=== PATIENT | male | born 1940 | race Caucasian/White ===

== ENCOUNTER 2016-11-30 02:42 | Inpatient (IN) | payer MEDICARE ==
[~2016-11-30] VITALS: Ht 180.3 cm; Wt 80.0 kg
[2016-11-30] VITALS (21 sets, daily range): BP systolic 122–190; BP diastolic 60–88; PULSE 67–102; RESP 16–20; TEMP 97.3–99.3; O2SAT 94–99
[~2016-11-30 02:42] MED LIST: AMLO5TAB22 PO; ASPI81TA82 PO; CRAN500C2; GLUC10TA3 PO; JANU50TA PO; LEVO137T2 PO; LISI-366 PO; NEUR600T PO; OMEG100010; PRAV40TA2 PO; PROSCAP7; PROT40TA PO
[2016-11-30] MEDS ORDERED: SODIUM CHLORIDE 0.9% FLUSH 10 ML FLUSH IVF PRN (03:00)
[2016-11-30] MEDS ORDERED: SITA50 PO (03:10)
[2016-11-30] MEDS ORDERED: ASPI81TA81 (03:10)
[2016-11-30] MEDS ORDERED: CRAN1TAB3 (03:10)
[2016-11-30] MEDS ORDERED: LEVO137T2 PO (03:10)
[2016-11-30] MEDS ORDERED: AMLO5TAB2 PO (03:10)
[2016-11-30] MEDS ORDERED: LISI40TA PO (03:10)
[2016-11-30] MEDS ORDERED: GLIP10TA6 PO (03:10)
[2016-11-30] MEDS ORDERED: GABA600T PO (03:10)
[2016-11-30] MEDS ORDERED: PRAV40TA2 PO (03:10)
[2016-11-30 03:22] LABS: AUTOMATED NEUTROPHIL # 4.3 TH/MM3 (1.8-7.7); BASOPHIL # 0.1 TH/MM3 (0-0.2); EOSINOPHIL # 0.1 TH/MM3 (0-0.4); EOSINOPHIL % 1.9 % (0.0-4.0); HEMATOCRIT 21.3 % (39.0-51.0); LYMPHOCYTE # 1.2 TH/MM3 (1.0-4.8); MEAN CELL VOLUME 77.8 FL (80.0-100.0); MEAN CORPUSCULAR HEMOGLOBIN 25.3 PG (27.0-34.0); MEAN CORPUSCULAR HGB CONC 32.5 % (32.0-36.0); MONO % 11.6 % (0.0-8.0); NEUT % 66.5 % (16.0-70.0); PLATELET COUNT 226 TH/MM3 (150-450); RED BLOOD COUNT 2.73 MIL/MM3 (4.50-5.90); RED CELL DISTRIBUTION WIDTH 16.9 % (11.6-17.2); WHITE BLOOD COUNT 6.5 TH/MM3 (4.0-11.0)
[2016-11-30 03:23] LABS: HEMO FLAGS DIFF FINAL
[2016-11-30 03:36] LABS: APTT (PATIENT) 25.3 SEC (24.3-30.1); PROTHROMBIN TIME - PATIENT 10.8 SEC (9.8-11.6)
[2016-11-30] MEDS ORDERED: SODIUM CHLOR 0.9% 250 ML INJ 250 ML IV ONE (03:45)
[2016-11-30 03:49] LABS: ALT (GPT) 20 U/L (12-78); ANION GAP 9 MEQ/L (5-15); AST (GOT) 15 U/L (15-37); BICARBONATE 22.4 MEQ/L (21.0-32.0); BLOOD UREA NITROGEN 32 MG/DL (7-18); CHLORIDE 108 MEQ/L (98-107); GLOMERULAR FILTRATION RATE 27 ML/MIN (>89); POTASSIUM 4.7 MEQ/L (3.5-5.1); SODIUM (NA) 139 MEQ/L (136-145)
[2016-11-30 03:51] LABS: ALKALINE PHOSPHATASE 68 U/L (45-117); TOTAL BILIRUBIN ADULT 0.3 MG/DL (0.2-1.0)
--- NOTE | 2016-11-30 04:44 | PD ---
HPI Chief Complaint: GI Complaint Time Seen by Provider: 02:52 Travel History International Travel<30 days: No Contact w/Intl Traveler<30days: No Traveled to known affect area: No History of Present Illness HPI Patient is a 75-year-old male presents emergency department for evaluation of rectal bleeding. Patient states late last night approximately 12 hours ago the patient had a large bowel movement followed nothing but blood. He states that one time in the past he had something similar and was admitted to the hospital for but does not know what his ultimate diagnosis was. Review the records shows that he was admitted in 2016 for GI bleeding did need multiple transfusions and ultimately had an endoscopy yielding advanced gastritis. Patient does state he has a drinking history but no longer drinks heavily. Denies any history of varices. He has not had a colonoscopy in some time. He also endorses some mild shortness of breath particularly on exertion. He had his labs drawn days ago at the [place] and has the labs with him and his hemoglobin was 8.4 at that time. He denies any abdominal pain nausea or vomiting. Denies any blood in the emesis. PFSH Past Medical History Asthma: No Blood Disorders: No Heart Rhythm Problems: No Cancer: No Cardiovascular Problems: Yes High Cholesterol: Yes Chest Pain: No Congestive Heart Failure: No COPD: Yes Diabetes: Yes Patient Takes Glucophage: Yes Diminished Hearing: No Endocrine: Yes Gastrointestinal Disorders: Yes (GI BLEED) Genitourinary: No Hypertension: Yes Immune Disorder: No Implanted Vascular Access Dvce: Yes Musculoskeletal: No Neurologic: Yes (NEUROPATHY) Psychiatric: No Reproductive: No Respiratory: Yes Immunizations Current: Yes Sleep Apnea: No Thyroid Disease: No Tetanus Vaccination: Unknown Influenza Vaccination: Yes Past Surgical History Appendectomy: Yes Body Medical Devices: PINS IN RIGHT ARM Tonsillectomy: Yes Other Surgery: Yes (RT ARM FX REPAIR, SINUS SX) Social History Alcohol Use: No (quit x3 years) Tobacco Use: No Substance Use: No Allergies-Medications (Allergen,Severity, Reaction): Coded Allergies: Sulfa (Verified Allergy, Intermediate, Edema, 11/30/16) Reported Meds & Prescriptions Reported Meds & Active Scripts Active Reported Januvia (Sitagliptin Phosphate) 50 Mg Tab 50 Mg PO DAILY Pravastatin 40 Mg Tab 40 Mg PO DAILY Lisinopril 40 Mg Tab 40 Mg PO DAILY Levothyroxine (Levothyroxine Sodium) 137 Mcg Tab 137 Mcg PO DAILY Glipizide 10 Mg Tab 10 Mg PO BIDAC Take 30 minutes before a meal Gabapentin 600 Mg Tab 600 Mg PO BID Sm Cranberry (Cranberry (Vaccinium Macrocarp) 500 Mg Tab Aspir-81 (Aspirin) 81 Mg Tabdr Amlodipine (Amlodipine Besylate) 5 Mg Tab 5 Mg PO DAILY Review of Systems Except as stated in HPI: all other systems reviewed are Neg Physical Exam Narrative GENERAL: Well-developed well-nourished, quite pleasant in no distress. SKIN: Focused skin assessment warm/dry. HEAD: Atraumatic. Normocephalic. EYES: Pupils equal and round. No scleral icterus. No injection or drainage. ENT: No nasal bleeding or discharge. Mucous membranes pink and moist. NECK: Trachea midline. No JVD. CARDIOVASCULAR: Regular rate and rhythm. No murmur appreciated. RESPIRATORY: No accessory muscle use. Clear to auscultation. Breath sounds equal bilaterally. GASTROINTESTINAL: Abdomen soft, non-tender, nondistended. Hepatic and splenic margins not palpable. rectal: Rectal exam shows gross blood mixed with stool Hemoccult positive. No hemorrhoids no rectal mass and no anal fissure. Prostate smooth.. MUSCULOSKELETAL: No obvious deformities. No clubbing. No cyanosis. No edema. NEUROLOGICAL: Awake and alert. No obvious cranial nerve deficits. Motor grossly within normal limits. Normal speech. PSYCHIATRIC: Appropriate mood and affect; insight and judgment normal. Data Data Last Documented VS Vital Signs Date Time Temp Pulse Resp B/P Pulse Ox O2 Delivery O2 Flow Rate FiO2 11/30/16 03:20 91 18 162/65 98 Nasal Cannula 2 11/30/16 02:46 97.8 Orders Complete Blood Count With Diff (11/30/16 02:52) Comprehensive Metabolic Panel (11/30/16 02:52) Prothrombin Time / Inr (Pt) (11/30/16 02:52) Act Partial Throm Time (Ptt) (11/30/16 02:52) Urinalysis - C+S If Indicated (11/30/16 02:52) Type And Screen (11/30/16 02:52) Ecg Monitoring (11/30/16 02:52) Iv Access Insert/Monitor (11/30/16 02:52) Oximetry (11/30/16 02:52) Sodium Chloride 0.9% Flush (Ns Flush) (11/30/16 03:00) Red Blood Cells (Rbc) (11/30/16 03:42) Blood Product Administration .UPON TRANSFUSION (11/30/16 03:42) Sodium Chlor 0.9% 250 Ml Inj (Ns 250 Ml (11/30/16 03:45) Pantoprazole Inj (Protonix Inj) (11/30/16 04:45) Admit Order (Ed Use Only) (11/30/16 ) Labs Laboratory Tests Test 11/30/16 11/30/16 03:05 03:42 White Blood Count 6.5 TH/MM3 Red Blood Count 2.73 MIL/MM3 Hemoglobin 6.9 GM/DL Hematocrit 21.3 % Mean Corpuscular Volume 77.8 FL Mean Corpuscular Hemoglobin 25.3 PG Mean Corpuscular Hemoglobin 32.5 % Concent Red Cell Distribution Width 16.9 % Platelet Count 226 TH/MM3 Mean Platelet Volume 9.6 FL Neutrophils (%) (Auto) 66.5 % Lymphocytes (%) (Auto) 19.0 % Monocytes (%) (Auto) 11.6 % Eosinophils (%) (Auto) 1.9 % Basophils (%) (Auto) 1.0 % Neutrophils # (Auto) 4.3 TH/MM3 Lymphocytes # (Auto) 1.2 TH/MM3 Monocytes # (Auto) 0.8 TH/MM3 Eosinophils # (Auto) 0.1 TH/MM3 Basophils # (Auto) 0.1 TH/MM3 CBC Comment DIFF FINAL Differential Comment Prothrombin Time 10.8 SEC Prothromb Time International 1.0 RATIO Ratio Activated Partial 25.3 SEC Thromboplast Time Sodium Level 139 MEQ/L Potassium Level 4.7 MEQ/L Chloride Level 108 MEQ/L Carbon Dioxide Level 22.4 MEQ/L Anion Gap 9 MEQ/L Blood Urea Nitrogen 32 MG/DL Creatinine 2.36 MG/DL Estimat Glomerular Filtration 27 ML/MIN Rate Random Glucose 317 MG/DL Calcium Level 8.6 MG/DL Total Bilirubin 0.3 MG/DL Aspartate Amino Transf 15 U/L (AST/SGOT) Alanine Aminotransferase 20 U/L (ALT/SGPT) Alkaline Phosphatase 68 U/L Total Protein 6.8 GM/DL Albumin 3.4 GM/DL Blood Type AB POSITIVE Antibody Screen NEGATIVE Crossmatch Leukocyte-Reduced Red Blood Cells Blood Bank Comment MDM Medical Decision Making Medical Screen Exam Complete: Yes Emergency Medical Condition: Yes Differential Diagnosis GI bleeding, anemia, diverticulosis, there seems less likely, upper GI bleed seems less likely. Narrative Course Patient was roomed in emergency department, hemoglobin on 23 November was 8.4 today 6.9. He also does have an acute kidney injury with a creatinine 2.4. Patient has indications for transfusion. After risks benefits competitions and alternatives of blood transfusion were discussed the patient he verbalized understanding the risks and agreed to proceed. 2 units PRBCs transfused. Patient does have gross blood on rectal exam. He is hemodynamically stable. Quite pleasant. I discussed his previous admission as well as his admission now with him and he is agreeable. Patient was discussed with Jasen Vasquez will be admitted to Dr. Brewster service. Diagnosis Primary Impression: GI bleed Qualified Code: K92.2 - Gastrointestinal hemorrhage, unspecified gastrointestinal hemorrhage type Additional Impression: Blood loss anemia Admitting Information Admitting Physician Requests: Admit Condition: Devon Gallegos MD November 30, 2016 04:44
[2016-11-30] MEDS ORDERED: PANTOPRAZOLE SODIUM 40 MG VIAL IV PUSH ONE (04:45)
[2016-11-30] MEDS: SODIUM CHLOR 0.9% 1000 ML INJ 1,000 ML IV SCH ×2 (05:43→17:39)
[2016-11-30] MEDS ORDERED: ACETAMINOPHEN 325 MG TAB PO PRN (05:45)
[2016-11-30] MEDS ORDERED: SENNOSIDES 8.6 MG TAB PO PRN (05:45)
[2016-11-30] MEDS ORDERED: ONDANSETRON HCL 4 MG/2 ML VIAL IVP PRN (05:45)
[2016-11-30] MEDS ORDERED: SODIUM CHLORIDE 0.9% FLUSH 10 ML FLUSH IV FLUSH PRN (05:45)
[2016-11-30] MEDS ORDERED: NALOXONE HCL 0.4 MG/ML AMP IV PRN (05:45)
--- NOTE | 2016-11-30 08:53 | MH ---
cc: DASHAWN ORTEZ DATE OF ADMISSION 11/30/2016 DATE OF 1940 CHIEF COMPLAINT Rectal bleeding TRAVEL IN THE LAST 30 DAYS None HISTORY OF PRESENT ILLNESS This is a pleasant 75 year-old male who has noted some tired sensation over the past couple of weeks. The patient states that if he tries to do anything as far as ambulation, mobility or exercise, he has to sit down and rest. He does note some shortness of breath and he describes his lungs as burning. The patient yesterday evening was walking around in his home and initially had a cramping sensation and felt like he had to have a bowel movement. When he went to the bathroom, he had what he described as bright red bleeding which squirted out. The patient notes that he did that twice last night in a very short period of time and came to the emergency room for further evaluation. The patient has been on aspirin at home for cardiac reasons and states that he did have some rectal bleeding approximately a year ago. He had a full work up at that time, but states they never found any cause for the bleeding. The patient is currently alert, oriented times three. He is a good historian. He is a diabetic type 2, but takes no insulin at home. The patient [facility] and explained his symptoms of tiredness and shortness of breath to his doctor. A hemoglobin was checked in the office which was 8.6. MEDICAL HISTORY According to patient and the record: 1. Cardiovascular disease 2. Hyperlipidemia 3. COPD 4. Diabetes type 2. He takes Glucophage for that. 5. He has had a history approximately a year ago of a GI bleed. 6. Hypertension 7. Diabetic neuropathy 8. Thyroid disease SURGICAL HISTORY 1. Tonsillectomy 2. Appendectomy 3. Right arm fracture and repair 4. Sinus surgery 5. He also has pins in his right arm. ALLERGIES SULFA MEDICATIONS REPORTED 1. Januvia 2. Pravastatin 3. Lisinopril 4. Levothyroxine 5. Glipizide 6. Gabapentin 7. Cranberry tablets 8. Aspirin 9. Amlodipine SOCIAL HISTORY The patient is not a tobacco user. No illicit drugs. He used to drink alcohol, but quit approximately three years ago. He is and lives alone. REVIEW OF SYSTEMS A 12-point review was obtained with the positives noted in the HPI which include his tired sensation with some shortness of breath and his lungs burning, acute onset of rectal bleeding last night times two, obesity, loose bowel movements times two last night. Other systems negative or unremarkable. PHYSICAL EXAM VITAL SIGNS: Temperature is 97.8, pulse 80, respirations 19, blood pressure now 122/69. Initially on admission, blood pressure was 136/63, temp was 98.8. O2 sat is 98 nasal cannula at two liters. GENERAL: This is an obese white male who looks to be his stated age. He is alert and conversational resting in the bed. SKIN: Pales with pale mucous membranes, but warm and dry. Turgor is adequate for his age. HEAD, EYES, EARS, NOSE, AND THROAT: Atraumatic, normocephalic. PERRLA at 2 mm. Mucous membranes are slightly pale. No scleral icterus. NECK: Thick, supple. HEART: Regular rate and rhythm. S1 and S2, systolic murmur noted grade 4/6 at the left sternal border. The patient has no edema in his lower extremities and his pulses are palpable. PULMONARY: Essentially clear anteriorly and posteriorly with no wheezes, rales or rhonchi. ABDOMEN: Obese, round, soft, nontender with active bowel sounds, nondistended. MUSCULOSKELETAL: He moves all extremities with purpose. He has equal hand disintegrator feeder. He has no obvious deformities. NEUROLOGIC: Alert and oriented times three to four, a fairly good historian. No obvious neurological deficits. Left and right strength check 4/5, overcomes resistance. PSYCHIATRIC: Appropriate mood and affect. Insight and judgment is normal. DIAGNOSTIC DATA WBC count 6.5, RBC 2.73, hemoglobin 6.9, hematocrit 21.3. MCV 77.8, MCH 25.3, platelet count 226, diff elevation is monocyte percentage at 11.6, PT-INR is 1. Chemistry, sodium 139, potassium 4.7, chloride 108, carbon dioxide 22.4, amnion gap 9, BUN 32, creatinine 2.26, GFR 27, random glucose 317, calcium, bilirubin and liver enzymes are normal, albumin is 3.4. ASSESSMENT AND PLAN 1. Acute blood loss with GI bleed. 2. Diabetes mellitus type 2 uncontrolled. 3. History of COPD. 4. Cardiac murmur with history of cardiovascular disease. 5. History of hyperlipidemia. 6. Acute kidney injury. Our plan is to admit initially for observation. The patient receives gentle hydration with IV fluids, IV Protonix was given times one. O2 will be managed at two liters as needed. DVT prophylaxis with SCD's. Activity can be out of bed as tolerated, but only with assistance. Vital signs will be every four hours or less as warranted. The patient has two units of packed RBC's ordered. He is almost completed with his first unit. After the two units are given, we will recheck his hemoglobin and evaluate treatment regimen based on lab results. The patient did receive the influenza vaccine and the pneumococcal vaccine while in the hospital. GI consult has been ordered for their expert opinion. The patient is being maintained NPO for now pending the GI consult for any further testing needed today. The patient is full code, full aggressive care. We will also put him on Accu-Chek's and a moderate level sliding scale to control blood sugars. After hydration and blood products, we will re-evaluate his labs in the morning for any further needs and monitor his kidney function. Dictated by RALPH Sanchez Dashawn Ortez MD JP/KAYLIE /8:13 AM /8:30 AM Patient seen and examined as above Chart reviewed including meds labs and radiological data Previous notes reviewed Discussed with patient On of care discussed with CANCELING MACHINE OPERATOR as above Discussed with RN Condition guarded MTDD
[2016-11-30] MEDS: SODIUM CHLORIDE 0.9% FLUSH 10 ML FLUSH IV FLUSH SCH ×2 (10:15→20:27)
--- NOTE | 2016-11-30 13:18 | PD.CONS ---
HPI History of Present Illness This is a 75 year old [gentleman] [facility] having a BM with alot of blood in it. The blood was bright red, in the toilet bowl. He has never had this before. he admits to dark tarry stools periodically in the last "months", cannot further qualify timing on this. [facility] told him yesterday that his Hgb was 8.6. He has been feeling tired in the last few weeks and had some decreased activity intolerance. He admits acid reflux, he takes omeprazole and it controls his sx. Denies abdominal pain, n/v, weight loss, diarrhea, constipation. His last colonoscopy was with Dr Coyne, he thinks 1-2 y ago, he says he was told to repeat in 5 y. He had EGD last time he was in the hospital but cant remember which hospital, 2y ago, he had gone to ER for "stomach problems." Cannot recall findings. PFSH Past Medical History DM he says he's been told he has heart issues but he doesn't take anything per his medical records: HTN hyperlipidemia hypothyroid Past Surgical History repair right broken arm appendectomy cataracts Coded Allergies: Sulfa (Verified Allergy, Intermediate, Edema, 11/30/16) Medications Current Medications Medications (Trade) Dose Ordered Sig/Roxanne Route PRN Reason Start Time Stop Time Status Last Admin Dose Admin Sodium Chloride 250 ml @ 15 mls/hr ONCE ONCE IV 11/30/16 03:45 11/30/16 20:24 11/30/16 04:49 Sodium Chloride (NS 1000 ml Inj) 1,000 ml @ 100 mls/hr Q10H IV 11/30/16 05:43 Sodium Chloride (NS Flush) 2 ml UNSCH PRN IV FLUSH FLUSH AFTER USING IV ACCESS 11/30/16 05:45 Sodium Chloride (NS Flush) 2 ml BID IV FLUSH 11/30/16 09:00 11/30/16 10:15 Acetaminophen (Tylenol) 650 mg Q4H PRN PO TEMP > 100.4 11/30/16 05:45 Ondansetron HCl (Zofran Inj) 4 mg Q6H PRN IVP NAUSEA OR VOMITING 11/30/16 05:45 Sennosides (Senokot) 17.2 mg Q12H PRN PO CONSTIPATION 5/17/17 05:45 Naloxone HCl (Narcan Inj) 0.4 mg UNSCH PRN IV SEE LABEL COMMENTS 11/30/16 05:45 Influenza Virus Vaccine (Flu (Quadrivalent) Vaccine Inj) 0.5 ml ONCE ONCE IM 12/01/16 09:00 12/01/16 09:01 Pneumococcal Polyvalent Vaccine (Pneumovax-23 Inj) 25 mcg ONCE ONCE IM 12/01/16 09:00 12/01/16 09:01 Pantoprazole Sodium (Protonix Inj) 40 mg Q24H IV PUSH 12/01/16 05:00 Family History father - colon ca mother - emphysema brother - agent orange Social History former drinker - "alot", none in 3y quit smoking 1987 no drugs Review of Systems Constitutional: DENIES: Fever Eyes: DENIES: Blurred vision Ears, nose, mouth, throat: DENIES: Hearing loss Respiratory: COMPLAINS OF: Sputum production, DENIES: Hemoptysis Cardiovascular: DENIES: Chest pain Gastrointestinal: COMPLAINS OF: Black stools, Bloody stools, Heartburn, DENIES : Abdominal pain, Constipation, Diarrhea, Nausea, Vomiting, Anorexia, Hematemesis Genitourinary: COMPLAINS OF: Hematuria Musculoskeletal: DENIES: Muscle aches Integumentary: DENIES: Abnormal pigmentation Hematologic/lymphatic: DENIES: Bruising Neurologic: DENIES: Abnormal gait Psychiatric: DENIES: Confusion GI Exam Vitals I&O Vital Signs Date Time Temp Pulse Resp B/P Pulse Ox O2 Delivery O2 Flow Rate FiO2 11/30/16 12:32 98.4 77 19 144/73 95 11/30/16 11:26 67 133/65 94 11/30/16 11:16 71 137/66 96 11/30/16 10:56 98.4 81 138/66 95 11/30/16 10:54 78 138/66 95 11/30/16 07:52 98 Nasal Cannula 2.00 11/30/16 07:45 97.8 80 19 122/69 95 11/30/16 07:30 97.8 80 19 122/69 95 11/30/16 06:16 75 18 145/63 98 Nasal Cannula 2 11/30/16 05:38 79 18 132/62 98 Nasal Cannula 2 11/30/16 05:23 80 18 129/60 98 Nasal Cannula 2 11/30/16 05:12 98.8 82 18 136/63 98 Nasal Cannula 2 11/30/16 05:07 80 18 136/63 98 Nasal Cannula 2 11/30/16 05:02 99.3 81 18 153/64 98 Nasal Cannula 2 11/30/16 03:20 91 18 162/65 98 Nasal Cannula 2 11/30/16 03:15 16 11/30/16 03:15 16 11/30/16 02:46 97.8 102 18 187/80 98 Laboratory Test 11/30/16 11/30/16 03:05 03:42 White Blood Count 6.5 TH/MM3 Red Blood Count 2.73 MIL/MM3 Hemoglobin 6.9 GM/DL Hematocrit 21.3 % Mean Corpuscular Volume 77.8 FL Mean Corpuscular Hemoglobin 25.3 PG Mean Corpuscular Hemoglobin 32.5 % Concent Red Cell Distribution Width 16.9 % Platelet Count 226 TH/MM3 Mean Platelet Volume 9.6 FL Neutrophils (%) (Auto) 66.5 % Lymphocytes (%) (Auto) 19.0 % Monocytes (%) (Auto) 11.6 % Eosinophils (%) (Auto) 1.9 % Basophils (%) (Auto) 1.0 % Neutrophils # (Auto) 4.3 TH/MM3 Lymphocytes # (Auto) 1.2 TH/MM3 Monocytes # (Auto) 0.8 TH/MM3 Eosinophils # (Auto) 0.1 TH/MM3 Basophils # (Auto) 0.1 TH/MM3 CBC Comment DIFF FINAL Differential Comment Prothrombin Time 10.8 SEC Prothromb Time International 1.0 RATIO Ratio Activated Partial 25.3 SEC Thromboplast Time Sodium Level 139 MEQ/L Potassium Level 4.7 MEQ/L Chloride Level 108 MEQ/L Carbon Dioxide Level 22.4 MEQ/L Anion Gap 9 MEQ/L Blood Urea Nitrogen 32 MG/DL Creatinine 2.36 MG/DL Estimat Glomerular Filtration 27 ML/MIN Rate Random Glucose 317 MG/DL Calcium Level 8.6 MG/DL Total Bilirubin 0.3 MG/DL Aspartate Amino Transf 15 U/L (AST/SGOT) Alanine Aminotransferase 20 U/L (ALT/SGPT) Alkaline Phosphatase 68 U/L Total Protein 6.8 GM/DL Albumin 3.4 GM/DL Blood Type AB POSITIVE Antibody Screen NEGATIVE Crossmatch Leukocyte-Reduced Red Blood Cells Blood Bank Comment Physical Examination HEENT: EOMI; normocephalic; atraumatic; no jaundice. CHEST: wheezes CARDIAC: Regular rate and rhythm with + murmur ABDOMEN: Soft, obese, nontender; no hepatosplenomegaly; bowel sounds are present in all four quadrants. EXTREMITIES: No clubbing, cyanosis, or edema. SKIN: Normal; no rash; no jaundice. DIRECTOR OF MANUFACTURING: No focal deficits; alert and oriented times three. Assessment and Plan Plan ASSESSMENT - Anemia, tarry stool, hematochezia - 6.9, 21.3 on admission. s/p 2 x PRBC. Had 1 x BM with copious bright red bloodin bowl, hx tarry stools in past "months ". Fatigue and activity intolerance for last few weeks. PLAN - colonoscopy and EGD in am - obtain consents - clears now - NPO after midnight - monitor HH - transfuse as needed - Further recommendations to follow after results of above This pt seen by myself and DR Pacheco and this note is written on his behalf Vonnie Salazar November 30, 2016 13:18
[2016-11-30] MEDS ORDERED: PEG (High)/E-LYTE SOLN 4000 ML BTL PO ONE (16:00)
[2016-12-01] MEDS ORDERED: cloNIDine HCL 0.1 MG TAB PO PRN (00:30)
[2016-12-01] MEDS: SODIUM CHLOR 0.9% 1000 ML INJ 1,000 ML IV SCH ×3 (01:37→21:10)
[2016-12-01 01:42] LABS: HEMATOCRIT 23.8 % (39.0-51.0); REVIEW FLAG FINAL
[2016-12-01 05:05] LABS: HEMATOCRIT 24.4 % (39.0-51.0); MEAN CELL VOLUME 80.1 FL (80.0-100.0); MEAN CORPUSCULAR HEMOGLOBIN 25.1 PG (27.0-34.0); MEAN CORPUSCULAR HGB CONC 31.3 % (32.0-36.0); PLATELET COUNT 179 TH/MM3 (150-450); RED BLOOD COUNT 3.04 MIL/MM3 (4.50-5.90); RED CELL DISTRIBUTION WIDTH 17.3 % (11.6-17.2); REVIEW FLAG FINAL; WHITE BLOOD COUNT 6.3 TH/MM3 (4.0-11.0)
[2016-12-01 05:36] LABS: BICARBONATE 25.6 MEQ/L (21.0-32.0); POTASSIUM 4.7 MEQ/L (3.5-5.1)
[2016-12-01] MEDS: PANTOPRAZOLE SODIUM 40 MG VIAL IV PUSH SCH (05:38)
--- NOTE | 2016-12-01 07:59 | HHI.PR ---
Subjective Subjective Remarks bowel prep in progress still with blood in stool HH 7.6/23.8 some abd. discomfort no cp no sob voiding okay going to GI lab at this time Review of Systems Constitutional Constitutional Remarks 12 point ROS completed, negative except as noted above Vitals/Results Vital Signs Vital Signs Date Time Temp Pulse Resp B/P Pulse Ox O2 Delivery O2 Flow Rate FiO2 11/30/16 23:24 97.8 67 18 190/88 97 11/30/16 20:31 99 Nasal Cannula 2.00 11/30/16 17:43 122/66 11/30/16 15:48 97.3 75 20 126/66 97 11/30/16 12:32 98.4 77 19 144/73 95 11/30/16 11:26 67 133/65 94 11/30/16 11:16 71 137/66 96 11/30/16 10:56 98.4 81 138/66 95 11/30/16 10:54 78 138/66 95 CBC/BMP: 12/01/16 0131 12/01/16 0339 Lab Results Laboratory Tests Test 12/01/16 12/01/16 12/01/16 00:39 01:31 03:39 White Blood Count 6.3 TH/MM3 Red Blood Count 3.04 MIL/MM3 Hemoglobin 7.6 GM/DL 7.6 GM/DL Hematocrit 24.4 % 23.8 % Mean Corpuscular Volume 80.1 FL Mean Corpuscular Hemoglobin 25.1 PG Mean Corpuscular Hemoglobin 31.3 % Concent Red Cell Distribution Width 17.3 % Platelet Count 179 TH/MM3 Mean Platelet Volume 9.4 FL Sodium Level 142 MEQ/L Potassium Level 4.7 MEQ/L Chloride Level 111 MEQ/L Carbon Dioxide Level 25.6 MEQ/L Anion Gap 5 MEQ/L Blood Urea Nitrogen 19 MG/DL Creatinine 1.64 MG/DL Estimat Glomerular Filtration 41 ML/MIN Rate Random Glucose 149 MG/DL Calcium Level 8.4 MG/DL Physical Exam General General Appearance: Well Developed, Well Nourished, Comfortable, Pale Eyes Eye Exam: Pupils Equal, Pupils Reactive Ears & Nose Ears & Nose Exam: Nasal Mucosa [place] Throat Throat Exam: Oral Mucosa [place] & Moist Neck Neck Exam: Neck Supple, Trachea Midline Pulmonary Resp Exam: Breath Sounds Equal Cardiology CV Exam: Regular, Murmur Gastrointestinal/Abdomen GI Exam: Soft, Non-Tender, Non-Distended Musculoskeletal MS Exam: Joints Intact Integumentary Skin Exam: Warm, Dry Extremeties Extremities Exam: No Edema Neurologic Neuro Exam: Alert, Awake, Oriented, Speech Clear, Moving All Extremities, No Focal Deficits Psychiatric Psych Exam: Appropriate Responses VTE Prophylaxis VTE Prophylaxis Device: SCDs PUD Prophylasis PUD Prophylaxis: Protonix Assessment/Plan Problem List: (1) GI bleed (2) Blood loss anemia (3) Acute on chronic kidney failure (4) HTN (hypertension) (5) 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 Clayton, stable no cp, no sob monitor closely HTN, elevated resume home meds Continue with Clonidine PRN Add Vasotec PRN, Pt NPO acute on CKD continue IVF creat better hold ADONIS at this time order accuchecks with ISS monitor BGM continue home meds SCDs for DVT prophylaxis PPI for GI prophylaxis f/u GI work up results Labs in am D/W RN D/W Dr. Ortez D/W pt. This pt. was seen by myself and Dr. Ortez, this note is written on his behalf Problem Qualifiers (1) GI bleed: Qualified Code: K92.2 - Gastrointestinal hemorrhage, unspecified gastrointestinal hemorrhage type (2) Acute on chronic kidney failure: (3) HTN (hypertension): Qualified Code: I10 - Essential hypertension (4) Hyperlipidemia: Qualified Code: E78.5 - Hyperlipidemia, unspecified hyperlipidemia type Shilpa Aburto December 01, 2016 07:59
[2016-12-01] MEDS ORDERED: FUROSEMIDE 20 MG/2 ML VIAL IV ONE (08:00)
[2016-12-01] MEDS ORDERED: SODIUM CHLOR 0.9% 250 ML INJ 250 ML IV ONE (08:00)
[2016-12-01] MEDS ORDERED: ENALAPRILAT 1.25 MG/ML VIAL IV PUSH PRN (08:15)
[2016-12-01 08:16] VITALS: BP 173/82; PULSE 82; RESP 23; TEMP 97.5; O2SAT 93
[2016-12-01 08:54] VITALS: BP 173/82; PULSE 82; RESP 23; TEMP 97.5; O2SAT 93
[2016-12-01] MEDS ORDERED: PNEUMOCOCCAL POLYVALENT INJ 25 MCG/0.5 ML SYR IM ONE (09:00)
[2016-12-01] MEDS ORDERED: INFLUENZA VIRUS VACCINE (QUADRIVALENT) 0.5 ML SYR IM ONE (09:00)
[2016-12-01] MEDS ORDERED: DEXTROSE 50% IN WATER 50 ML VIAL(D50) IV PRN (10:15)
[2016-12-01] MEDS ORDERED: GLUCAGON 1 MG/ML VIAL OTHER PRN (10:15)
[2016-12-01] MEDS ORDERED: PROPOFOL 200 MG/20 ML AMP IV ONE (10:20)
--- NOTE | 2016-12-01 11:19 | HHI.GIFU ---
Subjective Remarks Immediate postop note: EGD with biopsy and colonoscopy with ablation of AVM with snare polypectomy Indication: GI bleed, anemia Meds: MAC Findings: Hiatal hernia, barretts esophagus, colon AVM ablated with bipolar, colon polyps removed with snare polypectomy, diverticulosis No fresh blood. Imp: No active bleeding. Colonic AVM and polyps. Diverticulosis. Bleeding may have been due to AVM. Rec: Advance diet to regular. OK for discharge to home if stable tomorrow. Objective Vitals I&O Vital Signs Date Time Temp Pulse Resp B/P Pulse Ox O2 Delivery O2 Flow Rate FiO2 12/01/16 08:54 97.5 82 23 173/82 93 12/01/16 08:16 97.5 82 23 173/82 93 11/30/16 23:24 97.8 67 18 190/88 97 11/30/16 20:31 99 Nasal Cannula 2.00 11/30/16 17:43 122/66 11/30/16 15:48 97.3 75 20 126/66 97 11/30/16 12:32 98.4 77 19 144/73 95 11/30/16 11:26 67 133/65 94 11/30/16 11:16 71 137/66 96 Laboratory Laboratory Tests Test 12/01/16 12/01/16 12/01/16 12/01/16 00:39 01:31 03:39 07:59 White Blood Count 6.3 Red Blood Count 3.04 Hemoglobin 7.6 7.6 Hematocrit 24.4 23.8 Mean Corpuscular Volume 80.1 Mean Corpuscular Hemoglobin 25.1 Mean Corpuscular Hemoglobin 31.3 Concent Red Cell Distribution Width 17.3 Platelet Count 179 Mean Platelet Volume 9.4 Sodium Level 142 Potassium Level 4.7 Chloride Level 111 Carbon Dioxide Level 25.6 Anion Gap 5 Blood Urea Nitrogen 19 Creatinine 1.64 Estimat Glomerular Filtration 41 Rate Random Glucose 149 Calcium Level 8.4 Blood Type AB POSITIVE Crossmatch Leukocyte-Reduced Red Blood Cells Blood Bank Comment Physical Exam HEENT: Pupils round and reactive to light; normocephalic; atraumatic; no jaundice. Throat is clear. NECK: Neck is supple, no JVD, no lymphadenopathy. CHEST: Chest is clear to auscultation and percussion. CARDIAC: Regular rate and rhythm with no murmur gallop or rubs. ABDOMEN: Soft, nondistended, nontender; no hepatosplenomegaly; bowel sounds are present in all four quadrants. EXTREMITIES: No clubbing, cyanosis, or edema. SKIN: Normal; no rash; no jaundice. FNP: No focal deficits; alert and oriented times three. Assessment and Plan Plan ASSESSMENT - Anemia, tarry stool, hematochezia - 6.9, 21.3 on admission. s/p 2 x PRBC. Had 1 x BM with copious bright red bloodin bowl, hx tarry stools in past "months ". Fatigue and activity intolerance for last few weeks. PLAN - colonoscopy and EGD in am - obtain consents - clears now - NPO after midnight - monitor HH - transfuse as needed - Further recommendations to follow after results of above See above recommendations in top section. Gerald Pacheco MD December 01, 2016 11:19
[2016-12-01] MEDS ORDERED: NALOXONE HCL 0.4 MG/ML AMP IV PRN (11:30)
[2016-12-01] MEDS ORDERED: FLUMAZENIL 0.5 MG/5 ML VIAL IV PRN ×2 (11:30)
[2016-12-01] MEDS: SODIUM CHLORIDE 0.9% FLUSH 10 ML FLUSH IV FLUSH SCH ×2 (12:22→21:10)
[2016-12-01 12:48] LABS: HEMATOCRIT 24.5 % (39.0-51.0); REVIEW FLAG FINAL
[2016-12-01] MEDS: INSULIN ASPART SUPPLEMENTAL SCALE SQ SCH ×3 (12:53→21:09)
[2016-12-01 15:31] VITALS: BP 151/70; PULSE 74; RESP 15; TEMP 98.5; O2SAT 93
[2016-12-01 19:45] VITALS: BP 149/81; PULSE 81; RESP 20; TEMP 97.6; O2SAT 97
[2016-12-02] VITALS: BP 170/76; PULSE 83; RESP 20; TEMP 97.8; O2SAT 97
[2016-12-02] MEDS ORDERED: LEVOTHYROXINE SODIUM 25 MCG TAB PO SCH (06:00)
[2016-12-02] MEDS ORDERED: LEVOTHYROXINE SODIUM 112 MCG TAB PO SCH (06:00)
[2016-12-02] MEDS: INSULIN ASPART SUPPLEMENTAL SCALE SQ SCH (06:10)
[2016-12-02] MEDS: PANTOPRAZOLE SODIUM 40 MG VIAL IV PUSH SCH (06:11)
--- NOTE | 2016-12-02 07:16 | MR ---
cc: DARINEL SHAW,DASHAWN DATE 12/01/2016 PROCEDURE Esophagogastroduodenoscopy with biopsy and colonoscopy with ablation of AVM with snare polypectomy. INDICATION GI bleed with anemia. REFERRING PHYSICIAN Dashawn Ortez MD PROCEDURE After informed consent was obtained, the patient was placed in the left side down position. He was sedated by the Anesthesia Service. After adequate sedation was achieved, the Pentax video panendoscope was advanced into the oropharynx and advanced down to the esophagus, stomach and duodenum. It was the slowly withdrawn examining the mucosa surface carefully. Biopsy was taken from the gastric antrum for gastritis. A retroflexed exam was performed in the fundus and cardia. The scope was then straightened and biopsy was obtained at the GE junction for Carmen's esophagus. The scope was then withdrawn out the mouth and the procedure was terminated. A colonoscopy was then performed. The Panendoscope was then advanced into the anal canal and advanced through the colon reaching the base of the cecum. An AVM was present there that was ablated using the bipolar cautery at a setting of 20. There was minimal oozing after the cautery. The scope was then withdrawn into the transverse colon where there were a few polyps removed with cold snare polypectomy. The scope was withdrawn further into the splenic flexure area and a polyp was removed with a hot snare polypectomy. The polyps were recovered and submitted separately. The scope was withdrawn into the rectum. It was retroflexed there, straightened and pulled through the anal canal. The procedure was terminated. He tolerated the procedure well and was returned to the recovery area in good condition. FINDINGS 1. The esophagus appeared normal except for some irregular Z-line extending up a few centimeters. This was biopsied for Carmen's. 2. The stomach antrum showed mild inflammation, a biopsy was obtained there for histology. 3. The duodenum was normal. 4. The cecum contained an AVM that was ablated using bipolar cautery. 5. The transverse colon contained several small polyps removed with cold snare polypectomy and recovered through the scope. 6. The splenic flexure contained a small polyp removed with hot snare polypectomy technique and recovered through the scope. 7. The sigmoid colon contained moderate diverticulosis. 8. The prep was poor and other small polyps cannot be ruled out. IMPRESSION 1. Gastritis and hiatal hernia. 2. Carmen's esophagus 3. Suboptimal prep 4. Cecal AVM ablated 5. Colon polyps, snare polypectomy. 6. Colonic diverticulosis 7. No active bleeding seen during this exam. RECOMMENDATIONS 1. Advance his diet to regular heart healthy. 2. He may be discharged home tomorrow if he remains stable. MD KORI Boswell/KAYLIE /11:25 AM /7:06 AM
[2016-12-02 07:29] LABS: HEMATOCRIT 23.7 % (39.0-51.0); MEAN CELL VOLUME 78.3 FL (80.0-100.0); MEAN CORPUSCULAR HEMOGLOBIN 25.9 PG (27.0-34.0); PLATELET COUNT 190 TH/MM3 (150-450); RED BLOOD COUNT 3.03 MIL/MM3 (4.50-5.90); RED CELL DISTRIBUTION WIDTH 17.2 % (11.6-17.2); REVIEW FLAG FINAL; WHITE BLOOD COUNT 7.3 TH/MM3 (4.0-11.0)
[2016-12-02] MEDS: SODIUM CHLOR 0.9% 1000 ML INJ 1,000 ML IV SCH (07:43)
[2016-12-02 07:52] LABS: POTASSIUM 4.2 MEQ/L (3.5-5.1)
--- NOTE | 2016-12-02 07:55 | HHI.PR ---
Subjective Subjective Remarks S/P EGD/COLONOSCOPY 12/01 tolerated well some lower abd. soreness no n/v no blood in stool no hematemesis tolerated diet well no fever Review of Systems Constitutional Constitutional Remarks 12 point ROS completed, negative except as noted above Vitals/Results Intake & Output 12/01/16 12/01/16 12/02/16 15:00 23:00 07:00 Intake Total 500 ml 220 ml Balance 500 ml 220 ml Intake Oral 220 ml IV Total 500 ml # Voids 3 Vital Signs Vital Signs Date Time Temp Pulse Resp B/P Pulse Ox O2 Delivery O2 Flow Rate FiO2 12/02/16 00:00 97.8 83 20 170/76 97 12/01/16 21:29 21 12/01/16 19:45 97.6 81 20 149/81 97 12/01/16 15:31 98.5 74 15 151/70 93 12/01/16 11:25 67 16 125/69 96 12/01/16 11:20 71 16 133/69 94 12/01/16 11:14 97.7 73 16 95 12/01/16 08:54 97.5 82 23 173/82 93 12/01/16 08:16 97.5 82 23 173/82 93 CBC/BMP: 12/02/16 0612 12/02/16 0612 Lab Results Laboratory Tests Test 12/01/16 12/01/16 12/02/16 07:59 12:18 06:12 Blood Type AB POSITIVE Crossmatch Leukocyte-Reduced Red Blood Cells Blood Bank Comment Hemoglobin 7.9 GM/DL 7.8 GM/DL Hematocrit 24.5 % 23.7 % White Blood Count 7.3 TH/MM3 Red Blood Count 3.03 MIL/MM3 Mean Corpuscular Volume 78.3 FL Mean Corpuscular Hemoglobin 25.9 PG Mean Corpuscular Hemoglobin 33.0 % Concent Red Cell Distribution Width 17.2 % Platelet Count 190 TH/MM3 Mean Platelet Volume 10.0 FL Sodium Level 141 MEQ/L Potassium Level 4.2 MEQ/L Chloride Level 107 MEQ/L Carbon Dioxide Level 24.0 MEQ/L Anion Gap 10 MEQ/L Blood Urea Nitrogen 19 MG/DL Creatinine 1.63 MG/DL Estimat Glomerular Filtration 42 ML/MIN Rate Random Glucose 177 MG/DL Calcium Level 8.6 MG/DL Physical Exam General General Appearance: Well Developed, Well Nourished, Comfortable, Pale Eyes Eye Exam: Pupils Equal, Pupils Reactive Ears & Nose Ears & Nose Exam: Nasal Mucosa [place] Throat Throat Exam: Oral Mucosa [place] & Moist Neck Neck Exam: Neck Supple, Trachea Midline Pulmonary Resp Exam: Breath Sounds Equal Cardiology CV Exam: Regular, Murmur Gastrointestinal/Abdomen GI Exam: Soft, Non-Tender, Non-Distended Musculoskeletal MS Exam: Joints Intact Integumentary Skin Exam: Warm, Dry Extremeties Extremities Exam: No Edema Neurologic Neuro Exam: Alert, Awake, Oriented, Speech Clear, Moving All Extremities, No Focal Deficits Psychiatric Psych Exam: Appropriate Responses VTE Prophylaxis VTE Prophylaxis Device: SCDs PUD Prophylasis PUD Prophylaxis: Protonix Assessment/Plan Problem List: (1) GI bleed (2) Blood loss anemia (3) Acute on chronic kidney failure (4) HTN (hypertension) (5) Valvular disease (6) Diabetes 1.5, managed as type 2 (7) Hyperlipidemia Assessment/Plan GI bleed s/p PRBC x 2, f/u HH 7.6/23.8 may need more PRBC will repeat HH at 12 noon appreciate GI input continue PPI S/P EGD and colonoscopy 12/01: 1. Gastritis and hiatal hernia. 2. Carmen's esophagus 3. Suboptimal prep 4. Cecal AVM ablated 5. Colon polyps, snare polypectomy. 6. Colonic diverticulosis 7. No active bleeding seen during this exam. tolerated proc. well, no bleeding, HH trending up, hgb 7.9 on heart healthy diet ok for dc per GI valvular disease, f/u with Dr. Clayton, stable no cp, no sob monitor closely HTN, elevated-better continuehome meds Continue with Clonidine PRN Vasotec PRN acute on CKD continue IVF creat better hold ADONIS at this time order accuchecks with ISS monitor BGM SCDs for DVT prophylaxis PPI for GI prophylaxis labs improving no active bleeding tolerating diet stable for discharge. Discharge home today F/U GI 2 weeks F/U PCP Repeat cbc in one week Diet-heart healthy Activity-as tolerated D/W RN D/W Dr. Ortez D/W pt. This pt. was seen by myself and Dr. Ortez, this note is written on his behalf Problem Qualifiers (1) GI bleed: Qualified Code: K92.2 - Gastrointestinal hemorrhage, unspecified gastrointestinal hemorrhage type (2) Acute on chronic kidney failure: (3) HTN (hypertension): Qualified Code: I10 - Essential hypertension (4) Hyperlipidemia: Qualified Code: E78.5 - Hyperlipidemia, unspecified hyperlipidemia type Shilpa Aburto December 02, 2016 07:55
[2016-12-02 08:00] VITALS: BP 168/76; PULSE 79; RESP 17; TEMP 98.4; O2SAT 97
--- NOTE | 2016-12-02 08:39 | HHI.DCPOC ---
Discharge Care Plan Diagnosis: (1) Blood loss anemia (2) GI bleed (3) Acute on chronic kidney failure Your Health Problems Are: Bleeding Tendency Goals to Promote Your Health * To prevent worsening of your condition and complications * To maintain your health at the optimal level Directions to Meet Your Goals Take your medications as prescribed Follow your dietary instruction Follow activity as directed Keep your appointments as scheduled Take your immunizations and boosters as scheduled If your symptoms worsen call your PCP, if no PCP go to Urgent Care Center or Emergency Room Smoking is Dangerous to Your Health. Avoid second hand smoke Call the 24-hour hour crisis hotline for domestic abuse at Shilpa Aburto. [facility] December 02, 2016 08:39
[2016-12-02] MEDS: SODIUM CHLORIDE 0.9% FLUSH 10 ML FLUSH IV FLUSH SCH (09:00)
[2016-12-02] MEDS ORDERED: amLODIPine BESYLATE 5 MG TAB PO SCH (09:00)
--- NOTE | 2016-12-02 19:22 | HHI.DS ---
Discharge Summary Admission Date December 01, 2016 at 10:12 Discharge Date: December 02, 2016 Admitting Diagnosis GI bleeding, Symptomatic Anemia (1) GI bleed (2) Acute on chronic kidney failure (3) Hyperlipidemia (4) Valvular disease (5) Diabetes 1.5, managed as type 2 (6) HTN (hypertension) (7) Blood loss anemia CBC/BMP: 12/02/16 0612 12/02/16 0612 Significant Findings Laboratory Tests Test 11/30/16 12/01/16 12/01/16 12/01/16 03:05 00:39 01:31 03:39 Red Blood Count 2.73 MIL/MM3 3.04 MIL/MM3 (4.50-5.90) (4.50-5.90) Hemoglobin 6.9 GM/DL 7.6 GM/DL 7.6 GM/DL (13.0-17.0) (13.0-17.0) (13.0-17.0) Hematocrit 21.3 % 24.4 % 23.8 % (39.0-51.0) (39.0-51.0) (39.0-51.0) Mean Corpuscular Volume 77.8 FL (80.0-100.0) Mean Corpuscular Hemoglobin 25.3 PG 25.1 PG (27.0-34.0) (27.0-34.0) Monocytes (%) (Auto) 11.6 % (0.0-8.0) Chloride Level 108 MEQ/L 111 MEQ/L (98-107) (98-107) Blood Urea Nitrogen 32 MG/DL (7-18) 19 MG/DL (7-18) Creatinine 2.36 MG/DL 1.64 MG/DL (0.60-1.30) (0.60-1.30) Estimat Glomerular Filtration 27 ML/MIN (>89) 41 ML/MIN (>89) Rate Random Glucose 317 MG/DL 149 MG/DL (74-106) (74-106) Mean Corpuscular Hemoglobin 31.3 % Concent (32.0-36.0) Red Cell Distribution Width 17.3 % (11.6-17.2) Calcium Level 8.4 MG/DL (8.5-10.1) Test 12/01/16 12/02/16 12:18 06:12 Hemoglobin 7.9 GM/DL 7.8 GM/DL (13.0-17.0) (13.0-17.0) Hematocrit 24.5 % 23.7 % (39.0-51.0) (39.0-51.0) Red Blood Count 3.03 MIL/MM3 (4.50-5.90) Mean Corpuscular Volume 78.3 FL (80.0-100.0) Mean Corpuscular Hemoglobin 25.9 PG (27.0-34.0) Blood Urea Nitrogen 19 MG/DL (7-18) Creatinine 1.63 MG/DL (0.60-1.30) Estimat Glomerular Filtration 42 ML/MIN (>89) Rate Random Glucose 177 MG/DL (74-106) Hospital Course This is a pleasant 75 year-old male who has noted some tired sensation over the past couple of weeks. The patient stated that if he tries to do anything as far as ambulation, mobility or exercise, he has to sit down and rest. He does note some shortness of breath and he describes his lungs as burning. The patient yesterday evening was walking around in his home and initially had a cramping sensation and felt like he had to have a bowel movement. When he went to the bathroom, he had what he described as bright red bleeding which squirted out. The patient noted that he did that twice last night in a very short period of time and came to the emergency room for further evaluation. The patient has been on aspirin at home for cardiac reasons and states that he did have some rectal bleeding approximately a year ago. He had a full work up at that time, but states they never found any cause for the bleeding. The patient is currently alert, oriented times three. He is a good historian. He is a diabetic type 2, but takes no insulin at home. The patient did see his [place] doctor yesterday and explained his symptoms of tiredness and shortness of breath to his doctor. A hemoglobin was checked in the office which was 8.6. Evaluated in the ED and found with: DIAGNOSTIC DATA WBC count 6.5, RBC 2.73, hemoglobin 6.9, hematocrit 21.3. MCV 77.8, MCH 25.3, platelet count 226, diff elevation is monocyte percentage at 11.6, PT-INR is 1. Chemistry, sodium 139, potassium 4.7, chloride 108, carbon dioxide 22.4, amnion gap 9, BUN 32, creatinine 2.26, GFR 27, random glucose 317, calcium, bilirubin and liver enzymes are normal, albumin is 3.4. Pt. was admitted for: (1) GI bleed (2) Blood loss anemia (3) Acute on chronic kidney failure (4) HTN (hypertension) (5) Valvular disease (6) Diabetes 1.5, managed as type 2 (7) Hyperlipidemia During the course of the hospitalization, the following took place: Patient was admitted, serial H&H was ordered GI was consulted s/p PRBC x 2, f/u HH 7.6/23.8 GI recommended upper and lower endoscopy. He was put on PPI S/P EGD and colonoscopy 12/01: 1. Gastritis and hiatal hernia. 2. Carmen's esophagus 3. Suboptimal prep 4. Cecal AVM ablated 5. Colon polyps, snare polypectomy. 6. Colonic diverticulosis 7. No active bleeding seen during this exam. tolerated proc. well, no bleeding, HH trending up, hgb 7.9. He not require any more blood. Tolerated diet well, no nausea, no vomiting. Clear for discharge by gastroenterology History of valvular disease, f/u with Dr. Clayton, stable no cp, no sob monitored closely HTN, elevated initial continuehome meds Continue with Clonidine PRN Vasotec PRN added acute on CKD noted on admission. Put on IVF Creatinine improved ADONIS inhibitor held ordered accuchecks with ISS monitored BGM Put on SCDs for DVT prophylaxis and PPI for GI prophylaxis Patient's condition improved, no active bleeding tolerating diet stable for discharge. Discharged home Instructed to: F/U GI 2 weeks F/U PCP Repeat cbc in one week Diet-heart healthy Activity-as tolerated Pt Condition on Discharge: Stable Discharge Disposition: Discharge Home Discharge Instructions DIET: Follow Instructions for: Heart Healthy Diet Activities you can perform: Weight Bearing as Nimisha Follow up Referrals: Gastroenterology with Ree Belle MD Continued Medications: Amlodipine (Amlodipine) 5 Mg Tab 5 MG PO DAILY Blood Pressure Management #30 Ref 0 TAB Cranberry (Vaccinium Macrocarp (Sm Cranberry) 500 Mg Tab Gabapentin (Gabapentin) 600 Mg Tab 600 MG PO BID #60 Ref 0 TAB Glipizide (Glipizide) 10 Mg Tab 10 MG PO BIDAC Take 30 minutes before a meal Blood Sugar Management #60 Ref 0 TAB Levothyroxine (Levothyroxine) 137 Mcg Tab 137 MCG PO DAILY Thyroid #30 Ref 0 TAB Lisinopril (Lisinopril) 40 Mg Tab 40 MG PO DAILY Blood Pressure Management #30 Ref 0 TAB Pravastatin (Pravastatin) 40 Mg Tab 40 MG PO DAILY Cholesterol Management #30 Ref 0 TAB Sitagliptin (Januvia) 50 Mg Tab 50 MG PO DAILY Blood Sugar Management #30 Ref 0 TAB Discontinued Medications: Aspirin (Aspir-81) 81 Mg Tabdr Shilpa Aburto [facility] December 02, 2016 19:22
--- NOTE | 2016-12-02 22:01 | EKG ---
Date Performed: 12/01/2016 Time Performed: 10:10:21 PTAGE: 75 years EKG: Sinus rhythm NONSPECIFIC T-WAVE ABNORMALITY ABNORMAL ECG PREVIOUS TRACING : 03/18/2016 14.31 Compared to prior tracing no significant change DOCTOR: Juan A Sanderson Interpretating Date/Time 12/02/2016 22:00:15
== END 2016-12-02 11:48 | disposition home or self-care (01) | DRG 378 ==
LOC: NEPC 02:42 → NEDA 04:45 → INTOOBSV 04:45 → NEPFCDU 06:24 → OBSVTOIN 12-01 10:12
PROVIDERS: ADMIT Specialist; ATTEND Specialist
PROC: 0DBK8ZX Excision of Ascending Colon, Via Natural or Artificial Opening Endoscopic, Diagnostic (ICD-10-PCS; 2016-12-01)
PROC: 0DBL8ZX Excision of Transverse Colon, Via Natural or Artificial Opening Endoscopic, Diagnostic (ICD-10-PCS; 2016-12-01)
PROC: 0D5H8ZZ Destruction of Cecum, Via Natural or Artificial Opening Endoscopic (ICD-10-PCS; 2016-12-01)
PROC: 30253P1 (ICD-10-PCS; 2016-12-01)
PROC: 0DB48ZX Excision of Esophagogastric Junction, Via Natural or Artificial Opening Endoscopic, Diagnostic (ICD-10-PCS; principal; 2016-12-01 08:54)
PROC: 0DB68ZX Excision of Stomach, Via Natural or Artificial Opening Endoscopic, Diagnostic (ICD-10-PCS; 2016-12-01 08:54)
DX: K62.5 Hemorrhage of anus and rectum (principal); N17.9 Acute kidney failure, unspecified; E11.22 Type 2 diabetes mellitus with diabetic chronic kidney disease; E11.40 Type 2 diabetes mellitus with diabetic neuropathy, unspecified; D50.0 Iron deficiency anemia secondary to blood loss (chronic); K22.70 Barrett's esophagus without dysplasia; I12.9 Hypertensive chronic kidney disease with stage 1 through stage 4 chronic kidney disease, or unspecified chronic kidney disease; N18.9 Chronic kidney disease, unspecified; E78.5 Hyperlipidemia, unspecified; K29.70 Gastritis, unspecified, without bleeding; K44.9 Diaphragmatic hernia without obstruction or gangrene; K57.30 Diverticulosis of large intestine without perforation or abscess without bleeding; K63.5 Polyp of colon; E03.9 Hypothyroidism, unspecified; E11.65 Type 2 diabetes mellitus with hyperglycemia; I25.10 Atherosclerotic heart disease of native coronary artery without angina pectoris; J44.9 Chronic obstructive pulmonary disease, unspecified; K21.9 Gastro-esophageal reflux disease without esophagitis; Q27.33 Arteriovenous malformation of digestive system vessel; Z23 Encounter for immunization
CPT/HCPCS: 36430; 80048; 80053; 82948; 85014; 85018; 85025; 85027; 85610; 85730; 86850; 86900; 86901; 86920; 88305; 93005; C9113; G0378; J1815; J7030; J7050; P9016

== ENCOUNTER 2017-09-27 07:58 | Day surgery (SDC) | payer MEDICARE ==
[~2017-09-27] VITALS: Ht 177.8 cm; Wt 127.6 kg
[~2017-09-27 07:58] MED LIST changes: +AMLO5TAB2 PO; -AMLO5TAB22 PO; -ASPI81TA82 PO; +CRAN1TAB3; -CRAN500C2; +GABA600T PO; +GLIP10TA6 PO; -GLUC10TA3 PO; -JANU50TA PO; -LISI-366 PO; +LISI40TA PO; -NEUR600T PO; -OMEG100010; -PROSCAP7; -PROT40TA PO; +SITA50 PO
[2017-09-27] MEDS ORDERED: IOHEXOL 350 MG/ML 100 ML BTL (for Cath Lab) OTHER ONE (07:59)
[2017-09-27] MEDS ORDERED: NS 1000P @30 MLS/HR (KVO) IV SCH (08:00)
[2017-09-27 08:48] VITALS: BP 164/98; PULSE 89; RESP 18; TEMP 97.5; O2SAT 92
[2017-09-27 08:55] LABS: AUTOMATED NEUTROPHIL # 5.6 TH/MM3 (1.8-7.7); BASOPHIL # 0.1 TH/MM3 (0-0.2); BASOPHIL % 0.8 % (0.0-2.0); EOSINOPHIL # 0.2 TH/MM3 (0-0.4); HEMATOCRIT 40.4 % (39.0-51.0); HEMOGLOBIN 13.6 GM/DL (13.0-17.0); LYMPH % 16.7 % (9.0-44.0); LYMPHOCYTE # 1.3 TH/MM3 (1.0-4.8); MEAN CORPUSCULAR HEMOGLOBIN 30.1 PG (27.0-34.0); MEAN CORPUSCULAR HGB CONC 33.8 % (32.0-36.0); MEAN PLATELET VOLUME 9.3 FL (7.0-11.0); MONO % 7.8 % (0.0-8.0); MONOCYTE # 0.6 TH/MM3 (0-0.9); NEUT % 71.7 % (16.0-70.0); PLATELET COUNT 182 TH/MM3 (150-450); RED BLOOD COUNT 4.54 MIL/MM3 (4.50-5.90); RED CELL DISTRIBUTION WIDTH 14.8 % (11.6-17.2); WHITE BLOOD COUNT 7.8 TH/MM3 (4.0-11.0)
[2017-09-27] MEDS ORDERED: FERR325T18 PO (08:59)
[2017-09-27] MEDS ORDERED: ALLO100T PO (08:59)
[2017-09-27] MEDS ORDERED: PIOG30TA4 PO (08:59)
[2017-09-27] MEDS ORDERED: omega q plus PO (08:59)
[2017-09-27 09:07] LABS: INTERNATIONAL NORMALIZED RATIO 1.1 RATIO; PROTHROMBIN TIME - PATIENT 11.4 SEC (9.8-11.6)
[2017-09-27 09:13] LABS: BICARBONATE 23.8 MEQ/L (21.0-32.0); CALCIUM 9.4 MG/DL (8.5-10.1); CREATININE 1.85 MG/DL (0.60-1.30)
[2017-09-27] MEDS ORDERED: HEPARIN-NS/PF FLUSH BAG 2,000 ML IV FLUSH ONE (09:38)
[2017-09-27] MEDS ORDERED: MIDAZOLAM HCL 2 MG/2 ML VIAL ONE (09:40)
[2017-09-27] MEDS ORDERED: VERAPAMIL HCL 5 MG/2 ML VIAL ONE (09:41)
[2017-09-27] MEDS ORDERED: NITROGLYCERIN INJ 5 ML ONE (09:41)
[2017-09-27] MEDS ORDERED: HEPARIN SODIUM - IV 10,000 UNITS/10 ML VIAL ONE (09:41)
--- NOTE | 2017-09-27 10:51 | CATHPROC ---
[facility] HIS Report Study Information Study Number Admission Scheduled Start Study Start [id number] Sep 27 2017 7:58AM 09/27/2017 Sep 27 2017 9:22AM [facility] Service Cardiac Catheterization Admit Source Facility Department Other [facility] - Technical Manager Physician and Clinical Staff Initial Efren Corral Ict Systems Test Engineer Amarjit Ovalle RN Ict Systems Test EngineerErick Nicolas RN Recorder Rhett ELIAS, Dee Dee LevyRT(R) Procedures Performed Procedure Location (Site) Vessel Name Coronary Angiograms LCA Left Coronary Coronary Angiograms RCA Right Coronary Wire insertion Radial (right) Radial Art. Equipment Time Production Tester Description Size Mfg Part Number Used/Scraped CATHETER, FR5 SWAN NIKO 10:08 RICHARDS BENNETT FR 5 [id number] *[id number] Used MONITOR TRANSDUCER, TRUWAVE [id number] 09:58 RICHARDS BENNETT * Used W/STOCKCOCK *[id number] TRANSDUCER, TRUWAVE [id number] 09:58 RICHARDS BENNETT * Used W/STOCKCOCK *[id number] INTRODUCER SET, 09:58 [employer] FR 5 [id number] *[id number] Used MICROPUNCTURE, STIFFENED [id number] *[id number] 09:58 [employer] INDUSTRIES PACK, CCL CUSTOM * Used *[id number] 10:12 MEDTRONIC JR 4.0 DXTERITY CATHETER FR 5 Used *[id number] BAND, RADIAL COMPRESSION TR [id number] 10:34 [employer]ICAL 29CM Used LARGE 29 *[id number] 10:24 [employer] MED[employer] WIRE, EXCHANGE 260CM 3MMJ 260CM Used *[id number] 09:58 NAMIC MANIFOLD, 2 PORT * Used *[id number] 09:58 NAMIC MANIFOLD, 4 PORT * Used *[id number] 09:58 [employer]COMED OMNIPAQUE, 350 MG, 150ML 150ML [id number] Used [id number] 09:58 [employer] BLANKET,WARM AIR CCL * Used *[id number] SHEATH, FR6 TRANSRADIAL [id number] 10:06 [employer] FR 6 Used SLENDER 10CM *[id number] SHEATH, FR6 TRANSRADIAL [id number] 10:06 [employer] FR 6 Used SLENDER 10CM *[id number] Equipment Model, Serial, Lot Number and Expiration Data Description Model Number Serial Number Lot Number Expiration Date JR 4.0 DXTERITY CATHETER [id number] 04-20-2020 History: Allergies Allergy Reaction Sulfa History: Risk Factors Family History of Hypertension Dyslipidemia Previous [place] Previous Heart Failure Premature CAD Yes Yes No No Yes Prior Valve Prior PCI Prior CABG Surgery No No No Cerebrovascular Peripheral Artery Chronic Lung On Dialysis Diabetes Diabetes Therapy Disease Disease Disease No No No No Yes Oral History: Stress Tests Stress or Imaging Studies Performed No Labs Hgb (g/dl) Hct (%) WBC (l/cumm) Platelets (thousands) 11.60-17.00 35.00-51.00 4.00-11.00 150.00-450.00 13.6 40.4 7.8 182 Glucose (mg/dl) BUN (mg/dl) Creatinine (mg/dl) BUN:Creatinine (1:x) 74.00-106.00 7.00-18.00 0.50-1.30 10.00-20.00 157 25 1.9 13.2 Na (meq/l) K (meq/l) 136.00-145.00 3.50-5.10 141 4.7 INR (PTT:PT) 0.90-1.10 1.1 CPK-MB (ng/ML) 0.50-3.60 Not Drawn Medication Medication Total Dose (Bolus/Oral) Medication Total Dosage/Unit 1% XYLOCAINE 3 mL FENTANYL 25 mcg RADIAL COCKTAIL 5 mL (Bolus) Medications (Bolus/Oral) Medication Time Given Dosage/Unit Administered By Reason FENTANYL 09/27/2017 10:00:56 AM 25 mcg Erick Cherry 25 mcg FENTANYL given in lab by Erick Cherry, CURT via Peripheral IV. Ordered by Efren Nogueira 1% XYLOCAINE 09/27/2017 10:01:17 AM 3 mL Efren Nogueira 3 mL 1% XYLOCAINE given in lab by Efren Nogueira in Right Radial via Subcutaneous. Ordered by Efren Euceda Ntg 200mcg Verapamil 2.5mg Heparin RADIAL COCKTAIL 09/27/2017 10:03:30 AM 5 mL (Bolus) Efren Nogueira 3000U 5 mL (Bolus) RADIAL COCKTAIL given in lab by Efren Nogueira via Radial. Using [Solution Name]. O rdered by Efren Nogueira Reason: Ntg 200mcg Verapamil 2.5mg Heparin 5000U. Initial Case Assessment Cardiovascular HR NIBP 77 155/85 Edema Present Skin color Skin None Normal Warm Dry Circulatory - Right Pulses Femoral Brachial Radial 1 1 1 Scale (0,1,2,3,4,d) Circulatory - Left Pulses Femoral Brachial Radial 1 Scale (0,1,2,3,4,d) Neurological State Oriented to time-place- Alert Moves all extremities person Respiration - General Respiration Rate SpO2 (%) O2 (lpm) (B/min) 16 96 0 Chronological Log Time Study Chronological Log 9:30:57 Patient arrived via Bed. 9:30:59 Patient Name, D.O.B, / Armband Verified By R.N. 9:31:00 Consent signed by the physician and the patient and verified by the Technical Manager staff. 9:31:02 Pre-op and post- op instructions given; patient acknowledges understanding of instructions. 9:31:08 Presedation assessment performed by Technical Manager RN. Vitals capture started with the following parameters, Patient=Adult, Interval=5 min, Initial Pr agvyiq=083 mmHg, 9:37:13 Deflation Rate=5 mmHg, Cuff placed on Left Leg 9:38:30 HR=77 bpm, RJFZ=309/85 mmhg, SpO2=94.0 %, Resp=10 B/min, Pain=0, Karolyn=10, Martinez=2 9:41:08 Allens test performed on the right radial and ulnar artery. 9:41:17 Patient has been NPO for More than 6Hrs. 9:43:00 HR=77 bpm, AINH=590/79 mmhg, SpO2=92.0 %, Resp=11 B/min, Pain=0, Martinez=2 9:43:20 Skin Breakdown-none reported by patient 9:45:04 Patient Warmer Placed on the Table. 9:45:08 John Prominences Protected 9:45:17 A # ~SIZE~ IV was noted in the ~SITE~. Grade = ~GRADE~ 9:45:24 History and physical on the chart or being dictated. Assessment: Initial Case, HR=77 BPM, HTRM=145/85 mmhg, Edema=None, Color=Normal, Skin = Warm, D ry Right Pulses: Femoral=1, Brachial=1, Radial=1 9:45:27 Left Pulses: Femoral=1 Neurological: State=Alert, Ox3, BABIN Respiration: Resp=16 B/min, SpO2=96 %, O2=0 lpm 9:47:33 Right radial, right brachial, and groin(s) prepped with 2% chlorhexidine, and draped after a 3 min. waiting time. 9:47:57 HR=75 bpm, KSGS=363/84 mmhg, SpO2=93.0 %, Resp=28 B/min 9:53:01 HR=78 bpm, EWEC=342/83 mmhg, SpO2=93.0 %, Resp=15 B/min, Martinez=2 9:54:39 MD arrived. 9:58:02 HR=76 bpm, RTFH=854/82 mmhg, SpO2=92.0 %, Resp=15 B/min, Mratinez=2 9:59:10 Pressure channel 1 zeroed. Time Out. Correct patient, correct procedure, correct physician, power injector loaded, or not loaded with contrast with 9:59:23 surgical team present. Time Out Concurred by MD and individual staff in procedure. 9:59:43 Presedation re-assessment performed by Technical Manager RN. 10:00:19 Case Start 10:00:56 25 mcg FENTANYL given in lab by Erick Cherry, RN via Peripheral IV. Ordered by Efren Nogueira. 3 mL 1% XYLOCAINE given in lab by Efren Nogueira in Right Radial via Subcutaneous. Ordered by Jero, 10:01:17 Efren Araujo. 10:02:13 Access site was Right Radial Artery. A SHEATH, FR6 TRANSRADIAL SLENDER 10CM FR 6 was advanced into the Radial (right) using the Bonnie fied Seldinger 10:02:48 technique. 10:03:05 HR=76 bpm, WBZL=214/76 mmhg, SpO2=93.0 %, Resp=11 B/min, Martinez=2 5 mL (Bolus) RADIAL COCKTAIL given in lab by Efren Nogueira via Radial. Using [Solution Na me]. Ordered by 10:03:30 Efren Nogueira Reason: Ntg 200mcg Verapamil 2.5mg Heparin 5000U. 10:06:41 Access site was Left Brachial Vein. A SHEATH, FR6 TRANSRADIAL SLENDER 10CM FR 6 was advanced into the Brach. Vein (right) using the Modified 10:07:11 Seldinger technique. 10:07:51 HR=83 bpm, OWZD=371/78 mmhg, SpO2=89.0 %, Resp=14 B/min, Martinez=2 10:08:39 A CATHETER, FR5 SWAN NIKO MONITOR FR 5 was inserted Recorded Pressure: PCW, HR=80, Condition=Condition 1 10:11:02 (Pulmonary Capillary Wedge) PCW 18 10:13:01 Saturation: Site=PA (Pulmonary Artery) , O2=73.2 %, Hgb=13.6 gm/dl, Condition=Condition 1. Used in calculation. 10:13:38 HR=80 bpm, CWSJ=551/72 mmhg, SpO2=90.0 %, Resp=12 B/min, Martinez=2 Recorded Pressure: MPA, HR=74, Condition=Condition 1 10:13:46 (Main Pulmonary Artery) MPA 10:15:52 Saturation: Site=Ao (Aorta) , O2=93.9 %, Hgb=13.6 gm/dl, Condition=Condition 1. Used in dagoberto culation. Recorded Pressure: RV, HR=72, Condition=Condition 1 10:18:16 (Right Ventricle) RV 14 10:18:41 HR=78 bpm, PWMO=510/73 mmhg, SpO2=93.0 %, Resp=14 B/min, Martinez=2 10:19:00 A WIRE, EXCHANGE 260CM 3MMJ 260CM was inserted via Radial (right). Recorded Pressure: RA, HR=76, Condition=Condition 1 10:19:02 (Right Atrium) RA 10:19:30 Catheter was removed 10:19:39 A JR 4.0 DXTERITY CATHETER FR 5 was advanced over a wire. Recorded Pressure: Ao, HR=73, Condition=Condition 1 10:21:01 (Aorta) Ao 152/72/103 Recorded Pressure: LV, HR=80, Condition=Condition 1 10:21:21 (Left Ventricle) LV 192/8/14 Recorded Pressure: LV, Ao, HR=78, Condition=Condition 1 10:21:39 (Left Ventricle) LV 206/14/19, (Aorta) Ao 155/72/106 10:22:38 The RCA was injected and visualized at various angles. OMNIPAQUE, 350 MG, 150ML 150ML use d. 10:23:34 HR=78 bpm, XRMH=904/80 mmhg, SpO2=92.0 %, Resp=13 B/min, Martinez=2 After removing the current catheter a JL 3.5 INFINITI CATHETER FR 5 was advanced over a WIRE, EXCHANGE 260CM 10:24:40 3MMJ 260CM. 10:26:21 The LCA was injected and visualized at various angles. OMNIPAQUE, 350 MG, 150ML 150ML use d. 10:27:58 HR=78 bpm, JYMT=452/75 mmhg, SpO2=92.0 %, Resp=14 B/min, Martinez=2 10:31:10 Catheter was removed 10:31:49 Case End 10:32:39 Activated Clotting Time Drawn 10:33:44 HR=79 bpm, DTOK=068/78 mmhg, SpO2=93.0 %, Resp=11 B/min, Martinez=2 10:34:18 A Left and Right Heart Cath was performed. Radial Compression Device Used. 12 mLs of air placed in BAND, RADIAL COMPRESSION TR LARGE 29 2 9CM. Affected 10:37:36 hand 94 % O2 saturation. 10:38:02 HR=80 bpm, HSZJ=699/75 mmhg, SpO2=92.0 %, Resp=15 B/min, Martinez=2 10:40:13 ACT (Normal Range 90-180) = 228 10:43:01 Vitals capture stopped. 10:48:52 No case complications noted. 10:48:56 Bedside Report will be given. 10:49:03 DOCU called. Spoke to Margarita 10:49:21 Patient moved to [facility] End Study - Contrast Media Used In Study Contrast Total Opened (mL) Total Used (mL) Total Wasted (mL) Omnipaque 60 60 0 End Study - Maximum Contrast Load Max Contrast Load (mL) 335.8 End Study - Radiation Exposure Fluoro Time (minutes) 3.0 End Study - Patient Disposition Complications Transferred To Interventional Outcome No Technical Manager Holding No attempt made
[2017-09-27] MEDS ORDERED: MISC INFORMATION XX ONE (11:00)
[2017-09-27] MEDS ORDERED: hydrALAZINE HCL 20 MG/ML VIAL ONE (11:36)
--- NOTE | 2017-09-27 12:39 | PD.CAR.PN ---
CVT Progress Note Subjective/Hospital Course: pt seen and evaluated / full consult to follow RISK SCORES About the STS Risk Calculator Procedure: AV Replacement Risk of Mortality: 4.407% Morbidity or Mortality: 27.757% Long Length of Stay: 12.708% Short Length of Stay: 23.545% Permanent Stroke: 1.296% Prolonged Ventilation: 19.086% DSW Infection: 0.848% Renal Failure: 12.773% Reoperation: 8.589% Objective: Vital Signs Date Time Temp Pulse Resp B/P (MAP) Pulse Ox O2 Delivery O2 Flow Rate FiO2 09/27/17 10:56 94 Room Air 09/27/17 08:48 97.5 89 18 164/98 (120) 92 Labs: Laboratory Tests Test 09/27/17 08:35 White Blood Count 7.8 TH/MM3 (4.0-11.0) Red Blood Count 4.54 MIL/MM3 (4.50-5.90) Hemoglobin 13.6 GM/DL (13.0-17.0) Hematocrit 40.4 % (39.0-51.0) Mean Corpuscular Volume 89.0 FL (80.0-100.0) Mean Corpuscular Hemoglobin 30.1 PG (27.0-34.0) Mean Corpuscular Hemoglobin Concent 33.8 % (32.0-36.0) Red Cell Distribution Width 14.8 % (11.6-17.2) Platelet Count 182 TH/MM3 (150-450) Mean Platelet Volume 9.3 FL (7.0-11.0) Neutrophils (%) (Auto) 71.7 % (16.0-70.0) Lymphocytes (%) (Auto) 16.7 % (9.0-44.0) Monocytes (%) (Auto) 7.8 % (0.0-8.0) Eosinophils (%) (Auto) 3.0 % (0.0-4.0) Basophils (%) (Auto) 0.8 % (0.0-2.0) Neutrophils # (Auto) 5.6 TH/MM3 (1.8-7.7) Lymphocytes # (Auto) 1.3 TH/MM3 (1.0-4.8) Monocytes # (Auto) 0.6 TH/MM3 (0-0.9) Eosinophils # (Auto) 0.2 TH/MM3 (0-0.4) Basophils # (Auto) 0.1 TH/MM3 (0-0.2) CBC Comment DIFF FINAL Differential Comment Prothrombin Time 11.4 SEC (9.8-11.6) Prothromb Time International Ratio 1.1 RATIO Activated Partial Thromboplast Time 28.1 SEC (24.3-30.1) Blood Urea Nitrogen 25 MG/DL (7-18) Creatinine 1.85 MG/DL (0.60-1.30) Random Glucose 157 MG/DL (74-106) Calcium Level 9.4 MG/DL (8.5-10.1) Sodium Level 141 MEQ/L (136-145) Potassium Level 4.7 MEQ/L (3.5-5.1) Chloride Level 108 MEQ/L (98-107) Carbon Dioxide Level 23.8 MEQ/L (21.0-32.0) Anion Gap 9 MEQ/L (5-15) Estimat Glomerular Filtration Rate 36 ML/MIN (>89) Result Diagram: 09/27/17 0835 09/27/17 0835 Elin Joyce Sep 27, 2017 12:39
[2017-09-27] MEDS ORDERED: PAPAVERINE INJ 60 MG, NITROGLYCERIN INJ 100 MCG, DILTIAZEM INJ 100 MG in SODIUM CHLORID... IRRIGATION SCH (12:45)
--- NOTE | 2017-09-27 13:11 | RADRPT ---
EXAM DATE/TIME: 09/27/2017 12:43 [facility] COMPARISON: No previous studies available for comparison. INDICATIONS : Evaluate for pneumonia, pneumothorax, or communicable disease. Pre op AVR today. MEDICAL HISTORY : Hypertension. Congestive heart failure. Chronic obstructive pulmonary disease. Diabetes. Coronary artery disease. SURGICAL HISTORY : None. ENCOUNTER: Initial ACUITY: 1 day PAIN SCORE: 0/10 LOCATION: Bilateral chest FINDINGS: Mild pleural thickening is noted along the left lateral lung base. The heart and mediastinal structur es are normal. The pulmonary vascular pattern is normal. The lungs are clear. CONCLUSION: Mild pleural thickening along the left lateral lung base. No acute focal infiltrate o r pulmonary vascular congestion. Devon Goode MD on September 27, 2017 at 13:07 Board Certified Radiologist. This report was verified electronically.
--- NOTE | 2017-09-27 13:39 | MB ---
cc: Elin Joyce DATE OF CONSULT: 09/27/2017 HISTORY OF PRESENT ILLNESS: A 76-year-old patient of Dr. Clayton, Dr. Silverio Murrell. History of aortic stenosis. Has been followed by Dr. Clayton for the last couple years. Progressive shortness of breath, worsening with exertion. [place] and has to go up an incline to get his mail. He feels like his breathing has gotten worse. He has had no chest pain, no syncopal episodes. He underwent cardiac catheterization today by Dr. Nogueira, which showed some nonobstructive coronary artery disease with some 20% distal LAD, circumflex was 20%, the RCA 30%, ejection fraction 55%, RA pressures of 12, PA pressure is 31/20, wedge pressure of 18, cardiac output of 7.9, index of 3.3. He had an echocardiogram at [facility], which showed aortic valve area of 0.81, a mean gradient of 52, some trivial mitral regurgitation, some mild aortic insufficiency. No pericardial effusion. He has also romulo worked up in the past by Dr. Miles and had a carotid ultrasound back on 11/18/ , which showed a 50% stenosis of the right internal carotid, 50-79 in the left. Recommendations per Dr. Miles was asymptomatic mild carotid stenosis, Recommendation was for antiplatelet therapy, statin. No recommendation for surgery at this time. We were consulted to evaluate for aortic valve placement versus candidate for transcatheter aortic valve replacement. PAST MEDICAL HISTORY: Aortic stenosis, coronary artery disease, nonobstructive. He has mild carotid disease as above, some CHF, chronic kidney disease, stage III. His creatinine is 1.89. Depression, diabetes mellitus, type 2, history of GI tract hemorrhage. He underwent upper GI in 2014, which revealed gastritis, hiatal hernia. Hypertension, hyperlipidemia, hypothyroidism, obesity, sleep apnea, does not use a CPAP machine. PAST SURGICAL HISTORY: Include appendectomy, right upper arm surgery where he had some pins and rods, bilateral cataract surgeries. He has had some sinus surgery. ALLERGIES: INCLUDE SULFA. HOME MEDICATIONS: Include allopurinol 100 daily, amlodipine 5 p.o. daily, ferrous sulfate 325 daily, gabapentin 800 daily, glipizide 10 p.o. daily, Januvia 15, levothyroxine 137 mcg daily, lisinopril 40 daily, Amlin Plus and 30 mg daily. FAMILY HISTORY: Mother from complications of emphysema. Father from colon cancer. SOCIAL HISTORY: Patient , 3 children, retired with [employer], lives alone. He has a son that lives in [place] and a brother in [facility]. He smoked 3-4 packs of cigarettes for 40 years. He quit in 1987. He quit drinking 3 years ago. Prior to that, he had heavy alcohol use. REVIEW OF SYSTEMS: GENERAL: No night sweats, fever, heat and cold intolerance. SKIN: No psoriasis, itching or hives. HEENT: No blurred vision or hearing loss. RESPIRATORY: Positive for shortness of breath. CARDIOVASCULAR: He does have some mild lower extremity edema. GASTROINTESTINAL: No diarrhea or vomiting. GENITOURINARY: No burning, frequency or urgency. CENTRAL NERVOUS SYSTEM: No history of TIA, CVA, seizure disorder. ENDOCRINOLOGY: Positive for diabetes and hypothyroidism. PHYSICAL EXAMINATION: VITAL SIGNS: Blood pressure 164/98, heart rate of 90, temp max 97.5, O2 sat 94 on room air. GENERAL: Patient is awake, alert in no acute distress. HEENT: Head is normocephalic, atraumatic. Pupils equal and reactive. Oral mucosa pink, moist. NECK: Supple. No JVD. He does have a soft bruit on the right. CARDIOVASCULAR: He also has a grade III/ systolic flow murmur. ABDOMEN: Obese, soft, nontender. No masses or organomegaly. EXTREMITIES: Reveal trace edema with good distal pulses. LABORATORY WORK: Shows hemoglobin of 13, hematocrit of 40, white cell count of 7.8, platelet count of 182. Sodium 141, potassium 4.7, BUN of 25, creatinine 1.85, glucose 157. INR 1.1. Albumin is pending. Chest x-ray is pending. MRSA urinalysis is pending. IMPRESSION: This is a 76-year-old patient being evaluated for possible transcatheter aortic valve replacement versus open replacement. His comorbidities include obesity, age, Society of Thoracic Surgeons score of 4.4, diabetes mellitus, moderate lung disease secondary to long-term history of prior tobacco abuse, somewhat sedentary lifestyle. He is still able to drive, cook and clean; however, he has difficulty with walking secondary to his shortness of breath. RECOMMENDATIONS: Further to follow in regards to CT chest and further evaluation as per Dr. Wero Rios. RALPH Causey MD JRT/JAMES , 12:49 PM , 01:37 PM
--- NOTE | 2017-09-27 15:50 | RADRPT ---
EXAM DATE/TIME: 09/27/2017 15:31 [facility] COMPARISON: No previous studies available for comparison. INDICATIONS : Short of breath, pre operative AVR. RADIATION DOSE: 22.26 CTDIvol (mGy) MEDICAL HISTORY : Cardiovascular disease. Diabetes mellitus type 2. Hypertension. SURGICAL HISTORY : Appendectomy. ENCOUNTER: Initial ACUITY: 1 day PAIN SCALE: 4/10 LOCATION: Bilateral chest TECHNIQUE: Volumetric scanning of the chest was performed. Using automated exposure control and adjustment of t he mA and/or kV according to patient size, radiation dose was kept as low as reasonably achievable to obtain optimal diagnostic quality images. DICOM format image data is available electronically for r eview and comparison. Follow-up recommendations for detected pulmonary nodules are based at a minimum on nodule size and pa tient risk factors according to Fleischner Society Guidelines. FINDINGS: LUNGS: There is no consolidation or pneumothorax. No concerning pulmonary nodule is visualized. PLEURAE: Fat density pleural thickening in the left lateral lung base likely reflecting extrapleural fat or pl eural lipoma. MEDIASTINUM: Moderate coronary calcifications. Dense aortic valve calcifications. Heart is otherwise unremarkable without significant pericardial effusion. 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 Thoracic arch and descending thoracic aorta are normal in caliber. No significant mediastina l adenopathy. AXILLAE: Within normal limits. No lymphadenopathy. Main pulmonary arteries slightly prominent. MUSCULOSKELETAL: Within normal limits for patient age. MISCELLANEOUS: 2.2 cm incompletely imaged indeterminate density cyst in the posterior mid right kidney. Density in t he renal collecting systems bilaterally likely reflects recent IV contrast administration. CONCLUSION: 1. Minimally prominent main pulmonary artery which may reflect some degree of pulmonary hypertension. 2. 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 3. Fat density pleural thickening in the left lateral lung base likely reflecting extrapleural fat or pleural lipoma. 4. Moderate coronary artery calcifications. 5. 2.2 cm incompletely imaged indeterminate density cyst in the posterior mid right kidney. Statistic ally, this reflects a complex hemorrhagic or proteinaceous cyst. Further characterization may be perf ormed on an outpatient basis with MRI exam if clinically warranted. Hugh Schmitz MD on September 27, 2017 at 15:39 Board Certified Radiologist. This report was verified electronically.
[2017-09-27 16:40] LABS: HEMOGLOBIN A1C 8.5 % (4.3-6.0)
[2017-09-27 17:06] LABS: BILIRUBIN, URINE NEG (NEG); BLOOD, URINE NEG (NEG); GLUCOSE,URINE 150 mg/dL (NEG); KETONE, URINE NEG (NEG); NITRITE,URINE NEG (NEG); PH, URINE 6.5 (5.0-8.5); SQUAMOUS EPITHELIAL CELL URINE <1 /hpf (0-5); URINE COLOR YELLOW (YELLW/STRAW); URINE LEUKOCYTE ESTERASE NEG (NEG)
[2017-09-27 18:39] LABS: ALBUMIN 3.6 GM/DL (3.4-5.0)
--- NOTE | 2017-09-27 22:59 | EKG ---
Date Performed: 09/27/2017 Time Performed: 08:48:38 PTAGE: 76 years EKG: Sinus rhythm . Possible inferior infarct - age undetermined Anterolateral ST-T changes may be due to myocardial is chemia Abnormal ECG PREVIOUS TRACING : 12/01/2016 10.10 Since the previous tracing, no significant change noted DOCTOR: Juan A Sanderson Interpretating Date/Time 09/27/2017 22:58:18
--- NOTE | 2017-09-29 09:41 | RSPPFT ---
DATE OF PROCEDURE: 09/27/17 COMMENTS: VOLUMES DYNAMIC: FVC moderately reduced; FEV1 severely reduced. FLOWS: FEV1% and FEF 25-75 severely reduced. IMPRESSION: Severe obstructive ventilatory defect.
--- NOTE | 2017-10-03 08:45 | MA ---
cc: NogueiraEfren nieves Van [place]AD[place]O 09/27/2017 DATE OF PROCEDURE: 09/27/2017. PROCEDURE: Left heart catheterization, right heart catheterization, coronary angiogram, ultrasound-guided access. PREPROCEDURE DIAGNOSIS: Severe aortic stenosis by echo for possible AVR/TAVR. POSTPROCEDURE DIAGNOSIS: Severe aortic stenosis (mean gradient 50, aortic valve area 0.82), mild coronary artery disease. MEDICATIONS: 1. Fentanyl 25 mcg. 2. Heparin 5000 units. 3. Nitro 200 mcg. 4. Verapamil 2.5 mg. CONTRAST USED: 60 mL. FLUOROSCOPY: 3.0 minutes. MODERATE SEDATION: 0 minutes. ESTIMATED BLOOD LOSS: 10 mL. PROCEDURAL SUMMARY: Anuj Ingram is a pleasant 76-year-old male who sees my partner, Dr. Clayton in the office and was found to have significant aortic stenosis by echocardiogram. He was recommended right and left heart catheterization. The risks, benefits and alternatives were explained to him and he consented to such. He was brought to the lab and prepped in the usual sterile fashion. The right radial artery was accessed using a modified Seldinger technique and placement of a 5/6 [place] slender sheath. Right brachial vein was accessed using a modified Seldinger technique and placement of a 5/6 [place] sheath with ultrasound guidance. Both sheaths were easily aspirated and flushed. A [place] catheter was advanced to a wedge position and oxygen saturations as well as pressures were recorded on a standard pullback fashion throughout the heart. [place] catheter was removed. JR4 was advanced over a J-wire to the ascending aorta and across the aortic valve. This was exchanged out for a [place] catheter and across the aortic valve. Measurement of left ventricular pressure was done and then pullback across the aortic valve shows significant aortic stenosis. JR4 was used for selective angiography of the right coronary artery system. This was exchanged out for a JL3.5, which was used for selective angiography of the left coronary artery system. The JL3.5 was removed over a J wire. A radial band was placed over the arteriotomy site for hemostasis. The brachial sheath was removed once ACT values were appropriate. 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 FINDINGS: LEFT MAIN: A large-sized vessel with no significant disease. It bifurcates into an LAD and circumflex. LAD: Normal-sized vessel with 10% disease in the proximal portion. Distally it has diffuse 20% disease. It gives off 2 small diagonals with no significant disease. LEFT CIRCUMFLEX: Normal size vessel with no significant disease. It gives off 2 obtuse marginals with no significant disease. RCA: Moderate size vessel with mild luminal irregularities throughout the proximal portion. Distally it gives off a PDA which has a 20% lesion but no significant disease. HEMODYNAMIC SUMMARY: RA 12. RV 45/12, RVEDP 14. PA 31/21, mean PA 27. Wedge 18. LVEDP 19. Cardiac output 7.9. Cardiac index 30.3. Aortic valve mean gradient 50. Aortic valve area 1.0. IMPRESSIONS: 1. Severe aortic stenosis by both echocardiogram, as well as cardiac catheterization. 2. Mild coronary artery disease. 3. Mild pulmonary hypertension. RECOMMENDATIONS: 1. Mr. Ingram appears to have mild coronary artery disease with no significant lesions that need to be intervened on for possible bypass with no significant disease noted. 2. He does have severe aortic stenosis by both echocardiogram and cardiac catheterization. 3. He will be seen by CT surgery for consideration of mini AVR versus TAVR. Thank you for allowing me to see Anuj Ingram. If there are any questions, please do not hesitate to call. Efren Nogueira DO VGP/JAMES , 12:16 AM , 08:43 AM
== END 2017-09-27 17:08 | disposition home or self-care (01) ==
LOC: HDOC 07:58 → HDIC 07:59 → HDOC 17:08
PROVIDERS: ATTEND Nuclear Medicine Nuclear Cardiology
DX: I35.0 Nonrheumatic aortic (valve) stenosis (principal); I25.10 Atherosclerotic heart disease of native coronary artery without angina pectoris; I27.20 Pulmonary hypertension, unspecified; I10 Essential (primary) hypertension; I50.9 Heart failure, unspecified; J44.9 Chronic obstructive pulmonary disease, unspecified; E11.9 Type 2 diabetes mellitus without complications; J92.9 Pleural plaque without asbestos; R06.02 Shortness of breath; I71.2 Thoracic aortic aneurysm, without rupture; Z79.84 Long term (current) use of oral hypoglycemic drugs
CPT/HCPCS: 71045; 71250; 80048; 81001; 82040; 82810; 83036; 85002; 85025; 85610; 85730; 86850; 86900; 86901; 87641; 93005; 93456; 94010; C1769; C1893; J0360; J1644; J2250; J3010; Q9967

== ENCOUNTER → 2017-10-10 | Outpatient (CLI) | payer MEDICARE ==
[~2017-10-10] MED LIST changes: +ALLO100T PO; +COQ-50CA2 PO; -CRAN1TAB3; +FERR325T18 PO; +OMEG100046 PO; +PIOG30TA4 PO; -PRAV40TA2 PO; +omega q plus PO
[2017-10-10 11:41] LABS: AUTOMATED NEUTROPHIL # 5.9 TH/MM3 (1.8-7.7); BASOPHIL # 0.1 TH/MM3 (0-0.2); BASOPHIL % 0.8 % (0.0-2.0); EOSINOPHIL # 0.1 TH/MM3 (0-0.4); EOSINOPHIL % 1.7 % (0.0-4.0); HEMATOCRIT 27.9 % (39.0-51.0); HEMOGLOBIN 9.3 GM/DL (13.0-17.0); LYMPHOCYTE # 1.1 TH/MM3 (1.0-4.8); MEAN CELL VOLUME 90.8 FL (80.0-100.0); MEAN CORPUSCULAR HEMOGLOBIN 30.4 PG (27.0-34.0); MEAN CORPUSCULAR HGB CONC 33.5 % (32.0-36.0); MEAN PLATELET VOLUME 10.1 FL (7.0-11.0); MONO % 6.1 % (0.0-8.0); MONOCYTE # 0.5 TH/MM3 (0-0.9); NEUT % 77.4 % (16.0-70.0); PLATELET COUNT 165 TH/MM3 (150-450); RED BLOOD COUNT 3.07 MIL/MM3 (4.50-5.90); RED CELL DISTRIBUTION WIDTH 15.9 % (11.6-17.2); WHITE BLOOD COUNT 7.6 TH/MM3 (4.0-11.0)
[2017-10-10 11:47] LABS: BILIRUBIN, URINE NEG (NEG); BLOOD, URINE NEG (NEG); GLUCOSE,URINE TRACE mg/dL (NEG); KETONE, URINE NEG (NEG); NITRITE,URINE NEG (NEG); PH, URINE 5.5 (5.0-8.5); URINE COLOR LIGHT-YELLOW (YELLW/STRAW); URINE LEUKOCYTE ESTERASE NEG (NEG)
[2017-10-10 11:53] LABS: INTERNATIONAL NORMALIZED RATIO 1.1 RATIO; PROTHROMBIN TIME - PATIENT 10.9 SEC (9.8-11.6)
[2017-10-10 12:21] LABS: ALBUMIN 3.2 GM/DL (3.4-5.0); ALT (GPT) 23 U/L (12-78); AST (GOT) 19 U/L (15-37); BICARBONATE 22.9 MEQ/L (21.0-32.0); BLOOD UREA NITROGEN 52 MG/DL (7-18); CALCIUM 8.8 MG/DL (8.5-10.1); CHLORIDE 110 MEQ/L (98-107); CREATININE 2.12 MG/DL (0.60-1.30); GLOMERULAR FILTRATION RATE 31 ML/MIN (>89); GLUCOSE,FASTING 208 MG/DL (74-99); SODIUM (NA) 142 MEQ/L (136-145)
[2017-10-10 12:24] LABS: ALKALINE PHOSPHATASE 51 U/L (45-117); TOTAL BILIRUBIN ADULT 0.3 MG/DL (0.2-1.0); TOTAL PROTEIN 6.8 GM/DL (6.4-8.2)
--- NOTE | 2017-10-11 23:06 | EKG ---
Date Performed: 10/10/2017 Time Performed: 11:18:10 PTAGE: 76 years EKG: Sinus rhythm NONSPECIFIC T-WAVE ABNORMALITY ABNORMAL ECG Since the PREVIOUS TRACING , no significant change noted DOCTOR: Stevan Ta Interpretating Date/Time 10/11/2017 23:05:16
== END ==
LOC: CPRE 10:43
PROVIDERS: ATTEND Thoracic Surgery (Cardiothoracic Vascular Surgery)
DX: Z01.810 Encounter for preprocedural cardiovascular examination (principal); Z01.812 Encounter for preprocedural laboratory examination; R94.31 Abnormal electrocardiogram [ECG] [EKG]; I35.0 Nonrheumatic aortic (valve) stenosis
CPT/HCPCS: 36415; 80053; 81001; 85025; 85610; 86850; 86900; 86901; 87640; 87641; 93005

== ENCOUNTER 2017-10-22 12:40 | Inpatient (IN) | payer MEDICARE ==
[~2017-10-22] VITALS: Ht 175.3 cm; Wt 122.5 kg
[2017-10-22] VITALS (14 sets, daily range): BP systolic 122–166; BP diastolic 56–83; PULSE 86–99; RESP 16–32; TEMP 97.4–98.5; O2SAT 87–96
[~2017-10-22 12:40] MED LIST changes: -omega q plus PO
--- NOTE | 2017-10-22 13:10 | PD ---
HPI Chief Complaint: Respiratory Distress Time Seen by Provider: 13:09 Travel History International Travel<30 days: No Contact w/Intl Traveler<30days: No Traveled to known affect area: No History of Present Illness HPI 76-year-old male came to the emergency room with history of shortness of breath it is progressively worsening over past 2-3 weeks. Currently patient says that he has been extremely short of breath and just going from his bed to the door makes him extremely short of breath when he has to sit down. He also feels chest pain. He describes the chest pain as a burning sensation all over his chest like his chest is on fire. Patient has history of aortic stenosis which is severe and is waiting to get a valve replacement. However he does not know when that can happen. He is primary care from the [place] had started him on Lasix 3 days ago and patient has been taking 40 mg once a day. He says this has not been helping him however. No history of fever or chills. Vital signs showed oxygen saturation of 89% on room air. Patient has also noticed swelling of both of his legs lately. [facility] Past Medical History Narrative Medical List of his past medical, surgical, social and family history is reviewed from the nursing note Asthma: No Blood Disorders: No Anxiety: No Depression: No Heart Rhythm Problems: No Cancer: No Cardiac Catheterization: Yes Cardiovascular Problems: Yes (CAD, CHF) High Cholesterol: No Chemotherapy: No Chest Pain: No Congestive Heart Failure: No COPD: No Diabetes: Yes (TYPE 2) Patient Takes Glucophage: No Diminished Hearing: No Endocrine: Yes Gastrointestinal Disorders: Yes (GI BLEED) Genitourinary: No Hiatal Hernia: Yes Hypertension: Yes Immune Disorder: No Implanted Vascular Access Dvce: Yes Musculoskeletal: No Neurologic: Yes (NEUROPATHY) Psychiatric: No Reproductive: No Respiratory: Yes (COPD,SLEEP APNEA) Immunizations Current: Yes Pneumonia: Yes Radiation Therapy: No Sleep Apnea: No Thyroid Disease: Yes (HYPO) Past Surgical History Appendectomy: Yes Body Medical Devices: PINS IN RIGHT ARM Cardiac Surgery: Yes (HEART CATH 2017) Eye Surgery: Yes (CATARACTS) Tonsillectomy: Yes Other Surgery: Yes (RT ARM FX REPAIR, SINUS SX) Social History Alcohol Use: No Tobacco Use: No (QUIT 1987) Substance Use: No Allergies-Medications (Allergen,Severity, Reaction): Coded Allergies: Sulfa (Sulfonamide Antibiotics) (Unverified Allergy, Intermediate, Edema, 10/22/17) Comments List of his allergies reviewed from the nursing note. Reported Meds & Prescriptions Reported Meds & Active Scripts Active Reported Coq-10 (Coenzyme Q10 (Ubidecarenone)) 50 Mg Cap 100 Mg PO DAILY Fish Oil 1,000 mg Softgel ([place]-3/Dha/Epa/Fish Oil) 1,000 Mg (120 Mg-180 Mg) Capsule 1 Tab PO DAILY Pioglitazone (Pioglitazone HCl) 30 Mg Tab 30 Mg PO DAILY Ferrous Sulfate 325 Mg (65 Mg Iron) Tablet 325 Mg PO DAILY Allopurinol 100 Mg Tab 100 Mg PO DAILY Januvia (Sitagliptin Phosphate) 50 Mg Tab 100 Mg PO DAILY Lisinopril 40 Mg Tab 40 Mg PO DAILY Levothyroxine (Levothyroxine Sodium) 137 Mcg Tab 137 Mcg PO DAILY Glipizide 10 Mg Tab 10 Mg PO BIDAC Take 30 minutes before a meal Gabapentin 600 Mg Tab 800 Mg PO BID Amlodipine (Amlodipine Besylate) 5 Mg Tab 5 Mg PO DAILY Narrative Medication List of his home medications reviewed from the nursing note. Review of Systems Except as stated in HPI: all other systems reviewed are Neg Respiratory: Positive: Shortness of Breath Musculoskeletal: Positive: Edema Physical Exam Narrative GENERAL: Awake, alert, obese, moderate distress SKIN: Focused skin assessment warm/dry. HEAD: Atraumatic. Normocephalic. EYES: Pupils equal and round. No scleral icterus. No injection or drainage. ENT: No nasal bleeding or discharge. Mucous membranes pink and moist. NECK: Trachea midline. No JVD. CARDIOVASCULAR: Regular rate and rhythm. No murmur appreciated. RESPIRATORY: Tachypnea. Diminished air entry bibasilar GASTROINTESTINAL: Abdomen soft, non-tender, nondistended. Hepatic and splenic margins not palpable. MUSCULOSKELETAL: No obvious deformities. No clubbing. No cyanosis. 2+ pedal edema NEUROLOGICAL: Awake and alert. No obvious cranial nerve deficits. Motor grossly within normal limits. Normal speech. PSYCHIATRIC: Appropriate mood and affect; insight and judgment normal. Data Data Last Documented VS Vital Signs Date Time Temp Pulse Resp B/P (MAP) Pulse Ox O2 Delivery O2 Flow Rate FiO2 10/22/17 14:30 92 24 133/62 (85) 93 Nasal Cannula 3.00 10/22/17 12:46 98.5 Orders Orders Complete Blood Count With Diff (10/22/17 12:58) Comprehensive Metabolic Panel (10/22/17 12:58) B-Type Natriuretic Peptide (10/22/17 12:58) Act Partial Throm Time (Ptt) (10/22/17 12:58) Prothrombin Time / Inr (Pt) (10/22/17 12:58) Magnesium (Mg) (10/22/17 12:58) Ckmb (Isoenzyme) Profile (10/22/17 12:58) Troponin I (10/22/17 12:58) Iv Access Insert/Monitor (10/22/17 12:58) Electrocardiogram (10/22/17 12:58) Ecg Monitoring (10/22/17 12:58) Oximetry (10/22/17 12:58) Oxygen Administration (10/22/17 12:58) Chest, Single Ap (10/22/17 12:58) Furosemide Inj (Lasix Inj) (10/22/17 13:30) CKMB (10/22/17 13:00) CKMB% (10/22/17 13:00) Type And Screen (10/22/17 13:58) Red Blood Cells (Rbc) (10/22/17 13:58) Blood Product Administration (10/22/17 13:58) Sodium Chlor 0.9% 250 Ml Inj (Ns 250 Ml (10/22/17 14:00) Ceftriaxone Inj (Rocephin Inj) (10/22/17 14:45) Azithromycin Inj (Zithromax Inj) (10/22/17 14:45) Blood Culture (10/22/17 14:33) Admit Order (Ed Use Only) (10/22/17 14:55) Labs Laboratory Tests Test 10/22/17 13:00 White Blood Count 12.8 TH/MM3 Red Blood Count 2.53 MIL/MM3 Hemoglobin 7.1 GM/DL Hematocrit 21.4 % Mean Corpuscular Volume 84.4 FL Mean Corpuscular Hemoglobin 27.9 PG Mean Corpuscular Hemoglobin Concent 33.0 % Red Cell Distribution Width 18.1 % Platelet Count 357 TH/MM3 Mean Platelet Volume 8.6 FL Neutrophils (%) (Auto) 87.9 % Lymphocytes (%) (Auto) 3.3 % Monocytes (%) (Auto) 7.9 % Eosinophils (%) (Auto) 0.3 % Basophils (%) (Auto) 0.6 % Neutrophils # (Auto) 11.3 TH/MM3 Lymphocytes # (Auto) 0.4 TH/MM3 Monocytes # (Auto) 1.0 TH/MM3 Eosinophils # (Auto) 0.0 TH/MM3 Basophils # (Auto) 0.1 TH/MM3 CBC Comment DIFF FINAL Differential Comment Prothrombin Time 11.3 SEC Prothromb Time International Ratio 1.1 RATIO Activated Partial Thromboplast Time 32.0 SEC Blood Urea Nitrogen 35 MG/DL Creatinine 2.34 MG/DL Random Glucose 203 MG/DL Total Protein 7.3 GM/DL Albumin 2.7 GM/DL Calcium Level 8.3 MG/DL Magnesium Level 2.4 MG/DL Alkaline Phosphatase 72 U/L Aspartate Amino Transf (AST/SGOT) 17 U/L Alanine Aminotransferase (ALT/SGPT) 28 U/L Total Bilirubin 0.7 MG/DL Sodium Level 133 MEQ/L Potassium Level 4.3 MEQ/L Chloride Level 101 MEQ/L Carbon Dioxide Level 20.3 MEQ/L Anion Gap 12 MEQ/L Estimat Glomerular Filtration Rate 27 ML/MIN Total Creatine Kinase 122 U/L Creatine Kinase MB 1.7 NG/ML Troponin I LESS THAN 0.02 NG/ML B-Type Natriuretic Peptide 128 PG/ML MDM Medical Decision Making Medical Screen Exam Complete: Yes Emergency Medical Condition: Yes Medical Record Reviewed: Yes Interpretation(s) Twelve-lead EKG was reviewed by me. Normal sinus rhythm, PACs, normal axis, nonspecific ST-T wave changes. Heart rate of 99 bpm. Differential Diagnosis Congestive heart failure, pleural effusion, pneumonia Narrative Course 2:31 PM blood test results are back. His H&H is low. I have ordered for PRBC transfusion 2 units. Patient also has chronic renal insufficiency. Chest x- ray looks abnormal with basilar densities on both sides but right worse than left. I decided to admit this patient. Awaiting for the hospitalist to call back. Hopefully during this admission patient will also find out the plan with his aortic valve replacement surgery. Procedures EKG Prior to Arrival: No Diagnosis Primary Impression: Shortness of breath Additional Impressions: Congestive heart failure Qualified Codes: I50.9 - Heart failure, unspecified Renal insufficiency Pneumonia Qualified Codes: J18.1 - Lobar pneumonia, unspecified organism Severe aortic stenosis Admitting Information Admitting Physician Requests: Admit Deric Benjamin MD Oct 22, 2017 13:10
[2017-10-22 13:26] LABS: AUTOMATED NEUTROPHIL # 11.3 TH/MM3 (1.8-7.7); BASOPHIL # 0.1 TH/MM3 (0-0.2); BASOPHIL % 0.6 % (0.0-2.0); EOSINOPHIL % 0.3 % (0.0-4.0); HEMATOCRIT 21.4 % (39.0-51.0); HEMOGLOBIN 7.1 GM/DL (13.0-17.0); LYMPH % 3.3 % (9.0-44.0); LYMPHOCYTE # 0.4 TH/MM3 (1.0-4.8); MEAN CELL VOLUME 84.4 FL (80.0-100.0); MEAN CORPUSCULAR HEMOGLOBIN 27.9 PG (27.0-34.0); MEAN PLATELET VOLUME 8.6 FL (7.0-11.0); MONO % 7.9 % (0.0-8.0); NEUT % 87.9 % (16.0-70.0); PLATELET COUNT 357 TH/MM3 (150-450); RED BLOOD COUNT 2.53 MIL/MM3 (4.50-5.90); RED CELL DISTRIBUTION WIDTH 18.1 % (11.6-17.2); WHITE BLOOD COUNT 12.8 TH/MM3 (4.0-11.0)
[2017-10-22] MEDS ORDERED: FUROSEMIDE 40 MG/4 ML VIAL IV PUSH ONE ×2 (13:30→16:00)
[2017-10-22 13:33] LABS: INTERNATIONAL NORMALIZED RATIO 1.1 RATIO; PROTHROMBIN TIME - PATIENT 11.3 SEC (9.8-11.6)
[2017-10-22 13:40] LABS: ALBUMIN 2.7 GM/DL (3.4-5.0); ALT (GPT) 28 U/L (12-78); AST (GOT) 17 U/L (15-37); BICARBONATE 20.3 MEQ/L (21.0-32.0); BLOOD UREA NITROGEN 35 MG/DL (7-18); CALCIUM 8.3 MG/DL (8.5-10.1); CHLORIDE 101 MEQ/L (98-107); CREATININE 2.34 MG/DL (0.60-1.30); GLOMERULAR FILTRATION RATE 27 ML/MIN (>89); GLUCOSE,RANDOM 203 MG/DL (74-106); MAGNESIUM 2.4 MG/DL (1.5-2.5); SODIUM (NA) 133 MEQ/L (136-145)
[2017-10-22 13:44] LABS: ALKALINE PHOSPHATASE 72 U/L (45-117); TOTAL BILIRUBIN ADULT 0.7 MG/DL (0.2-1.0); TOTAL PROTEIN 7.3 GM/DL (6.4-8.2); TROPONIN I LESS THAN 0.02 NG/ML (0.02-0.05)
[2017-10-22] MEDS ORDERED: SODIUM CHLOR 0.9% 250 ML INJ 250 ML IV ONE (14:00)
--- NOTE | 2017-10-22 14:24 | RADRPT ---
EXAM DATE/TIME: 10/22/2017 13:49 [place] COMPARISON: No previous studies available for comparison. INDICATIONS : Shortness of breath. MEDICAL HISTORY : Cardiovascular disease. Diabetes mellitus type II. Hypertension. SURGICAL HISTORY : Appendectomy. ENCOUNTER: Initial ACUITY: 1 day PAIN SCORE: 0/10 LOCATION: Bilateral chest FINDINGS: A single view of the chest demonstrates bilateral mostly basilar airspace disease with more dense con solidation in the right infrahilar region. Small effusions. Heart size mildly enlarged. CONCLUSION: 1. Cardiomegaly with small effusions and mild edema pattern most characteristic of mild congestive he art failure. Dense consolidation at the right base could represent a superimposed pneumonia or aspira tion. Misael Ward MD on October 22, 2017 at 14:21 Board Certified Radiologist. This report was verified electronically.
[2017-10-22] MEDS ORDERED: cefTRIAXone INJ 1,000 MG in SODIUM CHLORIDE 0.9% INJ 100 ML IV ONE (14:45)
[2017-10-22] MEDS ORDERED: AZITHROMYCIN INJ 500 MG in SODIUM CHLOR 0.9% 250 ML INJ 250 ML IV ONE (14:45)
[2017-10-22] MEDS ORDERED: SODIUM CHLORIDE 0.9% FLUSH 10 ML FLUSH IV FLUSH PRN (15:15)
--- NOTE | 2017-10-22 15:20 | HHI.HP ---
[facility] Silverio Murrell DO Admission Diagnosis CHF exacerbation, PNA, severe aortic stenosis Diagnoses: Travel History International Travel<30 Days: No Contact w/Intl Traveler <30 Da: No Traveled to Known Affected Are: No Sepsis Criteria SIRS Criteria (2 or more): Heart rate over 90, RR > 20 or PaCO2 < 32 Sepsis Criteria (SIRS+source): Infect source susp/known History of Present Illness 76 year old male severe aortic stenosis, DM, HTN, HLD, colonic AVM, and CHF presenting with about a week of worsening exertional shortness of breath. 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 He lives alone and is otherwise very independent but has had a difficult time taking care of himself because of how short of breath he's been. He endorses decreased appetite in the last two days and denies excessive salt or intake of fluids. He states he becomes very dyspneic after just ten steps and if he goes anymore his chest starts to burn. Symptoms are relieved with sitting down and resting. He endorses a dry cough and denies hemoptysis, fever, chills, or night sweats. Other associated symptoms include heart racing, mild ankle swelling, and orthopnea and states he has been sleeping in his recliner. He denies paroxysmal nocturnal dyspnea, palpitations, syncope, or dizziness. He saw his PCP a few days ago who started him on Lasix 40 mg daily and KCl; he states he noticed no change in his symptoms. He reports he is in the process of planning intervention for his severe but first he was supposed to have dental work ( root canal, permanent bridge); he is scheduled to see an equipment or machinery cleaner on 10/26. He was being worked up by Dr. Saucedo for valve replacement. Review of Systems Constitutional: COMPLAINS OF: Change in appetite, DENIES: Fever, Weight loss Eyes: DENIES: Blurred vision, Diplopia Ears, nose, mouth, throat: DENIES: Running Nose Respiratory: COMPLAINS OF: Cough, Shortness of breath, DENIES: Wheezing, Hemoptysis, Sputum production Cardiovascular: COMPLAINS OF: Chest pain, Dyspnea on Exertion, Lower Extremity Edema, Orthopnea, DENIES: Palpitations, Syncope, PND Gastrointestinal: DENIES: Abdominal pain, Black stools, Bloody stools, Constipation, Diarrhea, Nausea, Vomiting Genitourinary: DENIES: Hematuria, Dysuria Musculoskeletal: DENIES: Back pain Neurologic: DENIES: Headache Psychiatric: DENIES: Confusion Past Family Social History Past Medical History DM HTN HLD Nonobstructing CAD * Cath 10/03: 20% distal LAD, 20% circumflex, 30% RCA, EF 55% Severe aortic stenosis * Echo at [facility] showing AV area of 0.81 and mean gradient of 52 Asymptomatic mild carotid stenosis Stage III CKD COPD * PFTs 09/27/17 showing severe obstruction, FEV1 severely reduced Hypothyroidism Neuropathy Gout Anemia History of GI bleed * EGD/colonoscopy done November 2016 * AVMs ablated Past Surgical History Tonsillectomy Appendectomy Right arm fracture and repair Sinus surgery Bilateral cataract surgery Reported Medications Coq-10 (Coenzyme Q10 (Ubidecarenone)) 50 Mg Cap 100 Mg PO DAILY Fish Oil 1,000 mg Softgel ([place]-3/Dha/Epa/Fish Oil) 1,000 Mg (120 Mg-180 Mg) Capsule 1 Tab PO DAILY Pioglitazone (Pioglitazone HCl) 30 Mg Tab 30 Mg PO DAILY Ferrous Sulfate 325 Mg (65 Mg Iron) Tablet 325 Mg PO DAILY Allopurinol 100 Mg Tab 100 Mg PO DAILY Januvia (Sitagliptin Phosphate) 50 Mg Tab 100 Mg PO DAILY Lisinopril 40 Mg Tab 40 Mg PO DAILY Levothyroxine (Levothyroxine Sodium) 137 Mcg Tab 137 Mcg PO DAILY Glipizide 10 Mg Tab 10 Mg PO BIDAC Gabapentin 600 Mg Tab 800 Mg PO BID Amlodipine (Amlodipine Besylate) 5 Mg Tab 5 Mg PO DAILY Allergies: Coded Allergies: Sulfa (Sulfonamide Antibiotics) (Unverified Allergy, Intermediate, Edema, 10/22/17) Active Ordered Medications Amlodipine Besylate (Norvasc) 5 mg DAILY PO; Start 10/23/17 at 09:00; Status UNV Azithromycin 500 mg/Sodium Chloride 250 ml @ 250 mls/hr ONCE ONCE IV Last administered on 10/22/17at 14:50; Admin Dose 250 MLS/HR; Start 10/22/17 at 14:45; Stop 10/22/17 at 15:44; Status DC Ceftriaxone Sodium 1000 mg/ Sodium Chloride 100 ml @ 200 mls/hr ONCE ONCE IV Last administered on 10/22/17at 15:58; Admin Dose 200 MLS/HR; Start 10/22/17 at 14: 45; Stop 10/22/17 at 15:14; Status DC Ferrous Sulfate (Ferrous Sulfate) 325 mg DAILY PO; Start 10/23/17 at 09:00 Furosemide (Lasix Inj) 40 mg DAILY IV PUSH; Start 10/23/17 at 09:00 Furosemide (Lasix Inj) 40 mg ONCE ONCE IV PUSH; Start 10/22/17 at 16:00; Stop at 16:22; Status DC Furosemide (Lasix Inj) 60 mg ONCE ONCE IV PUSH; Start 10/22/17 at 13:30; Stop at 14:22; Status DC Gabapentin (Neurontin) 800 mg BID PO; Start 10/22/17 at 21:00; Status UNV Non-Formulary Medication 1 tab DAILY PO; Start 10/23/17 at 09:00; Status UNV Potassium Chloride (KCl) 20 meq DAILY PO; Start 10/23/17 at 09:00 Sitagliptin Phosphate (Januvia) 100 mg DAILY PO; Start 10/23/17 at 09:00; Status UNV Sodium Chloride 250 ml @ 15 mls/hr ONCE ONCE IV; Start 10/22/17 at 14:00; Stop 10/23/17 at 06:39 Sodium Chloride (NS Flush) 2 ml BID IV FLUSH; Start 10/22/17 at 21:00 Sodium Chloride (NS Flush) 2 ml UNSCH PRN IV FLUSH Last administered on at 15:58; Admin Dose 2 ML; Start 10/22/17 at 15:15 Family History Mother had emphysema, father had colon cancer Social History Lives alone EtOH: quit 3-4 years ago, prior had heavy consumption Tobacco: quit in 1987, prior smoked 3-4 PPD x 40 years Illicit drugs: denies Physical Exam Vital Signs Vital Signs Date Time Temp Pulse Resp B/P (MAP) Pulse Ox O2 Delivery O2 Flow Rate FiO2 10/22/17 13:30 94 32 123/56 (78) 93 Nasal Cannula 3.00 10/22/17 13:01 87 Room Air 4/8/18 13:01 Nasal Cannula 2.00 10/22/17 13:00 123/56 (78) 10/22/17 12:46 98.5 99 27 138/64 (88) 89 Physical Exam GENERAL: Well-nourished, well-developed male sitting up comfortably in bed in no apparent distress. SKIN: No rashes, ecchymoses or lesions. Cool and dry. HEENT: Atraumatic. Normocephalic. No temporal or scalp tenderness. Pupils equal round and reactive. Extraocular motions intact. No scleral icterus. No injection or drainage. Nose without bleeding, purulent drainage or septal hematoma. Throat without erythema, tonsillar hypertrophy or exudate. Uvula midline. Airway patent. NECK: Trachea midline. No JVD or lymphadenopathy. Supple, nontender, no meningeal signs. CARDIOVASCULAR: RRR with 3/6 SUSAN w/ radiation to bilateral carotids. RESPIRATORY: Diminished at the bases otherwise clear to auscultation. Breath sounds equal bilaterally. GASTROINTESTINAL: Abdomen soft, nontender, nondistended. No hepatosplenomegaly or palpable masses. No guarding. MUSCULOSKELETAL: 1+ pitting edema up to mid-shins bilaterally. No calf tenderness. Negative Homans sign bilaterally. NEUROLOGICAL: Awake and alert. Cranial nerves II through XII intact. Motor and sensory grossly within normal limits. Five out of 5 muscle strength in all muscle groups. Normal speech. Laboratory Laboratory Tests Test 10/22/17 13:00 White Blood Count 12.8 Red Blood Count 2.53 Hemoglobin 7.1 Hematocrit 21.4 Mean Corpuscular Volume 84.4 Mean Corpuscular Hemoglobin 27.9 Mean Corpuscular Hemoglobin Concent 33.0 Red Cell Distribution Width 18.1 Platelet Count 357 Mean Platelet Volume 8.6 Neutrophils (%) (Auto) 87.9 Lymphocytes (%) (Auto) 3.3 Monocytes (%) (Auto) 7.9 Eosinophils (%) (Auto) 0.3 Basophils (%) (Auto) 0.6 Neutrophils # (Auto) 11.3 Lymphocytes # (Auto) 0.4 Monocytes # (Auto) 1.0 Eosinophils # (Auto) 0.0 Basophils # (Auto) 0.1 CBC Comment DIFF FINAL Differential Comment Prothrombin Time 11.3 Prothromb Time International Ratio 1.1 Activated Partial Thromboplast Time 32.0 Blood Urea Nitrogen 35 Creatinine 2.34 Random Glucose 203 Total Protein 7.3 Albumin 2.7 Calcium Level 8.3 Magnesium Level 2.4 Alkaline Phosphatase 72 Aspartate Amino Transf (AST/SGOT) 17 Alanine Aminotransferase (ALT/SGPT) 28 Total Bilirubin 0.7 Sodium Level 133 Potassium Level 4.3 Chloride Level 101 Carbon Dioxide Level 20.3 Anion Gap 12 Estimat Glomerular Filtration Rate 27 Total Creatine Kinase 122 Creatine Kinase MB 1.7 Troponin I LESS THAN 0.02 B-Type Natriuretic Peptide 128 Date/Time Source Procedure Growth Status 10/22/17 13:05 Blood Peripheral Aerobic Blood Culture Pending Received 10/22/17 13:05 Blood Peripheral Anaerobic Blood Culture Pending Received Result Diagram: 10/22/17 1300 10/22/17 1300 Imaging Chest X-Ray 10/22/17 1258 Signed Impressions: Service Date/Time: Sunday, October 22, 2017 13:49 - CONCLUSION: 1. Cardiomegaly with small effusions and mild edema pattern most characteristic of mild congestive heart failure. Dense consolidation at the right base could represent a superimposed pneumonia or aspiration. Misael Ward MD Caprini VTE Risk Assessment Caprini VTE Risk Assessment: Mod/High Risk (score >= 2) Caprini Risk Assessment Model Point Value = 1 Point Value = 2 Point Value = 3 Point Value = 5 Age 41-60 Minor surgery BMI > 25 kg/m2 Swollen legs Varicose veins or History of unexplained or recurrent spontaneous Oral contraceptives or hormone replacement Sepsis (< 1 month) Serious lung disease, including pneumonia (< 1 month) Abnormal pulmonary function Acute myocardial infarction Congestive heart failure (< 1 month) History of inflammatory bowel disease Medical patient at bed rest Age 61-74 Arthroscopic surgery Major open surgery (> 45 min) Laparoscopic surgery (> 45 min) Malignancy Confined to bed (> 72 hours) Immobilizing plaster cast Central venous access Age >= 75 History of VTE Family history of VTE Factor V Leiden Prothrombin [id number] Lupus anticoagulant Anticardiolipin antibodies Elevated serum homocysteine Heparin-induced thrombocytopenia Other congenital or acquired thrombophilia Stroke (< 1 month) Elective arthroplasty Hip, pelvis, or leg fracture Acute spinal cord injury (< 1 month) Prophylaxis Regimen Total Risk Factor Score Risk Level Prophylaxis Regimen 0-1 Low Early ambulation 2 Moderate Order ONE of the following: *Sequential Compression Device (SCD) *Heparin 5000 units SQ BID 3-4 Higher Order ONE of the following medications: *Heparin 5000 units SQ TID *Enoxaparin/Lovenox 40 mg SQ daily (WT < 150 kg, CrCl > 30 mL/min) *Enoxaparin/Lovenox 30 mg SQ daily (WT < 150 kg, CrCl > 10-29 mL/min) *Enoxaparin/Lovenox 30 mg SQ BID (WT < 150 kg, CrCl > 30 mL/min) AND/OR *Sequential Compression Device (SCD) 5 or more Highest Order ONE of the following medications: *Heparin 5000 units SQ TID (Preferred with Epidurals) *Enoxaparin/Lovenox 40 mg SQ daily (WT < 150 kg, CrCl > 30 mL/min) *Enoxaparin/Lovenox 30 mg SQ daily (WT < 150 kg, CrCl > 10-29 mL/min) *Enoxaparin/Lovenox 30 mg SQ BID (WT < 150 kg, CrCl > 30 mL/min) AND *Sequential Compression Device (SCD) Assessment and Plan Problem List: (1) CHF exacerbation ICD Code: I50.9 - Heart failure, unspecified (2) Severe aortic stenosis ICD Code: I35.0 - Nonrheumatic aortic (valve) stenosis Status: Acute (3) Pneumonia ICD Code: J18.9 - Pneumonia, unspecified organism Status: Acute (4) Acute kidney injury ICD Code: N17.9 - Acute kidney failure, unspecified Status: Acute (5) HTN (hypertension) ICD Code: I10 - Essential (primary) hypertension Status: Chronic Assessment and Plan 76 YOWM with history of severe aortic stenosis, DM, CHF, and HTN presenting with worsening exertional dyspnea. 1. CHF exacerbation - CXR with cardiomegaly and some pulmonary edema - BNP not impressive - Cardiology consulted given exacerbation in setting of severe - Lasix 40 mg IV (will monitor renal function closely) - KCl to supplement for potassium loss - Troponin negative and EKG w/ NSR and occasional PACs - ACS r/o with serial enzymes and EKGs - 2D echo - Supplemental O2 PRN 2. Severe aortic stenosis - Currently in process of valve replacement with CT surgery pending upcoming dental procedure - Spoke with Dr. Nogueira who will contact CT surgery - 2D echo ordered 3. Pneumonia - Leukocytosis, consolidation R base on CXR, and pt with cough and SOB - Treat for CAP with Rocephin and Azithromycin - Supplemental O2 PRN - Consider adding steroids if no improvement - Check urine legionella and pneumococcal antigens 4. TREV - Acute on chronic renal insufficiency likely secondary to cardiorenal - Caution with diuretics - Avoid nephrotoxic agents - Renally dose meds 5. Anemia - H&H 7.1/21.4 (down from hemoglobin of 9.3 about a month ago) - History of G bleed but no active bleeding - Given cardiac illness, he is being transfused 2 units PRBCs to maintain Hb >9 - F/U H&H 6. DM - Hold PO home meds while inpatient and place on medium SSI per protocol - May have to change dosing of Januvia on discharge to accommodate his renal function 7. HTN - Continue home Amlodipine - Hold Lisinopril given TREV - Caution with agents that can reduce preload in the setting of severe 8. Hypothyroidism - Resume home levothyroxine 9. Gout - Resume home allopurinol FEN: - 1500 mL fluid restriction - Diabetic diet DVT prophylaxis: Heparin 5000 Q8H (no active bleeding but history of colonic AVM in 2014 so will monitor closely) Discussed Condition With Dr. Benjamin and patient Physician Certification 2 Midnight Certification Type: Admission for Inpatient Services Order for Inpatient Services The services are ordered in accordance with Medicare regulations or non- Medicare payer requirements, as applicable. In the case of services not specified as inpatient-only, they are appropriately provided as inpatient services in accordance with the 2-midnight benchmark. Estimated LOS (days): 3 3 days is the estimated time the patient will need to remain in the hospital, assuming treatment plan goals are met and no additional complications. Post-Hospital Plan: Not yet determined Problem Qualifiers (1) Pneumonia: Qualified Codes: J18.1 - Lobar pneumonia, unspecified organism Odessa Serrano MD Oct 22, 2017 15:20
[2017-10-22] MEDS ORDERED: GLUCAGON 1 MG/ML VIAL OTHER PRN (16:30)
[2017-10-22] MEDS ORDERED: DEXTROSE 50% IN WATER 50 ML VIAL(D50) IV PUSH PRN (16:30)
[2017-10-22] MEDS: INSULIN ASPART SUPPLEMENTAL SCALE SQ SCH ×2 (17:00→20:48)
[2017-10-22] MEDS: SODIUM CHLORIDE 0.9% FLUSH 10 ML FLUSH IV FLUSH SCH (20:47)
[2017-10-22] MEDS: HEPARIN SODIUM - SQ 10,000 UNITS/ML VIAL SQ SCH (20:49)
[2017-10-22] MEDS ORDERED: GABAPENTIN 300 MG CAP PO SCH (21:00)
[2017-10-22 22:17] LABS: TROPONIN I LESS THAN 0.02 NG/ML (0.02-0.05)
[2017-10-23] VITALS (9 sets, daily range): BP systolic 128–173; BP diastolic 59–92; PULSE 81–98; RESP 18–24; TEMP 97.4–98.5; O2SAT 92–96
[2017-10-23] MEDS: HEPARIN SODIUM - SQ 10,000 UNITS/ML VIAL SQ SCH ×3 (05:47→21:24)
[2017-10-23 05:54] LABS: AUTOMATED NEUTROPHIL # 10.1 TH/MM3 (1.8-7.7); BASOPHIL # 0.1 TH/MM3 (0-0.2); BASOPHIL % 0.8 % (0.0-2.0); EOSINOPHIL # 0.1 TH/MM3 (0-0.4); EOSINOPHIL % 1.1 % (0.0-4.0); HEMATOCRIT 26.6 % (39.0-51.0); HEMOGLOBIN 8.9 GM/DL (13.0-17.0); LYMPH % 7.8 % (9.0-44.0); MEAN CELL VOLUME 83.9 FL (80.0-100.0); MEAN CORPUSCULAR HEMOGLOBIN 28.1 PG (27.0-34.0); MEAN CORPUSCULAR HGB CONC 33.4 % (32.0-36.0); MEAN PLATELET VOLUME 9.3 FL (7.0-11.0); MONO % 9.8 % (0.0-8.0); MONOCYTE # 1.2 TH/MM3 (0-0.9); NEUT % 80.5 % (16.0-70.0); PLATELET COUNT 326 TH/MM3 (150-450); RED BLOOD COUNT 3.17 MIL/MM3 (4.50-5.90); RED CELL DISTRIBUTION WIDTH 17.4 % (11.6-17.2); WHITE BLOOD COUNT 12.6 TH/MM3 (4.0-11.0)
[2017-10-23 06:26] LABS: BICARBONATE 24.2 MEQ/L (21.0-32.0); BLOOD UREA NITROGEN 39 MG/DL (7-18); CALCIUM 8.5 MG/DL (8.5-10.1); CHLORIDE 104 MEQ/L (98-107); CREATININE 2.03 MG/DL (0.60-1.30); GLOMERULAR FILTRATION RATE 32 ML/MIN (>89); GLUCOSE,RANDOM 73 MG/DL (74-106); SODIUM (NA) 139 MEQ/L (136-145); TROPONIN I 0.02 NG/ML (0.02-0.05)
[2017-10-23] MEDS: INSULIN ASPART SUPPLEMENTAL SCALE SQ SCH ×4 (08:00→21:25)
[2017-10-23] MEDS: AZITHROMYCIN 250 MG TAB PO SCH (08:48)
[2017-10-23] MEDS: GABAPENTIN 300 MG CAP PO SCH (08:48)
[2017-10-23] MEDS: amLODIPine BESYLATE 5 MG TAB PO SCH (08:48)
[2017-10-23] MEDS: FUROSEMIDE 40 MG/4 ML VIAL IV PUSH SCH (08:49)
[2017-10-23] MEDS: POTASSIUM CHLORIDE 20 MEQ CONTROLLED RELEASE TAB PO SCH (08:49)
[2017-10-23] MEDS: SODIUM CHLORIDE 0.9% FLUSH 10 ML FLUSH IV FLUSH SCH ×2 (08:50→21:00)
[2017-10-23] MEDS: cefTRIAXone INJ 1,000 MG in SODIUM CHLORIDE 0.9% INJ 100 ML IV SCH (08:50)
[2017-10-23] MEDS: FERROUS SULFATE 325 MG (65 MG ELEMENTAL IRON) TAB PO SCH (09:00)
[2017-10-23] MEDS ORDERED: DHA PO SCH (09:00)
[2017-10-23] MEDS ORDERED: FISH OIL PO SCH (09:00)
[2017-10-23] MEDS ORDERED: OMEGA PO SCH (09:00)
[2017-10-23] MEDS ORDERED: EPA PO SCH (09:00)
--- NOTE | 2017-10-23 11:32 | MB ---
cc: Efren Nogueira DO DATE: 10/22/2017 REASON FOR CONSULTATION: Shortness of breath. HISTORY OF PRESENT ILLNESS: Anuj Ingram is a pleasant 76-year-old male who sees my partner, Dr. Clayton in the office and presented due to exertional shortness of breath. He recently found out that he had severe aortic stenosis and underwent cardiac catheterization. During this, he was found to have mild coronary artery disease. He was set up to see surgery for consideration of a mini AVR, but needed to have worked done on his teeth. He was planning on having work done on his teeth in the next 2 weeks and then being set up for surgery. He has noticed that he has had a difficult time taking care of himself because of how short of breath he has been. He was started on Lasix 2 days ago by his primary care physician. He feels like his ankles have been swelling and he has noticed orthopnea and so he felt like he should come into the emergency room. PAST MEDICAL HISTORY: 1. Severe aortic stenosis (aortic valve area 0.81, mean gradient 52). 2. Mild coronary artery disease by cardiac catheterization (10/03/2017). 3. Diabetes mellitus. 4. Hypertension. 5. Hyperlipidemia. 6. Mild carotid stenosis. 7. Stage III chronic kidney disease. 8. Chronic obstructive pulmonary disease. 9. Hypothyroidism. 10. Neuropathy. 11. Gout. 12. Anemia. 13. History of gastrointestinal bleed. PAST SURGICAL HISTORY: 1. Cardiac catheterization (09/27/2017), mild coronary artery disease, mild pulmonary hypertension (type 2 due to elevated left-sided filling pressures). 3. Tonsillectomy. 4. Appendectomy. 5. Right arm fracture and repair. 6. Sinus surgery. 7. Bilateral cataract surgery. ALLERGIES: SULFA. MEDICATIONS: 1. Iron 325 mg daily. 2. Fish oil 1 tab daily. 3. Norvasc 5 mg daily. 4. Lisinopril 40 mg daily. 5. Gabapentin 800 mg twice a day. 6. Januvia 100 mg daily. 7. Glipizide 10 mg twice a day. 8. Pioglitazone 30 mg daily. 9. Synthroid 137 mcg daily. 10. Allopurinol 100 mg daily. 11. Coenzyme Q 10 is 100 mg daily. 12. Lasix 40 mg daily. FAMILY HISTORY: Denies premature coronary artery disease or sudden cardiac within the family. SOCIAL HISTORY: The patient previously drank, but quit a number of years ago. He also previously smoked, but quit in 1987. Prior to that, he smoked 3-4 packs a day for 40 years. Denies drug abuse. REVIEW OF SYSTEMS: Fourteen systems were reviewed including osteopathic pertinent positives and negatives above, otherwise negative. PHYSICAL EXAMINATION: VITAL SIGNS: Temperature 98.5, heart rate 92, blood pressure 133/62, respirations 22, pulse oximetry 93% on 3 liters. GENERAL: The patient appears well in no acute distress, alert, awake and oriented x 3. HEENT: Extraocular muscles intact. Mucous membranes moist. NECK: Supple. No JVD at 45 degrees. No carotid bruits heard bilaterally. Carotid upstroke is brisk in nature. HEART: Regular rate and rhythm. Positive first and second heart sounds with a 3/6 crescendo decrescendo murmur to the right sternal border. LUNGS: Decreased breath sounds bilaterally, but no overt wheezes, rales or rhonchi. ABDOMEN: Soft, nontender, nondistended, no organomegaly noted. EXTREMITIES: Show trace edema bilaterally. NEUROLOGIC: No focal deficits. SKIN: Warm, dry and intact. OSTEOPATHIC: Mild lordosis, no kyphoscoliosis or paraspinal tender points. LABORATORY DATA: Hemoglobin 7.1, hematocrit 21.4, platelets 357. Potassium 4.3, BUN 35, creatinine 2.34. Troponin less than 0.02. Electrocardiogram (10/22/2017 at 12:58) sinus rhythm, nonspecific ST-T wave changes. IMPRESSIONS: 1. Decompensated heart failure most likely due to his severe aortic stenosis. 2. Severe aortic stenosis with an aortic valve area of 0.81 and a mean gradient of 52. 3. Acute kidney injury on chronic kidney disease. 4. Mild coronary artery disease. 5. Mild pulmonary hypertension by right heart catheterization (10/03/2017). RECOMMENDATIONS: 1. Mr. Ingram presented with heart failure and this is most likely due to his severe aortic stenosis. 2. We will change his Lasix to IV and diurese him if possible. 3. He will be treated for possible pneumonia by the primary team. 4. Upon discharge, he will have dental work done and then be set up for possible mini AVR by Dr. Rios. 5. Further recommendations will be made based on the hospital course. Thank you for allowing me to see Anuj Ingram. If there are any questions, please do not hesitate to call. Efren Nogueira DO VGP/MOHIT , 11:01 AM , 11:31 AM
--- NOTE | 2017-10-23 15:21 | PD.CARD.PN ---
Subjective Subjective Remarks No events overnight Feels like he's breathing better overall Objective Medications Current Medications Medications (Trade) Dose Ordered Sig/Roxanne Route Start Time Stop Time Status Last Admin (NS Flush) 2 ml BID IV FLUSH 10/22/17 21:00 10/23/17 08:50 (NS Flush) 2 ml UNSCH PRN IV FLUSH 10/22/17 15:15 10/22/17 15:58 (Norvasc) 5 mg DAILY PO 10/23/17 09:00 10/23/17 08:48 (Ferrous Sulfate) 325 mg DAILY PO 10/23/17 09:00 (Januvia) 100 mg DAILY PO 10/23/17 09:00 Future Hold (Lasix Inj) 40 mg DAILY IV PUSH 10/23/17 09:00 10/23/17 08:49 (KCl) 20 meq DAILY PO 10/23/17 09:00 10/23/17 08:49 (Neurontin) 600 mg DAILY PO 10/23/17 09:00 10/23/17 08:48 (Heparin Inj) 5,000 units Q8HR SQ 10/22/17 22:00 10/23/17 12:52 Ceftriaxone Sodium 1000 mg/ Sodium Chloride 100 ml @ 200 mls/hr Q24H IV 10/23/17 09:00 10/23/17 08:50 (Zithromax) 500 mg DAILY PO 10/23/17 09:00 10/23/17 08:48 (D50w (Vial) Inj) 50 ml UNSCH PRN IV PUSH 10/22/17 16:30 (Glucagon Inj) 1 mg UNSCH PRN OTHER 10/22/17 16:30 (NovoLOG SUPPLEMENTAL SCALE) 1 ACHS SLIDING SCALE SQ 10/22/17 17:00 10/23/17 12:51 Vital Signs / I&O Vital Signs Date Time Temp Pulse Resp B/P (MAP) Pulse Ox O2 Delivery O2 Flow Rate FiO2 10/23/17 12:00 97.8 88 18 138/74 (95) 92 10/23/17 11:15 21 10/23/17 08:00 97.5 87 18 151/89 (109) 94 10/23/17 04:00 98.4 98 19 128/59 (82) 96 10/23/17 04:00 89 10/23/17 00:07 97.8 85 24 173/92 95 10/23/17 00:00 84 10/22/17 23:51 97.4 88 24 166/83 94 10/22/17 20:00 92 10/22/17 20:00 97.5 90 18 134/65 (88) 96 10/22/17 19:00 Nasal Cannula 3.00 10/22/17 18:48 97.9 86 16 155/73 (100) 94 10/22/17 18:05 10/22/17 17:55 98.1 86 20 133/64 95 10/22/17 17:42 98.3 86 19 122/70 (87) 95 Nasal Cannula 3.00 10/22/17 17:40 98.3 88 19 122/70 95 10/22/17 17:21 97.8 87 24 144/67 93 10/22/17 16:30 86 24 139/65 (89) 93 Nasal Cannula 3.00 10/22/17 15:30 92 26 135/64 (87) 92 Nasal Cannula 3.00 I/O 10/22/17 10/22/17 10/22/17 10/23/17 10/23/17 10/23/17 07:00 15:00 23:00 07:00 15:00 23:00 Intake Total 750 ml 1225 ml Output Total 675 ml Balance 75 ml 1225 ml Intake Oral 300 ml IV Total 350 ml Packed Cells 400 ml 400 ml Blood Product IV Normal Saline Flush 525 ml Output Urine Total 675 ml # Voids 1 2 # Bowel Movements 0 Physical Exam GENERAL: NAD, AAOx3 SKIN: Warm and dry. HEAD: Atraumatic. Normocephalic. EYES: Pupils equal and round. No scleral icterus. No injection or drainage. ENT: No nasal bleeding or discharge. Mucous membranes pink and moist. NECK: Trachea midline. No JVD. CARDIOVASCULAR: Regular rate and rhythm. 3/6 crescendo-decrescendo murmur to the RSB RESPIRATORY: No accessory muscle use. Decreased breath sounds bilaterally GASTROINTESTINAL: Abdomen soft, non-tender, nondistended. Hepatic and splenic margins not palpable. MUSCULOSKELETAL: Extremities without clubbing, cyanosis. Trace edema. No obvious deformities. NEUROLOGICAL: Awake and alert. No obvious cranial nerve deficits. Motor grossly within normal limits. Five out of 5 muscle strength in the arms and legs. Normal speech. PSYCHIATRIC: Appropriate mood and affect; insight and judgment normal. Laboratory Laboratory Tests Test 10/22/17 17:06 10/22/17 20:34 10/23/17 04:00 10/23/17 04:30 Lactic Acid Level 0.6 mmol/L Total Creatine Kinase 109 U/L 118 U/L Creatine Kinase MB 1.9 NG/ML 2.1 NG/ML Troponin I LESS THAN 0.02 NG/ML 0.02 NG/ML White Blood Count 12.6 TH/MM3 Red Blood Count 3.17 MIL/MM3 Hemoglobin 8.9 GM/DL Hematocrit 26.6 % Mean Corpuscular Volume 83.9 FL Mean Corpuscular Hemoglobin 28.1 PG Mean Corpuscular Hemoglobin Concent 33.4 % Red Cell Distribution Width 17.4 % Platelet Count 326 TH/MM3 Mean Platelet Volume 9.3 FL Neutrophils (%) (Auto) 80.5 % Lymphocytes (%) (Auto) 7.8 % Monocytes (%) (Auto) 9.8 % Eosinophils (%) (Auto) 1.1 % Basophils (%) (Auto) 0.8 % Neutrophils # (Auto) 10.1 TH/MM3 Lymphocytes # (Auto) 1.0 TH/MM3 Monocytes # (Auto) 1.2 TH/MM3 Eosinophils # (Auto) 0.1 TH/MM3 Basophils # (Auto) 0.1 TH/MM3 CBC Comment DIFF FINAL Differential Comment Blood Urea Nitrogen 39 MG/DL Creatinine 2.03 MG/DL Random Glucose 73 MG/DL Calcium Level 8.5 MG/DL Sodium Level 139 MEQ/L Potassium Level 4.2 MEQ/L Chloride Level 104 MEQ/L Carbon Dioxide Level 24.2 MEQ/L Anion Gap 11 MEQ/L Estimat Glomerular Filtration Rate 32 ML/MIN Assessment and Plan Problem List: (1) CHF exacerbation ICD Codes: I50.9 - Heart failure, unspecified (2) Severe aortic stenosis ICD Codes: I35.0 - Nonrheumatic aortic (valve) stenosis Status: Acute (3) HTN (hypertension) ICD Codes: I10 - Essential (primary) hypertension Status: Chronic (4) Acute kidney injury ICD Codes: N17.9 - Acute kidney failure, unspecified Status: Acute (5) Shortness of breath ICD Codes: R06.02 - Shortness of breath Status: Acute Assessment and Plan 1) Acute heart failure due to severe Con't with diuresis 2) Eventually change Lasix IV to PO 3) Upon discharge, he will have dental work done and then be set up for possible mini AVR by Dr. Rios. Efren Nogueira DO Oct 23, 2017 15:21
--- NOTE | 2017-10-23 15:23 | EKG ---
Date Performed: 10/22/2017 Time Performed: 21:07:56 PTAGE: 76 years EKG: Sinus rhythm NONSPECIFIC ST & T-WAVE ABNORMALITY Since the previous tracing, no significant change noted ABNORMAL ECG PREVIOUS TRACING : 10/22/2017 12.58 DOCTOR: Juan Humphrey Interpretating Date/Time 10/23/2017 15:15:10
--- NOTE | 2017-10-23 15:23 | EKG ---
Date Performed: 10/23/2017 Time Performed: 01:38:16 PTAGE: 76 years EKG: Sinus rhythm Lateral ST-T changes may be due to myocardial ischemia Since the previous tracing, no significant ch td noted Abnormal ECG PREVIOUS TRACING : 10/22/17 @ 2107 DOCTOR: Juan Humphrey Interpretating Date/Time 10/23/2017 15:15:29
--- NOTE | 2017-10-23 15:23 | EKG ---
Date Performed: 10/22/2017 Time Performed: 12:58:02 PTAGE: 76 years EKG: Sinus rhythm WITH OCCASIONAL SUPRAVENTRICULAR PREMATURE COMPLEXES ST DEVIATION AND MODERATE T-WAVE ABNORMALITY, C ONSIDER LATERAL ISCHEMIA Since the previous tracing, no significant change noted ABNORMAL ECG PREVIOUS TRACING : 10/10/2017 11.18 DOCTOR: Juan Humphrey Interpretating Date/Time 10/23/2017 15:15:02
[2017-10-24] VITALS (11 sets, daily range): BP systolic 131–157; BP diastolic 63–85; PULSE 85–91; RESP 17–20; TEMP 97.2–98.3; O2SAT 92–96
[2017-10-24] MEDS: HEPARIN SODIUM - SQ 10,000 UNITS/ML VIAL SQ SCH ×3 (05:14→21:08)
[2017-10-24 07:13] LABS: AUTOMATED NEUTROPHIL # 7.8 TH/MM3 (1.8-7.7); BASOPHIL # 0.1 TH/MM3 (0-0.2); BASOPHIL % 1.2 % (0.0-2.0); EOSINOPHIL # 0.2 TH/MM3 (0-0.4); HEMATOCRIT 26.8 % (39.0-51.0); HEMOGLOBIN 8.9 GM/DL (13.0-17.0); LYMPH % 9.3 % (9.0-44.0); LYMPHOCYTE # 0.9 TH/MM3 (1.0-4.8); MEAN CELL VOLUME 83.4 FL (80.0-100.0); MEAN CORPUSCULAR HEMOGLOBIN 27.6 PG (27.0-34.0); MEAN CORPUSCULAR HGB CONC 33.1 % (32.0-36.0); MONO % 8.8 % (0.0-8.0); MONOCYTE # 0.9 TH/MM3 (0-0.9); NEUT % 78.7 % (16.0-70.0); PLATELET COUNT 355 TH/MM3 (150-450); RED BLOOD COUNT 3.22 MIL/MM3 (4.50-5.90); RED CELL DISTRIBUTION WIDTH 17.7 % (11.6-17.2); WHITE BLOOD COUNT 9.9 TH/MM3 (4.0-11.0)
[2017-10-24 07:44] LABS: ALBUMIN 2.5 GM/DL (3.4-5.0); ALT (GPT) 24 U/L (12-78); AST (GOT) 15 U/L (15-37); BICARBONATE 23.9 MEQ/L (21.0-32.0); BLOOD UREA NITROGEN 37 MG/DL (7-18); CALCIUM 8.6 MG/DL (8.5-10.1); CHLORIDE 108 MEQ/L (98-107); CREATININE 1.81 MG/DL (0.60-1.30); GLOMERULAR FILTRATION RATE 37 ML/MIN (>89); GLUCOSE,RANDOM 110 MG/DL (74-106); SODIUM (NA) 141 MEQ/L (136-145)
[2017-10-24 07:47] LABS: ALKALINE PHOSPHATASE 66 U/L (45-117); TOTAL BILIRUBIN ADULT 0.5 MG/DL (0.2-1.0)
[2017-10-24] MEDS: INSULIN ASPART SUPPLEMENTAL SCALE SQ SCH ×4 (08:00→21:03)
[2017-10-24] MEDS: FERROUS SULFATE 325 MG (65 MG ELEMENTAL IRON) TAB PO SCH (09:03)
[2017-10-24] MEDS: GABAPENTIN 300 MG CAP PO SCH (09:03)
[2017-10-24] MEDS: AZITHROMYCIN 250 MG TAB PO SCH (09:03)
[2017-10-24] MEDS: amLODIPine BESYLATE 5 MG TAB PO SCH (09:03)
[2017-10-24] MEDS: POTASSIUM CHLORIDE 20 MEQ CONTROLLED RELEASE TAB PO SCH (09:04)
[2017-10-24] MEDS: cefTRIAXone INJ 1,000 MG in SODIUM CHLORIDE 0.9% INJ 100 ML IV SCH (09:04)
[2017-10-24] MEDS: FUROSEMIDE 40 MG/4 ML VIAL IV PUSH SCH (09:04)
--- NOTE | 2017-10-24 10:09 | PD.CARD.PN ---
Subjective Subjective Remarks No events overnight Feels like he's breathing better overall Objective Medications Current Medications Medications (Trade) Dose Ordered Sig/Roxanne Route Start Time Stop Time Status Last Admin (NS Flush) 2 ml BID IV FLUSH 10/22/17 21:00 10/23/17 21:00 (NS Flush) 2 ml UNSCH PRN IV FLUSH 10/22/17 15:15 10/22/17 15:58 (Norvasc) 5 mg DAILY PO 10/23/17 09:00 10/24/17 09:03 (Ferrous Sulfate) 325 mg DAILY PO 10/23/17 09:00 10/24/17 09:03 (Januvia) 100 mg DAILY PO 10/23/17 09:00 Future Hold (Lasix Inj) 40 mg DAILY IV PUSH 10/23/17 09:00 10/24/17 09:04 (KCl) 20 meq DAILY PO 10/23/17 09:00 10/24/17 09:04 (Neurontin) 600 mg DAILY PO 10/23/17 09:00 10/24/17 09:03 (Heparin Inj) 5,000 units Q8HR SQ 10/22/17 22:00 10/24/17 05:14 Ceftriaxone Sodium 1000 mg/ Sodium Chloride 100 ml @ 200 mls/hr Q24H IV 10/23/17 09:00 10/24/17 09:04 (Zithromax) 500 mg DAILY PO 10/23/17 09:00 10/24/17 09:03 (D50w (Vial) Inj) 50 ml UNSCH PRN IV PUSH 10/22/17 16:30 (Glucagon Inj) 1 mg UNSCH PRN OTHER 10/22/17 16:30 (NovoLOG SUPPLEMENTAL SCALE) 1 ACHS SLIDING SCALE SQ 10/22/17 17:00 10/23/17 21:25 Vital Signs / I&O Vital Signs Date Time Temp Pulse Resp B/P (MAP) Pulse Ox O2 Delivery O2 Flow Rate FiO2 10/24/17 04:52 95 Nasal Cannula 3.00 10/24/17 04:49 98.3 85 17 137/68 (91) 95 10/24/17 04:00 Nasal Cannula 3.00 10/24/17 03:48 87 10/24/17 00:46 97.8 85 17 142/63 (89) 95 10/24/17 00:00 Nasal Cannula 3.00 10/23/17 23:49 82 10/23/17 21:42 98.5 81 18 153/73 (99) 95 10/23/17 21:25 Nasal Cannula 3.00 10/23/17 20:03 85 10/23/17 16:00 97.4 91 20 155/84 (107) 92 10/23/17 16:00 88 10/23/17 12:00 87 10/23/17 12:00 97.8 88 18 138/74 (95) 92 10/23/17 11:15 21 I/O 10/23/17 10/23/17 10/23/17 10/24/17 10/24/17 10/24/17 07:00 15:00 23:00 07:00 15:00 23:00 Intake Total 1225 ml Output Total 650 ml 920 ml Balance 1225 ml -650 ml -920 ml Intake Oral 300 ml Packed Cells 400 ml Blood Product IV Normal Saline Flush 525 ml Output Urine Total 650 ml 920 ml # Voids 2 # Bowel Movements 0 0 Physical Exam GENERAL: NAD, AAOx3 SKIN: Warm and dry. HEAD: Atraumatic. Normocephalic. EYES: Pupils equal and round. No scleral icterus. No injection or drainage. ENT: No nasal bleeding or discharge. Mucous membranes pink and moist. NECK: Trachea midline. No JVD. CARDIOVASCULAR: Regular rate and rhythm. 3/6 crescendo-decrescendo murmur to the RSB RESPIRATORY: No accessory muscle use. Decreased breath sounds bilaterally GASTROINTESTINAL: Abdomen soft, non-tender, nondistended. Hepatic and splenic margins not palpable. MUSCULOSKELETAL: Extremities without clubbing, cyanosis. Trace edema. No obvious deformities. NEUROLOGICAL: Awake and alert. No obvious cranial nerve deficits. Motor grossly within normal limits. Five out of 5 muscle strength in the arms and legs. Normal speech. PSYCHIATRIC: Appropriate mood and affect; insight and judgment normal. Laboratory Laboratory Tests Test 10/24/17 05:30 White Blood Count 9.9 TH/MM3 Red Blood Count 3.22 MIL/MM3 Hemoglobin 8.9 GM/DL Hematocrit 26.8 % Mean Corpuscular Volume 83.4 FL Mean Corpuscular Hemoglobin 27.6 PG Mean Corpuscular Hemoglobin Concent 33.1 % Red Cell Distribution Width 17.7 % Platelet Count 355 TH/MM3 Mean Platelet Volume 9.0 FL Neutrophils (%) (Auto) 78.7 % Lymphocytes (%) (Auto) 9.3 % Monocytes (%) (Auto) 8.8 % Eosinophils (%) (Auto) 2.0 % Basophils (%) (Auto) 1.2 % Neutrophils # (Auto) 7.8 TH/MM3 Lymphocytes # (Auto) 0.9 TH/MM3 Monocytes # (Auto) 0.9 TH/MM3 Eosinophils # (Auto) 0.2 TH/MM3 Basophils # (Auto) 0.1 TH/MM3 CBC Comment DIFF FINAL Differential Comment Blood Urea Nitrogen 37 MG/DL Creatinine 1.81 MG/DL Random Glucose 110 MG/DL Total Protein 7.0 GM/DL Albumin 2.5 GM/DL Calcium Level 8.6 MG/DL Alkaline Phosphatase 66 U/L Aspartate Amino Transf (AST/SGOT) 15 U/L Alanine Aminotransferase (ALT/SGPT) 24 U/L Total Bilirubin 0.5 MG/DL Sodium Level 141 MEQ/L Potassium Level 4.2 MEQ/L Chloride Level 108 MEQ/L Carbon Dioxide Level 23.9 MEQ/L Anion Gap 9 MEQ/L Estimat Glomerular Filtration Rate 37 ML/MIN Assessment and Plan Problem List: (1) CHF exacerbation ICD Codes: I50.9 - Heart failure, unspecified (2) Severe aortic stenosis ICD Codes: I35.0 - Nonrheumatic aortic (valve) stenosis Status: Acute (3) HTN (hypertension) ICD Codes: I10 - Essential (primary) hypertension Status: Chronic (4) Acute kidney injury ICD Codes: N17.9 - Acute kidney failure, unspecified Status: Acute (5) Shortness of breath ICD Codes: R06.02 - Shortness of breath Status: Acute Assessment and Plan 1) Acute heart failure due to severe Con't with diuresis Possible discharge tomorrow Wean O2 2) Eventually change Lasix IV to PO 3) Upon discharge, he will have dental work done and then be set up for possible mini AVR by Dr. Rios. Efren Nogueira DO Oct 24, 2017 10:09
--- NOTE | 2017-10-24 12:11 | HHI.PR ---
Subjective Remarks Gradually improving through time, since admit. Exertional tolerance is decreasing. Patient is not yet back to baseline but he is trending towards that direction. Objective Vital Signs Date Time Temp Pulse Resp B/P (MAP) Pulse Ox O2 Delivery O2 Flow Rate FiO2 10/24/17 11:02 95 3.00 10/24/17 10:08 95 Nasal Cannula 3.00 10/24/17 08:00 91 10/24/17 08:00 97.4 87 20 157/72 (100) 95 10/24/17 08:00 96 Nasal Cannula 3.00 21 10/24/17 04:52 95 Nasal Cannula 3.00 10/24/17 04:49 98.3 85 17 137/68 (91) 95 10/24/17 04:00 Nasal Cannula 3.00 10/24/17 03:48 87 10/24/17 00:46 97.8 85 17 142/63 (89) 95 10/24/17 00:00 Nasal Cannula 3.00 10/23/17 23:49 82 10/23/17 21:42 98.5 81 18 153/73 (99) 95 10/23/17 21:25 Nasal Cannula 3.00 10/23/17 20:03 85 10/23/17 16:00 97.4 91 20 155/84 (107) 92 10/23/17 16:00 88 I/O 10/23/17 10/23/17 10/23/17 10/24/17 10/24/17 10/24/17 07:00 15:00 23:00 07:00 15:00 23:00 Intake Total 1225 ml Output Total 650 ml 920 ml Balance 1225 ml -650 ml -920 ml Intake Oral 300 ml Packed Cells 400 ml Blood Product IV Normal Saline Flush 525 ml Output Urine Total 650 ml 920 ml # Voids 2 # Bowel Movements 0 0 Result Diagram: 10/24/1752910/24/17 0530 Objective Remarks GENERAL: NAD, A&Ox3 HEAD: Normocephalic. NECK: Supple, trachea midline. No lymphadenopathy. EYES: No scleral icterus. No injection or drainage. CARDIOVASCULAR: Regular rate and rhythm without murmurs, gallops, or rubs. RESPIRATORY: Breath sounds equal bilaterally. No accessory muscle use. Trace crackles bilaterally at bases. GASTROINTESTINAL: Abdomen soft, non-tender, nondistended. MUSCULOSKELETAL: No cyanosis, or edema. SKIN: Warm and dry. NEURO: No focal neurological deficitis. A/P Problem List: (1) CHF exacerbation ICD Code: I50.9 - Heart failure, unspecified (2) Acute kidney injury ICD Code: N17.9 - Acute kidney failure, unspecified Status: Acute Assessment and Plan 76-year-old male admitted secondary to CHF exacerbation related to pneumonia CHF exacerbation Aortic stenosis Continue Lasix Continue to monitor for fluid balance Patient may be stable by tomorrow for discharge Right base pneumonia Continue Rocephin Continue azithromycin Continue probiotic Acute kidney injury Follow renal function This condition is improving Avoid nephrotoxins Acute on chronic Anemia No evidence of GI bleeding Blood counts have been stable post procedure Hemoglobin stable Follow CBC Diabetes mellitus type 2 Follow blood sugars Insulin sliding scale Diabetic diet Hypertension Continue baseline treatment Follow blood pressures Adjust treatments as needed Hypothyroidism Continue levothyroxine Gout Continue allopurinol DVT prophylaxis Hi Scott MD Oct 24, 2017 12:11
--- NOTE | 2017-10-24 16:20 | ECHRPT ---
Indication: Heart failure, unspecified CONCLUSIONS Technically very difficult study. Grossly left ventricular function does appear to be normal. Nor mal left ventricular size and wall thickness. Regional wall motion abnormalities cannot be excluded. The aortic valve is not well visualized. No definite valvular abnormalities are identified. BP: / HR: Rhythm: Sinus MEASUREMENTS (Male / Female) Normal Values Technical Quality:Poor 2D ECHO LV Diastolic Diameter PLAX 4.7 cm 4.2 - 5.9 / 3.9 - 5.3 cm LV Systolic Diameter PLAX 3.7 cm IVS Diastolic Thickness 1.2 cm 0.6 - 1.0 / 0.6 - 0.9 cm LVPW Diastolic Thickness 1.2 cm 0.6 - 1.0 / 0.6 - 0.9 cm LV Relative Wall Thickness 0.5 LVOT Diameter 2.8 cm M-MODE Aortic Root Diameter MM 3.0 cm LA Systolic Diameter MM 3.0 cm LA Ao Ratio MM 1.0 AV Cusp Separation MM 2.2 cm DOPPLER AV Peak Velocity 355.5 cm/s AV Peak Gradient 50.6 mmHg AV Mean Gradient 29.5 mmHg AV Velocity Time Integral 74.2 cm LVOT Peak Velocity 82.9 cm/s LVOT Peak Gradient 2.7 mmHg AV Area Cont Eq pk 1.4 cm Mitral E Point Velocity 115.0 cm/s Mitral A Point Velocity 123.0 cm/s Mitral E to A Ratio 0.9 LV E' Lateral Velocity 6.2 cm/s Mitral E to LV E' Lateral Ratio 18.4 LV E' Septal Velocity 6.6 cm/s Mitral E to LV E' Septal Ratio 17.3 FINDINGS LEFT VENTRICLE Technically very difficult study. Grossly left ventricular function does appear to be normal. Nor mal left ventricular size and wall thickness. Regional wall motion abnormalities cannot be excluded. RIGHT VENTRICLE Normal right ventricular size and systolic function. LEFT ATRIUM The left atrial size is normal. RIGHT ATRIUM The right atrial size is normal. ATRIAL SEPTUM Normal atrial septal thickness without atrial level shunting by limited color doppler interrogation. AORTA The aortic root and proximal ascending aorta are normal in size on limited imaging. MITRAL VALVE Structurally normal mitral valve. No mitral valve stenosis or regurgitation. AORTIC VALVE The aortic valve is not well visualized. TRICUSPID VALVE Structurally normal tricuspid valve. No tricuspid valve stenosis or regurgitation. PULMONARY VALVE The pulmonary valve is not well visualized. VESSELS The inferior vena cava is normal in size. PERICARDIUM No pericardial effusion. José Miguel Sherman MD (Electronically Signed) Final Date:24 October 2017 16:20
[2017-10-24] MEDS: SODIUM CHLORIDE 0.9% FLUSH 10 ML FLUSH IV FLUSH SCH (21:00)
[2017-10-25] VITALS: BP 141/82; PULSE 85; RESP 19; TEMP 97.9; O2SAT 94
[2017-10-25 00:01] VITALS: PULSE 81
[2017-10-25 04:00] VITALS: BP 122/59; PULSE 91; RESP 18; TEMP 97.9; O2SAT 92
[2017-10-25] MEDS: HEPARIN SODIUM - SQ 10,000 UNITS/ML VIAL SQ SCH (05:00)
[2017-10-25 07:08] LABS: AUTOMATED NEUTROPHIL # 7.2 TH/MM3 (1.8-7.7); BASOPHIL # 0.1 TH/MM3 (0-0.2); BASOPHIL % 1.2 % (0.0-2.0); EOSINOPHIL # 0.2 TH/MM3 (0-0.4); EOSINOPHIL % 2.2 % (0.0-4.0); HEMATOCRIT 27.4 % (39.0-51.0); HEMOGLOBIN 9.1 GM/DL (13.0-17.0); LYMPH % 11.8 % (9.0-44.0); LYMPHOCYTE # 1.1 TH/MM3 (1.0-4.8); MEAN CELL VOLUME 84.3 FL (80.0-100.0); MEAN CORPUSCULAR HEMOGLOBIN 28.1 PG (27.0-34.0); MEAN CORPUSCULAR HGB CONC 33.3 % (32.0-36.0); MEAN PLATELET VOLUME 8.3 FL (7.0-11.0); MONO % 7.8 % (0.0-8.0); MONOCYTE # 0.7 TH/MM3 (0-0.9); PLATELET COUNT 351 TH/MM3 (150-450); RED BLOOD COUNT 3.26 MIL/MM3 (4.50-5.90); RED CELL DISTRIBUTION WIDTH 18.6 % (11.6-17.2); WHITE BLOOD COUNT 9.3 TH/MM3 (4.0-11.0)
[2017-10-25 07:45] LABS: ALBUMIN 2.4 GM/DL (3.4-5.0); AST (GOT) 20 U/L (15-37); BICARBONATE 22.7 MEQ/L (21.0-32.0); BLOOD UREA NITROGEN 33 MG/DL (7-18); CALCIUM 8.8 MG/DL (8.5-10.1); CHLORIDE 109 MEQ/L (98-107); CREATININE 1.71 MG/DL (0.60-1.30); GLOMERULAR FILTRATION RATE 39 ML/MIN (>89); GLUCOSE,RANDOM 126 MG/DL (74-106); SODIUM (NA) 141 MEQ/L (136-145)
[2017-10-25 07:47] LABS: ALT (GPT) 23 U/L (12-78)
[2017-10-25 07:48] LABS: ALKALINE PHOSPHATASE 64 U/L (45-117); TOTAL BILIRUBIN ADULT 0.5 MG/DL (0.2-1.0); TOTAL PROTEIN 6.9 GM/DL (6.4-8.2)
--- NOTE | 2017-10-25 07:51 | MB ---
cc: Wero Rios MD DATE: 10/24/2017 HISTORY OF PRESENT ILLNESS: Patient of Dr. Clayton. Was seen back on 09/27. He is also a patient of Dr. Silverio Murrell, but had history of aortic stenosis with worsening valve area. The valve area last was 0.81 with a mean gradient of 52. He was actually scheduled for aortic valve replacement on 10/17, but apparently has had pain in his upper teeth area and he was scheduled to actually undergo a root canal for possible impacted teeth and possible infection, so the recommendation was to postpone his surgery until after the root canal. He had that scheduled apparently tomorrow, but had to cancel it. He presented with shortness of breath, lower ankle edema, was found to have orthopnea, was in CHF. The echo had normal ventricular function. He had mild coronary disease by cardiac catheterization 10/03/2017. PAST MEDICAL HISTORY: Diabetes mellitus, hypertension, hyperlipidemia, mild carotid stenosis, stage III chronic kidney disease, COPD, hypothyroidism, neuropathy, gout, anemia, history of gastrointestinal bleed. PAST SURGICAL HISTORY: Include the cardiac catheterization, tonsillectomy, appendectomy, right arm fracture and repair, sinus surgery, bilateral cataract surgery. ALLERGIES: INCLUDE SULFA. HOME MEDICATIONS: Include iron fish oil, Norvasc, lisinopril, gabapentin, Januvia, glipizide, pioglitazone, Synthroid, allopurinol, Lasix. FAMILY HISTORY: No history of premature or cardiac . SOCIAL HISTORY: Prior heavy alcohol, but quit a number of years ago. Also smoked in 1987. Prior to that, he smoked 3-4 packs for about 40 years. REVIEW OF SYSTEMS: As above in the HPI, otherwise unremarkable. PHYSICAL EXAMINATION: VITAL SIGNS: Blood pressure 150/70, heart rate of 90, afebrile, O2 saturation 95% on room air. GENERAL: The patient is awake, alert, in no acute distress. HEENT: Head is normocephalic, atraumatic. Pupils equal and reactive. Oral mucosa pink, moist. NECK: Supple. No JVD. CARDIOVASCULAR: Sounds S1, S2. Regular rate and rhythm. Grade 3/6 crescendo, decrescendo murmur to the right sternal border. LUNGS: Diminished in the bases, otherwise clear to auscultation. No wheezes, rales or rhonchi. ABDOMEN: Soft, nontender. No masses or organomegaly. EXTREMITIES: Reveals trace edema. Good distal pulses. LABORATORY DATA: Shows hemoglobin of 8.9, hematocrit of 26, he presented with a hemoglobin of 7.1 and hematocrit of 21. WBC is 9.9, platelet count of 355. Sodium 141, potassium 4.2, BUN of 37, creatinine 1.81. Troponin was negative. BNP was 128. INR 1.1. Blood cultures negative x 24 hours. He has received 2 units of packed RBCs. RADIOLOGICAL EXAMS: Chest x-ray, some cardiomegaly, small effusions, some mild CHF. He has been aggressively treated with IV Lasix, also with broad-spectrum coverage, Rocephin and Zithromax. ASSESSMENT AND PLAN: This is a 76-year-old male known to our service, who has actually been scheduled for outpatient, who was tentatively scheduled for aortic valve replacement, however, wanted to postpone due to dental pain and need for possible root canal. He is to followup with his screw machine tender to have this done sooner than later and that can undergo proper aortic valve replacement as soon as possible once cleared. He was also found to have some possible pneumonia and initially had a white cell count of 12.8. He was treated with IV antibiotics. The patient states to us that he is possibly being discharged tomorrow and can followup with his screw machine tender sooner than later so that we can proceed with his minimally invasive aortic valve replacement, coming in as an outpatient. Dictated by RALPH Orr MD BRAYDEN Menjivar/MASOOD , 05:00 PM , 06:23 PM
[2017-10-25 08:00] VITALS: BP 125/74; PULSE 86; PULSE 92; RESP 20; TEMP 97.5; O2SAT 95
[2017-10-25] MEDS ORDERED: LACTTAB8 PO (09:15)
[2017-10-25] MEDS ORDERED: AUGM875T3 PO (09:15)
[2017-10-25] MEDS ORDERED: FURO1TAB62 PO (09:15)
[2017-10-25] MEDS ORDERED: ASPI-516 CHEW (09:15)
[2017-10-25] MEDS ORDERED: AZIT500T2 PO (09:15)
[2017-10-25] MEDS: AZITHROMYCIN 250 MG TAB PO SCH (10:16)
[2017-10-25] MEDS: GABAPENTIN 300 MG CAP PO SCH (10:16)
[2017-10-25] MEDS: FERROUS SULFATE 325 MG (65 MG ELEMENTAL IRON) TAB PO SCH (10:16)
[2017-10-25] MEDS: FUROSEMIDE 40 MG/4 ML VIAL IV PUSH SCH (10:17)
[2017-10-25] MEDS: POTASSIUM CHLORIDE 20 MEQ CONTROLLED RELEASE TAB PO SCH (10:17)
[2017-10-25] MEDS: amLODIPine BESYLATE 5 MG TAB PO SCH (10:17)
--- NOTE | 2017-10-25 11:26 | HHI.DS ---
Discharge Summary Admission Date Oct 22, 2017 at 14:57 Discharge Date: Oct 25, 2017 Admitting Diagnosis CHF exacerbation, PNA, severe aortic stenosis (1) CHF exacerbation ICD Code: I50.9 - Heart failure, unspecified Diagnosis: Principal (2) Severe aortic stenosis ICD Code: I35.0 - Nonrheumatic aortic (valve) stenosis Diagnosis: Principal Status: Acute (3) Pneumonia ICD Code: J18.9 - Pneumonia, unspecified organism Diagnosis: Principal Status: Acute (4) Acute kidney injury ICD Code: N17.9 - Acute kidney failure, unspecified Diagnosis: Principal Status: Acute (5) HTN (hypertension) ICD Code: I10 - Essential (primary) hypertension Diagnosis: Secondary Status: Chronic Procedures None Brief History - From Admission 76 year old male severe aortic stenosis, DM, HTN, HLD, colonic AVM, and CHF presenting with about a week of worsening exertional shortness of breath. 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 He lives alone and is otherwise very independent but has had a difficult time taking care of himself because of how short of breath he's been. He endorses decreased appetite in the last two days and denies excessive salt or intake of fluids. He states he becomes very dyspneic after just ten steps and if he goes anymore his chest starts to burn. Symptoms are relieved with sitting down and resting. He endorses a dry cough and denies hemoptysis, fever, chills, or night sweats. Other associated symptoms include heart racing, mild ankle swelling, and orthopnea and states he has been sleeping in his recliner. He denies paroxysmal nocturnal dyspnea, palpitations, syncope, or dizziness. He saw his PCP a few days ago who started him on Lasix 40 mg daily and KCl; he states he noticed no change in his symptoms. He reports he is in the process of planning intervention for his severe but first he was supposed to have dental work ( root canal, permanent bridge); he is scheduled to see an position classification specialist on 10/26. He was being worked up by Dr. Saucedo for valve replacement. CBC/BMP: 10/25/17 0600 10/25/17 0600 Significant Findings Laboratory Tests Test 10/22/17 13:00 10/22/17 17:06 10/22/17 20:34 10/23/17 04:00 White Blood Count 12.8 TH/MM3 (4.0-11.0) 12.6 TH/MM3 (4.0-11.0) Red Blood Count 2.53 MIL/MM3 (4.50-5.90) 3.17 MIL/MM3 (4.50-5.90) Hemoglobin 7.1 GM/DL (13.0-17.0) 8.9 GM/DL (13.0-17.0) Hematocrit 21.4 % (39.0-51.0) 26.6 % (39.0-51.0) Red Cell Distribution Width 18.1 % (11.6-17.2) 17.4 % (11.6-17.2) Neutrophils (%) (Auto) 87.9 % (16.0-70.0) 80.5 % (16.0-70.0) Lymphocytes (%) (Auto) 3.3 % (9.0-44.0) 7.8 % (9.0-44.0) Neutrophils # (Auto) 11.3 TH/MM3 (1.8-7.7) 10.1 TH/MM3 (1.8-7.7) Lymphocytes # (Auto) 0.4 TH/MM3 (1.0-4.8) Monocytes # (Auto) 1.0 TH/MM3 (0-0.9) 1.2 TH/MM3 (0-0.9) Activated Partial Thromboplast Time 32.0 SEC (24.3-30.1) Blood Urea Nitrogen 35 MG/DL (7-18) Creatinine 2.34 MG/DL (0.60-1.30) Random Glucose 203 MG/DL (74-106) Albumin 2.7 GM/DL (3.4-5.0) Calcium Level 8.3 MG/DL (8.5-10.1) Sodium Level 133 MEQ/L (136-145) Carbon Dioxide Level 20.3 MEQ/L (21.0-32.0) Estimat Glomerular Filtration Rate 27 ML/MIN (>89) Troponin I LESS THAN 0.02 NG/ML LESS THAN 0.02 NG/ML B-Type Natriuretic Peptide 128 PG/ML (0-100) Monocytes (%) (Auto) 9.8 % (0.0-8.0) Test 10/23/17 04:30 10/24/17 05:30 10/25/17 06:00 Blood Urea Nitrogen 39 MG/DL (7-18) 37 MG/DL (7-18) 33 MG/DL (7-18) Creatinine 2.03 MG/DL (0.60-1.30) 1.81 MG/DL (0.60-1.30) 1.71 MG/DL (0.60-1.30) Random Glucose 73 MG/DL (74-106) 110 MG/DL (74-106) 126 MG/DL (74-106) Estimat Glomerular Filtration Rate 32 ML/MIN (>89) 37 ML/MIN (>89) 39 ML/MIN (>89) Red Blood Count 3.22 MIL/MM3 (4.50-5.90) 3.26 MIL/MM3 (4.50-5.90) Hemoglobin 8.9 GM/DL (13.0-17.0) 9.1 GM/DL (13.0-17.0) Hematocrit 26.8 % (39.0-51.0) 27.4 % (39.0-51.0) Red Cell Distribution Width 17.7 % (11.6-17.2) 18.6 % (11.6-17.2) Neutrophils (%) (Auto) 78.7 % (16.0-70.0) 77.0 % (16.0-70.0) Monocytes (%) (Auto) 8.8 % (0.0-8.0) Neutrophils # (Auto) 7.8 TH/MM3 (1.8-7.7) Lymphocytes # (Auto) 0.9 TH/MM3 (1.0-4.8) Albumin 2.5 GM/DL (3.4-5.0) 2.4 GM/DL (3.4-5.0) Chloride Level 108 MEQ/L (98-107) 109 MEQ/L (98-107) Hospital Course Mr. Ingram is a 76 year old male with Aortic Stenosis and functional CHF related to this. He was admitted for pulmonary edema in the presence of pneumonia. With diuresis he has improved. With antibiotics he has improved. Medically stable at this ont for dischareg to home, now off oxygen. Anemia present at admit, transfused. No evidence for GI Bleed. Destructive vs. Productive deficit suspected. Outpatient follow up with hematology. Pt Condition on Discharge: Stable Discharge Disposition: Discharge Home Discharge Time: <= 30 minutes Discharge Instructions DIET: Follow Instructions for: Heart Healthy Diet Activities you can perform: Regular-No Restrictions Follow up Referrals: Cardiology Cardiology, Interventional Cardiology, Interventional @ [facility] Cardiology @ [facility] Oncology/Hematology - 2 Weeks with Sebas Gee MD PCP Follow-up PCP Follow-up - 1 Week @ [facility],[id number] New Medications: Amoxicillin-Clavulanate (Augmentin) 875-125 Mg Tab 1 TAB PO BID for Infection, #10 TAB 0 Refills Azithromycin (Azithromycin) 500 Mg Tab 500 MG PO DAILY for Infection, #3 TAB 0 Refills Furosemide (Lasix) 20 Mg Tab 20 MG PO DAILY for Fluid Balance, #30 TAB 0 Refills Lactobacillus Acidophilus (Lactobacillus Acidophilus) 1 Billion Cell Tab 1 TAB PO TIDAC for Nutritional Supplement, #30 TAB 0 Refills Continued Medications: Allopurinol (Allopurinol) 100 Mg Tab 100 MG PO DAILY for Gout, #30 TAB 0 Refills Amlodipine (Amlodipine) 5 Mg Tab 5 MG PO DAILY for Blood Pressure Management, #30 TAB 0 Refills Coenzyme Q10 (Ubidecarenone) (Coq-10) 50 Mg Cap 100 MG PO DAILY Ferrous Sulfate (Ferrous Sulfate) 325 Mg (65 Mg Iron) Tablet 325 MG PO DAILY for Nutritional Supplement, #30 TAB 0 Refills Gabapentin (Gabapentin) 600 Mg Tab 800 MG PO BID, #60 TAB 0 Refills Glipizide (Glipizide) 10 Mg Tab 10 MG PO BIDAC for Blood Sugar Management, #60 TAB 0 Refills Take 30 minutes before a meal Levothyroxine (Levothyroxine) 137 Mcg Tab 137 MCG PO DAILY for Thyroid, #30 TAB 0 Refills Lisinopril (Lisinopril) 40 Mg Tab 40 MG PO DAILY for Blood Pressure Management, #30 TAB 0 Refills [place]-3/Dha/Epa/Fish Oil (Fish Oil 1,000 mg Softgel) 1,000 Mg (120 Mg-180 Mg) Capsule 1 TAB PO DAILY Pioglitazone (Pioglitazone) 30 Mg Tab 30 MG PO DAILY for Blood Sugar Management, #30 TAB 0 Refills Sitagliptin (Januvia) 50 Mg Tab 100 MG PO DAILY for Blood Sugar Management, #30 TAB 0 Refills Hi Murrell MD Oct 25, 2017 11:26
[2017-10-25 12:00] VITALS: BP 152/72; PULSE 88; RESP 20; TEMP 97.5; O2SAT 92
--- NOTE | 2017-10-25 23:34 | PD.CARD.PN ---
Subjective Subjective Remarks Patient was seen earlier today, late entry note No events overnight Feels like he's breathing better overall, off oxygen Objective Vital Signs / I&O Vital Signs Date Time Temp Pulse Resp B/P (MAP) Pulse Ox O2 Delivery O2 Flow Rate FiO2 10/25/17 12:00 97.5 88 20 152/72 (98) 92 10/25/17 08:00 96 Room Air 21 10/25/17 08:00 97.5 92 20 125/74 (91) 95 10/25/17 08:00 86 10/25/17 04:00 Room Air 10/25/17 04:00 97.9 91 18 122/59 (80) 92 10/25/17 00:01 81 10/25/17 00:00 Room Air 10/25/17 00:00 97.9 85 19 141/82 (101) 94 I/O 10/25/17 10/25/17 10/25/17 10/26/17 10/26/17 10/26/17 07:00 15:00 23:00 07:00 15:00 23:00 Intake Total 240 ml Output Total 1000 ml Balance -760 ml Intake Oral 240 ml Output Urine Total 1000 ml # Bowel Movements 0 Physical Exam GENERAL: NAD, AAOx3 SKIN: Warm and dry. HEAD: Atraumatic. Normocephalic. EYES: Pupils equal and round. No scleral icterus. No injection or drainage. ENT: No nasal bleeding or discharge. Mucous membranes pink and moist. NECK: Trachea midline. No JVD. CARDIOVASCULAR: Regular rate and rhythm. 3/6 crescendo-decrescendo murmur to the RSB RESPIRATORY: No accessory muscle use. Decreased breath sounds bilaterally GASTROINTESTINAL: Abdomen soft, non-tender, nondistended. Hepatic and splenic margins not palpable. MUSCULOSKELETAL: Extremities without clubbing, cyanosis. Trace edema. No obvious deformities. NEUROLOGICAL: Awake and alert. No obvious cranial nerve deficits. Motor grossly within normal limits. Five out of 5 muscle strength in the arms and legs. Normal speech. PSYCHIATRIC: Appropriate mood and affect; insight and judgment normal. Laboratory Laboratory Tests Test 10/25/17 06:00 White Blood Count 9.3 TH/MM3 Red Blood Count 3.26 MIL/MM3 Hemoglobin 9.1 GM/DL Hematocrit 27.4 % Mean Corpuscular Volume 84.3 FL Mean Corpuscular Hemoglobin 28.1 PG Mean Corpuscular Hemoglobin Concent 33.3 % Red Cell Distribution Width 18.6 % Platelet Count 351 TH/MM3 Mean Platelet Volume 8.3 FL Neutrophils (%) (Auto) 77.0 % Lymphocytes (%) (Auto) 11.8 % Monocytes (%) (Auto) 7.8 % Eosinophils (%) (Auto) 2.2 % Basophils (%) (Auto) 1.2 % Neutrophils # (Auto) 7.2 TH/MM3 Lymphocytes # (Auto) 1.1 TH/MM3 Monocytes # (Auto) 0.7 TH/MM3 Eosinophils # (Auto) 0.2 TH/MM3 Basophils # (Auto) 0.1 TH/MM3 CBC Comment DIFF FINAL Differential Comment Blood Urea Nitrogen 33 MG/DL Creatinine 1.71 MG/DL Random Glucose 126 MG/DL Total Protein 6.9 GM/DL Albumin 2.4 GM/DL Calcium Level 8.8 MG/DL Alkaline Phosphatase 64 U/L Aspartate Amino Transf (AST/SGOT) 20 U/L Alanine Aminotransferase (ALT/SGPT) 23 U/L Total Bilirubin 0.5 MG/DL Sodium Level 141 MEQ/L Potassium Level 4.4 MEQ/L Chloride Level 109 MEQ/L Carbon Dioxide Level 22.7 MEQ/L Anion Gap 9 MEQ/L Estimat Glomerular Filtration Rate 39 ML/MIN Assessment and Plan Problem List: (1) CHF exacerbation ICD Codes: I50.9 - Heart failure, unspecified (2) Severe aortic stenosis ICD Codes: I35.0 - Nonrheumatic aortic (valve) stenosis Status: Acute (3) HTN (hypertension) ICD Codes: I10 - Essential (primary) hypertension Status: Chronic (4) Acute kidney injury ICD Codes: N17.9 - Acute kidney failure, unspecified Status: Acute (5) Shortness of breath ICD Codes: R06.02 - Shortness of breath Status: Acute Assessment and Plan 1) Acute heart failure due to severe Con't with diuresis Cardiovascularly stable for discharge Off O2 2) Lasix PO on discharge 3) Upon discharge, he will have dental work done and then be set up for possible mini AVR by Dr. Rios. Efren Nogueira DO Oct 25, 2017 23:34
== END 2017-10-25 14:40 | disposition home or self-care (01) | DRG 291 ==
LOC: NEPC 12:40 → NEDA 14:57 → N04A 18:15
PROVIDERS: ADMIT Hospitalist; ATTEND Hospitalist
PROC: 30233J1 Transfusion of Nonautologous Serum Albumin into Peripheral Vein, Percutaneous Approach (ICD-10-PCS; principal; 2017-10-22)
DX: I13.0 Hypertensive heart and chronic kidney disease with heart failure and stage 1 through stage 4 chronic kidney disease, or unspecified chronic kidney disease (principal); J18.9 Pneumonia, unspecified organism; N17.9 Acute kidney failure, unspecified; E11.40 Type 2 diabetes mellitus with diabetic neuropathy, unspecified; E11.22 Type 2 diabetes mellitus with diabetic chronic kidney disease; N18.3 Chronic kidney disease, stage 3 (moderate); D63.1 Anemia in chronic kidney disease; J44.0 Chronic obstructive pulmonary disease with (acute) lower respiratory infection; I50.9 Heart failure, unspecified; I35.0 Nonrheumatic aortic (valve) stenosis; I25.10 Atherosclerotic heart disease of native coronary artery without angina pectoris; G47.30 Sleep apnea, unspecified; E03.9 Hypothyroidism, unspecified; E78.5 Hyperlipidemia, unspecified; I65.29 Occlusion and stenosis of unspecified carotid artery; M10.9 Gout, unspecified; Z79.84 Long term (current) use of oral hypoglycemic drugs; Z87.891 Personal history of nicotine dependence; Z88.2 Allergy status to sulfonamides
CPT/HCPCS: 36430; 71045; 80048; 80053; 82550; 82552; 82948; 83605; 83735; 83880; 84484; 85025; 85610; 85730; 86850; 86900; 86901; 86920; 87040; 87449; 93005; 93306; 96374; J0456; J0696; J1644; J1815; J1940; J7050; P9016

== ENCOUNTER 2017-12-18 23:21 | Inpatient (IN) | payer MEDICARE ==
[~2017-12-18] VITALS: Ht 177.8 cm; Wt 123.5 kg
[~2017-12-18 23:21] MED LIST changes: +AUGM875T3 PO; +AZIT500T2 PO; +FURO1TAB62 PO; +LACTTAB8 PO
[2017-12-18 23:28] VITALS: O2SAT 98
--- NOTE | 2017-12-18 23:49 | PD ---
HPI Chief Complaint: Shortness of breath Time Seen by Provider: 23:32 Travel History International Travel<30 days: No Contact w/Intl Traveler<30days: No History of Present Illness HPI The patient is a 77 year old male who presents to the [facility] emergency department with a history of shortness of breath that began suddenly prior to arrival. He denies having any significant cough prior to this. He does report having lower extremity edema. The patient reports that he is on a diuretic. The patient has an aortic valve abnormality that was going to be replaced in October, however it had to be delayed due to dental problems. The patient reports that he has a history of congestive heart failure, COPD. He denies having any prior history of myocardial infarction, stent, or CABG. He denies having any known recent fevers. He reports that he did have a chest pressure at the onset of the symptoms. He denies having any chest pain currently. On review of systems otherwise, he denies having any significant worsening cough or congestion, neck pain, abdominal pain, vomiting, diarrhea, urinary symptoms, or neurologic symptoms. The patient reports that he has problems with constipation. He did last moved his bowels earlier this morning. The patient was brought in by ambulance services. The patient's O2 saturation on room air was reportedly in the 60s. The patient was given 1 DuoNeb. The patient was started on CPAP. The patient was given Lasix 100 mg IV. 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 Asthma: No Blood Disorders: No Anxiety: No Depression: No Heart Rhythm Problems: No Cancer: No Cardiac Catheterization: Yes Cardiovascular Problems: Yes (CAD, CHF) High Cholesterol: No Chemotherapy: No Chest Pain: No Congestive Heart Failure: No COPD: No Diabetes: Yes (TYPE 2) Diminished Hearing: No Endocrine: Yes Gastrointestinal Disorders: Yes (GI BLEED) Genitourinary: No Hiatal Hernia: Yes Hypertension: Yes Immune Disorder: No Implanted Vascular Access Dvce: Yes Musculoskeletal: No Neurologic: Yes (NEUROPATHY) Psychiatric: No Reproductive: No Respiratory: Yes (COPD,SLEEP APNEA) Immunizations Current: Yes Pneumonia: Yes Radiation Therapy: No Sleep Apnea: No Thyroid Disease: Yes (HYPO) Past Surgical History Narrative Surgical The patient's past surgical history is significant for tonsillectomy, appendectomy, right arm ORIF, sinus surgery, bilateral cataract surgery, endoscopy and colonoscopy. Appendectomy: Yes Body Medical Devices: PINS IN RIGHT ARM Cardiac Surgery: Yes (HEART CATH 2017) Eye Surgery: Yes (CATARACTS) Tonsillectomy: Yes Other Surgery: Yes (RT ARM FX REPAIR, SINUS SX) Social History Alcohol Use: No Tobacco Use: No (QUIT 1987) Substance Use: No Allergies-Medications (Allergen,Severity, Reaction): Coded Allergies: Sulfa (Sulfonamide Antibiotics) (Unverified Allergy, Intermediate, Edema, 10/22/17) Reported Meds & Prescriptions Reported Meds & Active Scripts Active Lasix (Furosemide) 20 Mg Tab 20 Mg PO DAILY Lactobacillus Acidophilus 1 Billion Cell Tab 1 Tab PO TIDAC Reported Coq-10 (Coenzyme Q10 (Ubidecarenone)) 50 Mg Cap 100 Mg PO DAILY Fish Oil 1,000 mg Softgel ([place]-3/Dha/Epa/Fish Oil) 1,000 Mg (120 Mg-180 Mg) Capsule 1 Tab PO DAILY Pioglitazone (Pioglitazone HCl) 30 Mg Tab 30 Mg PO DAILY Allopurinol 100 Mg Tab 100 Mg PO DAILY Januvia (Sitagliptin Phosphate) 50 Mg Tab 100 Mg PO DAILY Lisinopril 40 Mg Tab 40 Mg PO DAILY Levothyroxine (Levothyroxine Sodium) 137 Mcg Tab 137 Mcg PO DAILY Glipizide 10 Mg Tab 10 Mg PO BIDAC Take 30 minutes before a meal Gabapentin 600 Mg Tab 800 Mg PO BID Amlodipine (Amlodipine Besylate) 5 Mg Tab 5 Mg PO DAILY Review of Systems Except as stated in HPI: all other systems reviewed are Neg General / Constitutional: No: Fever Eyes: No: Visual changes HENT: No: Headaches, Congestion Cardiovascular: Positive: Chest Pain or Discomfort, Dyspnea on exertion Respiratory: Positive: Cough, Shortness of Breath Gastrointestinal: No: Abdominal Pain Genitourinary: No: Dysuria Musculoskeletal: No: Pain Skin: No Rash Neurologic: Positive: Weakness (Generalized weakness), No: Focal Abnormalities , Change in Mentation, Slurred Speech, Sensory Disturbance Psychiatric: No: Depression Endocrine: No: Polydipsia Hematologic/Lymphatic: No: Easy Bruising Physical Exam Narrative General: The patient is a well-developed well-nourished male, on CPAP on arrival, reporting improvement in his shortness of breath. The patient arrives awake and alert. The patient is pale appearing on exam. Head and Neck exam: Head is normocephalic atraumatic. Eyes: EOMI, pupils are equal round and reactive to light. Nose: Midline septum with pink mucous membranes Mouth: Dentition unremarkable. Moist mucus membranes. Posterior oropharynx is not erythematous. No tonsillar hypertrophy. Uvula midline. Airway patent. Neck: No palpable lymphadenopathy. No nuchal rigidity. No thyromegaly. Cardiovascular: Sinus tachycardia in the low 100 with a 2/6 systolic murmur audible, no gallops or rub. No pulse deficit to the extremities on simultaneous auscultation and palpation of his radial artery. Lungs: Decreased breath sounds in bilateral lung bases, no. No accessory muscle use at this time. No paroxysmal abdominal breathing or tripoding. Abdomen: Soft, without tenderness to palpation in all 4 quadrants of the abdomen. No guarding, rebound, or rigidity. Normal bowel sounds are audible. No tenderness on palpation of McBurney's point Extremities: No clubbing or cyanosis. The patient has 3+ pitting edema bilateral lower extremities. 2+ pulses in all 4 extremities. No calf tenderness on palpation. Back: No costovertebral angle tenderness to palpation. Neurologic Exam: Grossly nonfocal. Skin Exam: No rash noted. Intact skin that is warm and dry. Data Data Last Documented VS Vital Signs Date Time Temp Pulse Resp B/P (MAP) Pulse Ox O2 Delivery O2 Flow Rate FiO2 12/19/17 02:39 98.0 80 20 118/58 95 12/18/17 23:28 40 Orders Orders Electrocardiogram (12/18/17 23:32) Complete Blood Count With Diff (12/18/17 23:32) Comprehensive Metabolic Panel (12/18/17 23:32) Creatine Kinase (Cpk) (12/18/17 23:32) Ckmb (Isoenzyme) Profile (12/18/17 23:32) Troponin I (12/18/17 23:32) B-Type Natriuretic Peptide (12/18/17 23:32) Prothrombin Time / Inr (Pt) (12/18/17 23:32) Act Partial Throm Time (Ptt) (12/18/17 23:32) Arterial Blood Gas (Abg) (12/18/17 23:32) Urinalysis - C+S If Indicated (12/18/17 23:32) Magnesium (Mg) (12/18/17 23:32) Chest, Single Ap (12/18/17 23:32) Iv Access Insert/Monitor (12/18/17 23:32) Ecg Monitoring (12/18/17 23:32) Oximetry (12/18/17 23:32) Urinary Catheter Insert/Apply (12/18/17 23:32) Resp Bipap / Cpap Non Invas Vt (12/18/17 ) Type And Screen (12/19/17 00:30) Red Blood Cells (Rbc) (12/19/17 00:30) Blood Product Administration (12/19/17 00:30) Sodium Chlor 0.9% 250 Ml Inj (Ns 250 Ml (12/19/17 00:30) Nitroglycerin 2% Oint (Nitroglycerin 2% (12/19/17 01:15) Admit Order (Ed Use Only) (12/19/17 02:44) Labs Laboratory Tests Test 12/19/17 00:00 12/19/17 00:12 12/19/17 01:10 White Blood Count 10.0 TH/MM3 Red Blood Count 2.82 MIL/MM3 Hemoglobin 6.3 GM/DL Hematocrit 20.7 % Mean Corpuscular Volume 73.4 FL Mean Corpuscular Hemoglobin 22.3 PG Mean Corpuscular Hemoglobin Concent 30.3 % Red Cell Distribution Width 20.9 % Platelet Count 253 TH/MM3 Mean Platelet Volume 9.4 FL Neutrophils (%) (Auto) 87.2 % Lymphocytes (%) (Auto) 6.2 % Monocytes (%) (Auto) 5.7 % Eosinophils (%) (Auto) 0.5 % Basophils (%) (Auto) 0.4 % Neutrophils # (Auto) 8.7 TH/MM3 Lymphocytes # (Auto) 0.6 TH/MM3 Monocytes # (Auto) 0.6 TH/MM3 Eosinophils # (Auto) 0.1 TH/MM3 Basophils # (Auto) 0.0 TH/MM3 CBC Comment DIFF FINAL Differential Comment Prothrombin Time 11.8 SEC Prothromb Time International Ratio 1.2 RATIO Activated Partial Thromboplast Time 23.8 SEC Blood Urea Nitrogen 37 MG/DL Creatinine 2.77 MG/DL Random Glucose 221 MG/DL Total Protein 6.6 GM/DL Albumin 3.1 GM/DL Calcium Level 8.5 MG/DL Magnesium Level 2.2 MG/DL Alkaline Phosphatase 62 U/L Aspartate Amino Transf (AST/SGOT) 15 U/L Alanine Aminotransferase (ALT/SGPT) 20 U/L Total Bilirubin 0.7 MG/DL Sodium Level 136 MEQ/L Potassium Level 4.7 MEQ/L Chloride Level 104 MEQ/L Carbon Dioxide Level 20.4 MEQ/L Anion Gap 12 MEQ/L Estimat Glomerular Filtration Rate 22 ML/MIN Total Creatine Kinase 78 U/L Troponin I LESS THAN 0.02 NG/ML B-Type Natriuretic Peptide 90 PG/ML Blood Gas Puncture Site RT RADIAL Blood Gas Patient Temperature 98.6 Blood Gas HCO3 23 mmol/L Blood Gas Base Excess -2.0 mmol/L Blood Gas Oxygen Saturation 91 % Arterial Blood pH 7.37 Arterial Blood Partial Pressure CO2 40 mmHg Arterial Blood Partial Pressure O2 72 mmHG Arterial Blood Oxygen Content 8.6 Vol % Arterial Blood Carboxyhemoglobin 2.1 % Arterial Blood Methemoglobin 0.6 % Blood Gas Hemoglobin 6.7 G/DL Oxygen Delivery Device BiPAP Blood Gas Ventilator Setting IPAP12/EPAP5 Blood Gas Inspired Oxygen 40 % Urine Color LIGHT-YELLOW Urine Turbidity CLEAR Urine pH 5.5 Urine Specific [place] 1.009 Urine Protein TRACE mg/dL Urine Glucose (UA) NEG mg/dL Urine Ketones NEG mg/dL Urine Occult Blood NEG Urine Nitrite NEG Urine Bilirubin NEG Urine Urobilinogen LESS THAN 2.0 MG/DL Urine Leukocyte Esterase NEG Urine RBC 1 /hpf Urine WBC 1 /hpf Urine Squamous Epithelial Cells <1 /hpf Urine Hyaline Casts 3 /lpf Urine Mucus FEW /lpf Microscopic Urinalysis Comment CULT NOT INDICATED MDM Medical Decision Making Medical Screen Exam Complete: Yes Emergency Medical Condition: Yes Medical Record Reviewed: Yes Differential Diagnosis Congestive heart failure exacerbation, versus pneumonia, versus symptomatic anemia, versus ARDS, versus acute coronary syndrome Narrative Course During the course of the patient's emergency department visit, the patient's history, examination, and differential diagnosis were reviewed with the patient. The patient was placed on a cardiac catheterization technician with oximetry and frequent blood pressure monitoring. The patient had IV access obtained and blood work sent for analysis. The patient had an EKG done on arrival. The patient's EKG shows a sinus tachycardia rate of 102, QRS duration 85 ms, QTC [address]-T wave abnormalities were noted specifically T waves were inverted in aVL, no acute ST segment elevation. The patient was initially provided Lasix 100 mg IV by ambulance services prior to arrival. The patient was continued on BiPAP. An ABG was ordered. The ABG revealed a pH of 7.36, PCO2 40.1, PO2 72.3, bicarb 22.5, hemoglobin on the ABG was 6.7. The patient was typed and screened, crossmatch for 2 units of packed red blood cells. It was written for the patient to receive a Ng catheter due to his Lasix administration and suspected significant diuresis, however the patient refused. The patient was able to successfully use the urinal and began to diurese. While in the emergency department 800 mL of urine was diuresed. The patient's laboratory studies were reviewed and remarkable for a white count of 10, hemoglobin 6.3 on his CBC, platelets 253 with 87.2 neutrophils. The patient will receive 1 unit of packed red blood cells when this is available, CMP is remarkable for CO2 20.4, BUN 37, creatinine 2.77, glucose 221, cardiac enzymes within normal limits, BNP 90, PT 11.8, PTT 23.8. Urinalysis is unremarkable. Radiology studies were reviewed and remarkable for a chest x-ray that shows infiltrates in both lungs, small pleural effusion and pulmonary venous congestion. The patient's results were discussed with the patient, including the plan of care. I explained that further testing and/ or monitoring is indicated based on the patient's history, examination, and/ or laboratory findings. Therefore, I recommended admission for additional evaluation. The patient expressed understanding and was agreeable with this plan. The patient was admitted to the hospital in guarded condition and sent to a bed under the care of the [facility]. Critical Care Narrative Aggregate critical care time was 35 minutes. Time to perform other separately billable procedures was not included in the critical care time. My time did not include minutes spent treating any other patients simultaneously or on activities that did not directly contribute to the patient's treatment. The services I provided to this patient were to treat and/or prevent clinically significant deterioration that could result in: Hypoxic encephalopathy, versus respiratory failure, versus progression of fluid overload I provided critical care services requiring my management, as noted below: Chart data review, documentation time, medication orders and management, vital sign assessments/reviewing monitor data, ordering and reviewing lab tests, ordering and interpreting/reviewing x-rays and diagnostic studies, care of the patient and discussion of the patient with the admitting physicians. Physician Communication Physician Communication The patient's case including history, pertinent physical examination findings, and laboratory studies were discussed with Dr. Cartagena. It was agreed that the patient would be admitted to the [facility]. Diagnosis Primary Impression: CHF exacerbation Qualified Codes: I50.9 - Heart failure, unspecified Additional Impressions: Hypoxemia Symptomatic anemia Admitting Information Admitting Physician Requests: Admit Odessa Oviedo MD Dec 18, 2017 23:49
[2017-12-19] VITALS (29 sets, daily range): BP systolic 103–135; BP diastolic 51–63; PULSE 67–100; RESP 14–20; TEMP 97.4–98.2; O2SAT 90–100
--- NOTE | 2017-12-19 00:04 | RADRPT ---
EXAM DATE: 12/19/2017 12:00 AM EDT AGE/SEX: 77 years / Male INDICATIONS: Shortness of breath. CLINICAL DATA: This is the patient's initial encounter. Patient reports that signs and symptoms have been present for 1 day and indicates a pain score of 3/10. MEDICAL/SURGICAL HISTORY: None. None. [place] [facility] [place]. . FINDINGS: There continues to be bibasilar infiltrates, right greater than left. The previously noted infiltrate in the right lower lung is mildly improved compared to the prior study. Otherwise, no other new infi ltrates are demonstrated. The heart size is stable. Small bilateral pleural effusions. Pulmonary veno us congestion. The bony structures are stable. CONCLUSION: 1. There continues to be infiltrates in both lower lungs. 2. Small pleural effusions and pulmonary venous congestion. Electronically signed by: Shravan Ireland MD 12/19/2017 12:03 AM EDT
[2017-12-19 00:18] LABS: AUTOMATED NEUTROPHIL # 8.7 TH/MM3 (1.8-7.7); BASOPHIL % 0.4 % (0.0-2.0); EOSINOPHIL # 0.1 TH/MM3 (0-0.4); EOSINOPHIL % 0.5 % (0.0-4.0); LYMPH % 6.2 % (9.0-44.0); LYMPHOCYTE # 0.6 TH/MM3 (1.0-4.8); MEAN CELL VOLUME 73.4 FL (80.0-100.0); MEAN CORPUSCULAR HEMOGLOBIN 22.3 PG (27.0-34.0); MEAN CORPUSCULAR HGB CONC 30.3 % (32.0-36.0); MEAN PLATELET VOLUME 9.4 FL (7.0-11.0); MONO % 5.7 % (0.0-8.0); MONOCYTE # 0.6 TH/MM3 (0-0.9); NEUT % 87.2 % (16.0-70.0); PLATELET COUNT 253 TH/MM3 (150-450); RED BLOOD COUNT 2.82 MIL/MM3 (4.50-5.90); RED CELL DISTRIBUTION WIDTH 20.9 % (11.6-17.2)
[2017-12-19 00:26] LABS: HEMOGLOBIN 6.3 GM/DL (13.0-17.0)
[2017-12-19 00:27] LABS: INTERNATIONAL NORMALIZED RATIO 1.2 RATIO; PROTHROMBIN TIME - PATIENT 11.8 SEC (9.8-11.6)
[2017-12-19 00:28] LABS: HEMATOCRIT 20.7 % (39.0-51.0)
[2017-12-19] MEDS ORDERED: SODIUM CHLOR 0.9% 250 ML INJ 250 ML IV ONE (00:30)
[2017-12-19 00:46] LABS: ALBUMIN 3.1 GM/DL (3.4-5.0); AST (GOT) 15 U/L (15-37); BICARBONATE 20.4 MEQ/L (21.0-32.0); BLOOD UREA NITROGEN 37 MG/DL (7-18); CALCIUM 8.5 MG/DL (8.5-10.1); CHLORIDE 104 MEQ/L (98-107); CREATININE 2.77 MG/DL (0.60-1.30); GLOMERULAR FILTRATION RATE 22 ML/MIN (>89); GLUCOSE,RANDOM 221 MG/DL (74-106); MAGNESIUM 2.2 MG/DL (1.5-2.5); SODIUM (NA) 136 MEQ/L (136-145)
[2017-12-19 00:48] LABS: ALT (GPT) 20 U/L (12-78)
[2017-12-19 00:51] LABS: ALKALINE PHOSPHATASE 62 U/L (45-117); TOTAL BILIRUBIN ADULT 0.7 MG/DL (0.2-1.0); TOTAL PROTEIN 6.6 GM/DL (6.4-8.2); TROPONIN I LESS THAN 0.02 NG/ML (0.02-0.05)
[2017-12-19] MEDS ORDERED: NITROGLYCERIN 2% OINT 1 GM PACKET TOPICAL ONE (01:15)
[2017-12-19 01:39] LABS: BILIRUBIN, URINE NEG (NEG); BLOOD, URINE NEG (NEG); GLUCOSE,URINE NEG (NEG); HYALINE CAST, URINE 3 /lpf (RARE); KETONE, URINE NEG (NEG); MUCUS URINE FEW /lpf (OCC); NITRITE,URINE NEG (NEG); PH, URINE 5.5 (5.0-8.5); SQUAMOUS EPITHELIAL CELL URINE <1 /hpf (0-5); URINE COLOR LIGHT-YELLOW (YELLW/STRAW); URINE LEUKOCYTE ESTERASE NEG (NEG)
[2017-12-19] MEDS ORDERED: SODIUM CHLOR 0.9% 1000 ML INJ 1,000 ML IV SCH (04:33)
[2017-12-19] MEDS ORDERED: BISACODYL 10 MG SUPP RECTAL PRN (04:45)
[2017-12-19] MEDS ORDERED: ACETAMINOPHEN 325 MG TAB PO PRN (04:45)
[2017-12-19] MEDS ORDERED: SENNOSIDES 8.6 MG TAB PO PRN (04:45)
[2017-12-19] MEDS ORDERED: LACTULOSE SYRUP 20 GM/30 ML CUP PO PRN (04:45)
[2017-12-19] MEDS ORDERED: NALOXONE HCL 0.4 MG/ML AMP IV PUSH PRN (04:45)
[2017-12-19] MEDS ORDERED: SODIUM CHLORIDE 0.9% FLUSH 10 ML FLUSH IV FLUSH PRN (04:45)
[2017-12-19] MEDS ORDERED: MAGNESIUM HYDROXIDE SUSP 30 ML CUP PO PRN (04:45)
[2017-12-19] MEDS ORDERED: METOCLOPRAMIDE HCL 10 MG/2 ML VIAL IV PUSH PRN (04:45)
[2017-12-19] MEDS ORDERED: GLUCAGON 1 MG/ML VIAL OTHER PRN (05:30)
[2017-12-19] MEDS ORDERED: DEXTROSE 50% IN WATER 50 ML VIAL(D50) IV PUSH PRN (05:30)
[2017-12-19] MEDS: INSULIN ASPART SUPPLEMENTAL SCALE SQ SCH ×4 (08:00→21:00)
[2017-12-19] MEDS: ALLOPURINOL 100 MG TAB PO SCH (08:20)
[2017-12-19] MEDS: LEVOTHYROXINE SODIUM 112 MCG TAB PO SCH (08:20)
[2017-12-19] MEDS: amLODIPine BESYLATE 5 MG TAB PO SCH (08:20)
[2017-12-19] MEDS: LEVOTHYROXINE SODIUM 25 MCG TAB PO SCH (08:20)
[2017-12-19] MEDS: SODIUM CHLORIDE 0.9% FLUSH 10 ML FLUSH IV FLUSH SCH ×2 (08:21→21:29)
[2017-12-19] MEDS: GABAPENTIN 300 MG CAP PO SCH (08:21)
[2017-12-19] MEDS: LACTOBACILLUS ACIDOPHILUS TAB PO SCH ×3 (08:26→17:20)
[2017-12-19] MEDS ORDERED: PIOGLITAZONE HCL 30 MG TAB PO SCH (09:00)
[2017-12-19] MEDS ORDERED: FUROSEMIDE 20 MG TAB PO SCH (09:00)
[2017-12-19] MEDS ORDERED: LISINOPRIL 20 MG TAB PO SCH (09:00)
[2017-12-19] MEDS ORDERED: RESP: ALBUTEROL 2.5 MG/IPRATROPIUM 0.5 MG NEB (PRN) NEB (09:15)
[2017-12-19] MEDS: FUROSEMIDE 40 MG/4 ML VIAL IV PUSH SCH ×2 (09:15→17:20)
--- NOTE | 2017-12-19 09:17 | HHI.HP ---
[facility] Silverio Murrell DO Admission Diagnosis Shortness of breath, Aortic valve abnormality, symptomatic anemia Diagnoses: Chief Complaint: Shortness of breath Travel History International Travel<30 Days: No Contact w/Intl Traveler <30 Da: No Traveled to Known Affected Are: No History of Present Illness The patient is a 77-year-old male with a past medical history of CHF and aortic valve dysfunction who is presenting to the hospital with shortness of breath. The patient says he was recently in the hospital and has been doing well at home. He said he recently saw his ict support and test engineers and everything was noted to be going well. He says that he was supposed to get an aortic valve replacement but because of a dental situation that had to be put on hold. He said his dental situation seems to be resolved and he has been trying to contact his cardiothoracic surgeon without success. Last night the patient was watching TV and all of a sudden could not breathe. He hopes the sensation would pass but it did not. He eventually called for an ambulance. He says he is not on home oxygen. The patient says that over the past few days he has been noticing swelling in his lower extremities. He believes it is associated with weight gain. He states that he has been taking his diuretics. He says it has been a long time since he has been able to sleep in a bed. He has to sleep in a recliner to avoid becoming short of breath. The patient denies any cough or fevers. He states he is eating well. He has been eating a lot of fish, and wonders if the breaded flounder he had last night contributed to his acute shortness of breath. He says that he really started feeling better this morning at around 5 AM. He says his blood count normally is low when he comes in with shortness of breath. Discussed with nursing at the bedside. Review of Systems Except as stated in HPI: all other systems reviewed are Neg Past Family Social History Past Medical History DM HTN HLD Nonobstructing CAD (Cath 10/03: 20% distal LAD, 20% circumflex, 30% RCA, EF 55%) Severe aortic stenosis (Echo at [facility] showing AV area of 0.81 and mean gradient of 52) Asymptomatic mild carotid stenosis Stage III CKD COPD Hypothyroidism Neuropathy Gout Anemia History of GI bleed (AVMs) Past Surgical History Tonsillectomy Appendectomy Right arm fracture and repair Sinus surgery Bilateral cataract surgery Allergies: Coded Allergies: Sulfa (Sulfonamide Antibiotics) (Unverified Allergy, Intermediate, Edema, 10/22/17) Family History His father from colon cancer His mother from emphysema Social History He quit smoking in 1987 He quit drinking three years ago Physical Exam Vital Signs Vital Signs Date Time Temp Pulse Resp B/P (MAP) Pulse Ox O2 Delivery O2 Flow Rate FiO2 12/19/17 07:23 76 20 118/56 (76) 96 Nasal Cannula 2.00 12/19/17 05:06 97.7 78 16 126/59 98 12/19/17 04:51 97.9 67 14 126/63 100 12/19/17 04:28 97.9 70 20 125/59 100 12/19/17 04:14 98.0 73 14 130/60 100 12/19/17 03:59 98.1 74 16 126/59 98 12/19/17 03:04 98.2 72 16 120/57 100 12/19/17 02:50 98.0 86 18 114/58 99 12/19/17 02:39 98.0 80 20 118/58 95 12/19/17 00:15 89 20 103/51 (68) 100 12/18/17 23:28 98 40 Physical Exam GENERAL: NAD. HEAD: Normocephalic. NECK: Supple, trachea midline. No lymphadenopathy. EYES: No scleral icterus. No injection or drainage. CARDIOVASCULAR: Regular rate and rhythm, harsh systolic murmur appreciated. RESPIRATORY: Trace crackles bilaterally at bases. GASTROINTESTINAL: Abdomen soft, non-tender, nondistended. MUSCULOSKELETAL: 2+ lower extremity edema. SKIN: Warm and dry. NEURO: No focal neurological deficits. PSYCH: Mood and affect appropriate. Laboratory Laboratory Tests Test 12/19/17 00:00 12/19/17 00:12 12/19/17 01:10 White Blood Count 10.0 Red Blood Count 2.82 Hemoglobin 6.3 Hematocrit 20.7 Mean Corpuscular Volume 73.4 Mean Corpuscular Hemoglobin 22.3 Mean Corpuscular Hemoglobin Concent 30.3 Red Cell Distribution Width 20.9 Platelet Count 253 Mean Platelet Volume 9.4 Neutrophils (%) (Auto) 87.2 Lymphocytes (%) (Auto) 6.2 Monocytes (%) (Auto) 5.7 Eosinophils (%) (Auto) 0.5 Basophils (%) (Auto) 0.4 Neutrophils # (Auto) 8.7 Lymphocytes # (Auto) 0.6 Monocytes # (Auto) 0.6 Eosinophils # (Auto) 0.1 Basophils # (Auto) 0.0 CBC Comment DIFF FINAL Differential Comment Prothrombin Time 11.8 Prothromb Time International Ratio 1.2 Activated Partial Thromboplast Time 23.8 Blood Urea Nitrogen 37 Creatinine 2.77 Random Glucose 221 Total Protein 6.6 Albumin 3.1 Calcium Level 8.5 Magnesium Level 2.2 Alkaline Phosphatase 62 Aspartate Amino Transf (AST/SGOT) 15 Alanine Aminotransferase (ALT/SGPT) 20 Total Bilirubin 0.7 Sodium Level 136 Potassium Level 4.7 Chloride Level 104 Carbon Dioxide Level 20.4 Anion Gap 12 Estimat Glomerular Filtration Rate 22 Total Creatine Kinase 78 Troponin I LESS THAN 0.02 B-Type Natriuretic Peptide 90 Blood Gas Puncture Site RT RADIAL Blood Gas Patient Temperature 98.6 Blood Gas HCO3 23 Blood Gas Base Excess -2.0 Blood Gas Oxygen Saturation 91 Arterial Blood pH 7.37 Arterial Blood Partial Pressure CO2 40 Arterial Blood Partial Pressure O2 72 Arterial Blood Oxygen Content 8.6 Arterial Blood Carboxyhemoglobin 2.1 Arterial Blood Methemoglobin 0.6 Blood Gas Hemoglobin 6.7 Oxygen Delivery Device BiPAP Blood Gas Ventilator Setting [id number]/[id number] Blood Gas Inspired Oxygen 40 Urine Color LIGHT-YELLOW Urine Turbidity CLEAR Urine pH 5.5 Urine Specific [place] 1.009 Urine Protein TRACE Urine Glucose (UA) NEG Urine Ketones NEG Urine Occult Blood NEG Urine Nitrite NEG Urine Bilirubin NEG Urine Urobilinogen LESS THAN 2.0 Urine Leukocyte Esterase NEG Urine RBC 1 Urine WBC 1 Urine Squamous Epithelial Cells <1 Urine Hyaline Casts 3 Urine Mucus FEW Microscopic Urinalysis Comment CULT NOT INDICATED Result Diagram: 12/19/17 0000 12/19/17 0000 Imaging Last Impressions Chest X-Ray 12/18/17 9815 Signed Impressions: CONCLUSION: 1. There continues to be infiltrates in both lower lungs. 2. Small pleural effusions and pulmonary venous congestion. Caprini VTE Risk Assessment Caprini VTE Risk Assessment: Mod/High Risk (score >= 2) Caprini Risk Assessment Model Point Value = 1 Point Value = 2 Point Value = 3 Point Value = 5 Age 41-60 Minor surgery BMI > 25 kg/m2 Swollen legs Varicose veins or History of unexplained or recurrent spontaneous Oral contraceptives or hormone replacement Sepsis (< 1 month) Serious lung disease, including pneumonia (< 1 month) Abnormal pulmonary function Acute myocardial infarction Congestive heart failure (< 1 month) History of inflammatory bowel disease Medical patient at bed rest Age 61-74 Arthroscopic surgery Major open surgery (> 45 min) Laparoscopic surgery (> 45 min) Malignancy Confined to bed (> 72 hours) Immobilizing plaster cast Central venous access Age >= 75 History of VTE Family history of VTE Factor V Leiden Prothrombin [id number] Lupus anticoagulant Anticardiolipin antibodies Elevated serum homocysteine Heparin-induced thrombocytopenia Other congenital or acquired thrombophilia Stroke (< 1 month) Elective arthroplasty Hip, pelvis, or leg fracture Acute spinal cord injury (< 1 month) Prophylaxis Regimen Total Risk Factor Score Risk Level Prophylaxis Regimen 0-1 Low Early ambulation 2 Moderate Order ONE of the following: *Sequential Compression Device (SCD) *Heparin 5000 units SQ BID 3-4 Higher Order ONE of the following medications: *Heparin 5000 units SQ TID *Enoxaparin/Lovenox 40 mg SQ daily (WT < 150 kg, CrCl > 30 mL/min) *Enoxaparin/Lovenox 30 mg SQ daily (WT < 150 kg, CrCl > 10-29 mL/min) *Enoxaparin/Lovenox 30 mg SQ BID (WT < 150 kg, CrCl > 30 mL/min) AND/OR *Sequential Compression Device (SCD) 5 or more Highest Order ONE of the following medications: *Heparin 5000 units SQ TID (Preferred with Epidurals) *Enoxaparin/Lovenox 40 mg SQ daily (WT < 150 kg, CrCl > 30 mL/min) *Enoxaparin/Lovenox 30 mg SQ daily (WT < 150 kg, CrCl > 10-29 mL/min) *Enoxaparin/Lovenox 30 mg SQ BID (WT < 150 kg, CrCl > 30 mL/min) AND *Sequential Compression Device (SCD) Assessment and Plan Assessment and Plan Acute on chronic diastolic CHF The pt presented with what sounds like pulmonary edema. He has lower extremity edema, orthopnea and CXR shows pulmonary congestion. He is supposed to get an aortic valve replacement in the near future. - consult cardiology and cardiothoracic surgery as pt planning on aortic valve replacement. - Lasix 40 mg IV BID. - follow Is and Os. - continue cardiac regimen. - telemetry. Acute anemia MCV is low. S/p two units. - anemia work-up including Hemoccult. - follow CBC and transfuse as needed. Acute on chronic renal disease Creatinine is elevated compared to baseline. - monitor while diuresing. - hold lisinopril. - nephrology consult if no improvement. DM Well controlled at this time. - hold home meds. - insulin sliding scale. PPx: SCDs Code Status Full Discussed Condition With Pt, nurse Physician Certification 2 Midnight Certification Type: Admission for Inpatient Services Order for Inpatient Services The services are ordered in accordance with Medicare regulations or non- Medicare payer requirements, as applicable. In the case of services not specified as inpatient-only, they are appropriately provided as inpatient services in accordance with the 2-midnight benchmark. Estimated LOS (days): 3 days is the estimated time the patient will need to remain in the hospital, assuming treatment plan goals are met and no additional complications. Post-Hospital Plan: Not yet determined Javier Hernandez DO Dec 19, 2017 09:17
[2017-12-19] MEDS ORDERED: HEPARIN SODIUM - SQ 10,000 UNITS/ML VIAL SQ SCH (10:00)
[2017-12-19 10:54] LABS: AUTOMATED NEUTROPHIL # 6.9 TH/MM3 (1.8-7.7); BASOPHIL # 0.1 TH/MM3 (0-0.2); EOSINOPHIL % 0.5 % (0.0-4.0); HEMATOCRIT 24.3 % (39.0-51.0); HEMOGLOBIN 7.7 GM/DL (13.0-17.0); LYMPH % 9.7 % (9.0-44.0); LYMPHOCYTE # 0.8 TH/MM3 (1.0-4.8); MEAN CELL VOLUME 75.6 FL (80.0-100.0); MEAN CORPUSCULAR HGB CONC 31.7 % (32.0-36.0); MEAN PLATELET VOLUME 9.1 FL (7.0-11.0); MONO % 7.8 % (0.0-8.0); MONOCYTE # 0.7 TH/MM3 (0-0.9); PLATELET COUNT 225 TH/MM3 (150-450); RED BLOOD COUNT 3.22 MIL/MM3 (4.50-5.90); RED CELL DISTRIBUTION WIDTH 20.3 % (11.6-17.2); WHITE BLOOD COUNT 8.5 TH/MM3 (4.0-11.0)
[2017-12-19 11:08] LABS: TROPONIN I 0.23 NG/ML (0.02-0.05)
--- NOTE | 2017-12-19 11:17 | MB ---
cc: Efren Nogueira DO DATE: 12/19/2017 REASON FOR CONSULTATION: Shortness of breath, severe aortic stenosis. HISTORY OF PRESENT ILLNESS: Anuj Ingram is a pleasant 77-year-old male who sees my partner, Dr. Clayton in the office and has known severe aortic stenosis with a plan for aortic valve replacement in the near future. He states that he has been noticing that he has been more short of breath recently and last night he noticed that it was significantly worse and so he came into the emergency room. He previously was noted to have severe aortic stenosis and has finally gotten his dental workup and has been attempting to get scheduled for his aortic valve replacement. On arrival, he was found to have a hemoglobin of 6.3 and so he was transfused 2 units. At this time, he is doing relatively well with no chest pain or shortness of breath. PAST MEDICAL HISTORY: 1. Severe aortic stenosis (aortic valve area 0.81, mean gradient 52). 2. Diabetes mellitus. 3. Hypertension. 4. Hyperlipidemia. 5. Nonobstructive coronary artery disease (cardiac catheterization 10/03/2017 with 20% distal LAD, 20% circumflex, RCA 30%). 6. Mild carotid artery stenosis. 7. Stage III kidney disease. 8. Chronic obstructive pulmonary disease. 9. Hypothyroidism. 10. Neuropathy. 11. Gout. 12. Anemia. 13. History of gastrointestinal bleeds (AVMs). PAST SURGICAL HISTORY: 1. Cardiac catheterization (09/27/2017), left main, no significant disease, LAD 10% proximal, 20% distal. Left circumflex no significant disease. RCA mild luminal irregularities. PDA has 20% lesion. 2. Tonsillectomy. 3. Appendectomy. 4. Right arm fracture and repair. 5. Sinus surgery. 6. Bilateral cataract surgery. ALLERGIES: SULFA. MEDICATIONS: 1. Norvasc 5 mg daily. 2. Lisinopril 40 mg daily. 3. Gabapentin 800 mg b.i.d. 4. Lasix 20 mg daily. 5. Januvia 100 mg daily. 6. Glipizide 10 mg b.i.d. 7. Pioglitazone 30 mg daily. 8. Synthroid 137 mcg daily. 9. Allopurinol 100 mg daily. 10. Co-Q10 100 mg daily. FAMILY HISTORY: His father from colon cancer. Mother from emphysema. SOCIAL HISTORY: The patient previously smoked but quit in 1987. He stopped drinking around 3 years ago. REVIEW OF SYSTEMS: Fourteen systems were reviewed including osteopathic. Pertinent positives and negatives above, otherwise negative. PHYSICAL EXAMINATION: VITAL SIGNS: Temperature 97.4, heart rate 80, blood pressure 130/60, respirations 20, pulse oximetry 98% on 2 liters. GENERAL: The patient appears well in no acute distress, alert, awake and oriented x 3. HEENT: Extraocular muscles intact. Mucous membranes moist. NECK: Supple. No JVD at 45 degrees. No carotid bruits heard bilaterally. Carotid upstroke is brisk in nature. HEART: Regular rate and rhythm. Positive first and second heart sounds with a 3/6 crescendo decrescendo murmur, which dampens S2. LUNGS: Lungs are relatively clear bilaterally. ABDOMEN: Soft, nontender, nondistended, no organomegaly noted. EXTREMITIES: Show 2+ pitting edema bilaterally. NEUROLOGIC: No focal deficits. SKIN: Warm, dry and intact. OSTEOPATHIC: Mild lordosis, no kyphoscoliosis or paraspinal tender points. LABORATORY DATA: Hemoglobin 6.3, hematocrit 20.7, platelets 253. Potassium 4.7, BUN 37, creatinine 2.77. Troponin 0.02. BNP 90. Electrocardiogram (12/18/2017 at 2327): Sinus tachycardia, nonspecific ST-T wave changes. IMPRESSION: 1. Symptomatic anemia. 2. Severe aortic stenosis by echocardiogram (aortic valve area 0.81, mean gradient 52). 3. Nonobstructive coronary artery disease by cardiac catheterization (09/27/2017). 4. Acute kidney injury. 5. Diabetes mellitus. 6. Hypertension. 7. Hyperlipidemia. 8. History of gastrointestinal bleeds due to AVMs. RECOMMENDATIONS: 1. Mr. Ingram presented with shortness of breath. This is most likely due to symptomatic anemia on top of his severe aortic stenosis. 2. He has received 2 units and his hemoglobin will be rechecked and most likely he will need further packed red blood cells, depending on the results. 3. He will require diuresis with the packed red blood cells to avoid a fluid overload state. 4. He will be evaluated by CT surgery for further recommendations on his AVR. 5. He may need a GI evaluation. First, we will check his stool for blood. If he does have a GI evaluation, unfortunately, he would be a high risk for any type of procedure where sedation is involved, due to his severe aortic stenosis. 6. Further recommendations will be made based on the hospital course. Thank you for allowing me to see Anuj Ingram. If there are any questions, please do not hesitate to call. Efren Nogueira DO VGP/TL , 10:49 AM , 11:17 AM
--- NOTE | 2017-12-19 16:08 | EKG ---
Date Performed: 12/18/2017 Time Performed: 23:27:14 PTAGE: 77 years EKG: SINUS TACHYCARDIA NONSPECIFIC ST & T-WAVE ABNORMALITY ABNORMAL RHYTHM ECG Since the PREVIOUS TRACING , no significant change noted PREVIOUS TRACIN10/23/2017 01.38 DOCTOR: Rebeca Raymond Interpretating Date/Time 12/19/2017 16:07:39
--- NOTE | 2017-12-19 17:01 | MB ---
cc: Elin Joyce Jacqueline R ARNP DATE: 12/19/2017 DATE OF : 1940 HISTORY OF PRESENT ILLNESS: A patient of Dr. Clayton, history of known aortic stenosis, was in the process of undergoing scheduling for his aortic valve replacement, but at the time he was seen he had some very poor loose teeth and required dental workup where he finally got his teeth fixed and had removal of his teeth on the top. He has got an implant. His aortic valve area is 0.81 with a mean gradient of 52. He was attempting to try to get his aortic valve replacement rescheduled and presented to the emergency department with shortness of breath. On arrival, they found that he was severely anemic with a hemoglobin of 6.3 and hematocrit of 20. He has since been given 2 units of packed RBCs. His hemoglobin is 7.7 and 24. He had history in the past of a GI bleed where he had an EGD with biopsy, colonoscopy, ablation of arteriovenous malformation on 12/01/2016. At that time, his hemoglobin was 7.6. He currently is scheduled to receive a third unit of packed RBCs. He denies having any blood in the stool, no black tarry stools. PAST MEDICAL HISTORY: Includes diabetes mellitus, hypertension, hyperlipidemia, nonobstructive coronary artery disease by catheterization 10/03/2017, EF of 55%, severe aortic stenosis as above, stage III chronic kidney disease, COPD, hypothyroidism, neuropathy, gout, anemia, history of GI bleed, AVMs. PAST SURGICAL HISTORY: Include tonsillectomy, appendectomy, right arm fracture and repair, sinus surgery, bilateral cataract surgery. He has had EGD with colonoscopy. ALLERGIES: SULFA. HOME MEDICATIONS: 1. [place] 3. 2. Amlodipine. 3. Lisinopril. 4. Gabapentin. 5. Lasix. 6. Lactobacillus. 7. Januvia. 8. Glipizide. 9. Actos. 10. Levothyroxine. 11. Allopurinol. 12. CoQ10. FAMILY HISTORY: Father from colon cancer. Mother from complications of emphysema. SOCIAL HISTORY: Quit smoking in 1987. Quit drinking alcohol 3 years ago. No illicit drugs. REVIEW OF SYSTEMS: As above in the HPI. Other 12 systems unremarkable. PHYSICAL EXAMINATION: VITAL SIGNS: Blood pressure 130/60, heart rate of 90, temperature max 97.8. GENERAL: The patient is awake, alert, in no acute distress. HEENT: Normocephalic, atraumatic. Oral mucosa pink, moist. NECK: Supple. No JVD. CARDIOVASCULAR: Sounds S1, S2, with a 3/6 crescendo decrescendo murmur. LUNGS: Diminished in the bases, otherwise clear to auscultation. ABDOMEN: Obese, soft, nontender. No masses or organomegaly. EXTREMITIES: Reveal 2+ pitting edema bilaterally. NEUROLOGIC: No focal deficits. LABORATORY DATA: Shows initial hemoglobin of 6.3, hematocrit of 20. After 2 units it came up to 7.7 and 24. White cell count of 10, platelet count of 253. Sodium 136, potassium 4.7, BUN of 37 with a creatinine of 2.77. Troponin 0.02, then the second troponin went up to 0.23. INR 1.2. Urinalysis is unremarkable. RADIOLOGIC EXAMS: Small bilateral effusions, pulmonary vascular congestion. ASSESSMENT AND PLAN: A 77-year-old male who presented with shortness of breath, with significant symptomatic anemia and also his severe aortic stenosis history. He has since received 2 units packed RBCs under and is to undergo a third unit of packed RBCs. Again, agree he needs diuresis with the packed blood cells to avoid fluid overload. I recommend that he gets a repeat GI evaluation, hemoccult stool. Timing for surgery as per Dr. Wero Rios. RALPH Causey MD JRT/JAMES , 03:53 PM , 05:00 PM
[2017-12-20] VITALS (26 sets, daily range): BP systolic 124–146; BP diastolic 57–65; PULSE 69–103; RESP 14–20; TEMP 97.4–98; O2SAT 94–97
[2017-12-20] MEDS: LEVOTHYROXINE SODIUM 112 MCG TAB PO SCH (05:47)
[2017-12-20] MEDS: LEVOTHYROXINE SODIUM 25 MCG TAB PO SCH (05:47)
[2017-12-20 06:11] LABS: AUTOMATED NEUTROPHIL # 7.3 TH/MM3 (1.8-7.7); BASOPHIL # 0.1 TH/MM3 (0-0.2); EOSINOPHIL # 0.1 TH/MM3 (0-0.4); EOSINOPHIL % 1.5 % (0.0-4.0); HEMATOCRIT 28.2 % (39.0-51.0); HEMOGLOBIN 9.1 GM/DL (13.0-17.0); LYMPH % 9.7 % (9.0-44.0); LYMPHOCYTE # 0.9 TH/MM3 (1.0-4.8); MEAN CELL VOLUME 77.5 FL (80.0-100.0); MEAN CORPUSCULAR HEMOGLOBIN 24.9 PG (27.0-34.0); MEAN CORPUSCULAR HGB CONC 32.1 % (32.0-36.0); MEAN PLATELET VOLUME 9.5 FL (7.0-11.0); MONO % 10.2 % (0.0-8.0); NEUT % 77.6 % (16.0-70.0); PLATELET COUNT 244 TH/MM3 (150-450); RED BLOOD COUNT 3.64 MIL/MM3 (4.50-5.90); RED CELL DISTRIBUTION WIDTH 20.9 % (11.6-17.2); WHITE BLOOD COUNT 9.4 TH/MM3 (4.0-11.0)
[2017-12-20 06:43] LABS: BICARBONATE 26.7 MEQ/L (21.0-32.0); BLOOD UREA NITROGEN 37 MG/DL (7-18); CALCIUM 8.6 MG/DL (8.5-10.1); CHLORIDE 107 MEQ/L (98-107); GLOMERULAR FILTRATION RATE 27 ML/MIN (>89); GLUCOSE,RANDOM 102 MG/DL (74-106); SODIUM (NA) 143 MEQ/L (136-145)
[2017-12-20] MEDS: INSULIN ASPART SUPPLEMENTAL SCALE SQ SCH ×4 (07:47→21:00)
[2017-12-20] MEDS: LACTOBACILLUS ACIDOPHILUS TAB PO SCH ×3 (07:56→17:19)
[2017-12-20 08:30] LABS: % SATURATION IRON PROFILE 7.7 % (20-50); ALBUMIN 2.9 GM/DL (3.4-5.0); ALKALINE PHOSPHATASE 63 U/L (45-117); AST (GOT) 12 U/L (15-37); FERRITIN 28 NG/ML (26-388); IRON (FE) 37 MCG/DL (65-175); TOTAL BILIRUBIN ADULT 1.6 MG/DL (0.2-1.0); TOTAL IRON BINDING CAPACITY 480 MCG/DL (250-450); TOTAL PROTEIN 6.4 GM/DL (6.4-8.2); TROPONIN I 0.13 NG/ML (0.02-0.05)
[2017-12-20 08:41] LABS: ALT (GPT) 17 U/L (12-78); FOLATE GREATER THAN 20.0 NG/ML (3.1-17.5)
--- NOTE | 2017-12-20 09:40 | HHI.PR ---
Subjective Remarks The patient was sitting in a chair. He felt like his gout was acting up in his left knee. He said he had some pain with ambulation. He has not noticed any dark stools. He feels like his shortness of breath is a lot better. Discussed with nursing. Objective Vitals Vital Signs Date Time Temp Pulse Resp B/P (MAP) Pulse Ox O2 Delivery O2 Flow Rate FiO2 12/20/17 09:00 92 12/20/17 08:00 88 12/20/17 07:00 94 Room Air 12/20/17 07:00 81 12/20/17 07:00 97.8 86 16 137/62 (87) 94 12/20/17 06:00 84 12/20/17 05:00 90 12/20/17 04:00 92 12/20/17 03:00 98.0 87 18 124/59 (80) 95 12/20/17 03:00 103 12/20/17 03:00 95 Nasal Cannula 2.00 12/20/17 02:00 86 12/20/17 01:00 86 12/20/17 00:00 80 12/19/17 23:35 95 Nasal Cannula 2.00 12/19/17 23:30 90 Room Air 12/19/17 23:30 97.4 77 18 119/56 (77) 90 12/19/17 23:00 87 12/19/17 22:00 80 12/19/17 21:00 82 12/19/17 20:00 98.0 81 18 135/63 (87) 96 12/19/17 20:00 96 Room Air 12/19/17 20:00 84 12/19/17 19:00 86 12/19/17 18:05 84 12/19/17 17:16 96 12/19/17 17:11 99 12/19/17 16:01 71 12/19/17 15:52 97.7 90 18 125/60 93 12/19/17 15:23 97.8 92 18 133/58 (83) 94 12/19/17 15:23 90 12/19/17 15:23 94 Room Air 12/19/17 14:01 100 12/19/17 13:11 80 12/19/17 12:21 97 12/19/17 11:29 97.6 78 20 115/55 (75) 94 12/19/17 11:29 69 12/19/17 11:29 94 Nasal Cannula 1.00 12/19/17 10:03 73 I/O 12/19/17 12/19/17 12/19/17 12/20/17 12/20/17 12/20/17 07:00 15:00 23:00 07:00 15:00 23:00 Intake Total 1170 ml 1010 ml 240 ml Output Total 800 ml 1300 ml 3100 ml Balance 370 ml -290 ml -2860 ml Intake Oral 600 ml 240 ml IV Total 250 ml Packed Cells 800 ml 400 ml Blood Product IV Normal Saline Flush 120 ml 10 ml Output Urine Total 800 ml 1300 ml 3100 ml # Voids 2 # Bowel Movements 0 0 Result Diagram: 12/20/17 0503 12/20/17 0503 Imaging Last Impressions Chest X-Ray 12/18/17 7482 Signed Impressions: CONCLUSION: 1. There continues to be infiltrates in both lower lungs. 2. Small pleural effusions and pulmonary venous congestion. Objective Remarks GENERAL: NAD. HEAD: Normocephalic. NECK: Supple, trachea midline. No lymphadenopathy. EYES: No scleral icterus. No injection or drainage. CARDIOVASCULAR: Regular rate and rhythm, harsh systolic murmur appreciated. RESPIRATORY: Trace crackles bilaterally at bases. GASTROINTESTINAL: Abdomen soft, non-tender, nondistended. MUSCULOSKELETAL: 2+ lower extremity edema. Left knee not warm to the touch, nontender, not swollen. SKIN: Warm and dry. NEURO: No focal neurological deficits. PSYCH: Mood and affect appropriate. A/P Assessment and Plan Acute on chronic diastolic CHF The pt presented with what sounds like pulmonary edema. He has lower extremity edema, orthopnea and CXR shows pulmonary congestion. He is supposed to get an aortic valve replacement in the near future. Cardiology and cardiothoracic surgery consult appreciated. - Lasix 20 mg IV BID. - follow Is and Os. - continue cardiac regimen. - telemetry. - follow up with cardiology and CTS. Acute anemia MCV is low. S/p three units. - anemia work-up including Hemoccult. - follow CBC and transfuse as needed. - GI evaluation pending. Acute on chronic renal disease Creatinine is elevated compared to baseline. Improved. - monitor while diuresing. - hold lisinopril. DM Well controlled at this time. - hold home meds. - insulin sliding scale. PPx: Javier Marc DO Dec 20, 2017 09:40
[2017-12-20] MEDS: SODIUM CHLORIDE 0.9% FLUSH 10 ML FLUSH IV FLUSH SCH ×2 (10:23→21:27)
[2017-12-20] MEDS: GABAPENTIN 300 MG CAP PO SCH (10:24)
[2017-12-20] MEDS: amLODIPine BESYLATE 5 MG TAB PO SCH (10:24)
[2017-12-20] MEDS: ALLOPURINOL 100 MG TAB PO SCH (10:24)
[2017-12-20] MEDS: FUROSEMIDE 40 MG/4 ML VIAL IV PUSH SCH (10:28)
--- NOTE | 2017-12-20 11:43 | PD.CONS ---
HPI History of Present Illness This is a 77 year old M with PMH significant for DM, HTN, HLD, CAD, aortic stenosis, CKD, COPD, hypothyroidism, history of GIB, anemia, and gout who presented to the hospital two days ago with complaints of sudden onset of shortness of breath. Pt has been seen by cardiology and cardiothoracic surgery who is recommending a GI work up for anemia prior to aortic valve replacement. Pts hgb on admission was 6.3. He has previously been worked up by our service in November 2016, EGD and colonoscopy --> Irregular Z line, mild inflammation in the stomach antrum, normal duodenum, cecum AVM that was ablated, several small polyp in the transverse colon S/P polypectomy, small polyp removed from the splenic flexure, moderate diverticulosis in the sigmoid colon, poor prep. Pathology (GE junction) squamocolumnar mucosa with mildly active chronic inflammation (transverse colon polyp) fragments of tubular adenoma (splenic flexure polyp) colonic mucosa without significant histopathologic abnormality. Pt denies any obvious GIB at this time, denies nausea, vomiting, visible blood in his stool. Reports occasional acid reflux, takes Omeprazole as needed. Also has intermittent mid abdominal pain, described as burning sensation that improves after taking an antacid. Bowel movement are intermittent between constipation and diarrhea, takes Dulcolax as needed for constipation, denies any OTC relief for diarrhea. Quit drinking alcohol 3 years ago was previously a heavy drinker. Quit smoking in 1987. Family history significant for colon cancer , father. (Kathleen Zimmerman) PFSH Past Medical History DM HTN HLD Nonobstructing CAD (Cath 10/03: 20% distal LAD, 20% circumflex, 30% RCA, EF 55%) Severe aortic stenosis (Echo at [facility] showing AV area of 0.81 and mean gradient of 52) Asymptomatic mild carotid stenosis Stage III CKD COPD Hypothyroidism Neuropathy Gout Anemia History of GI bleed (AVMs) Past Surgical History Tonsillectomy Appendectomy Right arm fracture and repair Sinus surgery Bilateral cataract surgery Colonoscopy EGD (Kathleen Zimmerman) Coded Allergies: Sulfa (Sulfonamide Antibiotics) (Unverified Allergy, Intermediate, Edema, 10/22/17) Family History His father from colon cancer His mother from emphysema Social History He quit smoking in 1987 He quit drinking three years ago- previously a heavy drinker (Kathleen Zimmerman) Review of Systems Gastrointestinal: COMPLAINS OF: Abdominal pain, Constipation, Diarrhea, Heartburn, DENIES: Black stools, Bloody stools, Nausea, Vomiting, Difficulty Swallowing, Anorexia, Odynophagia, Swelling of Abdomen, Hematemesis (Kathleen Zimmerman) GI Exam Vitals I&O Vital Signs Date Time Temp Pulse Resp B/P (MAP) Pulse Ox O2 Delivery O2 Flow Rate FiO2 12/20/17 11:00 98.0 83 18 128/57 (80) 95 12/20/17 11:00 80 12/20/17 11:00 95 Room Air 12/20/17 10:00 84 12/20/17 09:00 92 12/20/17 08:00 88 12/20/17 07:00 94 Room Air 12/20/17 07:00 81 12/20/17 07:00 97.8 86 16 137/62 (87) 94 12/20/17 06:00 84 12/20/17 05:00 90 12/20/17 04:00 92 12/20/17 03:00 98.0 87 18 124/59 (80) 95 12/20/17 03:00 103 12/20/17 03:00 95 Nasal Cannula 2.00 12/20/17 02:00 86 12/20/17 01:00 86 12/20/17 00:00 80 12/19/17 23:35 95 Nasal Cannula 2.00 12/19/17 23:30 90 Room Air 12/19/17 23:30 97.4 77 18 119/56 (77) 90 12/19/17 23:00 87 12/19/17 22:00 80 12/19/17 21:00 82 12/19/17 20:00 98.0 81 18 135/63 (87) 96 12/19/17 20:00 96 Room Air 12/19/17 20:00 84 12/19/17 19:00 86 12/19/17 18:05 84 12/19/17 17:16 96 12/19/17 17:11 99 12/19/17 16:01 71 12/19/17 15:52 97.7 90 18 125/60 93 12/19/17 15:23 97.8 92 18 133/58 (83) 94 12/19/17 15:23 90 12/19/17 15:23 94 Room Air 12/19/17 14:01 100 12/19/17 13:11 80 12/19/17 12:21 97 12/19/17 11:29 97.6 78 20 115/55 (75) 94 12/19/17 11:29 69 12/19/17 11:29 94 Nasal Cannula 1.00 I/O 12/19/17 12/19/17 12/19/17 12/20/17 12/20/17 12/20/17 07:00 15:00 23:00 07:00 15:00 23:00 Intake Total 1170 ml 1010 ml 240 ml Output Total 800 ml 1300 ml 3100 ml Balance 370 ml -290 ml -2860 ml Intake Oral 600 ml 240 ml IV Total 250 ml Packed Cells 800 ml 400 ml Blood Product IV Normal Saline Flush 120 ml 10 ml Output Urine Total 800 ml 1300 ml 3100 ml # Voids 2 # Bowel Movements 0 0 Imaging Last Impressions Chest X-Ray 12/18/17 3252 Signed Impressions: CONCLUSION: 1. There continues to be infiltrates in both lower lungs. 2. Small pleural effusions and pulmonary venous congestion. Laboratory Test 12/20/17 05:03 White Blood Count 9.4 TH/MM3 Red Blood Count 3.64 MIL/MM3 Hemoglobin 9.1 GM/DL Hematocrit 28.2 % Mean Corpuscular Volume 77.5 FL Mean Corpuscular Hemoglobin 24.9 PG Mean Corpuscular Hemoglobin Concent 32.1 % Red Cell Distribution Width 20.9 % Platelet Count 244 TH/MM3 Mean Platelet Volume 9.5 FL Neutrophils (%) (Auto) 77.6 % Lymphocytes (%) (Auto) 9.7 % Monocytes (%) (Auto) 10.2 % Eosinophils (%) (Auto) 1.5 % Basophils (%) (Auto) 1.0 % Neutrophils # (Auto) 7.3 TH/MM3 Lymphocytes # (Auto) 0.9 TH/MM3 Monocytes # (Auto) 1.0 TH/MM3 Eosinophils # (Auto) 0.1 TH/MM3 Basophils # (Auto) 0.1 TH/MM3 CBC Comment DIFF FINAL Differential Comment Blood Urea Nitrogen 37 MG/DL Creatinine 2.40 MG/DL Random Glucose 102 MG/DL Total Protein 6.4 GM/DL Albumin 2.9 GM/DL Calcium Level 8.6 MG/DL Alkaline Phosphatase 63 U/L Aspartate Amino Transf (AST/SGOT) 12 U/L Alanine Aminotransferase (ALT/SGPT) 17 U/L Total Bilirubin 1.6 MG/DL Sodium Level 143 MEQ/L Potassium Level 4.4 MEQ/L Chloride Level 107 MEQ/L Carbon Dioxide Level 26.7 MEQ/L Anion Gap 9 MEQ/L Estimat Glomerular Filtration Rate 27 ML/MIN Iron Level 37 MCG/DL Total Iron Binding Capacity 480 MCG/DL Percent Iron Saturation 7.7 % Ferritin 28 NG/ML Total Creatine Kinase 94 U/L Troponin I 0.13 NG/ML Vitamin B12 Level 691 PG/ML Folate GREATER THAN 20.0 NG/ML Physical Examination HEENT: Normocephalic; atraumatic CHEST: Expiratory wheezing CARDIAC: RRR (+) murmur ABDOMEN: distended, soft, nontender, bowel sounds active EXTREMITIES: BLE edema SKIN: Normal; no rash; no jaundice. ZINC MINER: Alert and oriented (Kathleen Zimmerman) Assessment and Plan Plan Assessment: - Anemia- microcytic, hypochromic with previous history of GIB Seen by cardiothoracic surgery who is planning on an aortic valve replacements for , has recommended GI work up for anemia prior to operation. November 2016, EGD and colonoscopy --> Irregular Z line, mild inflammation in the stomach antrum, normal duodenum, cecum AVM that was ablated, several small polyp in the transverse colon S/P polypectomy, small polyp removed from the splenic flexure, moderate diverticulosis in the sigmoid colon, poor prep. Pathology (GE junction) squamocolumnar mucosa with mildly active chronic inflammation (transverse colon polyp) fragments of tubular adenoma (splenic flexure polyp) colonic mucosa without significant histopathologic abnormality Denies: nausea, vomiting, visible blood in stool, unintentional weight loss Complaining of: Mid abdominal pain, intermittent, described as burning sensation, relieved with antacids, intermittent constipation and diarrhea, takes Dulcolax as needed for constipation, denies meds for diarrhea - Family history of colon cancer- fath - , CAD- cardiology and cardiothoracic surgery following Plan: EGD/colonoscopy tomorrow Obtain consent Clear liquids today Golytely prep NPO after MN Monitor H/H Further recommendations based on results of above Pt has been seen and examined by myself and Dr. Lucas and this note is written on his behalf (Kathleen Zimmerman) Physician Comments Seen with Kathleen plan as above. Agree with the need for re-evaluation with panendoscopy for anemia. Will proceed in AM after cardiac clearance. Thank you for the consult. (Jennifer Lucas MD) Kathleen Zimmerman Dec 20, 2017 11:43 Jennifer Lucas MD Dec 20, 2017 13:19
--- NOTE | 2017-12-20 11:48 | PD.CAR.PN ---
CVT Progress Note Subjective/Hospital Course: 77 m/ a patient of Dr. Clayton, history of known aortic stenosis, was in the process of undergoing scheduling for his aortic valve replacement, but at the time he was seen he had some very poor loose teeth and required dental workup where he finally got his teeth fixed and had removal of his teeth on the top. He has got an upper dental implant. His aortic valve area is 0.81 with a mean gradient of 52. He was attempting to try to get his aortic valve replacement rescheduled and presented to the emergency department with shortness of breath. On arrival, they found that he was severely anemic with a hemoglobin of 6.3 and hematocrit of 20. He has since been given 2 units of packed RBCs. His hemoglobin is 7.7 and 24. He had history in the past of a GI bleed where he had an EGD with biopsy, colonoscopy, ablation of arteriovenous malformation on 12/01/2016. At that time, his hemoglobin was 7.6. He recieved and additional currently pack of RBC for total of 3, He denies having any blood in the stool, no black tarry stools. PAST MEDICAL HISTORY: Includes diabetes mellitus, hypertension, hyperlipidemia, nonobstructive coronary artery disease by catheterization 10/03/2017, EF of 55% , severe aortic stenosis as above, stage III chronic kidney disease, COPD, hypothyroidism, neuropathy, gout, anemia, history of GI bleed, AVMs. 12/20 no stool yet to check for Hemoccult HGB stable 9.1 GI consult pending await their input regarding timing for surgery pt will need Heparin 2/2 Heart Lung bypass machine for his valve surgery Objective: GENERAL: SKIN: Warm and dry. HEAD: Normocephalic. EYES: No scleral icterus. No injection or drainage. NECK: Supple, trachea midline. No JVD or lymphadenopathy. CARDIOVASCULAR: Regular rate and rhythm without murmurs, gallops, or rubs. RESPIRATORY: Breath sounds equal bilaterally. No accessory muscle use. GASTROINTESTINAL: Abdomen soft, non-tender, nondistended. MUSCULOSKELETAL: No cyanosis, or edema. BACK: Nontender without obvious deformity. No CVA tenderness. Vital Signs Date Time Temp Pulse Resp B/P (MAP) Pulse Ox O2 Delivery O2 Flow Rate FiO2 12/20/17 11:00 98.0 83 18 128/57 (80) 95 12/20/17 11:00 80 12/20/17 11:00 95 Room Air 12/20/17 10:00 84 12/20/17 09:00 92 12/20/17 08:00 88 12/20/17 07:00 94 Room Air 12/20/17 07:00 81 12/20/17 07:00 97.8 86 16 137/62 (87) 94 12/20/17 06:00 84 12/20/17 05:00 90 12/20/17 04:00 92 12/20/17 03:00 98.0 87 18 124/59 (80) 95 12/20/17 03:00 103 12/20/17 03:00 95 Nasal Cannula 2.00 12/20/17 02:00 86 12/20/17 01:00 86 12/20/17 00:00 80 12/19/17 23:35 95 Nasal Cannula 2.00 12/19/17 23:30 90 Room Air 12/19/17 23:30 97.4 77 18 119/56 (77) 90 12/19/17 23:00 87 12/19/17 22:00 80 12/19/17 21:00 82 12/19/17 20:00 98.0 81 18 135/63 (87) 96 12/19/17 20:00 96 Room Air 12/19/17 20:00 84 12/19/17 19:00 86 12/19/17 18:05 84 12/19/17 17:16 96 12/19/17 17:11 99 12/19/17 16:01 71 12/19/17 15:52 97.7 90 18 125/60 93 12/19/17 15:23 97.8 92 18 133/58 (83) 94 12/19/17 15:23 90 12/19/17 15:23 94 Room Air 12/19/17 14:01 100 12/19/17 13:11 80 12/19/17 12:21 97 Labs: Laboratory Tests Test 12/20/17 05:03 White Blood Count 9.4 TH/MM3 (4.0-11.0) Red Blood Count 3.64 MIL/MM3 (4.50-5.90) Hemoglobin 9.1 GM/DL (13.0-17.0) Hematocrit 28.2 % (39.0-51.0) Mean Corpuscular Volume 77.5 FL (80.0-100.0) Mean Corpuscular Hemoglobin 24.9 PG (27.0-34.0) Mean Corpuscular Hemoglobin Concent 32.1 % (32.0-36.0) Red Cell Distribution Width 20.9 % (11.6-17.2) Platelet Count 244 TH/MM3 (150-450) Mean Platelet Volume 9.5 FL (7.0-11.0) Neutrophils (%) (Auto) 77.6 % (16.0-70.0) Lymphocytes (%) (Auto) 9.7 % (9.0-44.0) Monocytes (%) (Auto) 10.2 % (0.0-8.0) Eosinophils (%) (Auto) 1.5 % (0.0-4.0) Basophils (%) (Auto) 1.0 % (0.0-2.0) Neutrophils # (Auto) 7.3 TH/MM3 (1.8-7.7) Lymphocytes # (Auto) 0.9 TH/MM3 (1.0-4.8) Monocytes # (Auto) 1.0 TH/MM3 (0-0.9) Eosinophils # (Auto) 0.1 TH/MM3 (0-0.4) Basophils # (Auto) 0.1 TH/MM3 (0-0.2) CBC Comment DIFF FINAL Differential Comment Blood Urea Nitrogen 37 MG/DL (7-18) Creatinine 2.40 MG/DL (0.60-1.30) Random Glucose 102 MG/DL (74-106) Total Protein 6.4 GM/DL (6.4-8.2) Albumin 2.9 GM/DL (3.4-5.0) Calcium Level 8.6 MG/DL (8.5-10.1) Alkaline Phosphatase 63 U/L (45-117) Aspartate Amino Transf (AST/SGOT) 12 U/L (15-37) Alanine Aminotransferase (ALT/SGPT) 17 U/L (12-78) Total Bilirubin 1.6 MG/DL (0.2-1.0) Sodium Level 143 MEQ/L (136-145) Potassium Level 4.4 MEQ/L (3.5-5.1) Chloride Level 107 MEQ/L (98-107) Carbon Dioxide Level 26.7 MEQ/L (21.0-32.0) Anion Gap 9 MEQ/L (5-15) Estimat Glomerular Filtration Rate 27 ML/MIN (>89) Iron Level 37 MCG/DL (65-175) Total Iron Binding Capacity 480 MCG/DL (250-450) Percent Iron Saturation 7.7 % (20-50) Ferritin 28 NG/ML (26-388) Total Creatine Kinase 94 U/L (39-308) Troponin I 0.13 NG/ML (0.02-0.05) Vitamin B12 Level 691 PG/ML (193-986) Folate GREATER THAN 20.0 NG/ML Result Diagram: 12/20/17 0503 12/20/17 0503 Telemetry: NSR (1) Anemia (2) Aortic stenosis Plan: await eval by GI / timing for aortic surgery pt will need Heparin with heart lung machine (3) CHF exacerbation (4) Acute kidney injury (5) HTN (hypertension) Elin Joyce Dec 20, 2017 11:48
--- NOTE | 2017-12-20 12:45 | PD.CARD.PN ---
Subjective Subjective Remarks Transfused 3 PRBC units Patient feels better, breathing better overall Objective Medications Current Medications Medications (Trade) Dose Ordered Sig/Roxanne Route Start Time Stop Time Status Last Admin (NS Flush) 2 ml UNSCH PRN IV FLUSH 12/19/17 04:45 (NS Flush) 2 ml BID IV FLUSH 12/19/17 09:00 12/20/17 10:23 (Tylenol) 650 mg Q4H PRN PO 12/19/17 04:45 (Reglan Inj) 5 mg Q6H PRN IV PUSH 12/19/17 04:45 (Narcan Inj) 0.4 mg UNSCH PRN IV PUSH 12/19/17 04:45 (Milk Of Magnesia Liq) 30 ml Q12H PRN PO 12/19/17 04:45 (Senokot) 17.2 mg Q12H PRN PO 12/19/17 04:45 (Dulcolax Supp) 10 mg DAILY PRN RECTAL 12/19/17 04:45 (Lactulose Liq) 30 ml DAILY PRN PO 12/19/17 04:45 (D50w (Vial) Inj) 50 ml UNSCH PRN IV PUSH 12/19/17 05:30 (Glucagon Inj) 1 mg UNSCH PRN OTHER 12/19/17 05:30 (NovoLOG SUPPLEMENTAL SCALE) 1 ACHS SLIDING SCALE SQ 12/19/17 08:00 12/20/17 11:41 (Zyloprim) 100 mg DAILY PO 12/19/17 09:00 12/20/17 10:24 (Norvasc) 5 mg DAILY PO 12/19/17 09:00 12/20/17 10:24 (Neurontin) 600 mg DAILY PO 12/19/17 09:00 12/20/17 10:24 (Lactinex) 1 tab TIDAC PO 12/19/17 08:00 12/20/17 11:41 (Synthroid) 112 mcg DAILY@0600 PO 12/19/17 06:30 12/20/17 05:47 (Synthroid) 25 mcg DAILY@0600 PO 12/19/17 06:30 12/20/17 05:47 (Duoneb Neb) 1 ampule Q2HR NEB PRN NEB 12/19/17 09:15 (Lasix Inj) 20 mg DAILY@0900,1800 IV PUSH 12/20/17 18:00 Vital Signs / I&O Vital Signs Date Time Temp Pulse Resp B/P (MAP) Pulse Ox O2 Delivery O2 Flow Rate FiO2 12/20/17 12:00 89 12/20/17 11:00 98.0 83 18 128/57 (80) 95 12/20/17 11:00 80 12/20/17 11:00 95 Room Air 12/20/17 10:00 84 12/20/17 09:00 92 12/20/17 08:00 88 12/20/17 07:00 94 Room Air 12/20/17 07:00 81 12/20/17 07:00 97.8 86 16 137/62 (87) 94 12/20/17 06:00 84 12/20/17 05:00 90 12/20/17 04:00 92 12/20/17 03:00 98.0 87 18 124/59 (80) 95 12/20/17 03:00 103 12/20/17 03:00 95 Nasal Cannula 2.00 12/20/17 02:00 86 12/20/17 01:00 86 12/20/17 00:00 80 12/19/17 23:35 95 Nasal Cannula 2.00 12/19/17 23:30 90 Room Air 12/19/17 23:30 97.4 77 18 119/56 (77) 90 12/19/17 23:00 87 12/19/17 22:00 80 12/19/17 21:00 82 12/19/17 20:00 98.0 81 18 135/63 (87) 96 12/19/17 20:00 96 Room Air 12/19/17 20:00 84 12/19/17 19:00 86 12/19/17 18:05 84 12/19/17 17:16 96 12/19/17 17:11 99 12/19/17 16:01 71 12/19/17 15:52 97.7 90 18 125/60 93 12/19/17 15:23 97.8 92 18 133/58 (83) 94 12/19/17 15:23 90 12/19/17 15:23 94 Room Air 12/19/17 14:01 100 12/19/17 13:11 80 I/O 12/19/17 12/19/17 12/19/17 12/20/176/18 6/6/18 07:00 15:00 23:00 07:00 15:00 23:00 Intake Total 1170 ml 1010 ml 240 ml Output Total 800 ml 1300 ml 3100 ml Balance 370 ml -290 ml -2860 ml Intake Oral 600 ml 240 ml IV Total 250 ml Packed Cells 800 ml 400 ml Blood Product IV Normal Saline Flush 120 ml 10 ml Output Urine Total 800 ml 1300 ml 3100 ml # Voids 2 # Bowel Movements 0 0 Physical Exam GENERAL: NAD, AAOx3 SKIN: Warm and dry. HEAD: Atraumatic. Normocephalic. EYES: Pupils equal and round. No scleral icterus. No injection or drainage. ENT: No nasal bleeding or discharge. Mucous membranes pink and moist. NECK: Trachea midline. No JVD. CARDIOVASCULAR: Regular rate and rhythm. RESPIRATORY: No accessory muscle use. Clear to auscultation. Breath sounds equal bilaterally. GASTROINTESTINAL: Abdomen soft, non-tender, nondistended. Hepatic and splenic margins not palpable. MUSCULOSKELETAL: 1+ pitting edema NEUROLOGICAL: Awake and alert. No obvious cranial nerve deficits. Motor grossly within normal limits. Five out of 5 muscle strength in the arms and legs. Normal speech. PSYCHIATRIC: Appropriate mood and affect; insight and judgment normal. Laboratory Laboratory Tests Test 12/20/17 05:03 White Blood Count 9.4 TH/MM3 Red Blood Count 3.64 MIL/MM3 Hemoglobin 9.1 GM/DL Hematocrit 28.2 % Mean Corpuscular Volume 77.5 FL Mean Corpuscular Hemoglobin 24.9 PG Mean Corpuscular Hemoglobin Concent 32.1 % Red Cell Distribution Width 20.9 % Platelet Count 244 TH/MM3 Mean Platelet Volume 9.5 FL Neutrophils (%) (Auto) 77.6 % Lymphocytes (%) (Auto) 9.7 % Monocytes (%) (Auto) 10.2 % Eosinophils (%) (Auto) 1.5 % Basophils (%) (Auto) 1.0 % Neutrophils # (Auto) 7.3 TH/MM3 Lymphocytes # (Auto) 0.9 TH/MM3 Monocytes # (Auto) 1.0 TH/MM3 Eosinophils # (Auto) 0.1 TH/MM3 Basophils # (Auto) 0.1 TH/MM3 CBC Comment DIFF FINAL Differential Comment Blood Urea Nitrogen 37 MG/DL Creatinine 2.40 MG/DL Random Glucose 102 MG/DL Total Protein 6.4 GM/DL Albumin 2.9 GM/DL Calcium Level 8.6 MG/DL Alkaline Phosphatase 63 U/L Aspartate Amino Transf (AST/SGOT) 12 U/L Alanine Aminotransferase (ALT/SGPT) 17 U/L Total Bilirubin 1.6 MG/DL Sodium Level 143 MEQ/L Potassium Level 4.4 MEQ/L Chloride Level 107 MEQ/L Carbon Dioxide Level 26.7 MEQ/L Anion Gap 9 MEQ/L Estimat Glomerular Filtration Rate 27 ML/MIN Iron Level 37 MCG/DL Total Iron Binding Capacity 480 MCG/DL Percent Iron Saturation 7.7 % Ferritin 28 NG/ML Total Creatine Kinase 94 U/L Troponin I 0.13 NG/ML Vitamin B12 Level 691 PG/ML Folate GREATER THAN 20.0 NG/ML Assessment and Plan Problem List: (1) Anemia ICD Codes: D64.9 - Anemia, unspecified (2) Aortic stenosis ICD Codes: I35.0 - Nonrheumatic aortic (valve) stenosis (3) Acute kidney injury ICD Codes: N17.9 - Acute kidney failure, unspecified Status: Acute (4) HTN (hypertension) ICD Codes: I10 - Essential (primary) hypertension Status: Chronic Assessment and Plan 1) SOB Due to severe with anemia Not CHF clinically, appears mostly euvolemic and lungs clear 2) Anemia High cardiovascular risk for any procedure due to severe Con't to follow Hgb 3) Eventual AVR Efren Nogueira DO Dec 20, 2017 12:45
[2017-12-20] MEDS: FUROSEMIDE 20 MG/2 ML VIAL IV PUSH SCH (17:20)
[2017-12-20] MEDS: NYSTATIN 100,000 U/GM PWD 15 GM BTL TOPICAL SCH (21:00)
[2017-12-20] MEDS ORDERED: ACETAMINOPHEN/HYDROcodone 325 MG/5 MG TAB PO ONE (21:45)
[2017-12-21] VITALS (25 sets, daily range): BP systolic 120–139; BP diastolic 56–65; PULSE 80–99; RESP 16–20; TEMP 97.4–98; O2SAT 92–97
[2017-12-21] MEDS ORDERED: MORPHINE SULFATE 4 MG/ML INJ IV PUSH ONE (03:15)
[2017-12-21 04:12] LABS: HEMATOCRIT 27.9 % (39.0-51.0); HEMOGLOBIN 8.9 GM/DL (13.0-17.0); MEAN CELL VOLUME 76.4 FL (80.0-100.0); MEAN CORPUSCULAR HEMOGLOBIN 24.3 PG (27.0-34.0); MEAN CORPUSCULAR HGB CONC 31.7 % (32.0-36.0); MEAN PLATELET VOLUME 8.7 FL (7.0-11.0); PLATELET COUNT 247 TH/MM3 (150-450); RED BLOOD COUNT 3.65 MIL/MM3 (4.50-5.90); RED CELL DISTRIBUTION WIDTH 21.5 % (11.6-17.2)
[2017-12-21 05:06] LABS: BICARBONATE 28.1 MEQ/L (21.0-32.0); CALCIUM 8.9 MG/DL (8.5-10.1); CREATININE 2.16 MG/DL (0.60-1.30); MAGNESIUM 2.1 MG/DL (1.5-2.5)
[2017-12-21] MEDS: LEVOTHYROXINE SODIUM 25 MCG TAB PO SCH (05:52)
[2017-12-21] MEDS: LEVOTHYROXINE SODIUM 112 MCG TAB PO SCH (05:52)
[2017-12-21] MEDS ORDERED: COLCHICINE 0.6 MG TAB PO ONE (06:45)
[2017-12-21] MEDS: INSULIN ASPART SUPPLEMENTAL SCALE SQ SCH ×4 (08:00→21:00)
[2017-12-21] MEDS: SODIUM CHLORIDE 0.9% FLUSH 10 ML FLUSH IV FLUSH SCH ×2 (08:10→21:00)
[2017-12-21] MEDS: amLODIPine BESYLATE 5 MG TAB PO SCH (08:10)
[2017-12-21] MEDS: NYSTATIN 100,000 U/GM PWD 15 GM BTL TOPICAL SCH ×2 (08:10→21:00)
[2017-12-21] MEDS: LACTOBACILLUS ACIDOPHILUS TAB PO SCH ×3 (08:10→16:44)
[2017-12-21] MEDS: GABAPENTIN 300 MG CAP PO SCH (08:10)
[2017-12-21] MEDS: ALLOPURINOL 100 MG TAB PO SCH (08:10)
[2017-12-21] MEDS: FUROSEMIDE 20 MG/2 ML VIAL IV PUSH SCH ×2 (08:16→16:45)
--- NOTE | 2017-12-21 09:14 | HHI.PR ---
Subjective Remarks The pt said his left knee is hurting him a lot. He has limited range of motion. He thinks it's gout. He says he hasn't had any colonoscopy prep. He said it's been three days since his last bowel movement. Objective Vitals Vital Signs Date Time Temp Pulse Resp B/P (MAP) Pulse Ox O2 Delivery O2 Flow Rate FiO2 12/21/17 06:00 92 12/21/17 05:00 90 12/21/17 04:00 90 12/21/17 03:55 92 Room Air 12/21/17 03:55 97.7 96 20 133/63 (86) 92 12/21/17 03:00 90 12/21/17 02:00 90 12/21/17 01:00 82 12/21/17 00:00 97.6 81 20 126/56 (79) 95 12/21/17 00:00 80 12/21/17 00:00 95 Room Air 12/20/17 23:30 20 12/20/17 23:00 76 12/20/17 22:00 78 12/20/17 21:00 84 12/20/17 20:00 86 12/20/17 19:35 97.4 83 20 146/65 (92) 97 12/20/17 19:35 97 Room Air 12/20/17 19:27 80 12/20/17 19:00 80 12/20/17 18:00 88 12/20/17 17:00 86 12/20/17 16:00 69 12/20/17 15:00 98.0 75 14 128/58 (81) 96 12/20/17 15:00 78 12/20/17 15:00 96 Room Air 12/20/17 14:00 85 12/20/17 13:00 83 12/20/17 12:00 89 12/20/17 11:00 98.0 83 18 128/57 (80) 95 12/20/17 11:00 80 12/20/17 11:00 95 Room Air 12/20/17 10:00 84 I/O 12/20/17 12/20/17 12/20/17 12/21/17 12/21/17 12/21/17 07:00 15:00 23:00 07:00 15:00 23:00 Intake Total 240 ml 840 ml 720 ml Output Total 3100 ml 2350 ml 1700 ml Balance -2860 ml -1510 ml -980 ml Intake Oral 240 ml 840 ml 720 ml Output Urine Total 3100 ml 2350 ml 1700 ml # Bowel Movements 0 0 Result Diagram: 12/21/17 0351 12/21/17 0351 Imaging Last Impressions Chest X-Ray 12/18/17 2332 Signed Impressions: CONCLUSION: 1. There continues to be infiltrates in both lower lungs. 2. Small pleural effusions and pulmonary venous congestion. Objective Remarks GENERAL: NAD. HEAD: Normocephalic. NECK: Supple, trachea midline. No lymphadenopathy. EYES: No scleral icterus. No injection or drainage. CARDIOVASCULAR: Regular rate and rhythm, harsh systolic murmur appreciated. RESPIRATORY: Trace crackles bilaterally at bases. GASTROINTESTINAL: Abdomen soft, non-tender, nondistended. MUSCULOSKELETAL: 2+ lower extremity edema. Left knee not warm to the touch, not swollen. Tender to palpation on lateral aspect. Limited ROM. SKIN: Warm and dry. NEURO: No focal neurological deficits. PSYCH: Mood and affect appropriate. A/P Assessment and Plan Acute on chronic diastolic CHF The pt presented with what sounds like pulmonary edema. He has lower extremity edema, orthopnea and CXR shows pulmonary congestion. He is supposed to get an aortic valve replacement in the near future. Cardiology and cardiothoracic surgery consult appreciated. Still with lower extremity edema. - Lasix 20 mg IV BID. - follow Is and Os. - continue cardiac regimen. - telemetry. - follow up with cardiology and CTS. Acute anemia MCV is low. S/p three units. GI consult appreciated. - anemia work-up including Hemoccult. - follow CBC and transfuse as needed. - GI evaluation pending. Acute on chronic renal disease Creatinine is elevated compared to baseline. Improving. - monitor while diuresing. - continue to hold lisinopril. DM Well controlled at this time. - hold home meds. - insulin sliding scale. Gout Significant left knee pain, ROM. Uric acid level elevated. - trial of prednisone. - left knee x ray pending. - PT eval. PPx: Javier Marc DO Dec 21, 2017 09:14
[2017-12-21] MEDS: predniSONE 20 MG TAB PO SCH (09:31)
--- NOTE | 2017-12-21 10:25 | HHI.GIFU ---
Subjective Remarks Pt on side of bed Complaining of pain in his left leg Denies any GI symptoms at this time (Kathleen Zimmerman) Objective Vitals I&O Vital Signs Date Time Temp Pulse Resp B/P (MAP) Pulse Ox O2 Delivery O2 Flow Rate FiO2 12/21/17 06:00 92 12/21/17 05:00 90 12/21/17 04:00 90 12/21/17 03:55 92 Room Air 12/21/17 03:55 97.7 96 20 133/63 (86) 92 12/21/17 03:00 90 12/21/17 02:00 90 12/21/17 01:00 82 12/21/17 00:00 97.6 81 20 126/56 (79) 95 12/21/17 00:00 80 12/21/17 00:00 95 Room Air 12/20/17 23:30 20 12/20/17 23:00 76 12/20/17 22:00 78 12/20/17 21:00 84 12/20/17 20:00 86 12/20/17 19:35 97.4 83 20 146/65 (92) 97 12/20/17 19:35 97 Room Air 12/20/17 19:27 80 12/20/17 19:00 80 12/20/17 18:00 88 12/20/17 17:00 86 12/20/17 16:00 69 12/20/17 15:00 98.0 75 14 128/58 (81) 96 12/20/17 15:00 78 12/20/17 15:00 96 Room Air 12/20/17 14:00 85 12/20/17 13:00 83 12/20/17 12:00 89 12/20/17 11:00 98.0 83 18 128/57 (80) 95 12/20/17 11:00 80 12/20/17 11:00 95 Room Air I/O 12/20/17 12/20/17 12/20/17 12/21/17 12/21/17 12/21/17 07:00 15:00 23:00 07:00 15:00 23:00 Intake Total 240 ml 840 ml 720 ml Output Total 3100 ml 2350 ml 1700 ml Balance -2860 ml -1510 ml -980 ml Intake Oral 240 ml 840 ml 720 ml Output Urine Total 3100 ml 2350 ml 1700 ml # Bowel Movements 0 0 Laboratory Laboratory Tests Test 12/21/17 03:51 White Blood Count 11.0 Red Blood Count 3.65 Hemoglobin 8.9 Hematocrit 27.9 Mean Corpuscular Volume 76.4 Mean Corpuscular Hemoglobin 24.3 Mean Corpuscular Hemoglobin Concent 31.7 Red Cell Distribution Width 21.5 Platelet Count 247 Mean Platelet Volume 8.7 Blood Urea Nitrogen 35 Creatinine 2.16 Random Glucose 128 Calcium Level 8.9 Magnesium Level 2.1 Uric Acid 10.2 Sodium Level 141 Potassium Level 4.3 Chloride Level 104 Carbon Dioxide Level 28.1 Anion Gap 9 Estimat Glomerular Filtration Rate 30 Imaging Last Impressions Chest X-Ray 12/18/17 [id number] Signed Impressions: CONCLUSION: 1. There continues to be infiltrates in both lower lungs. 2. Small pleural effusions and pulmonary venous congestion. Physical Exam HEENT: Normocephalic; atraumatic CHEST: Even/unlabored CARDIAC: RRR (+) murmur ABDOMEN: Obese, soft, nontender, bowel sounds active EXTREMITIES: BLE edema. SKIN: Normal; no rash; no jaundice. 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 (Kathleen Zimmerman) Assessment and Plan Plan Assessment: - Anemia- microcytic, hypochromic with previous history of GIB Seen by cardiothoracic surgery who is planning on an aortic valve replacements for , has recommended GI work up for anemia prior to operation. November 2016, EGD and colonoscopy --> Irregular Z line, mild inflammation in the stomach antrum, normal duodenum, cecum AVM that was ablated, several small polyp in the transverse colon S/P polypectomy, small polyp removed from the splenic flexure, moderate diverticulosis in the sigmoid colon, poor prep. Pathology (GE junction) squamocolumnar mucosa with mildly active chronic inflammation (transverse colon polyp) fragments of tubular adenoma (splenic flexure polyp) colonic mucosa without significant histopathologic abnormality Denies: nausea, vomiting, visible blood in stool, unintentional weight loss Complaining of: Mid abdominal pain, intermittent, described as burning sensation, relieved with antacids, intermittent constipation and diarrhea, takes Dulcolax as needed for constipation, denies meds for diarrhea - Family history of colon cancer- fath - , CAD- cardiology and cardiothoracic surgery following (12/21) Pt with no GI complaints at this time. Discussed with Dr. Butler ( cardiothoracic surgery) [employer], who states OK to proceed with EGD and colonoscopy. Plan: EGD/colonoscopy tomorrow Obtain consent Clear liquids today Golytely prep NPO after MN Monitor H/H Further recommendations based on results of above Pt has been seen and examined by myself and Dr. Lucas and this note is written on his behalf (Kathleen Zimmerman) Physician Comments As above, high risk for procedures but absolutely needed prior to surgery and anticoagulation. Will proceed with plan for tomorrow. Further recommendations to follow. (Jennifer Lucas MD) Kathleen Zimmerman Dec 21, 2017 10:25 Jennifer Lucas MD Dec 21, 2017 11:38
--- NOTE | 2017-12-21 11:23 | RADRPT ---
EXAM DATE: 12/21/2017 11:01 AM EDT AGE/SEX: 77 years / Male INDICATIONS: Left knee pain from unknown injury. CLINICAL DATA: This is the patient's initial encounter. Patient reports that signs and symptoms have been present for 1 day and indicates a pain score of 8/10. MEDICAL/SURGICAL HISTORY: Diabetes mellitus type II. None. COMPARISON: No prior exams available for comparison. FINDINGS: No definite fractures, or dislocations are identified. No definite lytic or sclerotic les ion is seen. The joint spaces are well maintained. There is slight osteopenia and chronic vascular c alcifications of the visualized blood vessels. Minimal osteophyte formation is seen. CONCLUSION: Chronic changes and no definite fracture for technique. Electronically signed by: Johnnie Dubon MD 12/21/2017 11:21 AM EDT
--- NOTE | 2017-12-21 12:03 | PD.CARD.PN ---
Subjective Subjective Remarks Transfused 3 PRBC units on admission Patient feels better, breathing better overall Only complaint is knee pain Objective Medications Current Medications Medications (Trade) Dose Ordered Sig/Roxanne Route Start Time Stop Time Status Last Admin (NS Flush) 2 ml UNSCH PRN IV FLUSH 12/19/17 04:45 (NS Flush) 2 ml BID IV FLUSH 12/19/17 09:00 12/21/17 08:10 (Tylenol) 650 mg Q4H PRN PO 12/19/17 04:45 (Reglan Inj) 5 mg Q6H PRN IV PUSH 12/19/17 04:45 (Narcan Inj) 0.4 mg UNSCH PRN IV PUSH 12/19/17 04:45 (Milk Of Magnesia Liq) 30 ml Q12H PRN PO 12/19/17 04:45 (Senokot) 17.2 mg Q12H PRN PO 12/19/17 04:45 (Dulcolax Supp) 10 mg DAILY PRN RECTAL 12/19/17 04:45 (Lactulose Liq) 30 ml DAILY PRN PO 12/19/17 04:45 (D50w (Vial) Inj) 50 ml UNSCH PRN IV PUSH 12/19/17 05:30 (Glucagon Inj) 1 mg UNSCH PRN OTHER 12/19/17 05:30 (NovoLOG SUPPLEMENTAL SCALE) 1 ACHS SLIDING SCALE SQ 12/19/17 08:00 12/20/17 11:41 (Zyloprim) 100 mg DAILY PO 12/19/17 09:00 12/21/17 08:10 (Norvasc) 5 mg DAILY PO 12/19/17 09:00 12/21/17 08:10 (Neurontin) 600 mg DAILY PO 12/19/17 09:00 12/21/17 08:10 (Lactinex) 1 tab TIDAC PO 12/19/17 08:00 12/21/17 08:10 (Synthroid) 112 mcg DAILY@0600 PO 12/19/17 06:30 12/21/17 05:52 (Synthroid) 25 mcg DAILY@0600 PO 12/19/17 06:30 12/21/17 05:52 (Duoneb Neb) 1 ampule Q2HR NEB PRN NEB 12/19/17 09:15 (Lasix Inj) 20 mg DAILY@0900,1800 IV PUSH 12/20/17 18:00 12/21/17 08:16 (Mycostatin Powder) 1 applic Q12HR TOPICAL 12/20/17 21:00 12/21/17 08:10 (Deltasone) 40 mg DAILY PO 12/21/17 09:15 12/21/17 09:31 (Colyte Liq) 4,000 ml ONCE ONCE PO 12/21/17 16:00 12/21/17 16:01 Vital Signs / I&O Vital Signs Date Time Temp Pulse Resp B/P (MAP) Pulse Ox O2 Delivery O2 Flow Rate FiO2 12/21/17 11:00 96 Room Air 12/21/17 11:00 98.0 96 18 139/58 (85) 96 12/21/17 11:00 93 12/21/17 10:00 90 12/21/17 09:00 92 12/21/17 08:00 94 12/21/17 07:00 93 Room Air 12/21/17 07:00 88 12/21/17 07:00 97.5 93 16 129/60 (83) 93 12/21/17 06:00 92 12/21/17 05:00 90 12/21/17 04:00 90 12/21/17 03:55 92 Room Air 12/21/17 03:55 97.7 96 20 133/63 (86) 92 12/21/17 03:00 90 12/21/17 02:00 90 12/21/17 01:00 82 12/21/17 00:00 97.6 81 20 126/56 (79) 95 12/21/17 00:00 80 12/21/17 00:00 95 Room Air 12/20/17 23:30 20 12/20/17 23:00 76 12/20/17 22:00 78 12/20/17 21:00 84 12/20/17 20:00 86 12/20/17 19:35 97.4 83 20 146/65 (92) 97 12/20/17 19:35 97 Room Air 12/20/17 19:27 80 12/20/17 19:00 80 12/20/17 18:00 88 12/20/17 17:00 86 12/20/17 16:00 69 12/20/17 15:00 98.0 75 14 128/58 (81) 96 12/20/17 15:00 78 12/20/17 15:00 96 Room Air 12/20/17 14:00 85 12/20/17 13:00 83 I/O 12/20/17 12/20/17 12/20/17 12/21/17 12/21/17 12/21/17 07:00 15:00 23:00 07:00 15:00 23:00 Intake Total 240 ml 840 ml 720 ml Output Total 3100 ml 2350 ml 1700 ml Balance -2860 ml -1510 ml -980 ml Intake Oral 240 ml 840 ml 720 ml Output Urine Total 3100 ml 2350 ml 1700 ml # Bowel Movements 0 0 Physical Exam GENERAL: NAD, AAOx3 SKIN: Warm and dry. HEAD: Atraumatic. Normocephalic. EYES: Pupils equal and round. No scleral icterus. No injection or drainage. ENT: No nasal bleeding or discharge. Mucous membranes pink and moist. NECK: Trachea midline. No JVD. CARDIOVASCULAR: Regular rate and rhythm. RESPIRATORY: No accessory muscle use. Clear to auscultation. Breath sounds equal bilaterally. GASTROINTESTINAL: Abdomen soft, non-tender, nondistended. Hepatic and splenic margins not palpable. MUSCULOSKELETAL: 1+ pitting edema NEUROLOGICAL: Awake and alert. No obvious cranial nerve deficits. Motor grossly within normal limits. Five out of 5 muscle strength in the arms and legs. Normal speech. PSYCHIATRIC: Appropriate mood and affect; insight and judgment normal. Laboratory Laboratory Tests Test 12/21/17 03:51 White Blood Count 11.0 TH/MM3 Red Blood Count 3.65 MIL/MM3 Hemoglobin 8.9 GM/DL Hematocrit 27.9 % Mean Corpuscular Volume 76.4 FL Mean Corpuscular Hemoglobin 24.3 PG Mean Corpuscular Hemoglobin Concent 31.7 % Red Cell Distribution Width 21.5 % Platelet Count 247 TH/MM3 Mean Platelet Volume 8.7 FL Blood Urea Nitrogen 35 MG/DL Creatinine 2.16 MG/DL Random Glucose 128 MG/DL Calcium Level 8.9 MG/DL Magnesium Level 2.1 MG/DL Uric Acid 10.2 MG/DL Sodium Level 141 MEQ/L Potassium Level 4.3 MEQ/L Chloride Level 104 MEQ/L Carbon Dioxide Level 28.1 MEQ/L Anion Gap 9 MEQ/L Estimat Glomerular Filtration Rate 30 ML/MIN Imaging Last 24 hours Impressions Knee X-Ray 12/21/17 0000 Signed Impressions: CONCLUSION: Chronic changes and no definite fracture for technique. Assessment and Plan Problem List: (1) Anemia ICD Codes: D64.9 - Anemia, unspecified (2) Aortic stenosis ICD Codes: I35.0 - Nonrheumatic aortic (valve) stenosis (3) Acute kidney injury ICD Codes: N17.9 - Acute kidney failure, unspecified Status: Acute (4) HTN (hypertension) ICD Codes: I10 - Essential (primary) hypertension Status: Chronic Assessment and Plan 1) SOB Due to severe with anemia Not CHF clinically, appears mostly euvolemic and lungs clear 2) Anemia High cardiovascular risk for any procedure due to severe Discussed with GI Overall agree that he needs work up, will need to be monitored during the case as a high risk pt Con't to follow Hgb 3) Eventual AVR Efren Nogueira DO Dec 21, 2017 12:03
--- NOTE | 2017-12-21 14:39 | PD.CAR.PN ---
CVT Progress Note Subjective/Hospital Course: 77 m/ a patient of Dr. Clayton, history of known aortic stenosis, was in the process of undergoing scheduling for his aortic valve replacement, but at the time he was seen he had some very poor loose teeth and required dental workup where he finally got his teeth fixed and had removal of his teeth on the top. He has got an upper dental implant. His aortic valve area is 0.81 with a mean gradient of 52. He was attempting to try to get his aortic valve replacement rescheduled and presented to the emergency department with shortness of breath. On arrival, they found that he was severely anemic with a hemoglobin of 6.3 and hematocrit of 20. He has since been given 2 units of packed RBCs. His hemoglobin is 7.7 and 24. He had history in the past of a GI bleed where he had an EGD with biopsy, colonoscopy, ablation of arteriovenous malformation on 12/01/2016. At that time, his hemoglobin was 7.6. He recieved and additional currently pack of RBC for total of 3, He denies having any blood in the stool, no black tarry stools. PAST MEDICAL HISTORY: Includes diabetes mellitus, hypertension, hyperlipidemia, nonobstructive coronary artery disease by catheterization 10/03/2017, EF of 55% , severe aortic stenosis as above, stage III chronic kidney disease, COPD, hypothyroidism, neuropathy, gout, anemia, history of GI bleed, AVMs. 12/20 no stool yet to check for Hemoccult HGB stable 9.1 GI consult pending await their input regarding timing for surgery pt will need Heparin 2/2 Heart Lung bypass machine for his valve surgery 12/21 plan for EGD/ colonoscopy in am monitor closely during procedure will eval for surgery next week Objective: GENERAL: SKIN: Warm and dry. HEAD: Normocephalic. EYES: No scleral icterus. No injection or drainage. NECK: Supple, trachea midline. No JVD or lymphadenopathy. CARDIOVASCULAR: Regular rate and rhythm without 3/6 systolic murmurs, gallops, or rubs. RESPIRATORY: Breath sounds equal bilaterally. No accessory muscle use. GASTROINTESTINAL: Abdomen soft, non-tender, nondistended. MUSCULOSKELETAL: No cyanosis, or edema. BACK: Nontender without obvious deformity. No CVA tenderness. Vital Signs Date Time Temp Pulse Resp B/P (MAP) Pulse Ox O2 Delivery O2 Flow Rate FiO2 6/7/18 13:00 91 12/21/17 12:00 99 12/21/17 11:00 96 Room Air 12/21/17 11:00 98.0 96 18 139/58 (85) 96 12/21/17 11:00 93 12/21/17 10:00 90 12/21/17 09:00 92 12/21/17 08:00 94 12/21/17 07:00 93 Room Air 12/21/17 07:00 88 12/21/17 07:00 97.5 93 16 129/60 (83) 93 12/21/17 06:00 92 12/21/17 05:00 90 12/21/17 04:00 90 12/21/17 03:55 92 Room Air 12/21/17 03:55 97.7 96 20 133/63 (86) 92 12/21/17 03:00 90 12/21/17 02:00 90 12/21/17 01:00 82 12/21/17 00:00 97.6 81 20 126/56 (79) 95 12/21/17 00:00 80 12/21/17 00:00 95 Room Air 12/20/17 23:30 20 12/20/17 23:00 76 12/20/17 22:00 78 12/20/17 21:00 84 12/20/17 20:00 86 12/20/17 19:35 97.4 83 20 146/65 (92) 97 12/20/17 19:35 97 Room Air 12/20/17 19:27 80 12/20/17 19:00 80 12/20/17 18:00 88 12/20/17 17:00 86 12/20/17 16:00 69 12/20/17 15:00 98.0 75 14 128/58 (81) 96 12/20/17 15:00 78 12/20/17 15:00 96 Room Air Labs: Laboratory Tests Test 12/21/17 03:51 White Blood Count 11.0 TH/MM3 (4.0-11.0) Red Blood Count 3.65 MIL/MM3 (4.50-5.90) Hemoglobin 8.9 GM/DL (13.0-17.0) Hematocrit 27.9 % (39.0-51.0) Mean Corpuscular Volume 76.4 FL (80.0-100.0) Mean Corpuscular Hemoglobin 24.3 PG (27.0-34.0) Mean Corpuscular Hemoglobin Concent 31.7 % (32.0-36.0) Red Cell Distribution Width 21.5 % (11.6-17.2) Platelet Count 247 TH/MM3 (150-450) Mean Platelet Volume 8.7 FL (7.0-11.0) Blood Urea Nitrogen 35 MG/DL (7-18) Creatinine 2.16 MG/DL (0.60-1.30) Random Glucose 128 MG/DL (74-106) Calcium Level 8.9 MG/DL (8.5-10.1) Magnesium Level 2.1 MG/DL (1.5-2.5) Uric Acid 10.2 MG/DL (2.6-7.2) Sodium Level 141 MEQ/L (136-145) Potassium Level 4.3 MEQ/L (3.5-5.1) Chloride Level 104 MEQ/L (98-107) Carbon Dioxide Level 28.1 MEQ/L (21.0-32.0) Anion Gap 9 MEQ/L (5-15) Estimat Glomerular Filtration Rate 30 ML/MIN (>89) Result Diagram: 12/21/17 03512/21/17 035 (1) Anemia Plan: or EGD/ colonoscopy in am (2) Aortic stenosis (3) Acute kidney injury (4) HTN (hypertension) Elin Joyce Dec 21, 2017 14:39
[2017-12-21] MEDS ORDERED: PEG (High)/E-LYTE SOLN 4000 ML BTL PO ONE (16:00)
[2017-12-22] VITALS (22 sets, daily range): BP systolic 144–161; BP diastolic 65–68; PULSE 72–102; RESP 12–20; TEMP 97.6–98.3; O2SAT 91–97
[2017-12-22 04:26] LABS: MEAN CELL VOLUME 76.4 FL (80.0-100.0); MEAN CORPUSCULAR HEMOGLOBIN 24.5 PG (27.0-34.0); MEAN CORPUSCULAR HGB CONC 32.1 % (32.0-36.0); MEAN PLATELET VOLUME 8.2 FL (7.0-11.0); PLATELET COUNT 246 TH/MM3 (150-450); RED BLOOD COUNT 3.67 MIL/MM3 (4.50-5.90); RED CELL DISTRIBUTION WIDTH 22.1 % (11.6-17.2); WHITE BLOOD COUNT 10.7 TH/MM3 (4.0-11.0)
[2017-12-22 04:52] LABS: CALCIUM 8.7 MG/DL (8.5-10.1); CREATININE 1.8 MG/DL (0.60-1.30)
[2017-12-22] MEDS: LEVOTHYROXINE SODIUM 25 MCG TAB PO SCH (05:53)
[2017-12-22] MEDS: LEVOTHYROXINE SODIUM 112 MCG TAB PO SCH (05:53)
[2017-12-22] MEDS: INSULIN ASPART SUPPLEMENTAL SCALE SQ SCH ×4 (08:00→21:00)
[2017-12-22] MEDS: LACTOBACILLUS ACIDOPHILUS TAB PO SCH ×3 (08:00→17:15)
[2017-12-22] MEDS: amLODIPine BESYLATE 5 MG TAB PO SCH (08:15)
[2017-12-22] MEDS: ALLOPURINOL 100 MG TAB PO SCH (08:15)
[2017-12-22] MEDS: GABAPENTIN 300 MG CAP PO SCH (08:15)
[2017-12-22] MEDS: NYSTATIN 100,000 U/GM PWD 15 GM BTL TOPICAL SCH ×2 (08:15→22:13)
[2017-12-22] MEDS: predniSONE 20 MG TAB PO SCH (08:15)
[2017-12-22] MEDS: FUROSEMIDE 20 MG/2 ML VIAL IV PUSH SCH ×2 (08:15→17:16)
[2017-12-22] MEDS: SODIUM CHLORIDE 0.9% FLUSH 10 ML FLUSH IV FLUSH SCH ×3 (08:15→21:36)
[2017-12-22] MEDS ORDERED: *RESP: ALBUTEROL 2.5 MG/3 ML NEB (PRN) PERIprocedural Use ONLY NEB ONE (08:38)
--- NOTE | 2017-12-22 10:23 | GIPROC ---
[facility] [address] [facility]. [facility], [address] EGD PROCEDURE REPORT EXAM DATE: 12/22/2017 PATIENT NAME: Anuj Ingram MR #: [id number] BIRTHDATE: 1940 ATTENDING: Jennifer Lucas MD ORDER #: [id number] INSULATION BLOWER: Elissa Hernandez and Yesika London STATUS: inpatient INDICATIONS: The patient is a 77 yr old male here for an EGD due to anemia PROCEDURE PERFORMED: EGD w/ biopsy MEDICATIONS: None and Per Anesthesia. TOPICAL ANESTHETIC: none CONSENT: The patient understands the risks and benefits of the procedure and understands that these risks include, but are not limited to: sedation, allergic reaction, infection, perforation and/or bleeding. Alternative means of evaluation and treatment include, among others: physical exam, x-rays, and/or surgical intervention. The patient elects to proceed with this endoscopic procedure. medical equipment was checked for proper function. Hand hygiene and appropriate measures for infection prevention was taken. After the risks, benefits and alternatives of the procedure were thoroughly explained, Informed consent was verified, confirmed and timeout was successfully executed by the treatment team. The patient was anesthetized with topical anesthesia and the EC-[id number] (Pedi C) endoscope was introduced through the mouth and advanced to the second portion of the duodenum. Retroflexion was performed and was normal The gastroscope was then slowly withdrawn and removed. ESOPHAGUS: There was LA Class C esophagitis noted. Multiple biopsies were performed. A medium sized hiatal hernia was noted. STOMACH: There was acute moderate gastritis in the gastric antrum. Multiple biopsies were performed. DUODENUM: Mild duodenal inflammation was found in the duodenal bulb. ADVERSE EVENTS: There were no complications. IMPRESSIONS: 1. There was LA Class C esophagitis noted; multiple biopsies were performed 2. Medium sized hiatal hernia 3. There was acute gastritis in the gastric antrum; multiple biopsies were performed 4. Duodenal inflammation was found in the duodenal bulb 5. Retroflexion was performed and was normal RECOMMENDATIONS: 1. Await biopsy results. Biopsy results will not be ready for 7-10 days. If you don't hear from us in two weeks, call our office for biopsy results. 2. Continue PPI PATIENT CONDITION: stable DISPOSITION: Observation REPEAT EXAM: NONE Jennifer Lucas MD eSigned: Jennifer Lucas MD 12/22/2017 10:22 AM cc: PATIENT NAME: Anuj Ingram MR#: [id number]
--- NOTE | 2017-12-22 10:28 | GIPROC ---
[facility] [address] [facility]. [facility], [address] COLONOSCOPY PROCEDURE REPORT EXAM DATE: 12/22/2017 PATIENT NAME: Anuj Ingram MR #: [id number] BIRTHDATE: 1940 ENDOSCOPIST: Jennifer Lucas MD ORDER #: [id number] WEIGHT RECORDER: Elissa Hernandez and Yesika London STATUS: inpatient INDICATIONS: The patient is a 77 yr old male here for a colonoscopy due to anemia, non-specific PROCEDURE PERFORMED: Colonoscopy with polypectomy MEDICATIONS: None and Per Anesthesia. PREP QUALITY: fair PREP TYPE:Magnesium Citrate ESTIMATED BLOOD LOSS: None CONSENT: The patient understands the risks and benefits of the procedure and understands that these risks include, but are not limited to: sedation, allergic reaction, infection, perforation and/or bleeding. Alternative means of evaluation and treatment include, among others: physical exam, x-rays, and/or surgical intervention. The patient elects to proceed with this endoscopic procedure. medical equipment was checked for proper function. Hand hygiene and appropriate measures for infection prevention was taken. After the risks, benefits and alternatives of the procedure were thoroughly explained, Informed consent was verified, confirmed and timeout was successfully executed by the treatment team. A digital exam revealed no abnormalities of the rectum The Pentax EC-[id number] endoscope was introduced through the anus and advanced to the cecum, which was identified by both the appendix and ileocecal valve. The instrument was then slowly withdrawn as the colon was fully examined. COLON FINDINGS: Diverticulum was found in the sigmoid colon and descending colon. The opening was large. Two medium sized smooth sessile polyps were found in the ascending colon. A polypectomy was performed with cold forceps. The resection was complete and the polyp tissue was completely retrieved. A small smooth sessile polyp was found in the sigmoid colon. A polypectomy was performed with cold forceps. The resection was complete and the polyp tissue was completely retrieved. Large internal hemorrhoids were found. Retroflexed views revealed no abnormalities The scope was then completely withdrawn from the patient and the procedure terminated. PROCEDURE WITHDRAWAL TIME:10minutes ADVERSE EVENTS: There were no complications. IMPRESSIONS: 1. Diverticulum in the sigmoid colon and descending colon 2. Two medium sized sessile polyps were found in the ascending colon; polypectomy was performed with cold forceps 3. A small sessile polyp was found in the sigmoid colon; polypectomy was performed with cold forceps 4. Large internal hemorrhoids RECOMMENDATIONS: 1. Await biopsy results. Biopsy results will not be ready for 7-10 days. If you don't hear from us in two weeks, call our office for results. 2. Continue surveillance 3. High fiber diet 4. No seeds, nuts and popcorn in diet RECALL: Return 3 years Colonoscopy Jennifer Lucas MD eSigned: Jennifer Lucas MD 12/22/2017 10:27 AM cc: PATIENT NAME: Anuj Ingram MR#: [id number]
[2017-12-22] MEDS ORDERED: LIDOCAINE HCL 1% PF 5 ML SYRINGE OTHER ONE (12:00)
[2017-12-22] MEDS ORDERED: PROPOFOL 200 MG/20 ML AMP IV ONE (12:00)
--- NOTE | 2017-12-22 13:04 | PD.CAR.PN ---
CVT Progress Note Subjective/Hospital Course: 77 m/ a patient of Dr. Clayton, history of known aortic stenosis, was in the process of undergoing scheduling for his aortic valve replacement, but at the time he was seen he had some very poor loose teeth and required dental workup where he finally got his teeth fixed and had removal of his teeth on the top. He has got an upper dental implant. His aortic valve area is 0.81 with a mean gradient of 52. He was attempting to try to get his aortic valve replacement rescheduled and presented to the emergency department with shortness of breath. On arrival, they found that he was severely anemic with a hemoglobin of 6.3 and hematocrit of 20. He has since been given 2 units of packed RBCs. His hemoglobin is 7.7 and 24. He had history in the past of a GI bleed where he had an EGD with biopsy, colonoscopy, ablation of arteriovenous malformation on 12/01/2016. At that time, his hemoglobin was 7.6. He recieved and additional currently pack of RBC for total of 3, He denies having any blood in the stool, no black tarry stools. PAST MEDICAL HISTORY: Includes diabetes mellitus, hypertension, hyperlipidemia, nonobstructive coronary artery disease by catheterization 10/03/2017, EF of 55% , severe aortic stenosis as above, stage III chronic kidney disease, COPD, hypothyroidism, neuropathy, gout, anemia, history of GI bleed, AVMs. 12/20 no stool yet to check for Hemoccult HGB stable 9.1 GI consult pending await their input regarding timing for surgery pt will need Heparin 2/2 Heart Lung bypass machine for his valve surgery 12/21 plan for EGD/ colonoscopy in am monitor closely during procedure will eval for surgery next week 12/22 will discuss timing of surgery with Dr Rios Objective: Vital Signs Date Time Temp Pulse Resp B/P (MAP) Pulse Ox O2 Delivery O2 Flow Rate FiO2 12/22/17 10:22 98.6 95 18 127/59 (81) 93 12/22/17 08:00 97.7 85 18 161/67 (98) 94 12/22/17 08:00 85 12/22/17 07:00 82 12/22/17 06:00 102 12/22/17 05:00 86 12/22/17 04:00 86 12/22/17 03:00 78 12/22/17 03:00 97.8 78 12 148/66 (93) 91 12/22/17 02:00 80 12/22/17 01:00 88 12/22/17 00:00 88 12/21/17 23:00 97.6 89 16 129/63 (85) 96 12/21/17 23:00 82 12/21/17 23:00 96 Room Air 12/21/17 22:00 84 12/21/17 21:00 80 12/21/17 20:00 86 12/21/17 19:00 80 12/21/17 19:00 97 Room Air 12/21/17 19:00 97.4 88 16 123/65 (84) 97 12/21/17 18:00 83 12/21/17 17:00 84 12/21/17 16:00 86 12/21/17 15:00 97.9 85 16 120/59 (79) 93 12/21/17 15:00 85 12/21/17 15:00 93 Room Air 12/21/17 14:00 81 12/21/17 13:00 91 Labs: Laboratory Tests Test 12/22/17 04:00 White Blood Count 10.7 TH/MM3 (4.0-11.0) Red Blood Count 3.67 MIL/MM3 (4.50-5.90) Hemoglobin 9.0 GM/DL (13.0-17.0) Hematocrit 28.0 % (39.0-51.0) Mean Corpuscular Volume 76.4 FL (80.0-100.0) Mean Corpuscular Hemoglobin 24.5 PG (27.0-34.0) Mean Corpuscular Hemoglobin Concent 32.1 % (32.0-36.0) Red Cell Distribution Width 22.1 % (11.6-17.2) Platelet Count 246 TH/MM3 (150-450) Mean Platelet Volume 8.2 FL (7.0-11.0) Blood Urea Nitrogen 30 MG/DL (7-18) Creatinine 1.80 MG/DL (0.60-1.30) Random Glucose 130 MG/DL (74-106) Calcium Level 8.7 MG/DL (8.5-10.1) Magnesium Level 2.0 MG/DL (1.5-2.5) Sodium Level 142 MEQ/L (136-145) Potassium Level 3.8 MEQ/L (3.5-5.1) Chloride Level 105 MEQ/L (98-107) Carbon Dioxide Level 26.0 MEQ/L (21.0-32.0) Anion Gap 11 MEQ/L (5-15) Estimat Glomerular Filtration Rate 37 ML/MIN (>89) Result Diagram: 12/22/1739912/22/17399 (1) Anemia Plan: EGD with biopsy LA Class C esophagitis noted; multiple biopsies were performed 2. Medium sized hiatal hernia 3. There was acute gastritis in the gastric antrum; multiple biopsies were performed 4. Duodenal inflammation was found in the duodenal bulb 5. Retroflexion was performed and was normal/ await BX , Continue PPI colonoscopy : 1. Diverticulum in the sigmoid colon and descending colon 2. Two medium sized sessile polyps were found in the ascending colon; polypectomy was performed with cold forceps 3. A small sessile polyp was found in the sigmoid colon; polypectomy was performed with cold forceps 4. Large internal hemorrhoids (2) Aortic stenosis Plan: eval timing for surgery (3) Acute kidney injury Plan: indices improving (4) HTN (hypertension) Elin Joyce Dec 22, 2017 13:04
--- NOTE | 2017-12-22 13:10 | PD.CARD.PN ---
Subjective Subjective Remarks EDG/Cscope today No complaints Objective Medications Current Medications Medications (Trade) Dose Ordered Sig/Roxanne Route Start Time Stop Time Status Last Admin (NS Flush) 2 ml UNSCH PRN IV FLUSH 12/19/17 04:45 (NS Flush) 2 ml BID IV FLUSH 12/19/17 09:00 12/21/17 21:00 (Tylenol) 650 mg Q4H PRN PO 12/19/17 04:45 12/21/17 12:03 (Reglan Inj) 5 mg Q6H PRN IV PUSH 12/19/17 04:45 (Narcan Inj) 0.4 mg UNSCH PRN IV PUSH 12/19/17 04:45 (Milk Of Magnesia Liq) 30 ml Q12H PRN PO 12/19/17 04:45 (Senokot) 17.2 mg Q12H PRN PO 12/19/17 04:45 (Dulcolax Supp) 10 mg DAILY PRN RECTAL 12/19/17 04:45 (Lactulose Liq) 30 ml DAILY PRN PO 12/19/17 04:45 (D50w (Vial) Inj) 50 ml UNSCH PRN IV PUSH 12/19/17 05:30 (Glucagon Inj) 1 mg UNSCH PRN OTHER 12/19/17 05:30 (NovoLOG SUPPLEMENTAL SCALE) 1 ACHS SLIDING SCALE SQ 12/19/17 08:00 12/21/17 21:00 (Zyloprim) 100 mg DAILY PO 12/19/17 09:00 12/21/17 08:10 (Norvasc) 5 mg DAILY PO 12/19/17 09:00 12/21/17 08:10 (Neurontin) 600 mg DAILY PO 12/19/17 09:00 12/21/17 08:10 (Lactinex) 1 tab TIDAC PO 12/19/17 08:00 12/22/17 11:56 (Synthroid) 112 mcg DAILY@0600 PO 12/19/17 06:30 12/22/17 05:53 (Synthroid) 25 mcg DAILY@0600 PO 12/19/17 06:30 12/22/17 05:53 (Duoneb Neb) 1 ampule Q2HR NEB PRN NEB 12/19/17 09:15 (Lasix Inj) 20 mg DAILY@0900,1800 IV PUSH 12/20/17 18:00 12/21/17 16:45 (Mycostatin Powder) 1 applic Q12HR TOPICAL 12/20/17 21:00 12/21/17 21:00 (Deltasone) 40 mg DAILY PO 12/21/17 09:15 12/21/17 09:31 Vital Signs / I&O Vital Signs Date Time Temp Pulse Resp B/P (MAP) Pulse Ox O2 Delivery O2 Flow Rate FiO2 12/22/17 10:22 98.6 95 18 127/59 (81) 93 12/22/17 08:00 97.7 85 18 161/67 (98) 94 12/22/17 08:00 85 12/22/17 07:00 82 12/22/17 06:00 102 12/22/17 05:00 86 12/22/17 04:00 86 12/22/17 03:00 78 12/22/17 03:00 97.8 78 12 148/66 (93) 91 12/22/17 02:00 80 12/22/17 01:00 88 12/22/17 00:00 88 12/21/17 23:00 97.6 89 16 129/63 (85) 96 12/21/17 23:00 82 12/21/17 23:00 96 Room Air 12/21/17 22:00 84 12/21/17 21:00 80 12/21/17 20:00 86 12/21/17 19:00 80 12/21/17 19:00 97 Room Air 12/21/17 19:00 97.4 88 16 123/65 (84) 97 12/21/17 18:00 83 12/21/17 17:00 84 12/21/17 16:00 86 12/21/17 15:00 97.9 85 16 120/59 (79) 93 12/21/17 15:00 85 12/21/17 15:00 93 Room Air 12/21/17 14:00 81 I/O 12/21/17 12/21/17 12/21/17 12/22/17 12/22/17 12/22/17 07:00 15:00 23:00 07:00 15:00 23:00 Intake Total 720 ml 1650 ml 1920 ml 800 ml Output Total 1700 ml 1250 ml 800 ml Balance -980 ml 400 ml 1120 ml 800 ml Intake Oral 720 ml 1650 ml 1920 ml Other 800 ml Output Urine Total 1700 ml 1250 ml 800 ml # Bowel Movements 0 5 Physical Exam GENERAL: NAD, AAOx3 SKIN: Warm and dry. HEAD: Atraumatic. Normocephalic. EYES: Pupils equal and round. No scleral icterus. No injection or drainage. ENT: No nasal bleeding or discharge. Mucous membranes pink and moist. NECK: Trachea midline. No JVD. CARDIOVASCULAR: Regular rate and rhythm. RESPIRATORY: No accessory muscle use. Clear to auscultation. Breath sounds equal bilaterally. GASTROINTESTINAL: Abdomen soft, non-tender, nondistended. Hepatic and splenic margins not palpable. MUSCULOSKELETAL: 1+ pitting edema NEUROLOGICAL: Awake and alert. No obvious cranial nerve deficits. Motor grossly within normal limits. Five out of 5 muscle strength in the arms and legs. Normal speech. PSYCHIATRIC: Appropriate mood and affect; insight and judgment normal. Laboratory Laboratory Tests Test 12/22/17 04:00 White Blood Count 10.7 TH/MM3 Red Blood Count 3.67 MIL/MM3 Hemoglobin 9.0 GM/DL Hematocrit 28.0 % Mean Corpuscular Volume 76.4 FL Mean Corpuscular Hemoglobin 24.5 PG Mean Corpuscular Hemoglobin Concent 32.1 % Red Cell Distribution Width 22.1 % Platelet Count 246 TH/MM3 Mean Platelet Volume 8.2 FL Blood Urea Nitrogen 30 MG/DL Creatinine 1.80 MG/DL Random Glucose 130 MG/DL Calcium Level 8.7 MG/DL Magnesium Level 2.0 MG/DL Sodium Level 142 MEQ/L Potassium Level 3.8 MEQ/L Chloride Level 105 MEQ/L Carbon Dioxide Level 26.0 MEQ/L Anion Gap 11 MEQ/L Estimat Glomerular Filtration Rate 37 ML/MIN Assessment and Plan Problem List: (1) Anemia ICD Codes: D64.9 - Anemia, unspecified (2) Aortic stenosis ICD Codes: I35.0 - Nonrheumatic aortic (valve) stenosis (3) Acute kidney injury ICD Codes: N17.9 - Acute kidney failure, unspecified Status: Acute (4) HTN (hypertension) ICD Codes: I10 - Essential (primary) hypertension Status: Chronic Assessment and Plan 1) SOB Due to severe with anemia Not CHF clinically, appears mostly euvolemic and lungs clear 2) Anemia No bleeds noted on EDG/Cscope 3) Eventual AVR Discussed with CT surgery, timing of surgery to be determined Efren Nogueira DO Dec 22, 2017 13:10
[2017-12-22] MEDS ORDERED: CEFAZOLIN INJ 500 MG in SODIUM CHLORIDE 0.9% IRR BTL 500 ML IRRIGATION SCH (15:30)
[2017-12-22] MEDS ORDERED: DEXTROSE 50% IN WATER 50 ML VIAL(D50) IV PUSH PRN (15:30)
[2017-12-22] MEDS ORDERED: ceFAZolin 2 GM PREMIX 50 ML IV SCH (15:30)
[2017-12-22] MEDS ORDERED: INSULIN REGULAR (IV INFUSION) 100 UNITS in SODIUM CHLORIDE 0.9% INJ 99 ML IV PRN (15:30)
[2017-12-22] MEDS ORDERED: SODIUM CHLORIDE 0.9% FLUSH 10 ML FLUSH IV FLUSH PRN (15:30)
[2017-12-22] MEDS ORDERED: CHLORHEXIDINE GLUCONATE 4% SOLN 120 ML BTL TOPICAL SCH (15:30)
[2017-12-22] MEDS ORDERED: METOPROLOL TARTRATE 25 MG TAB PO SCH (15:30)
--- NOTE | 2017-12-22 15:31 | PD.CAR.PN ---
CVT Progress Note Subjective/Hospital Course: 77 m/ a patient of Dr. Clayton, history of known aortic stenosis, was in the process of undergoing scheduling for his aortic valve replacement, but at the time he was seen he had some very poor loose teeth and required dental workup where he finally got his teeth fixed and had removal of his teeth on the top. He has got an upper dental implant. His aortic valve area is 0.81 with a mean gradient of 52. He was attempting to try to get his aortic valve replacement rescheduled and presented to the emergency department with shortness of breath. On arrival, they found that he was severely anemic with a hemoglobin of 6.3 and hematocrit of 20. He has since been given 2 units of packed RBCs. His hemoglobin is 7.7 and 24. He had history in the past of a GI bleed where he had an EGD with biopsy, colonoscopy, ablation of arteriovenous malformation on 12/01/2016. At that time, his hemoglobin was 7.6. He recieved and additional currently pack of RBC for total of 3, He denies having any blood in the stool, no black tarry stools. PAST MEDICAL HISTORY: Includes diabetes mellitus, hypertension, hyperlipidemia, nonobstructive coronary artery disease by catheterization 10/03/2017, EF of 55% , severe aortic stenosis as above, stage III chronic kidney disease, COPD, hypothyroidism, neuropathy, gout, anemia, history of GI bleed, AVMs. 12/20 no stool yet to check for Hemoccult HGB stable 9.1 GI consult pending await their input regarding timing for surgery pt will need Heparin 2/2 Heart Lung bypass machine for his valve surgery 12/21 plan for EGD/ colonoscopy in am monitor closely during procedure will eval for surgery next week 12/22 will discuss timing of surgery with Dr Rios tentatively scheduled for surgery on Monday recheck uric acid level monday Objective: Vital Signs Date Time Temp Pulse Resp B/P (MAP) Pulse Ox O2 Delivery O2 Flow Rate FiO2 12/22/17 14:00 82 12/22/17 13:00 86 12/22/17 12:00 84 12/22/17 11:00 97.6 86 16 144/68 (93) 92 12/22/17 11:00 72 12/22/17 10:22 98.6 95 18 127/59 (81) 93 12/22/17 08:00 97.7 85 18 161/67 (98) 94 12/22/17 08:00 85 12/22/17 07:00 82 12/22/17 06:00 102 12/22/17 05:00 86 12/22/17 04:00 86 12/22/17 03:00 78 12/22/17 03:00 97.8 78 12 148/66 (93) 91 12/22/17 02:00 80 12/22/17 01:00 88 12/22/17 00:00 88 12/21/17 23:00 97.6 89 16 129/63 (85) 96 12/21/17 23:00 82 12/21/17 23:00 96 Room Air 12/21/17 22:00 84 12/21/17 21:00 80 12/21/17 20:00 86 12/21/17 19:00 80 12/21/17 19:00 97 Room Air 12/21/17 19:00 97.4 88 16 123/65 (84) 97 12/21/17 18:00 83 12/21/17 17:00 84 12/21/17 16:00 86 Labs: Laboratory Tests Test 12/22/17 04:00 White Blood Count 10.7 TH/MM3 (4.0-11.0) Red Blood Count 3.67 MIL/MM3 (4.50-5.90) Hemoglobin 9.0 GM/DL (13.0-17.0) Hematocrit 28.0 % (39.0-51.0) Mean Corpuscular Volume 76.4 FL (80.0-100.0) Mean Corpuscular Hemoglobin 24.5 PG (27.0-34.0) Mean Corpuscular Hemoglobin Concent 32.1 % (32.0-36.0) Red Cell Distribution Width 22.1 % (11.6-17.2) Platelet Count 246 TH/MM3 (150-450) Mean Platelet Volume 8.2 FL (7.0-11.0) Blood Urea Nitrogen 30 MG/DL (7-18) Creatinine 1.80 MG/DL (0.60-1.30) Random Glucose 130 MG/DL (74-106) Calcium Level 8.7 MG/DL (8.5-10.1) Magnesium Level 2.0 MG/DL (1.5-2.5) Sodium Level 142 MEQ/L (136-145) Potassium Level 3.8 MEQ/L (3.5-5.1) Chloride Level 105 MEQ/L (98-107) Carbon Dioxide Level 26.0 MEQ/L (21.0-32.0) Anion Gap 11 MEQ/L (5-15) Estimat Glomerular Filtration Rate 37 ML/MIN (>89) Result Diagram: 12/22/1739912/22/17399 (1) Anemia Plan: EGD with biopsy LA Class C esophagitis noted; multiple biopsies were performed 2. Medium sized hiatal hernia 3. There was acute gastritis in the gastric antrum; multiple biopsies were performed 4. Duodenal inflammation was found in the duodenal bulb 5. Retroflexion was performed and was normal/ await BX , Continue PPI colonoscopy : 1. Diverticulum in the sigmoid colon and descending colon 2. Two medium sized sessile polyps were found in the ascending colon; polypectomy was performed with cold forceps 3. A small sessile polyp was found in the sigmoid colon; polypectomy was performed with cold forceps 4. Large internal hemorrhoids (2) Aortic stenosis Plan: eval timing for surgery (3) Acute kidney injury Plan: indices improving (4) HTN (hypertension) Elin Joyce Dec 22, 2017 15:31
--- NOTE | 2017-12-22 17:01 | HHI.PR ---
Subjective Remarks The pt says he still has left knee pain but it is better. He had his colonoscopy / EGD today. He said he has surgery planned on Monday. Discussed with nursing. Objective Vitals Vital Signs Date Time Temp Pulse Resp B/P (MAP) Pulse Ox O2 Delivery O2 Flow Rate FiO2 12/22/17 16:00 83 12/22/17 15:00 98.0 88 16 149/67 (94) 96 12/22/17 15:00 89 12/22/17 14:00 82 12/22/17 13:00 86 12/22/17 12:00 84 12/22/17 11:00 97.6 86 16 144/68 (93) 92 12/22/17 11:00 72 12/22/17 10:22 98.6 95 18 127/59 (81) 93 12/22/17 08:00 97.7 85 18 161/67 (98) 94 12/22/17 08:00 85 12/22/17 07:00 82 12/22/17 06:00 102 12/22/17 05:00 86 12/22/17 04:00 86 12/22/17 03:00 78 12/22/17 03:00 97.8 78 12 148/66 (93) 91 12/22/17 02:00 80 12/22/17 01:00 88 12/22/17 00:00 88 12/21/17 23:00 97.6 89 16 129/63 (85) 96 12/21/17 23:00 82 12/21/17 23:00 96 Room Air 12/21/17 22:00 84 12/21/17 21:00 80 12/21/17 20:00 86 12/21/17 19:00 80 12/21/17 19:00 97 Room Air 12/21/17 19:00 97.4 88 16 123/65 (84) 97 12/21/17 18:00 83 12/21/17 17:00 84 I/O 12/21/17 12/21/17 12/21/17 12/22/17 12/22/17 12/22/17 07:00 15:00 23:00 07:00 15:00 23:00 Intake Total 720 ml 1650 ml 1920 ml 800 ml Output Total 1700 ml 1250 ml 800 ml Balance -980 ml 400 ml 1120 ml 800 ml Intake Oral 720 ml 1650 ml 1920 ml Other 800 ml Output Urine Total 1700 ml 1250 ml 800 ml # Bowel Movements 0 5 Result Diagram: 12/22/17 0400 12/22/17 0400 Imaging Last Impressions Knee X-Ray 12/21/17 0000 Signed Impressions: CONCLUSION: Chronic changes and no definite fracture for technique. Chest X-Ray 12/18/17 2332 Signed Impressions: CONCLUSION: 1. There continues to be infiltrates in both lower lungs. 2. Small pleural effusions and pulmonary venous congestion. Objective Remarks GENERAL: NAD. HEAD: Normocephalic. NECK: Supple, trachea midline. No lymphadenopathy. EYES: No scleral icterus. No injection or drainage. CARDIOVASCULAR: Regular rate and rhythm, harsh systolic murmur appreciated. RESPIRATORY: Trace crackles bilaterally at bases. GASTROINTESTINAL: Abdomen soft, non-tender, nondistended. MUSCULOSKELETAL: 1-2+ lower extremity edema. Left knee not warm to the touch, not swollen. Tender to palpation on lateral aspect. Limited ROM. SKIN: Warm and dry. NEURO: No focal neurological deficits. PSYCH: Mood and affect appropriate. Procedures EGD/ colonoscopy A/P Assessment and Plan Acute on chronic diastolic CHF The pt presented with what sounds like pulmonary edema. He has lower extremity edema, orthopnea and CXR shows pulmonary congestion. He is supposed to get an aortic valve replacement in the near future. Cardiology and cardiothoracic surgery consult appreciated. Still with lower extremity edema. - continue Lasix 20 mg IV BID. - follow Is and Os. - continue cardiac regimen. - telemetry. - follow up with cardiology and CTS. Anticipate surgery on Monday. Acute anemia Secondary to acute GI bleeding. MCV was low. S/p three units. GI consult appreciated. EGD with: esophagitis; Medium sized hiatal hernia; There was acute gastritis in the gastric antrum; Duodenal inflammation was found in the duodenal bulb. Colonoscopy: Diverticulum in the sigmoid colon and descending colon; Two medium sized sessile polyps were found in the ascending colon; A small sessile polyp was found in the sigmoid colon; Large internal hemorrhoids. - follow CBC and transfuse as needed. - GI following. - continue PPI. Acute on chronic renal disease Creatinine is elevated compared to baseline. Improving. - monitor while diuresing. - continue to hold lisinopril. DM Well controlled at this time. - hold home meds. - insulin sliding scale. Gout Significant left knee pain, ROM. Uric acid level elevated. Improved on steroids but still bothersome. - continue prednisone. - left knee CT pending. - PT evans. PPx: Javier Marc DO Dec 22, 2017 17:01
[2017-12-22] MEDS: oxyCODONE/ACETAMINOPHEN 5 MG/325 MG TAB PO PRN (17:19)
--- NOTE | 2017-12-22 21:23 | RADRPT ---
EXAM DATE: 12/22/2017 9:02 PM EDT AGE/SEX: 77 years / Male INDICATIONS: Left knee pain. CLINICAL DATA: This is the patient's initial encounter. Patient reports that signs and symptoms have been present for 1 day and indicates a pain score of 5/10. MEDICAL/SURGICAL HISTORY: Cardiovascular disease. Diabetes mellitus type II. Appendectomy. RADIATION DOSE: 7.29 CTDI (mGy) COMPARISON: No prior exams available for comparison. TECHNIQUE: Multiple contiguous axial images were acquired using a multirow detector CT scanner witho ut contrast. Multiplanar reconstruction was performed in the sagittal and coronal planes. Using aut omated exposure control and adjustment of the mA and/or kV according to patient size, radiation dose was kept as low as reasonably achievable to obtain optimal diagnostic quality images. FINDINGS: Bones: No fracture is seen. There is some mild spurring at the anterior superior aspect of the [place]. Joints: There is a mild joint effusion. The disc. Some narrowing of the medial joint space compared to the lateral joint space. Soft Tissues: No soft tissue mass is seen. Other: No foreign bodies seen. CONCLUSION: 1. No acute bony injury is seen. 2. Mild joint effusion. 3. Narrowing of the medial joint space. Electronically signed by: Jasen Cochran MD 12/22/2017 9:21 PM EDT
[2017-12-23] VITALS (23 sets, daily range): BP systolic 140–159; BP diastolic 65–72; PULSE 68–94; RESP 18; TEMP 97.4–97.8; O2SAT 94–97
[2017-12-23 06:05] LABS: HEMATOCRIT 27.3 % (39.0-51.0); HEMOGLOBIN 8.8 GM/DL (13.0-17.0); MEAN CELL VOLUME 77.2 FL (80.0-100.0); MEAN CORPUSCULAR HGB CONC 32.4 % (32.0-36.0); MEAN PLATELET VOLUME 8.6 FL (7.0-11.0); PLATELET COUNT 229 TH/MM3 (150-450); RED BLOOD COUNT 3.53 MIL/MM3 (4.50-5.90); WHITE BLOOD COUNT 6.5 TH/MM3 (4.0-11.0)
[2017-12-23] MEDS: LEVOTHYROXINE SODIUM 112 MCG TAB PO SCH (06:11)
[2017-12-23] MEDS: LEVOTHYROXINE SODIUM 25 MCG TAB PO SCH (06:11)
[2017-12-23 06:33] LABS: BICARBONATE 24.9 MEQ/L (21.0-32.0); CALCIUM 8.6 MG/DL (8.5-10.1); CREATININE 1.82 MG/DL (0.60-1.30); MAGNESIUM 1.9 MG/DL (1.5-2.5)
[2017-12-23] MEDS: INSULIN ASPART SUPPLEMENTAL SCALE SQ SCH ×4 (08:00→21:58)
[2017-12-23] MEDS ORDERED: POTASSIUM CHLORIDE 20 MEQ CONTROLLED RELEASE TAB PO ONE (08:45)
[2017-12-23] MEDS: ALLOPURINOL 100 MG TAB PO SCH (10:29)
[2017-12-23] MEDS: predniSONE 20 MG TAB PO SCH (10:29)
[2017-12-23] MEDS: GABAPENTIN 300 MG CAP PO SCH (10:30)
[2017-12-23] MEDS: amLODIPine BESYLATE 5 MG TAB PO SCH (10:30)
[2017-12-23] MEDS: LACTOBACILLUS ACIDOPHILUS TAB PO SCH ×3 (10:30→17:11)
[2017-12-23] MEDS: SODIUM CHLORIDE 0.9% FLUSH 10 ML FLUSH IV FLUSH SCH ×4 (10:31→22:01)
[2017-12-23] MEDS: FUROSEMIDE 20 MG/2 ML VIAL IV PUSH SCH ×2 (10:37→17:11)
[2017-12-23] MEDS: oxyCODONE/ACETAMINOPHEN 5 MG/325 MG TAB PO PRN (10:38)
[2017-12-23] MEDS: NYSTATIN 100,000 U/GM PWD 15 GM BTL TOPICAL SCH (10:39)
--- NOTE | 2017-12-23 13:02 | HHI.PR ---
Subjective Remarks The patient said that he feels a lot better in regards to his left knee since he got the prednisone. He was able to ambulate to the chair from the bed. He said he was urinating a lot. He said he still has swelling in his lower extremities. Discussed with nursing at the bedside. Objective Vitals Vital Signs Date Time Temp Pulse Resp B/P (MAP) Pulse Ox O2 Delivery O2 Flow Rate FiO2 12/23/17 08:00 79 12/23/17 08:00 97.7 88 18 151/67 (95) 96 12/23/17 06:00 80 12/23/17 05:00 76 12/23/17 04:00 83 12/23/17 04:00 97.7 73 18 150/67 (94) 96 12/23/17 03:00 80 12/23/17 02:00 84 12/23/17 01:00 76 12/23/17 00:00 75 12/23/17 00:00 97.7 81 18 145/67 (93) 94 12/22/17 23:00 76 12/22/17 22:00 76 12/22/17 21:00 96 12/22/17 20:00 98.3 81 20 144/65 (91) 97 12/22/17 20:00 86 12/22/17 19:00 84 12/22/17 18:00 94 12/22/17 17:00 96 12/22/17 16:00 83 12/22/17 15:00 98.0 88 16 149/67 (94) 96 12/22/17 15:00 89 12/22/17 14:00 82 12/22/17 13:00 86 I/O 12/22/17 12/22/17 12/22/17 12/23/17 12/23/17 12/23/17 07:00 15:00 23:00 07:00 15:00 23:00 Intake Total 1920 ml 800 ml 2400 ml 720 ml Output Total 800 ml 800 ml 800 ml Balance 1120 ml 800 ml 1600 ml -80 ml Intake Oral 1920 ml 2400 ml 720 ml Other 800 ml Output Urine Total 800 ml 800 ml 800 ml # Voids 3 # Bowel Movements 5 0 Result Diagram: 12/23/17 0531 12/23/17 0531 Imaging Last Impressions Lower Extremity CT 6/8/18 0000 Signed Impressions: CONCLUSION: 1. No acute bony injury is seen. 2. Mild joint effusion. 3. Narrowing of the medial joint space. Knee X-Ray 12/21/17 Signed Impressions: CONCLUSION: Chronic changes and no definite fracture for technique. Chest X-Ray 12/18/17 2332 Signed Impressions: CONCLUSION: 1. There continues to be infiltrates in both lower lungs. 2. Small pleural effusions and pulmonary venous congestion. Objective Remarks GENERAL: NAD. HEAD: Normocephalic. NECK: Supple, trachea midline. No lymphadenopathy. EYES: No scleral icterus. No injection or drainage. CARDIOVASCULAR: Regular rate and rhythm, harsh systolic murmur appreciated. RESPIRATORY: Trace crackles bilaterally at bases. GASTROINTESTINAL: Abdomen soft, non-tender, nondistended. MUSCULOSKELETAL: 1-2+ lower extremity edema. Left knee not warm to the touch, not swollen. Tender to palpation on lateral aspect. Limited ROM. SKIN: Warm and dry. NEURO: No focal neurological deficits. PSYCH: Mood and affect appropriate. Procedures EGD/ colonoscopy A/P Assessment and Plan Acute on chronic diastolic CHF The pt presented with what sounds like pulmonary edema. He has lower extremity edema, orthopnea and CXR shows pulmonary congestion. He is supposed to get an aortic valve replacement in the near future. Cardiology and cardiothoracic surgery consult appreciated. Still with lower extremity edema. - continue Lasix 20 mg IV BID. - follow Is and Os. - continue cardiac regimen. - telemetry. - follow up with cardiology and CTS. Anticipate surgery on Monday. Gout Significant left knee pain, ROM. Uric acid level elevated. CT of the knee: No acute bony injury is seen; Mild joint effusion; Narrowing of the medial joint space. Improved with prednisone. - continue prednisone. - PT eval. - if does not continue to improve will consult ortho. Acute anemia Secondary to acute GI bleeding. MCV was low. S/p three units. GI consult appreciated. EGD with: esophagitis; Medium sized hiatal hernia; There was acute gastritis in the gastric antrum; Duodenal inflammation was found in the duodenal bulb. Colonoscopy: Diverticulum in the sigmoid colon and descending colon; Two medium sized sessile polyps were found in the ascending colon; A small sessile polyp was found in the sigmoid colon; Large internal hemorrhoids. - follow CBC and transfuse as needed. - GI following. - continue PPI. Acute on chronic renal disease Creatinine was elevated compared to baseline. Improving. - monitor while diuresing. DM Well controlled at this time. - hold home meds. - insulin sliding scale. Hypertension Blood pressure has been elevated. - Resume lisinopril at lower dose of 20 mg daily. PPx: Javier Marc DO Dec 23, 2017 13:02
[2017-12-23] MEDS: LISINOPRIL 20 MG TAB PO SCH (14:16)
--- NOTE | 2017-12-23 16:35 | PD.CARD.PN ---
Subjective Subjective Remarks No complaints Knee feels much better after medications Objective Medications Current Medications Medications (Trade) Dose Ordered Sig/Roxanne Route Start Time Stop Time Status Last Admin (NS Flush) 2 ml UNSCH PRN IV FLUSH 12/19/17 04:45 (NS Flush) 2 ml BID IV FLUSH 12/19/17 09:00 12/23/17 10:31 (Tylenol) 650 mg Q4H PRN PO 12/19/17 04:45 12/21/17 12:03 (Reglan Inj) 5 mg Q6H PRN IV PUSH 12/19/17 04:45 (Narcan Inj) 0.4 mg UNSCH PRN IV PUSH 12/19/17 04:45 (Milk Of Magnesia Liq) 30 ml Q12H PRN PO 12/19/17 04:45 (Senokot) 17.2 mg Q12H PRN PO 12/19/17 04:45 (Dulcolax Supp) 10 mg DAILY PRN RECTAL 12/19/17 04:45 (Lactulose Liq) 30 ml DAILY PRN PO 12/19/17 04:45 (D50w (Vial) Inj) 50 ml UNSCH PRN IV PUSH 12/19/17 05:30 (Glucagon Inj) 1 mg UNSCH PRN OTHER 12/19/17 05:30 (NovoLOG SUPPLEMENTAL SCALE) 1 ACHS SLIDING SCALE SQ 12/19/17 08:00 12/23/17 12:28 (Zyloprim) 100 mg DAILY PO 12/19/17 09:00 12/23/17 10:29 (Norvasc) 5 mg DAILY PO 12/19/17 09:00 12/23/17 10:30 (Neurontin) 600 mg DAILY PO 12/19/17 09:00 12/23/17 10:30 (Lactinex) 1 tab TIDAC PO 12/19/17 08:00 12/23/17 12:18 (Synthroid) 112 mcg DAILY@0600 PO 12/19/17 06:30 12/23/17 06:11 (Synthroid) 25 mcg DAILY@0600 PO 12/19/17 06:30 12/23/17 06:11 (Duoneb Neb) 1 ampule Q2HR NEB PRN NEB 12/19/17 09:15 (Lasix Inj) 20 mg DAILY@0900,1800 IV PUSH 12/20/17 18:00 12/23/17 10:37 (Mycostatin Powder) 1 applic Q12HR TOPICAL 12/20/17 21:00 12/23/17 10:39 (Deltasone) 40 mg DAILY PO 12/21/17 09:15 12/23/17 10:29 (NS Flush) 2 ml BID IV FLUSH 12/22/17 21:00 12/23/17 10:31 (NS Flush) 2 ml UNSCH PRN IV FLUSH 12/22/17 15:30 Cefazolin Sodium 500 mg/Sodium Chloride 505 ml @ 0 mls/hr FISH BAIT PICKER IRRIGATION 12/22/17 15:30 12/29/17 15:29 Cefazolin Sodium/ Dextrose 50 ml @ 150 mls/hr FISH BAIT PICKER IV 12/22/17 15:30 12/29/17 15:29 (Lopressor) 12.5 mg FISH BAIT PICKER PO 12/22/17 15:30 12/29/17 15:29 (Hibiclens 4% Top Soln) 1 applic FISH BAIT PICKER TOPICAL 12/22/17 15:30 12/29/17 15:29 Insulin Human Regular 100 units/ Sodium Chloride 100 ml @ 3 mls/hr TITRATE PRN IV 12/22/17 15:30 12/29/17 15:29 (D50w (Vial) Inj) 50 ml UNSCH PRN IV PUSH 12/22/17 15:30 (Percocet 5-325 Mg) 1 tab Q4H PRN PO 12/22/17 17:00 12/23/17 10:38 (Prinivil) 20 mg DAILY PO 12/23/17 13:00 12/23/17 14:16 Vital Signs / I&O Vital Signs Date Time Temp Pulse Resp B/P (MAP) Pulse Ox O2 Delivery O2 Flow Rate FiO2 12/23/17 12:00 97.8 85 159/72 (101) 96 12/23/17 08:00 79 12/23/17 08:00 97.7 88 18 151/67 (95) 96 12/23/17 06:00 80 12/23/17 05:00 76 12/23/17 04:00 83 12/23/17 04:00 97.7 73 18 150/67 (94) 96 12/23/17 03:00 80 12/23/17 02:00 84 12/23/17 01:00 76 12/23/17 00:00 75 12/23/17 00:00 97.7 81 18 145/67 (93) 94 12/22/17 23:00 76 12/22/17 22:00 76 12/22/17 21:00 96 12/22/17 20:00 98.3 81 20 144/65 (91) 97 12/22/17 20:00 86 12/22/17 19:00 84 12/22/17 18:00 94 12/22/17 17:00 96 I/O 12/22/17 12/22/17 12/22/17 12/23/17 12/23/17 12/23/17 06:59 14:59 22:59 06:59 14:59 22:59 Intake Total 1920 ml 800 ml 2400 ml 720 ml Output Total 800 ml 800 ml 800 ml Balance 1120 ml 800 ml 1600 ml -80 ml Intake Oral 1920 ml 2400 ml 720 ml Other 800 ml Output Urine Total 800 ml 800 ml 800 ml # Voids 3 # Bowel Movements 5 0 Physical Exam GENERAL: NAD, AAOx3 SKIN: Warm and dry. HEAD: Atraumatic. Normocephalic. EYES: Pupils equal and round. No scleral icterus. No injection or drainage. ENT: No nasal bleeding or discharge. Mucous membranes pink and moist. NECK: Trachea midline. No JVD. CARDIOVASCULAR: Regular rate and rhythm. RESPIRATORY: No accessory muscle use. Clear to auscultation. Breath sounds equal bilaterally. GASTROINTESTINAL: Abdomen soft, non-tender, nondistended. Hepatic and splenic margins not palpable. MUSCULOSKELETAL: 1+ pitting edema NEUROLOGICAL: Awake and alert. No obvious cranial nerve deficits. Motor grossly within normal limits. Five out of 5 muscle strength in the arms and legs. Normal speech. PSYCHIATRIC: Appropriate mood and affect; insight and judgment normal. Laboratory Laboratory Tests Test 12/23/17 05:31 White Blood Count 6.5 TH/MM3 Red Blood Count 3.53 MIL/MM3 Hemoglobin 8.8 GM/DL Hematocrit 27.3 % Mean Corpuscular Volume 77.2 FL Mean Corpuscular Hemoglobin 25.0 PG Mean Corpuscular Hemoglobin Concent 32.4 % Red Cell Distribution Width 22.0 % Platelet Count 229 TH/MM3 Mean Platelet Volume 8.6 FL Blood Urea Nitrogen 28 MG/DL Creatinine 1.82 MG/DL Random Glucose 96 MG/DL Calcium Level 8.6 MG/DL Magnesium Level 1.9 MG/DL Sodium Level 143 MEQ/L Potassium Level 3.5 MEQ/L Chloride Level 108 MEQ/L Carbon Dioxide Level 24.9 MEQ/L Anion Gap 10 MEQ/L Estimat Glomerular Filtration Rate 36 ML/MIN Assessment and Plan Problem List: (1) Anemia ICD Codes: D64.9 - Anemia, unspecified (2) Aortic stenosis ICD Codes: I35.0 - Nonrheumatic aortic (valve) stenosis (3) Acute kidney injury ICD Codes: N17.9 - Acute kidney failure, unspecified Status: Acute (4) HTN (hypertension) ICD Codes: I10 - Essential (primary) hypertension Status: Chronic Assessment and Plan 1) SOB Due to severe with anemia Not CHF clinically, appears mostly euvolemic and lungs clear 2) Anemia No bleeds noted on EDG/Cscope 3) AVR planned possibly Ariana Efren Nogueira DO Dec 23, 2017 16:35
--- NOTE | 2017-12-23 17:37 | HHI.GIFU ---
Subjective Remarks Patient is sitting up in chair eating 100% of his diet Denies any current nausea vomiting or dyspepsia Hemoglobin stable at 8.8 INR 1.2, patient is status post EGD colonoscopy on 12/22/2017 without any complications (Valencia Mathur) Objective Vitals I&O Vital Signs Date Time Temp Pulse Resp B/P (MAP) Pulse Ox O2 Delivery O2 Flow Rate FiO2 12/23/17 16:00 97.4 86 148/66 (93) 97 12/23/17 12:00 97.8 85 159/72 (101) 96 12/23/17 08:00 79 12/23/17 08:00 97.7 88 18 151/67 (95) 96 12/23/17 06:00 80 12/23/17 05:00 76 12/23/17 04:00 83 12/23/17 04:00 97.7 73 18 150/67 (94) 96 12/23/17 03:00 80 12/23/17 02:00 84 12/23/17 01:00 76 12/23/17 00:00 75 12/23/17 00:00 97.7 81 18 145/67 (93) 94 12/22/17 23:00 76 12/22/17 22:00 76 12/22/17 21:00 96 12/22/17 20:00 98.3 81 20 144/65 (91) 97 12/22/17 20:00 86 12/22/17 19:00 84 12/22/17 18:00 94 I/O 12/22/17 12/22/17 12/22/17 12/23/17 12/23/17 12/23/17 06:59 14:59 22:59 06:59 14:59 22:59 Intake Total 1920 ml 800 ml 2400 ml 720 ml Output Total 800 ml 800 ml 800 ml Balance 1120 ml 800 ml 1600 ml -80 ml Intake Oral 1920 ml 2400 ml 720 ml Other 800 ml Output Urine Total 800 ml 800 ml 800 ml # Voids 3 # Bowel Movements 5 0 Laboratory Laboratory Tests Test 12/23/17 05:31 White Blood Count 6.5 Red Blood Count 3.53 Hemoglobin 8.8 Hematocrit 27.3 Mean Corpuscular Volume 77.2 Mean Corpuscular Hemoglobin 25.0 Mean Corpuscular Hemoglobin Concent 32.4 Red Cell Distribution Width 22.0 Platelet Count 229 Mean Platelet Volume 8.6 Blood Urea Nitrogen 28 Creatinine 1.82 Random Glucose 96 Calcium Level 8.6 Magnesium Level 1.9 Sodium Level 143 Potassium Level 3.5 Chloride Level 108 Carbon Dioxide Level 24.9 Anion Gap 10 Estimat Glomerular Filtration Rate 36 Imaging Last Impressions Lower Extremity CT 12/22/17 0000 Signed Impressions: CONCLUSION: 1. No acute bony injury is seen. 2. Mild joint effusion. 3. Narrowing of the medial joint space. Knee X-Ray 12/21/17 0000 Signed Impressions: CONCLUSION: Chronic changes and no definite fracture for technique. Chest X-Ray 12/18/17 2332 Signed Impressions: CONCLUSION: 1. There continues to be infiltrates in both lower lungs. 2. Small pleural effusions and pulmonary venous congestion. Physical Exam HEENT: Normocephalic; atraumatic, generalized obesity CHEST: Even/unlabored , no shortness of breath at rest mild diminished breath sounds in his bases CARDIAC: RRR (+) murmur loud cooing murmur 5/6 left sternal border ABDOMEN: Obese, soft, taut,, nontender, bowel sounds active, nondistention EXTREMITIES: BLE edema. 2+/4+ SKIN: Normal; no rash; no jaundice. COTTON PROGRAM TECHNICIAN: Alert and oriented times three. Answers simple questions appropriately (Valencia Mathur) Assessment and Plan Plan Assessment: - Anemia- microcytic, hypochromic with previous history of GIB Seen by cardiothoracic surgery who is planning on an aortic valve replacements for , has recommended GI work up for anemia prior to operation. November 2016, EGD and colonoscopy --> Irregular Z line, mild inflammation in the stomach antrum, normal duodenum, cecum AVM that was ablated, several small polyp in the transverse colon S/P polypectomy, small polyp removed from the splenic flexure, moderate diverticulosis in the sigmoid colon, poor prep. Pathology (GE junction) squamocolumnar mucosa with mildly active chronic inflammation (transverse colon polyp) fragments of tubular adenoma (splenic flexure polyp) colonic mucosa without significant histopathologic abnormality Denies: nausea, vomiting, visible blood in stool, unintentional weight loss Complaining of: Mid abdominal pain, intermittent, described as burning sensation, relieved with antacids, intermittent constipation and diarrhea, takes Dulcolax as needed for constipation, denies meds for diarrhea - Family history of colon cancer- fath - , CAD- cardiology and cardiothoracic surgery following (12/21) Pt with no GI complaints at this time. Discussed with Dr. Butler ( cardiothoracic surgery) PHLEBOTOMY LAB ASSISTANT, who states OK to proceed with EGD and colonoscopy. 12/23/2017 note colonoscopy and endoscopy done on 12/22/2017 findings include class C esophagitis multiple biopsies performed, medium-size hiatal hernia, acute gastritis in the antrum with biopsies, duodenal inflammation found in the duodenal bulb, retroflexion normal. Patient is sitting up in chair asymptomatic of any nausea vomiting or dyspepsia. Discussed bowel regimen and the need for no constipation during this hospital stay pending patient's cardiovascular procedures/surgery. Encouraged sitting up in chair and ambulation in room Plan: Diet per attending PPI Biopsies pending Monitor H/H Anti-medics Bowel regimen Reflux precautions Supportive care Patient will need to follow-up in the GI office after discharge to review biopsy results Pt has been seen and examined by myself and Dr. Lucas and this note is written on his behalf (Valencia Mathur) Physician Comments As above. Will sign off for now. Please notify us if needed again. (Jennifer Lucas MD) Valencia Mathur Dec 23, 2017 17:37 Jennifer Lucas MD Dec 24, 2017 12:52
[2017-12-24] VITALS (27 sets, daily range): BP systolic 133–170; BP diastolic 60–80; PULSE 62–96; RESP 18; TEMP 97.7–98.6; O2SAT 94–97
[2017-12-24 06:04] LABS: HEMATOCRIT 28.1 % (39.0-51.0); MEAN CELL VOLUME 76.5 FL (80.0-100.0); MEAN CORPUSCULAR HEMOGLOBIN 24.5 PG (27.0-34.0); MEAN PLATELET VOLUME 8.6 FL (7.0-11.0); PLATELET COUNT 258 TH/MM3 (150-450); RED BLOOD COUNT 3.68 MIL/MM3 (4.50-5.90); RED CELL DISTRIBUTION WIDTH 22.1 % (11.6-17.2); WHITE BLOOD COUNT 7.8 TH/MM3 (4.0-11.0)
[2017-12-24 06:24] LABS: BICARBONATE 25.2 MEQ/L (21.0-32.0); CALCIUM 9.1 MG/DL (8.5-10.1); CREATININE 1.8 MG/DL (0.60-1.30)
[2017-12-24] MEDS: LEVOTHYROXINE SODIUM 112 MCG TAB PO SCH (07:29)
[2017-12-24] MEDS: LEVOTHYROXINE SODIUM 25 MCG TAB PO SCH (07:30)
[2017-12-24] MEDS: INSULIN ASPART SUPPLEMENTAL SCALE SQ SCH ×4 (08:00→21:58)
[2017-12-24] MEDS: LISINOPRIL 20 MG TAB PO SCH (08:34)
[2017-12-24] MEDS: predniSONE 20 MG TAB PO SCH (08:34)
[2017-12-24] MEDS: GABAPENTIN 300 MG CAP PO SCH (08:34)
[2017-12-24] MEDS: amLODIPine BESYLATE 5 MG TAB PO SCH (08:35)
[2017-12-24] MEDS: LACTOBACILLUS ACIDOPHILUS TAB PO SCH ×3 (08:35→16:56)
[2017-12-24] MEDS: ALLOPURINOL 100 MG TAB PO SCH (08:35)
[2017-12-24] MEDS: SODIUM CHLORIDE 0.9% FLUSH 10 ML FLUSH IV FLUSH SCH ×4 (08:35→21:58)
[2017-12-24] MEDS: FUROSEMIDE 20 MG/2 ML VIAL IV PUSH SCH (08:37)
--- NOTE | 2017-12-24 09:24 | HHI.PR ---
Subjective Remarks The patient says his left knee was hurting him again. He said it started overnight. He has lost range of motion with it. It did improve for a while yesterday. No other acute concerns. Discussed with nursing. Objective Vitals Vital Signs Date Time Temp Pulse Resp B/P (MAP) Pulse Ox O2 Delivery O2 Flow Rate FiO2 12/24/17 07:01 71 12/24/17 06:00 89 12/24/17 05:00 74 12/24/17 04:00 74 12/24/17 04:00 98.3 67 18 170/80 (110) 96 12/24/17 03:00 72 12/24/17 02:00 72 12/24/17 01:00 84 12/24/17 00:00 76 12/24/17 00:00 98.0 72 18 133/72 (92) 96 12/23/17 23:00 72 12/23/17 22:00 70 12/23/17 21:00 80 12/23/17 20:00 97.8 72 18 140/65 (90) 95 12/23/17 20:00 94 12/23/17 19:00 84 12/23/17 18:00 84 12/23/17 17:00 90 12/23/17 16:00 97.4 86 148/66 (93) 97 12/23/17 16:00 68 12/23/17 15:00 84 12/23/17 14:00 76 12/23/17 13:00 82 12/23/17 12:00 97.8 85 159/72 (101) 96 12/23/17 12:00 90 12/23/17 11:00 90 12/23/17 10:00 90 I/O 12/23/17 12/23/17 12/23/17 12/24/17 12/24/17 12/24/17 07:00 15:00 23:00 07:00 15:00 23:00 Intake Total 720 ml 1250 ml 240 ml Output Total 800 ml 1450 ml 1800 ml Balance -80 ml -200 ml -1560 ml Intake Oral 720 ml 1250 ml 240 ml Output Urine Total 800 ml 1450 ml 1800 ml # Bowel Movements 0 0 6 Result Diagram: 12/24/17 0531 12/24/17 0531 Imaging Last Impressions Lower Extremity CT 12/22/17 0000 Signed Impressions: CONCLUSION: 1. No acute bony injury is seen. 2. Mild joint effusion. 3. Narrowing of the medial joint space. Knee X-Ray 12/21/17 0000 Signed Impressions: CONCLUSION: Chronic changes and no definite fracture for technique. Chest X-Ray 12/18/17 2332 Signed Impressions: CONCLUSION: 1. There continues to be infiltrates in both lower lungs. 2. Small pleural effusions and pulmonary venous congestion. Objective Remarks GENERAL: NAD. HEAD: Normocephalic. NECK: Supple, trachea midline. No lymphadenopathy. EYES: No scleral icterus. No injection or drainage. CARDIOVASCULAR: Regular rate and rhythm, harsh systolic murmur appreciated. RESPIRATORY: Trace crackles bilaterally at bases. GASTROINTESTINAL: Abdomen soft, non-tender, nondistended. MUSCULOSKELETAL: 1-2+ lower extremity edema. Left knee not warm to the touch, not swollen. Tender to palpation on lateral aspect. Limited ROM. SKIN: Warm and dry. NEURO: No focal neurological deficits. PSYCH: Mood and affect appropriate. Procedures EGD/ colonoscopy A/P Assessment and Plan Acute on chronic diastolic CHF The pt presented with what sounds like pulmonary edema. He has lower extremity edema, orthopnea and CXR shows pulmonary congestion. He is supposed to get an aortic valve replacement in the near future. Cardiology and cardiothoracic surgery consult appreciated. Still with lower extremity edema. - switch to PO Lasix 40 mg BID. - follow Is and Os. - continue cardiac regimen. - telemetry. - follow up with cardiology and CTS. Anticipate surgery on Monday. Gout/ Knee pain Significant left knee pain, ROM. Uric acid level elevated. CT of the knee: No acute bony injury is seen; Mild joint effusion; Narrowing of the medial joint space. Minimal improvement with prednisone. - continue prednisone. - ortho consult requested. - pain control with a bowel regime. - PT eval. Acute anemia Secondary to acute GI bleeding. MCV was low. S/p three units. GI consult appreciated. EGD with: esophagitis; Medium sized hiatal hernia; There was acute gastritis in the gastric antrum; Duodenal inflammation was found in the duodenal bulb. Colonoscopy: Diverticulum in the sigmoid colon and descending colon; Two medium sized sessile polyps were found in the ascending colon; A small sessile polyp was found in the sigmoid colon; Large internal hemorrhoids. - follow CBC and transfuse as needed. - GI following. - continue PPI. Acute on chronic renal disease Creatinine was elevated compared to baseline. Improving. - monitor while diuresing. DM Glucose fluctuates. - hold home meds. - insulin sliding scale. - add Levemir 10 units daily. Hypertension Blood pressure has been elevated. - Resume lisinopril at lower dose of 20 mg daily. - clonidine as needed. PPx: Javier Marc DO Dec 24, 2017 09:24
[2017-12-24] MEDS ORDERED: cloNIDine HCL 0.1 MG TAB PO PRN (09:30)
[2017-12-24] MEDS: INSULIN DETEMIR 100 UNITS/ML VIAL SQ SCH (09:30)
[2017-12-24] MEDS ORDERED: DOCUSATE SODIUM 50 MG/SENNA 8.6 MG TAB PO SCH (09:30)
[2017-12-24] MEDS: DOCUSATE SODIUM 50 MG/SENNA 8.6 MG TAB PO SCH ×2 (10:37→21:26)
[2017-12-24] MEDS: NYSTATIN 100,000 U/GM PWD 15 GM BTL TOPICAL SCH ×2 (10:38→21:00)
--- NOTE | 2017-12-24 11:49 | PD.CARD.PN ---
Subjective Subjective Remarks No complaints Sleeping in the chair Objective Medications Current Medications Medications (Trade) Dose Ordered Sig/Roxanne Route Start Time Stop Time Status Last Admin (NS Flush) 2 ml UNSCH PRN IV FLUSH 12/19/17 04:45 (NS Flush) 2 ml BID IV FLUSH 12/19/17 09:00 12/24/17 08:35 (Tylenol) 650 mg Q4H PRN PO 12/19/17 04:45 12/21/17 12:03 (Reglan Inj) 5 mg Q6H PRN IV PUSH 12/19/17 04:45 (Narcan Inj) 0.4 mg UNSCH PRN IV PUSH 12/19/17 04:45 (Milk Of Magnesia Liq) 30 ml Q12H PRN PO 12/19/17 04:45 (Senokot) 17.2 mg Q12H PRN PO 12/19/17 04:45 (Dulcolax Supp) 10 mg DAILY PRN RECTAL 12/19/17 04:45 (Lactulose Liq) 30 ml DAILY PRN PO 12/19/17 04:45 (NovoLOG SUPPLEMENTAL SCALE) 1 ACHS SLIDING SCALE SQ 12/19/17 08:00 12/24/17 08:00 (Zyloprim) 100 mg DAILY PO 12/19/17 09:00 12/24/17 08:35 (Norvasc) 5 mg DAILY PO 12/19/17 09:00 12/24/17 08:35 (Neurontin) 600 mg DAILY PO 12/19/17 09:00 12/24/17 08:34 (Lactinex) 1 tab TIDAC PO 12/19/17 08:00 12/24/17 08:35 (Synthroid) 112 mcg DAILY@0600 PO 12/19/17 06:30 12/24/17 07:29 (Synthroid) 25 mcg DAILY@0600 PO 12/19/17 06:30 12/24/17 07:30 (Duoneb Neb) 1 ampule Q2HR NEB PRN NEB 12/19/17 09:15 (Mycostatin Powder) 1 applic Q12HR TOPICAL 12/20/17 21:00 12/24/17 10:38 (Deltasone) 40 mg DAILY PO 12/21/17 09:15 12/24/17 08:34 (NS Flush) 2 ml BID IV FLUSH 12/22/17 21:00 12/24/17 09:00 (NS Flush) 2 ml UNSCH PRN IV FLUSH 12/22/17 15:30 Cefazolin Sodium 500 mg/Sodium Chloride 505 ml @ 0 mls/hr BUSINESS PERFORMANCE ANALYST IRRIGATION 12/22/17 15:30 12/29/17 15:29 Cefazolin Sodium/ Dextrose 50 ml @ 150 mls/hr BUSINESS PERFORMANCE ANALYST IV 12/22/17 15:30 12/29/17 15:29 (Lopressor) 12.5 mg BUSINESS PERFORMANCE ANALYST PO 12/22/17 15:30 12/29/17 15:29 (Hibiclens 4% Top Soln) 1 applic BUSINESS PERFORMANCE ANALYST TOPICAL 12/22/17 15:30 12/29/17 15:29 (D50w (Vial) Inj) 50 ml UNSCH PRN IV PUSH 12/22/17 15:30 (Percocet 5-325 Mg) 1 tab Q4H PRN PO 12/22/17 17:00 12/23/17 10:38 (Prinivil) 20 mg DAILY PO 12/23/17 13:00 12/24/17 08:34 (Levemir Inj) 10 units DAILY SQ 12/24/17 09:30 12/24/17 09:30 (Catapres) 0.1 mg Q6H PRN PO 12/24/17 09:30 ([place]-Colace) 1 tab BID PO 12/24/17 09:30 12/24/17 10:37 Vital Signs / I&O Vital Signs Date Time Temp Pulse Resp B/P (MAP) Pulse Ox O2 Delivery O2 Flow Rate FiO2 12/24/17 08:45 98.6 88 18 160/69 (99) 97 12/24/17 07:01 71 12/24/17 06:00 89 12/24/17 05:00 74 12/24/17 04:00 74 12/24/17 04:00 98.3 67 18 170/80 (110) 96 12/24/17 03:00 72 12/24/17 02:00 72 12/24/17 01:00 84 12/24/17 00:00 76 12/24/17 00:00 98.0 72 18 133/72 (92) 96 12/23/17 23:00 72 12/23/17 22:00 70 12/23/17 21:00 80 12/23/17 20:00 97.8 72 18 140/65 (90) 95 12/23/17 20:00 94 12/23/17 19:00 84 12/23/17 18:00 84 12/23/17 17:00 90 12/23/17 16:00 97.4 86 148/66 (93) 97 12/23/17 16:00 68 12/23/17 15:00 84 12/23/17 14:00 76 12/23/17 13:00 82 12/23/17 12:00 97.8 85 159/72 (101) 96 12/23/17 12:00 90 I/O 12/23/17 12/23/17 12/23/17 12/24/17 12/24/17 12/24/17 07:00 15:00 23:00 07:00 15:00 23:00 Intake Total 720 ml 1250 ml 240 ml Output Total 800 ml 1450 ml 1800 ml Balance -80 ml -200 ml -1560 ml Intake Oral 720 ml 1250 ml 240 ml Output Urine Total 800 ml 1450 ml 1800 ml # Bowel Movements 0 0 6 Physical Exam GENERAL: NAD, AAOx3 SKIN: Warm and dry. HEAD: Atraumatic. Normocephalic. EYES: Pupils equal and round. No scleral icterus. No injection or drainage. ENT: No nasal bleeding or discharge. Mucous membranes pink and moist. NECK: Trachea midline. No JVD. CARDIOVASCULAR: Regular rate and rhythm. RESPIRATORY: No accessory muscle use. Clear to auscultation. Breath sounds equal bilaterally. GASTROINTESTINAL: Abdomen soft, non-tender, nondistended. Hepatic and splenic margins not palpable. MUSCULOSKELETAL: 1+ pitting edema NEUROLOGICAL: Awake and alert. No obvious cranial nerve deficits. Motor grossly within normal limits. Five out of 5 muscle strength in the arms and legs. Normal speech. PSYCHIATRIC: Appropriate mood and affect; insight and judgment normal. Laboratory Laboratory Tests Test 12/24/17 05:31 White Blood Count 7.8 TH/MM3 Red Blood Count 3.68 MIL/MM3 Hemoglobin 9.0 GM/DL Hematocrit 28.1 % Mean Corpuscular Volume 76.5 FL Mean Corpuscular Hemoglobin 24.5 PG Mean Corpuscular Hemoglobin Concent 32.0 % Red Cell Distribution Width 22.1 % Platelet Count 258 TH/MM3 Mean Platelet Volume 8.6 FL Blood Urea Nitrogen 30 MG/DL Creatinine 1.80 MG/DL Random Glucose 137 MG/DL Calcium Level 9.1 MG/DL Magnesium Level 2.0 MG/DL Sodium Level 143 MEQ/L Potassium Level 4.0 MEQ/L Chloride Level 108 MEQ/L Carbon Dioxide Level 25.2 MEQ/L Anion Gap 10 MEQ/L Estimat Glomerular Filtration Rate 37 ML/MIN Assessment and Plan Problem List: (1) Anemia ICD Codes: D64.9 - Anemia, unspecified (2) Aortic stenosis ICD Codes: I35.0 - Nonrheumatic aortic (valve) stenosis (3) Acute kidney injury ICD Codes: N17.9 - Acute kidney failure, unspecified Status: Acute (4) HTN (hypertension) ICD Codes: I10 - Essential (primary) hypertension Status: Chronic Assessment and Plan 1) SOB Due to severe with anemia Not CHF clinically, appears mostly euvolemic and lungs clear 2) Anemia No bleeds noted on EDG/Cscope 3) AVR planned possibly Monday 4) Probably needs JOSE workup after surgery Always daytime somnolence 5) Short run of wide complex tachycardia [place] to be Afib, but possible PAT as he's had short bursts occasionally during hospitalization No further work up at this time Efren Nogueira DO Dec 24, 2017 11:49
--- NOTE | 2017-12-24 14:54 | HHI.GIFU ---
Subjective Remarks Patient is sitting up in the chair alert oriented responsive Has just eaten breakfast and notes some fullness after eating but no pain No BM in 2 days Hemoglobin 9 (Valencia Mathur) Objective Vitals I&O Vital Signs Date Time Temp Pulse Resp B/P (MAP) Pulse Ox O2 Delivery O2 Flow Rate FiO2 12/24/17 14:01 73 12/24/17 13:01 90 12/24/17 12:00 62 12/24/17 11:01 98.5 79 18 135/60 (85) 94 12/24/17 11:00 70 12/24/17 10:00 72 12/24/17 09:00 88 12/24/17 08:45 98.6 88 18 160/69 (99) 97 12/24/17 08:00 90 12/24/17 07:01 71 12/24/17 06:00 89 12/24/17 05:00 74 12/24/17 04:00 74 12/24/17 04:00 98.3 67 18 170/80 (110) 96 12/24/17 03:00 72 12/24/17 02:00 72 12/24/17 01:00 84 12/24/17 00:00 76 12/24/17 00:00 98.0 72 18 133/72 (92) 96 12/23/17 23:00 72 12/23/17 22:00 70 12/23/17 21:00 80 12/23/17 20:00 97.8 72 18 140/65 (90) 95 12/23/17 20:00 94 12/23/17 19:00 84 12/23/17 18:00 84 12/23/17 17:00 90 12/23/17 16:00 97.4 86 148/66 (93) 97 12/23/17 16:00 68 12/23/17 15:00 84 I/O 12/23/17 12/23/17 12/23/17 12/24/17 12/24/17 12/24/17 07:00 15:00 23:00 07:00 15:00 23:00 Intake Total 720 ml 1250 ml 240 ml Output Total 800 ml 1450 ml 1800 ml Balance -80 ml -200 ml -1560 ml Intake Oral 720 ml 1250 ml 240 ml Output Urine Total 800 ml 1450 ml 1800 ml # Bowel Movements 0 0 6 Laboratory Laboratory Tests Test 12/24/17 05:31 White Blood Count 7.8 Red Blood Count 3.68 Hemoglobin 9.0 Hematocrit 28.1 Mean Corpuscular Volume 76.5 Mean Corpuscular Hemoglobin 24.5 Mean Corpuscular Hemoglobin Concent 32.0 Red Cell Distribution Width 22.1 Platelet Count 258 Mean Platelet Volume 8.6 Blood Urea Nitrogen 30 Creatinine 1.80 Random Glucose 137 Calcium Level 9.1 Magnesium Level 2.0 Sodium Level 143 Potassium Level 4.0 Chloride Level 108 Carbon Dioxide Level 25.2 Anion Gap 10 Estimat Glomerular Filtration Rate 37 Imaging Last Impressions Lower Extremity CT 12/22/17 0000 Signed Impressions: CONCLUSION: 1. No acute bony injury is seen. 2. Mild joint effusion. 3. Narrowing of the medial joint space. Knee X-Ray 12/21/17 0000 Signed Impressions: CONCLUSION: Chronic changes and no definite fracture for technique. Chest X-Ray 12/18/17 2332 Signed Impressions: CONCLUSION: 1. There continues to be infiltrates in both lower lungs. 2. Small pleural effusions and pulmonary venous congestion. Physical Exam HEENT: Normocephalic; atraumatic, morbid obesity CHEST: Even/unlabored , no shortness of breath at rest mild diminished breath sounds in his bases CARDIAC: RRR (+) murmur loud cooing murmur 5/6 left sternal border ABDOMEN: Obese, soft, taut,, nontender, bowel sounds active, EXTREMITIES: BLE edema. 2+/4+ SKIN: Normal; no rash; no jaundice. SALES OPERATIONS CONSULTANT: Alert and oriented times three. Answers simple questions appropriately (Valencia Mathur) Assessment and Plan Plan Assessment: - Anemia- microcytic, hypochromic with previous history of GIB Seen by cardiothoracic surgery who is planning on an aortic valve replacements for , has recommended GI work up for anemia prior to operation. November 2016, EGD and colonoscopy --> Irregular Z line, mild inflammation in the stomach antrum, normal duodenum, cecum AVM that was ablated, several small polyp in the transverse colon S/P polypectomy, small polyp removed from the splenic flexure, moderate diverticulosis in the sigmoid colon, poor prep. Pathology (GE junction) squamocolumnar mucosa with mildly active chronic inflammation (transverse colon polyp) fragments of tubular adenoma (splenic flexure polyp) colonic mucosa without significant histopathologic abnormality Denies: nausea, vomiting, visible blood in stool, unintentional weight loss Complaining of: Mid abdominal pain, intermittent, described as burning sensation, relieved with antacids, intermittent constipation and diarrhea, takes Dulcolax as needed for constipation, denies meds for diarrhea - Family history of colon cancer- fath - , CAD- cardiology and cardiothoracic surgery following (12/21) Pt with no GI complaints at this time. Discussed with Dr. Butler ( cardiothoracic surgery) [employer], who states OK to proceed with EGD and colonoscopy. 12/23/2017 note colonoscopy and endoscopy done on 12/22/2017 findings include class C esophagitis multiple biopsies performed, medium-size hiatal hernia, acute gastritis in the antrum with biopsies, duodenal inflammation found in the duodenal bulb, retroflexion normal. Patient is sitting up in chair asymptomatic of any nausea vomiting or dyspepsia. Discussed bowel regimen and the need for no constipation during this hospital stay pending patient's cardiovascular procedures/surgery. Encouraged sitting up in chair and ambulation in room 12/24/2017 patient sitting up in the chair has eaten for breakfast and notes some increased pressure in his abdomen but no pain. Patient states no bowel movement in 2 days, encouragement and discussion on making sure he has good bowel movements before Monday surgery. Hemoglobin 9 Anemia without any obvious bleeding Plan: Diet per attending Mag citrate 1 today, bowel regimen PPI Biopsies pending Monitor H/H Anti-medics Reflux precautions, encouraged to set up after eating and move around in room Supportive care Patient will need to follow-up in the GI office after discharge to review biopsy results Pt has been seen and examined by myself and Dr. Lucas and this note is written on his behalf (Valencia Mathur) Physician Comments As above, please notify us if needed again. (Jennifer Lucas MD) Valencia Mathur Dec 24, 2017 14:54 Jennifer Lucas MD Dec 24, 2017 15:09
[2017-12-24] MEDS ORDERED: MAGNESIUM CITRATE SOLN 300 ML BTL PO ONE (15:00)
[2017-12-24] MEDS ORDERED: FUROSEMIDE 40 MG TAB PO SCH (18:00)
[2017-12-25] VITALS (25 sets, daily range): BP systolic 131–167; BP diastolic 60–74; PULSE 59–102; RESP 18–20; TEMP 97.5–98.2; O2SAT 96–98
[2017-12-25] MEDS: LEVOTHYROXINE SODIUM 25 MCG TAB PO SCH (06:22)
[2017-12-25] MEDS: LEVOTHYROXINE SODIUM 112 MCG TAB PO SCH (06:22)
[2017-12-25 06:54] LABS: BASOPHIL # 0.1 TH/MM3 (0-0.2); BASOPHIL % 1.2 % (0.0-2.0); EOSINOPHIL % 0.2 % (0.0-4.0); HEMATOCRIT 30.5 % (39.0-51.0); HEMOGLOBIN 9.7 GM/DL (13.0-17.0); LYMPH % 16.4 % (9.0-44.0); LYMPHOCYTE # 1.3 TH/MM3 (1.0-4.8); MEAN CELL VOLUME 75.3 FL (80.0-100.0); MEAN CORPUSCULAR HEMOGLOBIN 23.9 PG (27.0-34.0); MEAN CORPUSCULAR HGB CONC 31.8 % (32.0-36.0); MEAN PLATELET VOLUME 8.7 FL (7.0-11.0); MONO % 6.8 % (0.0-8.0); MONOCYTE # 0.5 TH/MM3 (0-0.9); NEUT % 75.4 % (16.0-70.0); PLATELET COUNT 294 TH/MM3 (150-450); RED BLOOD COUNT 4.05 MIL/MM3 (4.50-5.90); RED CELL DISTRIBUTION WIDTH 21.9 % (11.6-17.2)
[2017-12-25 07:03] LABS: INTERNATIONAL NORMALIZED RATIO 1.1 RATIO; PROTHROMBIN TIME - PATIENT 11.4 SEC (9.8-11.6)
[2017-12-25 07:24] LABS: ALBUMIN 3.1 GM/DL (3.4-5.0); ALT (GPT) 20 U/L (12-78); AST (GOT) 11 U/L (15-37); BICARBONATE 26.6 MEQ/L (21.0-32.0); BLOOD UREA NITROGEN 29 MG/DL (7-18); CALCIUM 8.9 MG/DL (8.5-10.1); CHLORIDE 107 MEQ/L (98-107); GLOMERULAR FILTRATION RATE 37 ML/MIN (>89); GLUCOSE,RANDOM 125 MG/DL (74-106); SODIUM (NA) 144 MEQ/L (136-145)
[2017-12-25 07:26] LABS: ALKALINE PHOSPHATASE 59 U/L (45-117); TOTAL BILIRUBIN ADULT 0.6 MG/DL (0.2-1.0); TOTAL PROTEIN 6.9 GM/DL (6.4-8.2)
[2017-12-25] MEDS: INSULIN ASPART SUPPLEMENTAL SCALE SQ SCH ×4 (07:53→22:21)
[2017-12-25] MEDS: INSULIN DETEMIR 100 UNITS/ML VIAL SQ SCH (09:00)
[2017-12-25] MEDS: NYSTATIN 100,000 U/GM PWD 15 GM BTL TOPICAL SCH ×2 (09:00→21:00)
[2017-12-25] MEDS: SODIUM CHLORIDE 0.9% FLUSH 10 ML FLUSH IV FLUSH SCH ×4 (09:00→22:19)
[2017-12-25] MEDS: predniSONE 20 MG TAB PO SCH (09:17)
[2017-12-25] MEDS: LISINOPRIL 20 MG TAB PO SCH (09:17)
[2017-12-25] MEDS: amLODIPine BESYLATE 5 MG TAB PO SCH (09:17)
[2017-12-25] MEDS: ALLOPURINOL 100 MG TAB PO SCH (09:17)
[2017-12-25] MEDS: GABAPENTIN 300 MG CAP PO SCH (09:17)
[2017-12-25] MEDS: LACTOBACILLUS ACIDOPHILUS TAB PO SCH ×3 (09:17→16:25)
[2017-12-25] MEDS: DOCUSATE SODIUM 50 MG/SENNA 8.6 MG TAB PO SCH ×2 (09:18→22:18)
--- NOTE | 2017-12-25 09:50 | HHI.PR ---
Subjective Remarks The patient says that his knee is feeling better. He says he is able to bear more weight on it. He was anticipating surgery tomorrow. Discussed with nursing. Objective Vitals Vital Signs Date Time Temp Pulse Resp B/P (MAP) Pulse Ox O2 Delivery O2 Flow Rate FiO2 12/25/17 09:00 80 12/25/17 08:00 79 12/25/17 07:45 77 12/25/17 07:45 98.2 70 20 131/60 (83) 98 12/25/17 06:00 98.2 79 18 134/61 (85) 96 12/25/17 06:00 71 12/25/17 05:00 64 12/25/17 04:00 71 12/25/17 03:00 65 12/25/17 02:00 71 12/25/17 01:00 65 12/25/17 00:50 98.1 62 18 157/74 (101) 96 12/25/17 00:00 64 12/24/17 23:00 64 12/24/17 22:00 63 12/24/17 21:00 70 12/24/17 20:00 97.7 71 18 155/69 (97) 97 12/24/17 20:00 64 12/24/17 19:00 71 12/24/17 18:01 96 12/24/17 17:00 82 12/24/17 16:00 74 12/24/17 15:30 98.4 85 18 163/71 (101) 96 12/24/17 15:00 73 12/24/17 14:01 73 12/24/17 13:01 90 12/24/17 12:00 62 12/24/17 11:01 98.5 79 18 135/60 (85) 94 12/24/17 11:00 70 12/24/17 10:00 72 I/O 12/24/17 12/24/17 12/24/17 12/25/17 12/25/17 12/25/17 07:00 15:00 23:00 07:00 15:00 23:00 Intake Total 240 ml 1080 ml 240 ml Output Total 1800 ml 1325 ml 825 ml Balance -1560 ml -245 ml -585 ml Intake Oral 240 ml 1080 ml 240 ml Output Urine Total 1800 ml 1325 ml 825 ml # Voids 6 5 2 # Bowel Movements 0 Result Diagram: 12/25/17 0616 12/25/17 0616 Imaging Last Impressions Lower Extremity CT 12/22/17 0000 Signed Impressions: CONCLUSION: 1. No acute bony injury is seen. 2. Mild joint effusion. 3. Narrowing of the medial joint space. Knee X-Ray 12/21/17 0000 Signed Impressions: CONCLUSION: Chronic changes and no definite fracture for technique. Chest X-Ray 12/18/17 2332 Signed Impressions: CONCLUSION: 1. There continues to be infiltrates in both lower lungs. 2. Small pleural effusions and pulmonary venous congestion. Objective Remarks GENERAL: NAD. HEAD: Normocephalic. NECK: Supple, trachea midline. No lymphadenopathy. EYES: No scleral icterus. No injection or drainage. CARDIOVASCULAR: Regular rate and rhythm, harsh systolic murmur appreciated. RESPIRATORY: CTAB. GASTROINTESTINAL: Abdomen soft, non-tender, nondistended. MUSCULOSKELETAL: 1-2+ lower extremity edema. Left knee not warm to the touch, not swollen. Tender to palpation on lateral aspect. Limited ROM. SKIN: Warm and dry. NEURO: No focal neurological deficits. PSYCH: Mood and affect appropriate. Procedures EGD/ colonoscopy A/P Assessment and Plan Acute on chronic diastolic CHF The pt presented with what sounds like pulmonary edema. He has lower extremity edema, orthopnea and CXR shows pulmonary congestion. He is supposed to get an aortic valve replacement in the near future. Cardiology and cardiothoracic surgery consult appreciated. Still with lower extremity edema. - switched to PO Lasix 40 mg BID. - follow Is and Os. - continue cardiac regimen. - telemetry. - follow up with cardiology and CTS. Anticipate surgery tomorrow. Gout/ Knee pain Significant left knee pain, ROM. Uric acid level elevated. CT of the knee: No acute bony injury is seen; Mild joint effusion; Narrowing of the medial joint space. Currently improved with prednisone. - continue prednisone. - ortho consult pending. - pain control with a bowel regime. - PT eval. Acute anemia Secondary to acute GI bleeding. MCV was low. S/p three units. GI consult appreciated. EGD with: esophagitis; Medium sized hiatal hernia; There was acute gastritis in the gastric antrum; Duodenal inflammation was found in the duodenal bulb. Colonoscopy: Diverticulum in the sigmoid colon and descending colon; Two medium sized sessile polyps were found in the ascending colon; A small sessile polyp was found in the sigmoid colon; Large internal hemorrhoids. - follow CBC and transfuse as needed. - GI following. - continue PPI. Acute on chronic renal disease Creatinine was elevated compared to baseline. Improving. - monitor while diuresing. DM Glucose fluctuates. - hold home meds. - insulin sliding scale. - added Levemir 10 units daily. Hypertension Blood pressure well controlled. - Resume lisinopril at lower dose of 20 mg daily. - clonidine as needed. PPx: Javier Marc DO Dec 25, 2017 09:50
--- NOTE | 2017-12-25 10:15 | MB ---
cc: Jim Zee PA/Physical Anthropologist Kapil Benjamin MD DATE: 12/25/2017 CHIEF COMPLAINT: Left knee pain. HISTORY OF PRESENT ILLNESS: The patient is a 77-year-old white male who was admitted to the cardiac ICU awaiting an aortic valve replacement surgery. He is scheduled to undergo this tomorrow on 12/26/2017. He states that his knee started giving him pain approximately 2 days ago. He states that it got progressively worse. He is being managed by the medical team who started him on prednisone. He states that since the implication of the prednisone, his pain has improved. He states his pain is localized to the lateral knee. He states he was unable to bear weight prior to the prednisone treatment. However, it has improved and he is able to bear weight now. He states he has pain with flexion and extension of the knee. He states he is able to move it freely. Denies any swelling or redness. Denies any fevers. Denies any laxity or injury. Denies any recent cuts. Denies any nausea or vomiting. REVIEW OF SYSTEMS: The remaining review of systems are negative except for what is mentioned in the HPI. PAST MEDICAL HISTORY: Positive for diabetes, hypertension, hyperlipidemia, nonobstructing CAD, severe aortic stenosis, asymptomatic, mild carotid stenosis, stage III kidney disease, COPD, hypothyroidism, neuropathy, gout, anemia, history of gastrointestinal bleeds. PAST SURGICAL HISTORY: Positive for tonsillectomy, appendectomy, right arm fracture and repair, sinus surgery, bilateral cataract surgeries. ALLERGIES. A KNOWN ALLERGY TO SULFA. FAMILY HISTORY: Father from colon cancer. His mother from emphysema. SOCIAL HISTORY: He quit smoking in 1987. He quit drinking 3 years ago. PHYSICAL EXAMINATION: VITAL SIGNS: Temperature 98.2, pulse 77, respiratory rate 20, blood pressure 131/60, O2 saturation 98 on room air. GENERAL: A well-developed, well-nourished 77-year-old white male resting comfortably in a chair in no acute distress. HEAD: Normocephalic, atraumatic. EARS: Hearing intact bilaterally. EYES: Extraocular motions intact. Pupils are equal, round and reactive to light. NEUROLOGIC: Cranial nerves 2-12 are grossly intact. NECK: Supple. No evidence of lymphadenopathy. CHEST: No use of accessory muscles while breathing. No audible wheezes at bedside. HEART: No grade 4 murmur present at bedside. ABDOMEN: Soft and nontender. MUSCULOSKELETAL: Left leg full motion of the hip, ankle, and toes with no pain. He has range of motion of the left knee from 10 degrees to 120 degrees. No pain with motion. He does have pain with forced extension of the left knee. His pain is localized to the lateral knee. He has point tenderness over the insertion of the iliotibial band and slightly along the lateral joint line. He has a negative Cortney's test and his knee is stable to ligamentous stress test. He has 5/5 strength in knee extension and knee flexion with no pain. He is nontender to palpation of the patella. Right leg. Full motion of the hip, knee, ankle and toes. No pain with full sensation distally. IMAGING: CT scan and x-rays were reviewed from [facility] of the left knee which shows no acute bony abnormality. Shows mild evidence of osteoarthritis of the left knee. ASSESSMENT: 1. Osteoarthritis, left knee. 2. Iliotibial band insertional tendonitis. PLAN: I had a discussion with the patient regarding his treatment options. He is currently on a dose of prednisone. This is sufficient for his treatment. I informed him that anti-inflammatories, as well as stretching and rest is the treatment regimen for this. This should resolve with time. He can continue to fully weight bear and progress his activities. Orthopedics will be signing off at this time and no further treatment will be needed. He can followup on an outpatient basis with orthopedics on a p.r.n. basis. Thank you for this consultation. We will be signing off at this point. If any further problems arise, please reconsult orthopedics. The above patient was reviewed and discussed with Dr. Benjamin and he agrees with the above dictation. GERHARD Sanford, GERHARD/First Kapil Benjamin MD Assist TYB/MOHIT , 09:55 AM , 10:14 AM
--- NOTE | 2017-12-25 11:01 | PD.CARD.PN ---
Subjective Subjective Remarks No complaints Relaxing in the chair Objective Medications Current Medications Medications (Trade) Dose Ordered Sig/Roxanne Route Start Time Stop Time Status Last Admin (NS Flush) 2 ml UNSCH PRN IV FLUSH 12/19/17 04:45 (NS Flush) 2 ml BID IV FLUSH 12/19/17 09:00 12/25/17 09:18 (Tylenol) 650 mg Q4H PRN PO 12/19/17 04:45 12/21/17 12:03 (Reglan Inj) 5 mg Q6H PRN IV PUSH 12/19/17 04:45 (Narcan Inj) 0.4 mg UNSCH PRN IV PUSH 12/19/17 04:45 (Milk Of Magnesia Liq) 30 ml Q12H PRN PO 12/19/17 04:45 (Senokot) 17.2 mg Q12H PRN PO 12/19/17 04:45 (Dulcolax Supp) 10 mg DAILY PRN RECTAL 12/19/17 04:45 (Lactulose Liq) 30 ml DAILY PRN PO 12/19/17 04:45 (NovoLOG SUPPLEMENTAL SCALE) 1 ACHS SLIDING SCALE SQ 12/19/17 08:00 12/24/17 21:58 (Zyloprim) 100 mg DAILY PO 12/19/17 09:00 12/25/17 09:17 (Norvasc) 5 mg DAILY PO 12/19/17 09:00 12/25/17 09:17 (Neurontin) 600 mg DAILY PO 12/19/17 09:00 12/25/17 09:17 (Lactinex) 1 tab TIDAC PO 12/19/17 08:00 12/25/17 09:17 (Synthroid) 112 mcg DAILY@0600 PO 12/19/17 06:30 12/25/17 06:22 (Synthroid) 25 mcg DAILY@0600 PO 12/19/17 06:30 12/25/17 06:22 (Duoneb Neb) 1 ampule Q2HR NEB PRN NEB 12/19/17 09:15 (Mycostatin Powder) 1 applic Q12HR TOPICAL 12/20/17 21:00 12/24/17 21:00 (Deltasone) 40 mg DAILY PO 12/21/17 09:15 12/25/17 09:17 (NS Flush) 2 ml BID IV FLUSH 12/22/17 21:00 12/24/17 09:00 (NS Flush) 2 ml UNSCH PRN IV FLUSH 12/22/17 15:30 Cefazolin Sodium 500 mg/Sodium Chloride 505 ml @ 0 mls/hr MEDICAL BILLING ASSOCIATE IRRIGATION 12/22/17 15:30 12/29/17 15:29 Cefazolin Sodium/ Dextrose 50 ml @ 150 mls/hr MEDICAL BILLING ASSOCIATE IV 12/22/17 15:30 12/29/17 15:29 (Lopressor) 12.5 mg MEDICAL BILLING ASSOCIATE PO 12/22/17 15:30 12/29/17 15:29 (Hibiclens 4% Top Soln) 1 applic MEDICAL BILLING ASSOCIATE TOPICAL 12/22/17 15:30 12/29/17 15:29 (D50w (Vial) Inj) 50 ml UNSCH PRN IV PUSH 12/22/17 15:30 (Percocet 5-325 Mg) 1 tab Q4H PRN PO 12/22/17 17:00 12/23/17 10:38 (Prinivil) 20 mg DAILY PO 12/23/17 13:00 12/25/17 09:17 (Levemir Inj) 10 units DAILY SQ 12/24/17 09:30 12/25/17 09:00 (Catapres) 0.1 mg Q6H PRN PO 12/24/17 09:30 ([place]-Colace) 1 tab BID PO 12/24/17 09:30 12/25/17 09:18 Vital Signs / I&O Vital Signs Date Time Temp Pulse Resp B/P (MAP) Pulse Ox O2 Delivery O2 Flow Rate FiO2 12/25/17 09:00 80 12/25/17 08:00 79 12/25/17 07:45 77 12/25/17 07:45 98.2 70 20 131/60 (83) 98 12/25/17 06:00 98.2 79 18 134/61 (85) 96 12/25/17 06:00 71 12/25/17 05:00 64 12/25/17 04:00 71 12/25/17 03:00 65 12/25/17 02:00 71 12/25/17 01:00 65 12/25/17 00:50 98.1 62 18 157/74 (101) 96 12/25/17 00:00 64 12/24/17 23:00 64 12/24/17 22:00 63 12/24/17 21:00 70 12/24/17 20:00 97.7 71 18 155/69 (97) 97 12/24/17 20:00 64 12/24/17 19:00 71 12/24/17 18:01 96 12/24/17 17:00 82 12/24/17 16:00 74 12/24/17 15:30 98.4 85 18 163/71 (101) 96 12/24/17 15:00 73 12/24/17 14:01 73 12/24/17 13:01 90 12/24/17 12:00 62 I/O 12/24/17 12/24/17 12/24/17 12/25/17 12/25/17 12/25/17 07:00 15:00 23:00 07:00 15:00 23:00 Intake Total 240 ml 1080 ml 240 ml Output Total 1800 ml 1325 ml 825 ml Balance -1560 ml -245 ml -585 ml Intake Oral 240 ml 1080 ml 240 ml Output Urine Total 1800 ml 1325 ml 825 ml # Voids 6 5 2 # Bowel Movements 0 Physical Exam GENERAL: NAD, AAOx3 SKIN: Warm and dry. HEAD: Atraumatic. Normocephalic. EYES: Pupils equal and round. No scleral icterus. No injection or drainage. ENT: No nasal bleeding or discharge. Mucous membranes pink and moist. NECK: Trachea midline. No JVD. CARDIOVASCULAR: Regular rate and rhythm. RESPIRATORY: No accessory muscle use. Clear to auscultation. Breath sounds equal bilaterally. GASTROINTESTINAL: Abdomen soft, non-tender, nondistended. Hepatic and splenic margins not palpable. MUSCULOSKELETAL: 1+ pitting edema NEUROLOGICAL: Awake and alert. No obvious cranial nerve deficits. Motor grossly within normal limits. Five out of 5 muscle strength in the arms and legs. Normal speech. PSYCHIATRIC: Appropriate mood and affect; insight and judgment normal. Laboratory Laboratory Tests Test 12/25/17 06:16 White Blood Count 8.0 TH/MM3 Red Blood Count 4.05 MIL/MM3 Hemoglobin 9.7 GM/DL Hematocrit 30.5 % Mean Corpuscular Volume 75.3 FL Mean Corpuscular Hemoglobin 23.9 PG Mean Corpuscular Hemoglobin Concent 31.8 % Red Cell Distribution Width 21.9 % Platelet Count 294 TH/MM3 Mean Platelet Volume 8.7 FL Neutrophils (%) (Auto) 75.4 % Lymphocytes (%) (Auto) 16.4 % Monocytes (%) (Auto) 6.8 % Eosinophils (%) (Auto) 0.2 % Basophils (%) (Auto) 1.2 % Neutrophils # (Auto) 6.0 TH/MM3 Lymphocytes # (Auto) 1.3 TH/MM3 Monocytes # (Auto) 0.5 TH/MM3 Eosinophils # (Auto) 0.0 TH/MM3 Basophils # (Auto) 0.1 TH/MM3 CBC Comment DIFF FINAL Differential Comment Prothrombin Time 11.4 SEC Prothromb Time International Ratio 1.1 RATIO Blood Urea Nitrogen 29 MG/DL Creatinine 1.80 MG/DL Random Glucose 125 MG/DL Total Protein 6.9 GM/DL Albumin 3.1 GM/DL Calcium Level 8.9 MG/DL Alkaline Phosphatase 59 U/L Aspartate Amino Transf (AST/SGOT) 11 U/L Alanine Aminotransferase (ALT/SGPT) 20 U/L Total Bilirubin 0.6 MG/DL Sodium Level 144 MEQ/L Potassium Level 4.1 MEQ/L Chloride Level 107 MEQ/L Carbon Dioxide Level 26.6 MEQ/L Anion Gap 10 MEQ/L Estimat Glomerular Filtration Rate 37 ML/MIN Assessment and Plan Problem List: (1) Anemia ICD Codes: D64.9 - Anemia, unspecified (2) Aortic stenosis ICD Codes: I35.0 - Nonrheumatic aortic (valve) stenosis (3) Acute kidney injury ICD Codes: N17.9 - Acute kidney failure, unspecified Status: Acute (4) HTN (hypertension) ICD Codes: I10 - Essential (primary) hypertension Status: Chronic Assessment and Plan 1) SOB Due to severe with anemia Not CHF clinically, appears mostly euvolemic and lungs clear 2) Anemia No bleeds noted on EDG/Cscope 3) AVR planned possibly tomorrow 4) Probably needs JOSE workup after surgery Always daytime somnolence 5) Short run of wide complex tachycardia [place] to be Afib, but possible PAT as he's had short bursts occasionally during hospitalization No further work up at this time Efren Nogueira DO Dec 25, 2017 11:01
--- NOTE | 2017-12-25 16:32 | PD.CAR.PN ---
CVT Progress Note Subjective/Hospital Course: 77 m/ a patient of Dr. Clayton, history of known aortic stenosis, was in the process of undergoing scheduling for his aortic valve replacement, but at the time he was seen he had some very poor loose teeth and required dental workup where he finally got his teeth fixed and had removal of his teeth on the top. He has got an upper dental implant. His aortic valve area is 0.81 with a mean gradient of 52. He was attempting to try to get his aortic valve replacement rescheduled and presented to the emergency department with shortness of breath. On arrival, they found that he was severely anemic with a hemoglobin of 6.3 and hematocrit of 20. He has since been given 2 units of packed RBCs. His hemoglobin is 7.7 and 24. He had history in the past of a GI bleed where he had an EGD with biopsy, colonoscopy, ablation of arteriovenous malformation on 12/01/2016. At that time, his hemoglobin was 7.6. He recieved and additional currently pack of RBC for total of 3, He denies having any blood in the stool, no black tarry stools. PAST MEDICAL HISTORY: Includes diabetes mellitus, hypertension, hyperlipidemia, nonobstructive coronary artery disease by catheterization 10/03/2017, EF of 55% , severe aortic stenosis as above, stage III chronic kidney disease, COPD, hypothyroidism, neuropathy, gout, anemia, history of GI bleed, AVMs. 12/20 no stool yet to check for Hemoccult HGB stable 9.1 GI consult pending await their input regarding timing for surgery pt will need Heparin 2/2 Heart Lung bypass machine for his valve surgery 12/21 plan for EGD/ colonoscopy in am monitor closely during procedure will eval for surgery next week 12/22 will discuss timing of surgery with Dr Rios tentatively scheduled for surgery on Monday recheck uric acid level monday 12/25 stable for surgery in am / wean po steroids uric acid 8.2 for sternotomy approach and tissue valve Objective: GENERAL: A&O x 3 SKIN: Warm and dry. HEAD: Normocephalic. EYES: No scleral icterus. No injection or drainage. NECK: Supple, trachea midline. No JVD or lymphadenopathy. CARDIOVASCULAR: Regular rate and rhythm without murmurs, gallops, or rubs.+3/6 sm RESPIRATORY: Breath sounds equal bilaterally. No accessory muscle use. GASTROINTESTINAL: Abdomen soft, non-tender, nondistended. MUSCULOSKELETAL: No cyanosis, or edema. BACK: Nontender without obvious deformity. No CVA tenderness. Vital Signs Date Time Temp Pulse Resp B/P (MAP) Pulse Ox O2 Delivery O2 Flow Rate FiO2 12/25/17 16:00 69 12/25/17 15:00 71 12/25/17 15:00 98.0 70 20 153/68 (96) 97 12/25/17 14:00 75 12/25/17 13:00 78 12/25/17 12:00 88 12/25/17 11:00 64 12/25/17 11:00 97.9 73 20 145/65 (91) 96 12/25/17 10:00 102 12/25/17 09:00 80 12/25/17 08:00 79 12/25/17 07:45 77 12/25/17 07:45 98.2 70 20 131/60 (83) 98 12/25/17 06:00 98.2 79 18 134/61 (85) 96 12/25/17 06:00 71 12/25/17 05:00 64 12/25/17 04:00 71 12/25/17 03:00 65 12/25/17 02:00 71 12/25/17 01:00 65 12/25/17 00:50 98.1 62 18 157/74 (101) 96 12/25/17 00:00 64 12/24/17 23:00 64 12/24/17 22:00 63 12/24/17 21:00 70 12/24/17 20:00 97.7 71 18 155/69 (97) 97 12/24/17 20:00 64 12/24/17 19:00 71 12/24/17 18:01 96 12/24/17 17:00 82 Labs: Laboratory Tests Test 12/25/17 06:16 12/25/17 11:45 12/25/17 14:42 White Blood Count 8.0 TH/MM3 (4.0-11.0) Red Blood Count 4.05 MIL/MM3 (4.50-5.90) Hemoglobin 9.7 GM/DL (13.0-17.0) Hematocrit 30.5 % (39.0-51.0) Mean Corpuscular Volume 75.3 FL (80.0-100.0) Mean Corpuscular Hemoglobin 23.9 PG (27.0-34.0) Mean Corpuscular Hemoglobin Concent 31.8 % (32.0-36.0) Red Cell Distribution Width 21.9 % (11.6-17.2) Platelet Count 294 TH/MM3 (150-450) Mean Platelet Volume 8.7 FL (7.0-11.0) Neutrophils (%) (Auto) 75.4 % (16.0-70.0) Lymphocytes (%) (Auto) 16.4 % (9.0-44.0) Monocytes (%) (Auto) 6.8 % (0.0-8.0) Eosinophils (%) (Auto) 0.2 % (0.0-4.0) Basophils (%) (Auto) 1.2 % (0.0-2.0) Neutrophils # (Auto) 6.0 TH/MM3 (1.8-7.7) Lymphocytes # (Auto) 1.3 TH/MM3 (1.0-4.8) Monocytes # (Auto) 0.5 TH/MM3 (0-0.9) Eosinophils # (Auto) 0.0 TH/MM3 (0-0.4) Basophils # (Auto) 0.1 TH/MM3 (0-0.2) CBC Comment DIFF FINAL Differential Comment Prothrombin Time 11.4 SEC (9.8-11.6) Prothromb Time International Ratio 1.1 RATIO Blood Urea Nitrogen 29 MG/DL (7-18) Creatinine 1.80 MG/DL (0.60-1.30) Random Glucose 125 MG/DL (74-106) Total Protein 6.9 GM/DL (6.4-8.2) Albumin 3.1 GM/DL (3.4-5.0) Calcium Level 8.9 MG/DL (8.5-10.1) Alkaline Phosphatase 59 U/L (45-117) Aspartate Amino Transf (AST/SGOT) 11 U/L (15-37) Alanine Aminotransferase (ALT/SGPT) 20 U/L (12-78) Total Bilirubin 0.6 MG/DL (0.2-1.0) Sodium Level 144 MEQ/L (136-145) Potassium Level 4.1 MEQ/L (3.5-5.1) Chloride Level 107 MEQ/L (98-107) Carbon Dioxide Level 26.6 MEQ/L (21.0-32.0) Anion Gap 10 MEQ/L (5-15) Estimat Glomerular Filtration Rate 37 ML/MIN (>89) Uric Acid 8.8 MG/DL (2.6-7.2) Result Diagram: 12/25/1716 12/25/17 0616 (1) Anemia Plan: EGD with biopsy LA Class C esophagitis noted; multiple biopsies were performed 2. Medium sized hiatal hernia 3. There was acute gastritis in the gastric antrum; multiple biopsies were performed 4. Duodenal inflammation was found in the duodenal bulb 5. Retroflexion was performed and was normal/ await BX , Continue PPI colonoscopy : 1. Diverticulum in the sigmoid colon and descending colon 2. Two medium sized sessile polyps were found in the ascending colon; polypectomy was performed with cold forceps 3. A small sessile polyp was found in the sigmoid colon; polypectomy was performed with cold forceps 4. Large internal hemorrhoids (2) Aortic stenosis Plan: for surgery in am (3) Acute kidney injury Plan: indices improving (4) HTN (hypertension) Elin Joyce Dec 25, 2017 16:32
[2017-12-25 16:45] LABS: HEMOGLOBIN A1C 6.5 % (4.3-6.0)
[2017-12-26] VITALS (19 sets, daily range): BP systolic 98–137; BP diastolic 48–68; PULSE 59–94; RESP 10–18; TEMP 96.3–97.9; O2SAT 94–99
[2017-12-26] MEDS ORDERED: POVIDONE IODINE 5% (ANTISEPSIS KIT) 4 APPLICATIONS EACH NARE PRN (01:45)
[2017-12-26] MEDS ORDERED: LACTATED RINGER'S 1000 ML IV PRN (01:45)
[2017-12-26] MEDS ORDERED: SODIUM CHLORID 0.9% 500 ML IV PRN (01:45)
[2017-12-26] MEDS ORDERED: CHLORHEXIDINE GLUCONATE 2 % 1 PACK (2 CLOTHS) TOPICAL PRN (01:45)
[2017-12-26] MEDS: LEVOTHYROXINE SODIUM 25 MCG TAB PO SCH (05:54)
[2017-12-26] MEDS: LEVOTHYROXINE SODIUM 112 MCG TAB PO SCH (05:54)
[2017-12-26] MEDS ORDERED: HEPARIN SODIUM - SQ 10,000 UNITS/ML VIAL ONE (06:13)
[2017-12-26] MEDS ORDERED: VANCOMYCIN HCL 1000 MG VIAL ONE (06:13)
[2017-12-26] MEDS ORDERED: ceFAZolin 2 GM PREMIX 50 ML ONE (06:13)
[2017-12-26] MEDS ORDERED: ceFAZolin INJ 1,000 MG VIAL ONE (06:14)
[2017-12-26] MEDS ORDERED: DEXMEDETOMIDINE HCL 200 MCG/2 ML VIAL ONE (07:00)
[2017-12-26] MEDS ORDERED: ACETAMINOPHEN 1000 MG/100 ML 0 ML IV ONE (07:00)
[2017-12-26] MEDS ORDERED: DEXTROSE 50% IN WATER 50 ML VIAL(D50) IV PUSH PRN ×2 (07:00→11:30)
[2017-12-26] MEDS ORDERED: INSULIN REGULAR 100 UNITS in NS 100 ML IV PRN (07:00)
[2017-12-26] MEDS ORDERED: KETAMINE HCL 50 MG/5 ML SYRINGE ONE (07:01)
[2017-12-26] MEDS ORDERED: PROPOFOL 500 MG/50 ML INJ 0 ML ONE (07:02)
[2017-12-26] MEDS ORDERED: CUSTODIOL HTK IRR SOLN 3,000 ML ONE (07:25)
[2017-12-26] MEDS ORDERED: POTASSIUM CHLOR 40 MEQ PREMIX 200 ML ONE (07:26)
[2017-12-26] MEDS ORDERED: HEPARIN SODIUM - IV 10,000 UNITS/10 ML VIAL ONE (07:26)
[2017-12-26] MEDS ORDERED: CALCIUM CHLORIDE 10% SOLN 1 GRAM/10 ML SYR ONE (07:27)
[2017-12-26] MEDS ORDERED: ALBUMIN 25% INJ 50 ML IV ONE (07:27)
[2017-12-26] MEDS ORDERED: SODIUM BICARBONATE 8.4% INJ 100 ML ONE (07:28)
[2017-12-26] MEDS ORDERED: MANNITOL INJ 100 ML ONE (07:28)
[2017-12-26] MEDS: INSULIN ASPART SUPPLEMENTAL SCALE SQ SCH ×4 (08:00→21:00)
[2017-12-26] MEDS: LACTOBACILLUS ACIDOPHILUS TAB PO SCH ×3 (08:00→17:00)
[2017-12-26] MEDS: amLODIPine BESYLATE 5 MG TAB PO SCH (09:00)
[2017-12-26] MEDS: GABAPENTIN 300 MG CAP PO SCH (09:00)
[2017-12-26] MEDS: ALLOPURINOL 100 MG TAB PO SCH (09:00)
[2017-12-26] MEDS: INSULIN DETEMIR 100 UNITS/ML VIAL SQ SCH (09:00)
[2017-12-26] MEDS ORDERED: predniSONE 20 MG TAB PO SCH (09:00)
[2017-12-26] MEDS: NYSTATIN 100,000 U/GM PWD 15 GM BTL TOPICAL SCH ×2 (09:00→21:00)
[2017-12-26] MEDS: DOCUSATE SODIUM 50 MG/SENNA 8.6 MG TAB PO SCH ×2 (09:00→21:00)
[2017-12-26] MEDS ORDERED: LACTATED RINGER'S 1000 ML INJ 500 ML IV PRN (11:29)
[2017-12-26] MEDS ORDERED: POTASSIUM CHLORIDE 20 MEQ CONTROLLED RELEASE TAB PO PRN ×2 (11:30)
[2017-12-26] MEDS ORDERED: ONDANSETRON ODT 4 MG TAB PO PRN (11:30)
[2017-12-26] MEDS ORDERED: RESP: ALBUTEROL 2.5 MG/IPRATROPIUM 0.5 MG NEB (PRN) NEB (11:30)
[2017-12-26] MEDS ORDERED: ACETAMINOPHEN 650 MG SUPP RECTAL PRN (11:30)
[2017-12-26] MEDS ORDERED: Post-op Orders (for Pharmacy) OTHER ONE (11:30)
[2017-12-26] MEDS ORDERED: CALCIUM CHLORIDE 10% 1 GRAM/10 ML VIAL IV PUSH PRN (11:30)
[2017-12-26] MEDS ORDERED: SODIUM CHLORIDE 0.9% FLUSH 10 ML FLUSH IV FLUSH PRN (11:30)
[2017-12-26] MEDS ORDERED: SODIUM BICARBONATE 8.4% SOLN 50 MEQ/50 ML VIAL IV PUSH PRN ×2 (11:30)
[2017-12-26] MEDS ORDERED: CALCIUM CHLORIDE INJ 1 GM in SODIUM CHLORIDE 0.9% INJ 100 ML IV PRN (11:30)
[2017-12-26] MEDS ORDERED: hydrALAZINE HCL 20 MG/ML VIAL IV PUSH PRN (11:30)
[2017-12-26] MEDS ORDERED: POTASSIUM CHLOR 20 MEQ PREMIX 100 ML IV PRN ×3 (11:30)
[2017-12-26] MEDS ORDERED: MEPERIDINE HCL 25 MG/ML VIAL IV PUSH PRN (11:30)
[2017-12-26] MEDS ORDERED: RESP: RACEPINEPHRINE 2.25% 0.5 ML NEB NEB PRN (11:30)
[2017-12-26] MEDS ORDERED: METOPROLOL TARTRATE 5 MG/5 ML VIAL IV PUSH PRN (11:30)
[2017-12-26] MEDS ORDERED: ACETAMINOPHEN 325 MG TAB PO PRN (11:30)
[2017-12-26] MEDS ORDERED: MAGNESIUM SULFATE INJ 2 GM in SODIUM CHLORIDE 0.9% INJ 100 ML IV PRN ×4 (11:30)
--- NOTE | 2017-12-26 11:38 | PD.OP ---
cc: Wero Rios MD; Vasu Nogueiraremigio Van DO Operative Report Date of Surgery: Dec 26, 2017 Preoperative Diagnosis: Postoperative Diagnosis: Procedure: Aortic Valve Replacement with a 23 mm Medtronic Mosaic Cinch Tissue Valve. Surgeon: Wero Rios Foot Press Operator(s): Armando Miller Operation and Findings: PREOPERATIVE DIAGNOSES 1. Severe Aortic Stenosis. 2. Moderate Aortic Insufficiency 3. Renal Insufficiency 4. CHF 5. GI Bleed POSTOPERATIVE DIAGNOSES Same SURGICAL PROCEDURE Aortic Valve Replacement with a 23 mm Medtronic Mosaic Cinch Tissue Valve. CINDER DUMP CRANE OPERATOR CARY Iverson ANESTHESIA General endotracheal. LINING STRAP CLOSER Kitty Navarro CRNA, Eva Youssef MD PREPARATION ChloraPrep. NEEDLE, SPONGE AND INSTRUMENT COUNT Correct. DRAINS One 32-[place] mediastinal tube. COMPLICATIONS None. INDICATIONS The patient is an 77-year-old gentleman with severe aortic stenosis and CHF, presenting for surgical correction of the above pathology. DESCRIPTION OF PROCEDURE The patient was brought to the operating room and placed supine on the OR table. Following the induction of adequate general endotracheal anesthesia and placement of appropriate monitoring devices, the patient was then prepped and draped in the standard sterile fashion. Median sternotomy was performed, the pericardium was divided in the midline and the cradle created. The patient was systemically heparinized and anticoagulation monitored by serial ACT measurements. Then 2 pursestring sutures of 2-0 Ethibond were placed on the aorta proximal to the takeoff of the innominate artery, another was placed in the right atrial appendage. At this point, aortic and 2-stage venous cannulae were introduced and attached to the arterial and venous components of the bypass circuit respectively. Antegrade cardioplegia cannula and a left ventricular vent, through the right superior pulmonary vein, were also placed. The patient was placed on cardiopulmonary bypass and core cooling initiated to a temperature of 32 degrees centigrade. The crossclamp was applied and 2.5 L of cardioplegia solution (Shelter HTK) given in an antegrade fashion in addition to topical cooling with slushed saline. Upon achieving adequate diastolic arrest of the heart a transverse aortotomy was performed. The aortic valve was then excised. The valve was very heavily calcified with the calcific process extending onto the anterior leaflet of the Mitral valve. Complete circumferential decalcification was performed and care was taken to aspirate and remove all particulate matter. Horizontal mattress sutures of interrupted 2- 0 Ethibond were placed on the aortic annulus with pledgets on the ventricular side. After adequate sizing, a 23 mm Mosaic Tissue valve was brought in the surgical field and the sutures passed through the skirt and the valve was situated using Cor-knots. This appeared to be a good fit. Gradual rewarming was initiated and the aortotomy closed in 2 layers. This was with 4-0 Prolene; the 1st layer being horizontal mattress, the 2nd layer being running baseball stitch. The cross clamp was removed and upon achieving normothermic cardiac activity, transesophageal echocardiography revealed a well-situated aortic prosthesis with no evidence of perivalvular leak and no aortic stenosis or aortic regurgitation. Protamine was administered. Decannulation was performed and all sites were inspected for hemostasis. At this point the closure was undertaken. The pericardium was reapproximated in the midline. A 32 Fr chest tube was placed, and the sternum was reapproximated using stainless steel sternal wires. The musculo-fascial layer was then closed in 3 layers. The patient tolerated the procedure well and was transferred to open heart recovery in stable condition. Wero Rios MD Dec 26, 2017 11:38
[2017-12-26] MEDS ORDERED: ePHEDrine/NS 25 MG/5 ML SYRINGE IV ONE (12:00)
[2017-12-26] MEDS ORDERED: PHENYLEPHRINE HCL 10 MG/ML VIAL IV ONE (12:00)
[2017-12-26] MEDS ORDERED: ARTIFICIAL TEARS OPTH OINT 3.5 APPLIC/3.5 GM TUBO EACH EYE ONE (12:00)
[2017-12-26] MEDS ORDERED: SODIUM CHLORID 0.9% 500 ML INJ 500 ML IV ONE (12:00)
[2017-12-26] MEDS ORDERED: TRANEXAMIC ACID INJ 1,000 MG/10 ML AMP IV ONE (12:00)
[2017-12-26] MEDS ORDERED: PHENYLEPH/NS 1000 MCG/10 ML SYR IV ONE (12:00)
[2017-12-26] MEDS ORDERED: HEPARIN SODIUM - SQ 10,000 UNITS/ML VIAL SQ ONE (12:00)
[2017-12-26] MEDS ORDERED: VECURONIUM BROMIDE 10 MG VIAL IV ONE (12:00)
[2017-12-26] MEDS ORDERED: NORMOSOL R INJ 2,000 ML IV ONE (12:00)
[2017-12-26] MEDS ORDERED: SODIUM CHLORIDE 0.9% INJ 200 ML IV ONE (12:00)
[2017-12-26] MEDS ORDERED: PROTAMINE SULFATE 50 MG/5 ML VIAL IV ONE (12:00)
[2017-12-26] MEDS ORDERED: ATROPINE SULFATE 0.4 MG/ML VIAL IV PUSH ONE (12:00)
[2017-12-26] MEDS ORDERED: LACTATED RINGER'S 1000 ML INJ 2,000 ML IV ONE (12:00)
[2017-12-26] MEDS ORDERED: SODIUM CHLOR 0.9% 250 ML INJ 500 ML IV ONE (12:00)
[2017-12-26] MEDS ORDERED: CALCIUM CHLORIDE 10% SOLN 1 GRAM/10 ML SYR IV ONE (12:00)
[2017-12-26] MEDS ORDERED: NITROGLYCERIN 50 MG/DEXTROSE 5% SOLN 250 ML BTL IV ONE (12:00)
[2017-12-26] MEDS ORDERED: MAGNESIUM SULFATE 1 GM/2 ML VIAL IV ONE (12:00)
[2017-12-26] MEDS ORDERED: DEXMEDETOMIDINE HCL 200 MCG/2 ML VIAL IV ONE (12:00)
[2017-12-26] MEDS ORDERED: DEXMEDETOMIDINE INJ 200 MCG in SODIUM CHLORIDE 0.9% INJ 50 ML IV PRN (12:30)
[2017-12-26] MEDS ORDERED: DOBUTamine PREMIX DRIP 250 ML IV PRN (12:30)
[2017-12-26] MEDS ORDERED: INSULIN REGULAR (IV INFUSION) 100 UNITS in SODIUM CHLORIDE 0.9% INJ 99 ML IV PRN (12:30)
[2017-12-26] MEDS ORDERED: PHENYLEPHRINE INJ 40 MG in DEXTROSE 5% IN WATE 500 ML INJ 496 ML IV PRN ×2 (12:30)
[2017-12-26] MEDS ORDERED: NITROGLYCERIN-D5W 50 MG/250 ML 250 ML IV PRN (12:30)
[2017-12-26] MEDS ORDERED: DOPamine 800 MG/500 ML INJ 500 ML IV PRN (12:30)
[2017-12-26] MEDS ORDERED: MIDAZOLAM HCL 2 MG/2 ML VIAL ONE (12:38)
[2017-12-26] MEDS ORDERED: fentaNYL CITRATE 250 MCG/5 ML AMP ONE ×2 (12:39→13:34)
[2017-12-26] MEDS ORDERED: RASS Change Order XX ONE (12:45)
[2017-12-26] MEDS ORDERED: ALBUMIN 5% INJ 250 ML IV ONE (12:47)
[2017-12-26] MEDS: ALBUMIN 5% INJ 250 ML IV PRN ×2 (13:13→13:31)
[2017-12-26] MEDS: ACETAMINOPHEN 1000 MG/100 ML 100 ML IV SCH ×3 (13:14→23:18)
--- NOTE | 2017-12-26 13:23 | RADRPT ---
EXAM DATE: 12/26/2017 1:10 PM EDT AGE/SEX: 77 years / Male INDICATIONS: S/P CABG. CLINICAL DATA: This is the patient's initial encounter. Patient reports that signs and symptoms have been present for 1 day and indicates a pain score of Nonresponsive. MEDICAL/SURGICAL HISTORY: Cardiovascular disease. Diabetes mellitus type II. Hypertension. Ap pendectomy. COMPARISON: [facility] – [place] CHEST SINGLE AP, 12/18/2017. . FINDINGS: Postsurgical changes are identified following CABG. There is superior mediastinal widening, left lowe r lobe airspace disease and small left pleural effusion. Support devices including endotracheal tube, nasogastric tube, mediastinal drain and a right jugular central venous catheter. Supportive devices appear to be in satisfactory position. There is no evidence of pneumothorax. CONCLUSION: Status post CABG with findings described above. Electronically signed by: Efrem Salazar MD 12/26/2017 1:22 PM EDT
[2017-12-26] MEDS: CLEVIDIPINE INJ 50 ML IV PRN ×2 (16:23→21:41)
[2017-12-26] MEDS: ceFAZolin 2 GM PREMIX 50 ML IV SCH (16:23)
[2017-12-26] MEDS: RESP: ALBUTEROL 2.5 MG/IPRATROPIUM 0.5 MG NEB (SCH) NEB ×2 (17:05→21:56)
--- NOTE | 2017-12-26 17:21 | HHI.PR ---
Subjective Remarks The pt was seen following surgery. He was tolerating nasal cannula well. He endorsed some nausea. He hoped his left knee wouldn't get in the way of rehab efforts. Family and nursing at the bedside. Objective Vitals Vital Signs Date Time Temp Pulse Resp B/P (MAP) Pulse Ox O2 Delivery O2 Flow Rate FiO2 12/26/17 17:09 77 149/54 12/26/17 17:06 97 Nasal Cannula 3.00 12/26/17 16:40 97 Nasal Cannula 6.00 12/26/17 16:40 97 Nasal Cannula 3 12/26/17 16:23 72 165/70 12/26/17 16:00 40 12/26/17 15:00 96.3 62 10 98/55 (69) 99 110/48 (68) 12/26/17 15:00 62 12/26/17 15:00 99 Mechanical Ventilator 40 12/26/17 13:00 67 12/26/17 12:26 98 50 12/26/17 12:26 96 Mechanical Ventilator 100 12/26/17 12:26 76 12/26/17 12:26 96.6 76 11 99/55 (70) 96 115/51 (72) 12/26/17 12:26 100 12/26/17 12:22 96.5 12/26/17 07:00 59 12/26/17 06:00 97.9 65 18 135/60 (85) 96 12/26/17 06:00 80 12/26/17 05:00 77 12/26/17 04:00 67 12/26/17 03:03 71 12/26/17 02:07 63 12/26/17 01:00 81 12/26/17 00:00 71 12/25/17 23:00 98.0 69 18 167/74 (105) 97 12/25/17 23:00 69 12/25/17 22:00 71 12/25/17 21:00 71 12/25/17 20:54 97.5 59 18 154/71 (98) 97 12/25/17 20:15 59 12/25/17 18:00 68 I/O 12/25/17 12/25/17 12/25/17 12/26/17 12/26/17 12/26/17 07:00 15:00 23:00 07:00 15:00 23:00 Intake Total 240 ml 1200 ml 420 ml 5400 ml Output Total 825 ml 900 ml 1350 ml 2000 ml Balance -585 ml 300 ml -930 ml 3400 ml Intake Oral 240 ml 1200 ml 420 ml IV Total 600 ml Autotransfusion 1000 ml Other 3800 ml Output Urine Total 825 ml 900 ml 1350 ml 500 ml Estimated Blood Loss 1500 ml # Voids 2 2 # Bowel Movements 1 Result Diagram: 12/25/1761512/25/17615 Objective Remarks GENERAL: NAD. SKIN: Sternal wound dressed. HEAD: Normocephalic. NECK: Supple, trachea midline. No lymphadenopathy. EYES: No scleral icterus. No injection or drainage. CARDIOVASCULAR: Regular rate and rhythm, harsh systolic murmur appreciated. RESPIRATORY: CTAB. GASTROINTESTINAL: Abdomen soft, non-tender, nondistended. MUSCULOSKELETAL: 1-2+ lower extremity edema. Left knee not warm to the touch, not swollen. Tender to palpation on lateral aspect. Limited ROM. SKIN: Warm and dry. NEURO: No focal neurological deficits. PSYCH: Mood and affect appropriate. Procedures EGD/ colonoscopy Aortic valve replacement 12/26 A/P Assessment and Plan Acute on chronic diastolic CHF The pt presented with what sounds like pulmonary edema. He has lower extremity edema, orthopnea and CXR shows pulmonary congestion. He is supposed to get an aortic valve replacement in the near future. Cardiology and cardiothoracic surgery consult appreciated. Still with lower extremity edema. S/p aortic valve replacement 12/26. - switched to PO Lasix 40 mg BID. - follow Is and Os. - continue cardiac regimen. - telemetry. - wound care, weightbearing and anticoagulation per surgery. Left knee pain Significant left knee pain, ROM. Uric acid level elevated. CT of the knee: No acute bony injury is seen; Mild joint effusion; Narrowing of the medial joint space. Currently improved with prednisone. Ortho consult appreciated. ? gout vs. OA. - continue prednisone. - rehab efforts. - pain control with a bowel regime. Acute anemia Secondary to acute GI bleeding. MCV was low. S/p three units. GI consult appreciated. EGD with: esophagitis; Medium sized hiatal hernia; There was acute gastritis in the gastric antrum; Duodenal inflammation was found in the duodenal bulb. Colonoscopy: Diverticulum in the sigmoid colon and descending colon; Two medium sized sessile polyps were found in the ascending colon; A small sessile polyp was found in the sigmoid colon; Large internal hemorrhoids. - follow CBC and transfuse as needed. - GI following. - continue PPI. Acute on chronic renal disease Creatinine was elevated compared to baseline. Improving. - monitor while diuresing. DM Glucose fluctuates. - hold home meds. - insulin gtt per surgery. Hypertension Blood pressure well controlled. - Resumed lisinopril at lower dose of 20 mg daily. - clonidine as needed. PPx: Per surgery Discharge Planning Await CT surgery clearance Javier Hernandez DO Dec 26, 2017 17:21
[2017-12-26] MEDS: SODIUM CHLORIDE 0.9% FLUSH 10 ML FLUSH IV FLUSH SCH (21:00)
[2017-12-26] MEDS: AMIODARONE 200 MG TAB PO SCH (21:56)
[2017-12-27] VITALS (14 sets, daily range): BP systolic 115–154; BP diastolic 57–74; PULSE 68–99; RESP 16–20; TEMP 97.2–98.6; O2SAT 92–99
[2017-12-27] MEDS: CLEVIDIPINE INJ 50 ML IV PRN ×2 (00:31→04:50)
[2017-12-27] MEDS: MORPHINE SULFATE 4 MG/ML INJ IV PUSH PRN ×2 (03:25→05:52)
[2017-12-27] MEDS: RESP: ALBUTEROL 2.5 MG/IPRATROPIUM 0.5 MG NEB (SCH) NEB ×4 (03:34→20:35)
[2017-12-27] MEDS: ACETAMINOPHEN 1000 MG/100 ML 100 ML IV SCH (04:05)
--- NOTE | 2017-12-27 04:22 | RADRPT ---
EXAM DATE: 12/27/2017 4:18 AM EDT AGE/SEX: 77 years / Male INDICATIONS: Short of breath. CLINICAL DATA: This is the patient's subsequent encounter. Patient reports that signs and symptoms h ave been present for 2 days and indicates a pain score of 0/10. MEDICAL/SURGICAL HISTORY: Cardiovascular disease. Diabetes mellitus type II. Hypertension. Ap pendectomy. COMPARISON: [facility] – [place], CHEST SINGLE AP, 12/26/2017. . FINDINGS: 2 AP views of the chest. Median sternotomy wires. Endotracheal tube and nasogastric tube no longer se en. Right IJ central venous catheter remains in place. Increased opacity at the left lung base. No ev idence of pneumothorax. Small left pleural effusion unchanged. CONCLUSION: Interval removal of endotracheal tube and nasogastric tube. Increased patchy atelectasis versus conso lidation in the left lower lung. Electronically signed by: Erwin Castañeda MD 12/27/2017 4:20 AM EDT
[2017-12-27] MEDS: PANTOPRAZOLE SOD 40 MG DELAYED RELEASE TAB PO SCH (04:50)
[2017-12-27] MEDS: LEVOTHYROXINE SODIUM 25 MCG TAB PO SCH (04:50)
[2017-12-27] MEDS: LEVOTHYROXINE SODIUM 112 MCG TAB PO SCH (04:50)
[2017-12-27 05:03] LABS: BICARBONATE 22.8 MEQ/L (21.0-32.0); CALCIUM 8.4 MG/DL (8.5-10.1); CREATININE 1.78 MG/DL (0.60-1.30); MAGNESIUM 2.8 MG/DL (1.5-2.5)
[2017-12-27 05:04] LABS: HEMATOCRIT 29.1 % (39.0-51.0); HEMOGLOBIN 9.4 GM/DL (13.0-17.0); MEAN CELL VOLUME 76.7 FL (80.0-100.0); MEAN CORPUSCULAR HEMOGLOBIN 24.6 PG (27.0-34.0); MEAN CORPUSCULAR HGB CONC 32.1 % (32.0-36.0); MEAN PLATELET VOLUME 9.1 FL (7.0-11.0); PLATELET COUNT 193 TH/MM3 (150-450); RED CELL DISTRIBUTION WIDTH 21.6 % (11.6-17.2); WHITE BLOOD COUNT 15.8 TH/MM3 (4.0-11.0)
--- NOTE | 2017-12-27 08:24 | EKG ---
Date Performed: 12/27/2017 Time Performed: 06:08:36 PTAGE: 77 years EKG: Sinus rhythm PACs Extensive ST-T changes may be due to myocardial ischemia Abnormal ECG PREVIOUS TRACING : 12/18/2017 23.27 DOCTOR: Yakov Messina Interpretating Date/Time 12/27/2017 08:23:41
--- NOTE | 2017-12-27 08:39 | HHI.PR ---
Subjective Remarks F/U AVR. Complaining of surgical pain out of bed to chair currently on 2 L. Ng catheter has been discontinued. Objective Vitals Vital Signs Date Time Temp Pulse Resp B/P (MAP) Pulse Ox O2 Delivery O2 Flow Rate FiO2 12/27/17 05:40 96 Nasal Cannula 6.00 12/27/17 04:50 90 150/58 12/27/17 04:00 98.6 99 16 127/59 (81) 96 154/63 (93) 12/27/17 03:00 86 12/27/17 00:31 87 118/64 12/27/17 00:02 93 Simple Mask 10.00 12/27/17 00:00 98.5 87 16 118/64 (82) 99 138/58 (84) 12/26/17 23:00 94 12/26/17 22:20 97 Nasal Cannula 6.00 12/26/17 21:41 88 167/67 12/26/17 20:51 97.9 12/26/17 20:00 94 Nasal Cannula 6.00 12/26/17 20:00 97.4 86 16 132/68 (89) 94 137/50 (79) 12/26/17 19:00 86 12/26/17 18:21 82 146/48 12/26/17 17:09 77 149/54 12/26/17 17:06 97 Nasal Cannula 3.00 12/26/17 16:40 97 Nasal Cannula 6.00 12/26/17 16:40 97 Nasal Cannula 3 12/26/17 16:23 72 165/70 12/26/17 16:00 40 12/26/17 15:00 96.3 62 10 98/55 (69) 99 110/48 (68) 12/26/17 15:00 62 12/26/17 15:00 99 Mechanical Ventilator 40 12/26/17 13:00 67 12/26/17 12:26 98 50 12/26/17 12:26 96 Mechanical Ventilator 100 12/26/17 12:26 76 12/26/17 12:26 96.6 76 11 99/55 (70) 96 115/51 (72) 12/26/17 12:26 100 12/26/17 12:22 96.5 I/O 12/26/17 12/26/17 12/26/17 12/27/17 12/27/17 6/13/18 07:00 15:00 23:00 07:00 15:00 23:00 Intake Total 420 ml 5448 ml 745 ml 660 ml Output Total 1350 ml 2000 ml 620 ml 1405 ml Balance -930 ml 3448 ml 125 ml -745 ml Intake Oral 420 ml 360 ml IV Total 648 ml 745 ml 300 ml Autotransfusion 1000 ml Other 3800 ml Output Urine Total 1350 ml 500 ml 530 ml 1250 ml Gastric Drainage Total 0 ml Chest Tube Drainage Total 90 ml 155 ml Estimated Blood Loss 1500 ml # Voids 2 # Bowel Movements 0 0 Result Diagram: 12/27/17 0430 12/27/17 0430 Imaging Last Impressions Chest X-Ray 12/27/17 0500 Signed Impressions: CONCLUSION: Interval removal of endotracheal tube and nasogastric tube. Increased patchy at electasis versus consolidation in the left lower lung. Lower Extremity CT 12/22/17 0000 Signed Impressions: CONCLUSION: 1. No acute bony injury is seen. 2. Mild joint effusion. 3. Narrowing of the medial joint space. Knee X-Ray 12/21/17 0000 Signed Impressions: CONCLUSION: Chronic changes and no definite fracture for technique. Objective Remarks GENERAL: NAD. SKIN: Sternal wound dressed. CARDIOVASCULAR: Regular rate and rhythm RESPIRATORY: CTAB. CT in place GASTROINTESTINAL: Abdomen soft, non-tender, nondistended. MUSCULOSKELETAL: 1-2+ lower extremity edema. Left knee not warm to the touch, not swollen. Tender to palpation on lateral aspect. Limited ROM. Procedures EGD/ colonoscopy Aortic valve replacement 12/26 A/P Problem List: (1) Aortic stenosis ICD Code: I35.0 - Nonrheumatic aortic (valve) stenosis Assessment and Plan Acute on chronic diastolic CHF. Improved status post diuresis. AVR. Stable Continue postoperative care per CVT. Pain management counseled regarding narcotics Left knee pain Significant left knee pain, ROM. Uric acid level elevated. CT of the knee: No acute bony injury is seen; Mild joint effusion; Narrowing of the medial joint space. Currently improved with prednisone. Ortho consult appreciated. Dx: Osteoarthritis, left knee and Iliotibial band insertional tendonitis. Also gout uric acid 8 - continue prednisone. - rehab efforts. - pain control with a bowel regimen. Acute anemia Secondary to acute GI bleeding. MCV was low. S/p three units. GI consult appreciated. EGD with: esophagitis; Medium sized hiatal hernia; There was acute gastritis in the gastric antrum; Duodenal inflammation was found in the duodenal bulb. Colonoscopy: Diverticulum in the sigmoid colon and descending colon; Two medium sized sessile polyps were found in the ascending colon; A small sessile polyp was found in the sigmoid colon; Large internal hemorrhoids. - follow CBC and transfuse as needed. - GI following. - continue PPI. Acute on chronic renal disease stage 3 Creatinine was elevated compared to baseline. Improving. - monitor while diuresing. DM. Aic 6.5 Glucose fluctuates. -Monitor fingersticks and sliding scale coverage. Restart Levemir Hypertension Blood pressure well controlled. - ct lopressor and prn Laisx - clonidine as needed. PPx: Per surgery PT Jim Jacobson MD Dec 27, 2017 08:39
[2017-12-27] MEDS ORDERED: BISACODYL 10 MG SUPP RECTAL PRN (08:45)
[2017-12-27] MEDS ORDERED: DEXTROSE 50% IN WATER 50 ML VIAL(D50) IV PUSH PRN (08:45)
[2017-12-27] MEDS ORDERED: INSULIN DETEMIR 100 UNITS/ML VIAL SQ ONE (08:45)
[2017-12-27] MEDS ORDERED: SOD PHOSPHATE/SOD BIPHOSPHATE (ADULT) ENEMA 133ML RECTAL PRN (08:45)
[2017-12-27] MEDS ORDERED: GLUCAGON 1 MG/ML VIAL OTHER PRN (08:45)
--- NOTE | 2017-12-27 08:58 | PD.CAR.PN ---
CVT Progress Note Subjective/Hospital Course: 77 m/ a patient of Dr. Clayton, history of known aortic stenosis, was in the process of undergoing scheduling for his aortic valve replacement, but at the time he was seen he had some very poor loose teeth and required dental workup where he finally got his teeth fixed and had removal of his teeth on the top. He has got an upper dental implant. His aortic valve area is 0.81 with a mean gradient of 52. He was attempting to try to get his aortic valve replacement rescheduled and presented to the emergency department with shortness of breath. On arrival, they found that he was severely anemic with a hemoglobin of 6.3 and hematocrit of 20. He has since been given 2 units of packed RBCs. His hemoglobin is 7.7 and 24. He had history in the past of a GI bleed where he had an EGD with biopsy, colonoscopy, ablation of arteriovenous malformation on 12/01/2016. At that time, his hemoglobin was 7.6. He recieved and additional currently pack of RBC for total of 3, He denies having any blood in the stool, no black tarry stools. PAST MEDICAL HISTORY: Includes diabetes mellitus, hypertension, hyperlipidemia, nonobstructive coronary artery disease by catheterization 10/03/2017, EF of 55% , severe aortic stenosis as above, stage III chronic kidney disease, COPD, hypothyroidism, neuropathy, gout, anemia, history of GI bleed, AVMs. 12/20 no stool yet to check for Hemoccult HGB stable 9.1 GI consult pending await their input regarding timing for surgery pt will need Heparin 2/2 Heart Lung bypass machine for his valve surgery 12/21 plan for EGD/ colonoscopy in am monitor closely during procedure will eval for surgery next week 12/22 will discuss timing of surgery with Dr Rios tentatively scheduled for surgery on Monday recheck uric acid level monday 12/25 stable for surgery in am / wean po steroids uric acid 8.2 for sternotomy approach and tissue valve 12/26 surgery Aortic Valve Replacement with a 23 mm Medtronic Mosaic Cinch Tissue Valve. crystalloid 3800cc, 1000cc cell saver, 1500cc EBL extubated after surgery 12/27 on 6 liter nasal cannula CXR noted, will diuresis start po meds / help wean off cleviprex transfer to stepdown Objective: GENERAL: A& O x 3 SKIN: Warm and dry. prevena dressing to chest HEAD: Normocephalic. EYES: No scleral icterus. No injection or drainage. NECK: Supple, trachea midline. No JVD or lymphadenopathy. CARDIOVASCULAR: Regular rate and rhythm without murmurs, gallops, or rubs. RESPIRATORY: Breath sounds equal bilaterally. No accessory muscle use. few coarse breath sounds , chest tube to wall suction/ no air leak / drained 155cc/ 12 hrs GASTROINTESTINAL: Abdomen soft, non-tender, nondistended. MUSCULOSKELETAL: No cyanosis, or edema. BACK: Nontender without obvious deformity. No CVA tenderness. Vital Signs Date Time Temp Pulse Resp B/P (MAP) Pulse Ox O2 Delivery O2 Flow Rate FiO2 12/27/17 08:46 94 Nasal Cannula 4.00 12/27/17 07:30 92 12/27/17 07:30 98.3 92 18 151/71 (97) 95 136/73 (94) 12/27/17 07:30 96 Nasal Cannula 5.00 12/27/17 05:40 96 Nasal Cannula 6.00 12/27/17 04:50 90 150/58 12/27/17 04:00 98.6 99 16 127/59 (81) 96 154/63 (93) 12/27/17 03:00 86 12/27/17 00:31 87 118/64 12/27/17 00:02 93 Simple Mask 10.00 12/27/17 00:00 98.5 87 16 118/64 (82) 99 138/58 (84) 12/26/17 23:00 94 12/26/17 22:20 97 Nasal Cannula 6.00 12/26/17 21:41 88 167/67 12/26/17 20:51 97.9 12/26/17 20:00 94 Nasal Cannula 6.00 12/26/17 20:00 97.4 86 16 132/68 (89) 94 137/50 (79) 12/26/17 19:00 86 12/26/17 18:21 82 146/48 12/26/17 17:09 77 149/54 12/26/17 17:06 97 Nasal Cannula 3.00 12/26/17 16:40 97 Nasal Cannula 6.00 12/26/17 16:40 97 Nasal Cannula 3 12/26/17 16:23 72 165/70 12/26/17 16:00 40 12/26/17 15:00 96.3 62 10 98/55 (69) 99 110/48 (68) 12/26/17 15:00 62 12/26/17 15:00 99 Mechanical Ventilator 40 12/26/17 13:00 67 12/26/17 12:26 98 50 12/26/17 12:26 96 Mechanical Ventilator 100 12/26/17 12:26 76 12/26/17 12:26 96.6 76 11 99/55 (70) 96 115/51 (72) 12/26/17 12:26 100 12/26/17 12:22 96.5 Labs: Laboratory Tests Test 12/27/17 04:30 White Blood Count 15.8 TH/MM3 (4.0-11.0) Red Blood Count 3.80 MIL/MM3 (4.50-5.90) Hemoglobin 9.4 GM/DL (13.0-17.0) Hematocrit 29.1 % (39.0-51.0) Mean Corpuscular Volume 76.7 FL (80.0-100.0) Mean Corpuscular Hemoglobin 24.6 PG (27.0-34.0) Mean Corpuscular Hemoglobin Concent 32.1 % (32.0-36.0) Red Cell Distribution Width 21.6 % (11.6-17.2) Platelet Count 193 TH/MM3 (150-450) Mean Platelet Volume 9.1 FL (7.0-11.0) Blood Urea Nitrogen 35 MG/DL (7-18) Creatinine 1.78 MG/DL (0.60-1.30) Random Glucose 152 MG/DL (74-106) Calcium Level 8.4 MG/DL (8.5-10.1) Magnesium Level 2.8 MG/DL (1.5-2.5) Sodium Level 143 MEQ/L (136-145) Potassium Level 4.3 MEQ/L (3.5-5.1) Chloride Level 109 MEQ/L (98-107) Carbon Dioxide Level 22.8 MEQ/L (21.0-32.0) Anion Gap 11 MEQ/L (5-15) Estimat Glomerular Filtration Rate 37 ML/MIN (>89) Result Diagram: 12/27/1742912/27/17429 (1) Anemia Plan: EGD with biopsy LA Class C esophagitis noted; multiple biopsies were performed 2. Medium sized hiatal hernia 3. There was acute gastritis in the gastric antrum; multiple biopsies were performed 4. Duodenal inflammation was found in the duodenal bulb 5. Retroflexion was performed and was normal/ await BX , Continue PPI colonoscopy : 1. Diverticulum in the sigmoid colon and descending colon 2. Two medium sized sessile polyps were found in the ascending colon; polypectomy was performed with cold forceps 3. A small sessile polyp was found in the sigmoid colon; polypectomy was performed with cold forceps 4. Large internal hemorrhoids continue PPI (2) Aortic stenosis (3) Acute kidney injury Plan: indices improving / stable (4) HTN (hypertension) Plan: resume BB . mychal (5) S/P AVR (aortic valve replacement) Plan: OOB, ambulate leave chest tube in ASA, BB pulm toileting CM to eval [facility] transfer to stepdown Elin Joyce Dec 27, 2017 08:58
[2017-12-27] MEDS: NYSTATIN 100,000 U/GM PWD 15 GM BTL TOPICAL SCH ×2 (09:00→21:00)
[2017-12-27] MEDS ORDERED: FUROSEMIDE 40 MG/4 ML VIAL IV PUSH ONE (10:00)
[2017-12-27] MEDS: ceFAZolin 2 GM PREMIX 50 ML IV SCH ×4 (10:01→23:39)
[2017-12-27] MEDS: ASPIRIN 81 MG CHEW TAB PO SCH (10:01)
[2017-12-27] MEDS: DOCUSATE SODIUM 50 MG/SENNA 8.6 MG TAB PO SCH ×2 (10:01→21:25)
[2017-12-27] MEDS: GABAPENTIN 300 MG CAP PO SCH (10:02)
[2017-12-27] MEDS: MULTIVITAMINS/MINERALS THERAPEUTIC TAB PO SCH (10:02)
[2017-12-27] MEDS: oxyCODONE/ACETAMINOPHEN 5 MG/325 MG TAB PO PRN ×2 (10:02→16:56)
[2017-12-27] MEDS: AMIODARONE 200 MG TAB PO SCH ×2 (10:02→21:24)
[2017-12-27] MEDS: LACTOBACILLUS ACIDOPHILUS TAB PO SCH ×3 (10:02→17:49)
[2017-12-27] MEDS: METOPROLOL TARTRATE 25 MG TAB PO SCH ×2 (10:02→21:25)
[2017-12-27] MEDS: ALLOPURINOL 100 MG TAB PO SCH (10:02)
[2017-12-27] MEDS: amLODIPine BESYLATE 5 MG TAB PO SCH (10:02)
[2017-12-27] MEDS: INSULIN DETEMIR 100 UNITS/ML VIAL SQ SCH (10:03)
[2017-12-27] MEDS: INSULIN ASPART SUPPLEMENTAL SCALE SQ SCH ×4 (10:05→21:37)
[2017-12-27] MEDS: SODIUM CHLORIDE 0.9% FLUSH 10 ML FLUSH IV FLUSH SCH ×2 (11:37→21:25)
[2017-12-27] MEDS: predniSONE 10 MG TAB PO SCH (11:42)
--- NOTE | 2017-12-27 13:41 | HHI.FF ---
Face to Face Verification Diagnosis: (1) HTN (hypertension) (2) CHF exacerbation (3) Acute kidney injury (4) Aortic stenosis (5) Anemia (6) Diabetes 1.5, managed as type 2 Home Health Nursing Order: Signs/symptoms of disease process Diabetic education Medication education-adverse effect Wound care and dressing changes Nursing assessment with vital signs Instructions: Heart and Vascular Surgery patients *Special attention to sternal dressing Mandatory frequency Assess and evaluation, 4 days in a row The next week 3X week 2 times a week for 4 weeks 1 time a week for 5 weeks Schedule Heart and Vascular patients for full 60 day certification period Initial visit Review Open Heart Surgery Discharge Instructions (Sternal precautions, Activity, Elastic hose, Incision care, Driving, Incentive spirometry, Smoking, [place], Work and other) Need Betadine to paint incision Medication reconciliation Importance of follow up care/ check on appointments Make calendar record temperature daily When to call [facility] nurse, review instructions, phone list Incentive Spirometry, demonstration Visit 1- Begin discharge instruction for patient family and/ or caregiver using teach back method- Signs and symptoms of infection Disease characteristics Medicines and side effects Foods and nutrition/ appetite Infection control/ hand washing/ hygiene Visit 2- Continue teaching Discharge instructions- include additional information on smoking cessation , sternal dressing (sternal vac) Visit 3- Continue teaching- Cough and deep breathing, incision monitoring. Choose my plate Visit 4- Continue teaching- Discuss limitations Discuss how they are feeling Discuss progress toward goals Remaining visits- continue teaching and monitoring For any questions please call : Monday 8am-5pm Heart & Vascular Surgery Office ( Dr. Rios & Dr. Vigil), After Hours / Nights (5pm -8am) Weekends and Holidays Please call [facility] ([facility]) Charge Nurse PREVENA Single Use Negative Wound Therapy System Caregiver Instruction Sheet 1. A Prevena dressing system was applied to the chest incision during surgery , to promote wound healing. It works via a suction device (negative pressure wound therapy) to remove low to moderate levels of exudate (drainage) and infectious materials. We recommend that the device stay in place for up to seven days, from day of surgery. 2. Day of Surgery____/07/03 Day of Removal ____/ 3. The dressing should only be removed by a health primary care nurse. Please arrange removal of device to coincide with Home Health visit and or with Nursing staff at Rehab 4. If skin reddening or irritation of skin occurs, or excessive drainage, please notify the Cardiovascular Surgeons office at [phone]. 5. Light showering is permissible; however the pump should be disconnected and placed in safe location, where it will not get wet. The dressing should not be exposed to direct spray or submerged in water. No bath tub / shower only. Ensure the end of the tubing attached to the dressing is facing down so that water does not enter the top of the tube. 6. To remove Prevena dressing: press purple button to turn off device / remove the suction. Then disconnect the tubing from the pump. The fixation strips should be stretched away from the skin and the dressing lifted at one corner and peeled back until it has been fully removed. 7. After removal, it is ok to shower daily using liquid dial soap and clean wash cloth, rinse and pat dry, and leave incision open to air dry. For any concerns regarding Prevena dressing, and or wounds, please contact Karlene Kan, patient navigator at [phone] or notify the Cardiovascular Surgeons office at [phone]. Incentive spirometry Q1 hr x 10, while awake, also use acapella device hourly whole awake Sternal Breast Bone Precautions: NO pushing or pulling, ( pt must use sternal pillow to support chest with all activities and with coughing ( takes up to 3 months breast bone to heal ) Daily incision care: ok to shower daily, no tub bath. Wash all incisions with liquid dial soap, clean wash cloth to each site, rinse and pat dry. Observe for any signs of infection, such as drainage which is dark yellow, oliva, green or foul smelling. Immediately report to the surgeon any drainage from the chest incision, or legs, and for any abnormal drainage from the chest tube sites. Notify surgeon if any temp >101.5 degrees F. When specialty dressing removed/ or if you do not have one, continue to shower daily as above, then rinse and pat incision dry and paint with betadine daily x 5 days. Allow steri strips to fall off if you have any. Avoid lotions, creams, salves, oils, etc. for the first month Please see attached forms for additional instructions regarding post Open Heart specialty wound vacuum dressings. FRANCK or Prevena , Dressing to be removed by Nursing staff on __01/02/[address] Vigil patients , please obtain CBC, BMP, PA & Lat CXR in 2 weeks, results to Dr. Vigil ( prescription will be given) ( ) (Tele: [phone]) , Valve replacement pts will need 2decho in 2 weeks with results to Dr. Vigil . Please obtain 2 d echo at your linseed oil press tender office if possible F/U appointment: as per DC instructions: PCP in 2 weeks, CV surgeon 2 weeks, Record Filing Clerk 3-4 weeks For any questions regarding incisions/ dressing / meds / post op care or above Symptoms, Monday 8am-5pm Heart & Vascular Surgery Office ( Dr. Rios & Dr. Vigil), After Hours / Nights (5pm -8am) Weekends and Holidays Please call [facility] ([facility]) Charge Nurse I have seen patient Anuj Ingram on 12/27/17. My clinical findings support the need for the requested home health care services because: Deconditioned w/ increased weakness I certify that my clinical findings support that this patient is homebound because: Post-op weakness Elin Joyce Dec 27, 2017 13:41
--- NOTE | 2017-12-27 16:31 | PD.CARD.PN ---
Subjective Subjective Remarks Post-AVR yesterday Doing well Appropriate chest pain along sternotomy Objective Medications Current Medications Medications (Trade) Dose Ordered Sig/Roxanne Route Start Time Stop Time Status Last Admin (Reglan Inj) 5 mg Q6H PRN IV PUSH 12/19/17 04:45 (Milk Of Magnesia Liq) 30 ml Q12H PRN PO 12/19/17 04:45 (Dulcolax Supp) 10 mg DAILY PRN RECTAL 12/19/17 04:45 (Lactulose Liq) 30 ml DAILY PRN PO 12/19/17 04:45 (Zyloprim) 100 mg DAILY PO 12/19/17 09:00 12/27/17 10:02 (Norvasc) 5 mg DAILY PO 12/19/17 09:00 12/27/17 10:02 (Neurontin) 600 mg DAILY PO 12/19/17 09:00 12/27/17 10:02 (Lactinex) 1 tab TIDAC PO 12/19/17 08:00 12/27/17 11:42 (Synthroid) 112 mcg DAILY@0600 PO 12/19/17 06:30 12/27/17 04:50 (Synthroid) 25 mcg DAILY@0600 PO 12/19/17 06:30 12/27/17 04:50 (Mycostatin Powder) 1 applic Q12HR TOPICAL 12/20/17 21:00 12/25/17 21:00 (Percocet 5-325 Mg) 1 tab Q4H PRN PO 12/22/17 17:00 12/27/17 10:02 (Catapres) 0.1 mg Q6H PRN PO 12/24/17 09:30 ([place]-Colace) 1 tab BID PO 12/24/17 09:30 12/27/17 10:01 (NS Flush) 2 ml BID IV FLUSH 12/26/17 21:00 12/27/17 11:37 (NS Flush) 2 ml UNSCH PRN IV FLUSH 12/26/17 11:30 Clevidipine 50 ml @ 2 mls/hr TITRATE PRN IV 12/26/17 12:30 12/27/17 04:50 (Aspirin Chew) 81 mg DAILY PO 12/27/17 09:00 12/27/17 10:01 (Protonix) 40 mg DAILY@06 PO 12/27/17 06:00 12/27/17 04:50 (Cordarone) 200 mg Q12HR PO 12/26/17 21:00 12/27/17 10:02 (Tylenol) 650 mg Q4H PRN PO 12/26/17 11:30 (Zofran Odt) 4 mg Q6H PRN PO 12/26/17 11:30 12/26/17 17:03 (Apresoline Inj) 10 mg Q4H PRN IV PUSH 12/26/17 11:30 12/26/17 22:22 Cefazolin Sodium/ Dextrose 50 ml @ 100 mls/hr Q8H IV 12/26/17 16:00 12/28/17 00:29 12/27/17 16:06 (Duoneb Neb) 1 ampule Q2HR NEB PRN NEB 12/26/17 11:30 (Deltasone) 10 mg DAILY PO 12/27/17 10:00 12/27/17 11:42 (Duoneb Neb) 1 ampule Q6HR WHILE AWAKE NEB NEB 12/27/17 14:00 12/29/17 13:59 12/27/17 12:44 (Theragran M Tab) 1 tab DAILY PO 12/27/17 09:00 12/27/17 10:02 (Dulcolax Supp) 10 mg UNSCH PRN RECTAL 12/27/17 08:45 (Miralax) 17 gm DAILY PO 12/28/17 09:00 (Senokot) 8.6 mg HS PO 12/27/17 21:00 (Fleets Enema (Adult)) 118 ml UNSCH PRN RECTAL 12/27/17 08:45 (Lopressor) 25 mg BID PO 12/27/17 09:00 12/27/17 10:02 (NovoLOG SUPPLEMENTAL SCALE) 1 02,06,10,14,18,22 SQ 12/27/17 10:00 12/28/17 09:59 12/27/17 11:46 (D50w (Vial) Inj) 50 ml UNSCH PRN IV PUSH 12/27/17 08:45 (Glucagon Inj) 1 mg UNSCH PRN OTHER 12/27/17 08:45 (Levemir Inj) 10 units DAILY SQ 12/28/17 09:00 12/27/17 10:03 (NovoLOG SUPPLEMENTAL SCALE) 1 ACHS SQ 12/28/17 12:00 Vital Signs / I&O Vital Signs Date Time Temp Pulse Resp B/P (MAP) Pulse Ox O2 Delivery O2 Flow Rate FiO2 12/27/17 15:00 80 12/27/17 15:00 97.2 81 18 140/70 (93) 92 12/27/17 15:00 92 Nasal Cannula 2.00 12/27/17 11:00 85 12/27/17 11:00 98.6 85 18 130/74 (92) 95 Arterial Line 12/27/17 11:00 94 Nasal Cannula 2.00 12/27/17 08:46 94 Nasal Cannula 4.00 12/27/17 07:30 92 12/27/17 07:30 98.3 92 18 151/71 (97) 95 136/73 (94) 12/27/17 07:30 96 Nasal Cannula 5.00 12/27/17 05:40 96 Nasal Cannula 6.00 12/27/17 04:50 90 150/58 12/27/17 04:00 98.6 99 16 127/59 (81) 96 154/63 (93) 12/27/17 03:00 86 12/27/17 00:31 87 118/64 12/27/17 00:02 93 Simple Mask 10.00 12/27/17 00:00 98.5 87 16 118/64 (82) 99 138/58 (84) 12/26/17 23:00 94 12/26/17 22:20 97 Nasal Cannula 6.00 12/26/17 21:41 88 167/67 12/26/17 20:51 97.9 12/26/17 20:00 94 Nasal Cannula 6.00 12/26/17 20:00 97.4 86 16 132/68 (89) 94 137/50 (79) 12/26/17 19:00 86 12/26/17 18:21 82 146/48 12/26/17 17:09 77 149/54 12/26/17 17:06 97 Nasal Cannula 3.00 12/26/17 16:40 97 Nasal Cannula 6.00 12/26/17 16:40 97 Nasal Cannula 3 I/O 12/26/17 12/26/17 12/26/17 12/27/17 12/27/17 12/27/17 07:00 15:00 23:00 07:00 15:00 23:00 Intake Total 420 ml 5448 ml 745 ml 660 ml 480 ml Output Total 1350 ml 2000 ml 620 ml 1405 ml 430 ml Balance -930 ml 3448 ml 125 ml -745 ml 50 ml Intake Oral 420 ml 360 ml 480 ml IV Total 648 ml 745 ml 300 ml Autotransfusion 1000 ml Other 3800 ml Output Urine Total 1350 ml 500 ml 530 ml 1250 ml 350 ml Gastric Drainage Total 0 ml Chest Tube Drainage Total 90 ml 155 ml 80 ml Estimated Blood Loss 1500 ml # Voids 2 # Bowel Movements 0 0 0 Physical Exam GENERAL: NAD, AAOx3 SKIN: Warm and dry. HEAD: Atraumatic. Normocephalic. EYES: Pupils equal and round. No scleral icterus. No injection or drainage. ENT: No nasal bleeding or discharge. Mucous membranes pink and moist. NECK: Trachea midline. No JVD. CARDIOVASCULAR: Regular rate and rhythm. Sternotomy RESPIRATORY: No accessory muscle use. Clear to auscultation. Breath sounds equal bilaterally. GASTROINTESTINAL: Abdomen soft, non-tender, nondistended. Hepatic and splenic margins not palpable. MUSCULOSKELETAL: 1+ pitting edema NEUROLOGICAL: Awake and alert. No obvious cranial nerve deficits. Motor grossly within normal limits. Five out of 5 muscle strength in the arms and legs. Normal speech. PSYCHIATRIC: Appropriate mood and affect; insight and judgment normal. Laboratory Laboratory Tests Test 12/27/17 04:30 White Blood Count 15.8 TH/MM3 Red Blood Count 3.80 MIL/MM3 Hemoglobin 9.4 GM/DL Hematocrit 29.1 % Mean Corpuscular Volume 76.7 FL Mean Corpuscular Hemoglobin 24.6 PG Mean Corpuscular Hemoglobin Concent 32.1 % Red Cell Distribution Width 21.6 % Platelet Count 193 TH/MM3 Mean Platelet Volume 9.1 FL Blood Urea Nitrogen 35 MG/DL Creatinine 1.78 MG/DL Random Glucose 152 MG/DL Calcium Level 8.4 MG/DL Magnesium Level 2.8 MG/DL Sodium Level 143 MEQ/L Potassium Level 4.3 MEQ/L Chloride Level 109 MEQ/L Carbon Dioxide Level 22.8 MEQ/L Anion Gap 11 MEQ/L Estimat Glomerular Filtration Rate 37 ML/MIN Imaging Last 24 hours Impressions Chest X-Ray 12/27/17 0500 Signed Impressions: CONCLUSION: Interval removal of endotracheal tube and nasogastric tube. Increased patchy at electasis versus consolidation in the left lower lung. Assessment and Plan Problem List: (1) Anemia ICD Codes: D64.9 - Anemia, unspecified (2) Aortic stenosis ICD Codes: I35.0 - Nonrheumatic aortic (valve) stenosis (3) Acute kidney injury ICD Codes: N17.9 - Acute kidney failure, unspecified Status: Acute (4) HTN (hypertension) ICD Codes: I10 - Essential (primary) hypertension Status: Chronic (5) S/P AVR (aortic valve replacement) ICD Codes: Z95.2 - Presence of prosthetic heart valve Assessment and Plan 1) SOB Due to severe with anemia Not CHF clinically, appears mostly euvolemic and lungs clear 2) Anemia No bleeds noted on EDG/Cscope 3) Severe s/p AVR POD #1 23mm Medtronic Mosaic Cinch Valve 4) Probably needs JOSE workup after surgery Always daytime somnolence 5) Short run of wide complex tachycardia pre-op [place] to be Afib, but possible PAT as he's had short bursts occasionally during hospitalization No further work up at this time Efren Nogueira DO Dec 27, 2017 16:31
[2017-12-27] MEDS: SENNOSIDES 8.6 MG TAB PO SCH (21:25)
[2017-12-28] VITALS (25 sets, daily range): BP systolic 117–143; BP diastolic 59–68; PULSE 78–94; RESP 18–20; TEMP 97.6–98.9; O2SAT 92–96
[2017-12-28] MEDS: INSULIN ASPART SUPPLEMENTAL SCALE SQ SCH ×5 (03:13→20:44)
[2017-12-28] MEDS: oxyCODONE/ACETAMINOPHEN 5 MG/325 MG TAB PO PRN ×2 (03:13→09:28)
[2017-12-28 05:00] LABS: AUTOMATED NEUTROPHIL # 12.8 TH/MM3 (1.8-7.7); BASOPHIL # 0.1 TH/MM3 (0-0.2); BASOPHIL % 0.5 % (0.0-2.0); EOSINOPHIL % 0.2 % (0.0-4.0); HEMATOCRIT 27.4 % (39.0-51.0); HEMOGLOBIN 8.6 GM/DL (13.0-17.0); LYMPH % 5.4 % (9.0-44.0); LYMPHOCYTE # 0.8 TH/MM3 (1.0-4.8); MEAN CELL VOLUME 76.2 FL (80.0-100.0); MEAN CORPUSCULAR HGB CONC 31.4 % (32.0-36.0); MEAN PLATELET VOLUME 9.8 FL (7.0-11.0); MONO % 8.7 % (0.0-8.0); MONOCYTE # 1.3 TH/MM3 (0-0.9); NEUT % 85.2 % (16.0-70.0); PLATELET COUNT 187 TH/MM3 (150-450); RED CELL DISTRIBUTION WIDTH 21.7 % (11.6-17.2)
[2017-12-28 05:26] LABS: BICARBONATE 25.3 MEQ/L (21.0-32.0); CALCIUM 8.6 MG/DL (8.5-10.1); CREATININE 2.1 MG/DL (0.60-1.30); MAGNESIUM 2.8 MG/DL (1.5-2.5)
[2017-12-28] MEDS: LEVOTHYROXINE SODIUM 25 MCG TAB PO SCH (06:09)
[2017-12-28] MEDS: PANTOPRAZOLE SOD 40 MG DELAYED RELEASE TAB PO SCH (06:10)
[2017-12-28] MEDS: LEVOTHYROXINE SODIUM 112 MCG TAB PO SCH (06:10)
[2017-12-28] MEDS: RESP: ALBUTEROL 2.5 MG/IPRATROPIUM 0.5 MG NEB (SCH) NEB ×3 (07:11→19:51)
--- NOTE | 2017-12-28 07:24 | HHI.PR ---
Subjective Remarks F/u AVR. Doing ok CT to be dc Objective Vitals Vital Signs Date Time Temp Pulse Resp B/P (MAP) Pulse Ox O2 Delivery O2 Flow Rate FiO2 12/28/17 06:03 83 12/28/17 05:19 83 12/28/17 04:45 83 12/28/17 03:48 93 Nasal Cannula 2.00 12/28/17 03:46 97.6 91 128/64 (85) 93 12/28/17 03:40 91 12/28/17 02:23 91 12/28/17 01:16 84 12/28/17 00:08 82 12/28/17 00:01 94 Nasal Cannula 2.00 12/28/17 00:00 98.2 86 128/68 (88) 94 12/27/17 23:51 81 12/27/17 22:36 81 12/27/17 21:05 99 12/27/17 20:08 97 12/27/17 19:00 97.9 87 115/57 (76) 94 12/27/17 19:00 87 12/27/17 19:00 94 Nasal Cannula 2.00 12/27/17 18:00 82 12/27/17 17:05 98.1 86 20 141/67 (91) 97 12/27/17 17:05 68 12/27/17 17:05 97 Nasal Cannula 2.00 12/27/17 15:00 80 12/27/17 15:00 97.2 81 18 140/70 (93) 92 12/27/17 15:00 92 Nasal Cannula 2.00 12/27/17 11:00 85 12/27/17 11:00 98.6 85 18 130/74 (92) 95 Arterial Line 12/27/17 11:00 94 Nasal Cannula 2.00 12/27/17 08:46 94 Nasal Cannula 4.00 12/27/17 07:30 92 12/27/17 07:30 98.3 92 18 151/71 (97) 95 136/73 (94) 12/27/17 07:30 96 Nasal Cannula 5.00 I/O 12/27/17 12/27/17 12/27/17 12/28/17 12/28/17 12/28/17 07:00 15:00 23:00 07:00 15:00 23:00 Intake Total 660 ml 480 ml 770 ml Output Total 1405 ml 430 ml 1010 ml Balance -745 ml 50 ml -240 ml Intake Oral 360 ml 480 ml 720 ml IV Total 300 ml 50 ml Output Urine Total 1250 ml 350 ml 950 ml Chest Tube Drainage Total 155 ml 80 ml 60 ml # Voids 0 # Bowel Movements 0 0 Result Diagram: 12/28/17 0358 12/28/17 0358 Imaging Last Impressions Chest X-Ray 12/27/17 0500 Signed Impressions: CONCLUSION: Interval removal of endotracheal tube and nasogastric tube. Increased patchy at electasis versus consolidation in the left lower lung. Lower Extremity CT 12/22/17 0000 Signed Impressions: CONCLUSION: 1. No acute bony injury is seen. 2. Mild joint effusion. 3. Narrowing of the medial joint space. Knee X-Ray 12/21/17 0000 Signed Impressions: CONCLUSION: Chronic changes and no definite fracture for technique. Objective Remarks GENERAL: NAD. SKIN: Sternal wound dressed. CARDIOVASCULAR: Regular rate and rhythm RESPIRATORY: CTAB. CT in place GASTROINTESTINAL: Abdomen soft, non-tender, nondistended. MUSCULOSKELETAL: 1-2+ lower extremity edema. Left knee not warm to the touch, not swollen. Tender to palpation on lateral aspect. Limited ROM. Procedures EGD/ colonoscopy Aortic valve replacement 12/26 A/P Problem List: (1) Aortic stenosis ICD Code: I35.0 - Nonrheumatic aortic (valve) stenosis Assessment and Plan Acute on chronic diastolic CHF. Improved status post diuresis. AVR. Stable Continue postoperative care per CVT. Pain management counseled regarding narcotics. Coumadin recommned by cards if ok with CVT Left knee pain Significant left knee pain, ROM. Uric acid level elevated. CT of the knee: No acute bony injury is seen; Mild joint effusion; Narrowing of the medial joint space. Currently improved with prednisone. Ortho consult appreciated. Dx: Osteoarthritis, left knee and Iliotibial band insertional tendonitis. Also gout uric acid 8 - wean prednisone. - rehab efforts. - pain control with bowel regimen. Acute anemia, stable Secondary to acute GI bleeding. MCV was low. S/p three units. GI consult appreciated. EGD with: esophagitis; Medium sized hiatal hernia; There was acute gastritis in the gastric antrum; Duodenal inflammation was found in the duodenal bulb. Colonoscopy: Diverticulum in the sigmoid colon and descending colon; Two medium sized sessile polyps were found in the ascending colon; A small sessile polyp was found in the sigmoid colon; Large internal hemorrhoids. - follow CBC and transfuse as needed. - GI following. - continue PPI. Acute on chronic renal disease stage 3 Creatinine was elevated compared to baseline. Worse s/p lasix - monitor avoid nephrotoxins ADONIS on hold DM. Aic 6.5 Glucose fluctuates. -Monitor fingersticks and sliding scale coverage. Adjust Levemir prn Hypertension Blood pressure well controlled. - ct lopressor - clonidine as needed. Fib vs PAT. Per Cards Possible JOSE. Sleep study. No driving PPx: Per surgery PT Jim Jacobson MD Dec 28, 2017 07:24
[2017-12-28] MEDS: POLYETHYLENE GLYCOL 17 GM PKG PO SCH (08:16)
[2017-12-28] MEDS: predniSONE 10 MG TAB PO SCH (08:17)
[2017-12-28] MEDS: amLODIPine BESYLATE 5 MG TAB PO SCH (08:17)
[2017-12-28] MEDS: METOPROLOL TARTRATE 25 MG TAB PO SCH ×2 (08:17→20:43)
[2017-12-28] MEDS: AMIODARONE 200 MG TAB PO SCH ×2 (08:17→20:43)
[2017-12-28] MEDS: ALLOPURINOL 100 MG TAB PO SCH (08:17)
[2017-12-28] MEDS: INSULIN DETEMIR 100 UNITS/ML VIAL SQ SCH (08:17)
[2017-12-28] MEDS: LACTOBACILLUS ACIDOPHILUS TAB PO SCH ×3 (08:18→16:55)
[2017-12-28] MEDS: GABAPENTIN 300 MG CAP PO SCH (08:18)
[2017-12-28] MEDS: DOCUSATE SODIUM 50 MG/SENNA 8.6 MG TAB PO SCH ×2 (08:18→20:43)
[2017-12-28] MEDS: MULTIVITAMINS/MINERALS THERAPEUTIC TAB PO SCH (08:18)
[2017-12-28] MEDS: SODIUM CHLORIDE 0.9% FLUSH 10 ML FLUSH IV FLUSH SCH ×2 (08:18→20:44)
[2017-12-28] MEDS: ASPIRIN 81 MG CHEW TAB PO SCH (08:18)
--- NOTE | 2017-12-28 11:51 | PD.CARD.PN ---
Subjective Subjective Remarks Post-AVR Doing well Appropriate chest pain along sternotomy, decreasing Up and ambulating Telemetry with short run of PAT Objective Medications Current Medications Medications (Trade) Dose Ordered Sig/Roxanne Route Start Time Stop Time Status Last Admin (Reglan Inj) 5 mg Q6H PRN IV PUSH 12/19/17 04:45 (Milk Of Magnesia Liq) 30 ml Q12H PRN PO 12/19/17 04:45 (Dulcolax Supp) 10 mg DAILY PRN RECTAL 12/19/17 04:45 (Lactulose Liq) 30 ml DAILY PRN PO 12/19/17 04:45 (Zyloprim) 100 mg DAILY PO 12/19/17 09:00 12/28/17 08:17 (Norvasc) 5 mg DAILY PO 12/19/17 09:00 12/28/17 08:17 (Neurontin) 600 mg DAILY PO 12/19/17 09:00 12/28/17 08:18 (Lactinex) 1 tab TIDAC PO 12/19/17 08:00 12/28/17 08:18 (Synthroid) 112 mcg DAILY@0600 PO 12/19/17 06:30 12/28/17 06:10 (Synthroid) 25 mcg DAILY@0600 PO 12/19/17 06:30 12/28/17 06:09 (Mycostatin Powder) 1 applic Q12HR TOPICAL 12/20/17 21:00 12/25/17 21:00 (Percocet 5-325 Mg) 1 tab Q4H PRN PO 12/22/17 17:00 12/28/17 09:28 (Catapres) 0.1 mg Q6H PRN PO 12/24/17 09:30 (Esperanza-Colace) 1 tab BID PO 12/24/17 09:30 12/28/17 08:18 (NS Flush) 2 ml BID IV FLUSH 12/26/17 21:00 12/28/17 08:18 (NS Flush) 2 ml UNSCH PRN IV FLUSH 12/26/17 11:30 Clevidipine 50 ml @ 2 mls/hr TITRATE PRN IV 12/26/17 12:30 12/27/17 04:50 (Aspirin Chew) 81 mg DAILY PO 12/27/17 09:00 12/28/17 08:18 (Protonix) 40 mg DAILY@06 PO 12/27/17 06:00 12/28/17 06:10 (Cordarone) 200 mg Q12HR PO 12/26/17 21:00 12/28/17 08:17 (Tylenol) 650 mg Q4H PRN PO 12/26/17 11:30 (Zofran Odt) 4 mg Q6H PRN PO 12/26/17 11:30 12/26/17 17:03 (Apresoline Inj) 10 mg Q4H PRN IV PUSH 12/26/17 11:30 12/26/17 22:22 (Duoneb Neb) 1 ampule Q2HR NEB PRN NEB 12/26/17 11:30 (Deltasone) 10 mg DAILY PO 12/27/17 10:00 12/28/17 08:17 (Duoneb Neb) 1 ampule Q6HR WHILE AWAKE NEB NEB 12/27/17 14:00 12/29/17 13:59 12/28/17 07:11 (Theragran M Tab) 1 tab DAILY PO 12/27/17 09:00 12/28/17 08:18 (Dulcolax Supp) 10 mg UNSCH PRN RECTAL 12/27/17 08:45 (Miralax) 17 gm DAILY PO 12/28/17 09:00 12/28/17 08:16 (Senokot) 8.6 mg HS PO 12/27/17 21:00 12/27/17 21:25 (Fleets Enema (Adult)) 118 ml UNSCH PRN RECTAL 12/27/17 08:45 (Lopressor) 25 mg BID PO 12/27/17 09:00 12/28/17 08:17 (D50w (Vial) Inj) 50 ml UNSCH PRN IV PUSH 12/27/17 08:45 (Glucagon Inj) 1 mg UNSCH PRN OTHER 12/27/17 08:45 (Levemir Inj) 10 units DAILY SQ 12/28/17 09:00 12/28/17 08:17 (NovoLOG SUPPLEMENTAL SCALE) 1 ACHS SQ 12/28/17 12:00 Vital Signs / I&O Vital Signs Date Time Temp Pulse Resp B/P (MAP) Pulse Ox O2 Delivery O2 Flow Rate FiO2 12/28/17 07:12 96 Nasal Cannula 2.00 12/28/17 06:03 83 12/28/17 05:19 83 12/28/17 04:45 83 12/28/17 03:48 93 Nasal Cannula 2.00 12/28/17 03:46 97.6 91 128/64 (85) 93 12/28/17 03:40 91 12/28/17 02:23 91 12/28/17 01:16 84 12/28/17 00:08 82 12/28/17 00:01 94 Nasal Cannula 2.00 12/28/17 00:00 98.2 86 128/68 (88) 94 12/27/17 23:51 81 12/27/17 22:36 81 12/27/17 21:05 99 12/27/17 20:08 97 12/27/17 19:00 97.9 87 115/57 (76) 94 12/27/17 19:00 87 12/27/17 19:00 94 Nasal Cannula 2.00 12/27/17 18:00 82 12/27/17 17:05 98.1 86 20 141/67 (91) 97 12/27/17 17:05 68 12/27/17 17:05 97 Nasal Cannula 2.00 12/27/17 15:00 80 12/27/17 15:00 97.2 81 18 140/70 (93) 92 12/27/17 15:00 92 Nasal Cannula 2.00 I/O 12/27/17 12/27/17 12/27/17 12/28/17 12/28/17 12/28/17 07:00 15:00 23:00 07:00 15:00 23:00 Intake Total 660 ml 480 ml 770 ml Output Total 1405 ml 430 ml 1010 ml Balance -745 ml 50 ml -240 ml Intake Oral 360 ml 480 ml 720 ml IV Total 300 ml 50 ml Output Urine Total 1250 ml 350 ml 950 ml Chest Tube Drainage Total 155 ml 80 ml 60 ml # Voids 0 # Bowel Movements 0 0 Physical Exam GENERAL: NAD, AAOx3 SKIN: Warm and dry. HEAD: Atraumatic. Normocephalic. EYES: Pupils equal and round. No scleral icterus. No injection or drainage. ENT: No nasal bleeding or discharge. Mucous membranes pink and moist. NECK: Trachea midline. No JVD. CARDIOVASCULAR: Regular rate and rhythm. Sternotomy RESPIRATORY: No accessory muscle use. Clear to auscultation. Breath sounds equal bilaterally. GASTROINTESTINAL: Abdomen soft, non-tender, nondistended. Hepatic and splenic margins not palpable. MUSCULOSKELETAL: 1+ pitting edema NEUROLOGICAL: Awake and alert. No obvious cranial nerve deficits. Motor grossly within normal limits. Five out of 5 muscle strength in the arms and legs. Normal speech. PSYCHIATRIC: Appropriate mood and affect; insight and judgment normal. Laboratory Laboratory Tests Test 12/28/17 03:58 White Blood Count 15.0 TH/MM3 Red Blood Count 3.60 MIL/MM3 Hemoglobin 8.6 GM/DL Hematocrit 27.4 % Mean Corpuscular Volume 76.2 FL Mean Corpuscular Hemoglobin 24.0 PG Mean Corpuscular Hemoglobin Concent 31.4 % Red Cell Distribution Width 21.7 % Platelet Count 187 TH/MM3 Mean Platelet Volume 9.8 FL Neutrophils (%) (Auto) 85.2 % Lymphocytes (%) (Auto) 5.4 % Monocytes (%) (Auto) 8.7 % Eosinophils (%) (Auto) 0.2 % Basophils (%) (Auto) 0.5 % Neutrophils # (Auto) 12.8 TH/MM3 Lymphocytes # (Auto) 0.8 TH/MM3 Monocytes # (Auto) 1.3 TH/MM3 Eosinophils # (Auto) 0.0 TH/MM3 Basophils # (Auto) 0.1 TH/MM3 CBC Comment DIFF FINAL Differential Comment Blood Urea Nitrogen 39 MG/DL Creatinine 2.10 MG/DL Random Glucose 120 MG/DL Calcium Level 8.6 MG/DL Magnesium Level 2.8 MG/DL Sodium Level 139 MEQ/L Potassium Level 4.4 MEQ/L Chloride Level 104 MEQ/L Carbon Dioxide Level 25.3 MEQ/L Anion Gap 10 MEQ/L Estimat Glomerular Filtration Rate 31 ML/MIN Assessment and Plan Problem List: (1) Anemia ICD Codes: D64.9 - Anemia, unspecified (2) Aortic stenosis ICD Codes: I35.0 - Nonrheumatic aortic (valve) stenosis (3) Acute kidney injury ICD Codes: N17.9 - Acute kidney failure, unspecified Status: Acute (4) HTN (hypertension) ICD Codes: I10 - Essential (primary) hypertension Status: Chronic (5) S/P AVR (aortic valve replacement) ICD Codes: Z95.2 - Presence of prosthetic heart valve Assessment and Plan 1) SOB Due to severe with anemia Not CHF clinically, appears mostly euvolemic and lungs clear 2) Anemia No bleeds noted on EDG/Cscope 3) Severe s/p AVR POD #2 23mm Medtronic Mosaic Cinch Valve 4) Probably needs JOSE workup after surgery Always daytime somnolence 5) Short runs of PAT rarely 6) Probably low dose Coumadin for AVR (INR 2-2.5), if symptoms like previous will need labs or ER to check his Hgb Discussed with CT surgery Efren Nogueira DO Dec 28, 2017 11:51
--- NOTE | 2017-12-28 14:55 | PD.CAR.PN ---
CVT Progress Note Subjective/Hospital Course: 77 m/ a patient of Dr. Clayton, history of known aortic stenosis, was in the process of undergoing scheduling for his aortic valve replacement, but at the time he was seen he had some very poor loose teeth and required dental workup where he finally got his teeth fixed and had removal of his teeth on the top. He has got an upper dental implant. His aortic valve area is 0.81 with a mean gradient of 52. He was attempting to try to get his aortic valve replacement rescheduled and presented to the emergency department with shortness of breath. On arrival, they found that he was severely anemic with a hemoglobin of 6.3 and hematocrit of 20. He has since been given 2 units of packed RBCs. His hemoglobin is 7.7 and 24. He had history in the past of a GI bleed where he had an EGD with biopsy, colonoscopy, ablation of arteriovenous malformation on 12/01/2016. At that time, his hemoglobin was 7.6. He recieved and additional currently pack of RBC for total of 3, He denies having any blood in the stool, no black tarry stools. PAST MEDICAL HISTORY: Includes diabetes mellitus, hypertension, hyperlipidemia, nonobstructive coronary artery disease by catheterization 10/03/2017, EF of 55% , severe aortic stenosis as above, stage III chronic kidney disease, COPD, hypothyroidism, neuropathy, gout, anemia, history of GI bleed, AVMs. 12/20 no stool yet to check for Hemoccult HGB stable 9.1 GI consult pending await their input regarding timing for surgery pt will need Heparin 2/2 Heart Lung bypass machine for his valve surgery 12/21 plan for EGD/ colonoscopy in am monitor closely during procedure will eval for surgery next week 12/22 will discuss timing of surgery with Dr Rios tentatively scheduled for surgery on Monday recheck uric acid level monday 12/25 stable for surgery in am / wean po steroids uric acid 8.2 for sternotomy approach and tissue valve 12/26 surgery Aortic Valve Replacement with a 23 mm Medtronic Mosaic Cinch Tissue Valve. crystalloid 3800cc, 1000cc cell saver, 1500cc EBL extubated after surgery 12/27 on 6 liter nasal cannula CXR noted, will diuresis start po meds / help wean off cleviprex transfer to stepdown 12/28 on 2 liter nasal cannula chest tube dc without difficulty discussed with Dr Nogueira / will start coumadin goal 2-2.5x 6 weeks will need to monitor HGB/ quiac stool Objective: GENERAL: A&O x 3 SKIN: Warm and dry. prevena dressing to chest HEAD: Normocephalic. EYES: No scleral icterus. No injection or drainage. NECK: Supple, trachea midline. No JVD or lymphadenopathy. CARDIOVASCULAR: Regular rate and rhythm without murmurs, gallops, or rubs. RESPIRATORY: Breath sounds equal bilaterally. No accessory muscle use. GASTROINTESTINAL: Abdomen soft, non-tender, nondistended. MUSCULOSKELETAL: No cyanosis, or edema. BACK: Nontender without obvious deformity. No CVA tenderness. Vital Signs Date Time Temp Pulse Resp B/P (MAP) Pulse Ox O2 Delivery O2 Flow Rate FiO2 12/28/17 11:30 98.5 94 20 129/61 (83) 95 12/28/17 11:30 94 12/28/17 11:30 95 Nasal Cannula 2.00 12/28/17 07:30 90 12/28/17 07:30 98.8 90 20 117/59 (78) 95 12/28/17 07:30 95 Nasal Cannula 2.00 12/28/17 07:12 96 Nasal Cannula 2.00 12/28/17 06:03 83 12/28/17 05:19 83 12/28/17 04:45 83 12/28/17 03:48 93 Nasal Cannula 2.00 12/28/17 03:46 97.6 91 128/64 (85) 93 12/28/17 03:40 91 12/28/17 02:23 91 12/28/17 01:16 84 12/28/17 00:08 82 12/28/17 00:01 94 Nasal Cannula 2.00 12/28/17 00:00 98.2 86 128/68 (88) 94 12/27/17 23:51 81 12/27/17 22:36 81 12/27/17 21:05 99 12/27/17 20:08 97 12/27/17 19:00 97.9 87 115/57 (76) 94 12/27/17 19:00 87 12/27/17 19:00 94 Nasal Cannula 2.00 12/27/17 18:00 82 12/27/17 17:05 98.1 86 20 141/67 (91) 97 12/27/17 17:05 68 12/27/17 17:05 97 Nasal Cannula 2.00 12/27/17 15:00 80 12/27/17 15:00 97.2 81 18 140/70 (93) 92 12/27/17 15:00 92 Nasal Cannula 2.00 Labs: Laboratory Tests Test 12/28/17 03:58 White Blood Count 15.0 TH/MM3 (4.0-11.0) Red Blood Count 3.60 MIL/MM3 (4.50-5.90) Hemoglobin 8.6 GM/DL (13.0-17.0) Hematocrit 27.4 % (39.0-51.0) Mean Corpuscular Volume 76.2 FL (80.0-100.0) Mean Corpuscular Hemoglobin 24.0 PG (27.0-34.0) Mean Corpuscular Hemoglobin Concent 31.4 % (32.0-36.0) Red Cell Distribution Width 21.7 % (11.6-17.2) Platelet Count 187 TH/MM3 (150-450) Mean Platelet Volume 9.8 FL (7.0-11.0) Neutrophils (%) (Auto) 85.2 % (16.0-70.0) Lymphocytes (%) (Auto) 5.4 % (9.0-44.0) Monocytes (%) (Auto) 8.7 % (0.0-8.0) Eosinophils (%) (Auto) 0.2 % (0.0-4.0) Basophils (%) (Auto) 0.5 % (0.0-2.0) Neutrophils # (Auto) 12.8 TH/MM3 (1.8-7.7) Lymphocytes # (Auto) 0.8 TH/MM3 (1.0-4.8) Monocytes # (Auto) 1.3 TH/MM3 (0-0.9) Eosinophils # (Auto) 0.0 TH/MM3 (0-0.4) Basophils # (Auto) 0.1 TH/MM3 (0-0.2) CBC Comment DIFF FINAL Differential Comment Blood Urea Nitrogen 39 MG/DL (7-18) Creatinine 2.10 MG/DL (0.60-1.30) Random Glucose 120 MG/DL (74-106) Calcium Level 8.6 MG/DL (8.5-10.1) Magnesium Level 2.8 MG/DL (1.5-2.5) Sodium Level 139 MEQ/L (136-145) Potassium Level 4.4 MEQ/L (3.5-5.1) Chloride Level 104 MEQ/L (98-107) Carbon Dioxide Level 25.3 MEQ/L (21.0-32.0) Anion Gap 10 MEQ/L (5-15) Estimat Glomerular Filtration Rate 31 ML/MIN (>89) Result Diagram: 12/28/1735712/28/17357 Telemetry: NSR (1) Anemia Plan: EGD with biopsy LA Class C esophagitis noted; multiple biopsies were performed 2. Medium sized hiatal hernia 3. There was acute gastritis in the gastric antrum; multiple biopsies were performed 4. Duodenal inflammation was found in the duodenal bulb 5. Retroflexion was performed and was normal/ await BX , Continue PPI colonoscopy : 1. Diverticulum in the sigmoid colon and descending colon 2. Two medium sized sessile polyps were found in the ascending colon; polypectomy was performed with cold forceps 3. A small sessile polyp was found in the sigmoid colon; polypectomy was performed with cold forceps 4. Large internal hemorrhoids continue PPI (2) Aortic stenosis (3) Acute kidney injury Plan: indices improving / stable (4) HTN (hypertension) Plan: resume BB . mychal (5) S/P AVR (aortic valve replacement) Plan: OOB, ambulate chest tube removed start coumadin, goal 2-2.5 x 6 weeks monitor H&H quiac stool if H&H drops ASA, BB pulm toileting CM to eval [facility] transfer to [facility] Elin Joyce Dec 28, 2017 14:55
[2017-12-28] MEDS ORDERED: DO NOT ADM ANY ANTICOAGULANT DRUGS OTHER PRN (16:15)
[2017-12-28] MEDS: WARFARIN SOD 5 MG TAB PO SCH (16:55)
[2017-12-28] MEDS: SENNOSIDES 8.6 MG TAB PO SCH (20:43)
[2017-12-28] MEDS: NYSTATIN 100,000 U/GM PWD 15 GM BTL TOPICAL SCH (20:44)
[2017-12-29] VITALS (16 sets, daily range): BP systolic 128–138; BP diastolic 60–65; PULSE 70–107; RESP 18–20; TEMP 97.5–98.6; O2SAT 93–96
[2017-12-29] MEDS: oxyCODONE/ACETAMINOPHEN 5 MG/325 MG TAB PO PRN (04:14)
[2017-12-29] MEDS: LEVOTHYROXINE SODIUM 25 MCG TAB PO SCH (04:14)
[2017-12-29] MEDS: PANTOPRAZOLE SOD 40 MG DELAYED RELEASE TAB PO SCH (04:14)
[2017-12-29] MEDS: LEVOTHYROXINE SODIUM 112 MCG TAB PO SCH (04:14)
--- NOTE | 2017-12-29 05:12 | RADRPT ---
EXAM DATE: 12/29/2017 5:04 AM EDT AGE/SEX: 77 years / Male INDICATIONS: Chest tube removal. CLINICAL DATA: This is the patient's subsequent encounter. Patient reports that signs and symptoms h ave been present for 4 - 6 days and indicates a pain score of 3/10. MEDICAL/SURGICAL HISTORY: Cardiovascular disease. CABG. COMPARISON: [facility] [place], CHEST SINGLE AP, 12/27/2017. . FINDINGS: The patient is status post sternotomy. The heart size is normal. There is mild increased density at t he bases. There is a mild left pleural effusion. The aeration of lungs appears improved from the prio r exam. CONCLUSION: Mild bibasilar areas of consolidation or atelectasis. Mild left pleural effusion. Electronically signed by: Jasen Cochran MD 12/29/2017 5:11 AM EDT
[2017-12-29 06:58] LABS: AUTOMATED NEUTROPHIL # 9.5 TH/MM3 (1.8-7.7); BASOPHIL % 0.3 % (0.0-2.0); EOSINOPHIL % 0.3 % (0.0-4.0); HEMOGLOBIN 8.2 GM/DL (13.0-17.0); LYMPH % 8.8 % (9.0-44.0); MEAN CELL VOLUME 75.6 FL (80.0-100.0); MEAN CORPUSCULAR HEMOGLOBIN 23.8 PG (27.0-34.0); MEAN CORPUSCULAR HGB CONC 31.5 % (32.0-36.0); MEAN PLATELET VOLUME 9.6 FL (7.0-11.0); MONO % 10.8 % (0.0-8.0); MONOCYTE # 1.3 TH/MM3 (0-0.9); NEUT % 79.8 % (16.0-70.0); PLATELET COUNT 175 TH/MM3 (150-450); RED BLOOD COUNT 3.44 MIL/MM3 (4.50-5.90); RED CELL DISTRIBUTION WIDTH 22.1 % (11.6-17.2); WHITE BLOOD COUNT 11.9 TH/MM3 (4.0-11.0)
[2017-12-29 07:00] LABS: INTERNATIONAL NORMALIZED RATIO 1.1 RATIO; PROTHROMBIN TIME - PATIENT 11.6 SEC (9.8-11.6)
[2017-12-29 07:15] LABS: BICARBONATE 25.3 MEQ/L (21.0-32.0); CALCIUM 8.5 MG/DL (8.5-10.1); CREATININE 2.04 MG/DL (0.60-1.30); MAGNESIUM 2.6 MG/DL (1.5-2.5)
[2017-12-29] MEDS: RESP: ALBUTEROL 2.5 MG/IPRATROPIUM 0.5 MG NEB (SCH) NEB (07:42)
[2017-12-29] MEDS ORDERED: COUM5TAB PO (08:33)
[2017-12-29] MEDS ORDERED: METO25TA3 PO (08:33)
[2017-12-29] MEDS ORDERED: ASPI81 PO (08:33)
[2017-12-29] MEDS ORDERED: OXYC1TAB63 PO (08:33)
--- NOTE | 2017-12-29 08:35 | PD.CAR.PN ---
CVT Progress Note Subjective/Hospital Course: 77 m/ a patient of Dr. Clayton, history of known aortic stenosis, was in the process of undergoing scheduling for his aortic valve replacement, but at the time he was seen he had some very poor loose teeth and required dental workup where he finally got his teeth fixed and had removal of his teeth on the top. He has got an upper dental implant. His aortic valve area is 0.81 with a mean gradient of 52. He was attempting to try to get his aortic valve replacement rescheduled and presented to the emergency department with shortness of breath. On arrival, they found that he was severely anemic with a hemoglobin of 6.3 and hematocrit of 20. He has since been given 2 units of packed RBCs. His hemoglobin is 7.7 and 24. He had history in the past of a GI bleed where he had an EGD with biopsy, colonoscopy, ablation of arteriovenous malformation on 12/01/2016. At that time, his hemoglobin was 7.6. He recieved and additional currently pack of RBC for total of 3, He denies having any blood in the stool, no black tarry stools. PAST MEDICAL HISTORY: Includes diabetes mellitus, hypertension, hyperlipidemia, nonobstructive coronary artery disease by catheterization 10/03/2017, EF of 55% , severe aortic stenosis as above, stage III chronic kidney disease, COPD, hypothyroidism, neuropathy, gout, anemia, history of GI bleed, AVMs. 12/20 no stool yet to check for Hemoccult HGB stable 9.1 GI consult pending await their input regarding timing for surgery pt will need Heparin 2/2 Heart Lung bypass machine for his valve surgery 12/21 plan for EGD/ colonoscopy in am monitor closely during procedure will eval for surgery next week 12/22 will discuss timing of surgery with Dr Rios tentatively scheduled for surgery on Monday recheck uric acid level monday 12/25 stable for surgery in am / wean po steroids uric acid 8.2 for sternotomy approach and tissue valve 12/26 surgery Aortic Valve Replacement with a 23 mm Medtronic Mosaic Cinch Tissue Valve. crystalloid 3800cc, 1000cc cell saver, 1500cc EBL extubated after surgery 12/27 on 6 liter nasal cannula CXR noted, will diuresis start po meds / help wean off cleviprex transfer to stepdown 12/28 on 2 liter nasal cannula chest tube dc without difficulty discussed with Dr Nogueira / will start coumadin goal 2-2.5x 6 weeks will need to monitor HGB/ quiac stool 12/29 D/C Home with [facility] Coumadin with INR follow-up Objective: Vital Signs Date Time Temp Pulse Resp B/P (MAP) Pulse Ox O2 Delivery O2 Flow Rate FiO2 12/29/17 07:02 97.5 85 18 138/65 (89) 96 12/29/17 07:02 96 Nasal Cannula 2.00 12/29/17 07:02 85 12/29/17 06:16 86 12/29/17 04:00 98.6 100 20 128/60 (82) 93 12/29/17 04:00 Nasal Cannula 2.00 12/29/17 04:00 107 12/29/17 00:00 98.0 83 18 138/61 (86) 93 12/29/17 00:00 Nasal Cannula 2.00 12/29/17 00:00 84 12/28/17 20:00 85 12/28/17 20:00 98.1 85 18 143/62 (89) 92 12/28/17 20:00 92 Room Air 12/28/17 19:51 93 21 12/28/17 18:00 82 12/28/17 17:00 88 12/28/17 16:00 78 12/28/17 15:30 93 Room Air 12/28/17 15:30 83 12/28/17 15:30 98.9 83 18 121/60 (80) 93 12/28/17 15:00 82 12/28/17 14:00 82 12/28/17 13:00 88 12/28/17 12:00 82 12/28/17 11:30 98.5 94 20 129/61 (83) 95 12/28/17 11:30 94 12/28/17 11:30 95 Nasal Cannula 2.00 12/28/17 11:00 80 12/28/17 10:00 84 12/28/17 09:00 84 Labs: Laboratory Tests Test 12/29/17 06:02 White Blood Count 11.9 TH/MM3 (4.0-11.0) Red Blood Count 3.44 MIL/MM3 (4.50-5.90) Hemoglobin 8.2 GM/DL (13.0-17.0) Hematocrit 26.0 % (39.0-51.0) Mean Corpuscular Volume 75.6 FL (80.0-100.0) Mean Corpuscular Hemoglobin 23.8 PG (27.0-34.0) Mean Corpuscular Hemoglobin Concent 31.5 % (32.0-36.0) Red Cell Distribution Width 22.1 % (11.6-17.2) Platelet Count 175 TH/MM3 (150-450) Mean Platelet Volume 9.6 FL (7.0-11.0) Neutrophils (%) (Auto) 79.8 % (16.0-70.0) Lymphocytes (%) (Auto) 8.8 % (9.0-44.0) Monocytes (%) (Auto) 10.8 % (0.0-8.0) Eosinophils (%) (Auto) 0.3 % (0.0-4.0) Basophils (%) (Auto) 0.3 % (0.0-2.0) Neutrophils # (Auto) 9.5 TH/MM3 (1.8-7.7) Lymphocytes # (Auto) 1.0 TH/MM3 (1.0-4.8) Monocytes # (Auto) 1.3 TH/MM3 (0-0.9) Eosinophils # (Auto) 0.0 TH/MM3 (0-0.4) Basophils # (Auto) 0.0 TH/MM3 (0-0.2) CBC Comment DIFF FINAL Differential Comment Prothrombin Time 11.6 SEC (9.8-11.6) Prothromb Time International Ratio 1.1 RATIO Blood Urea Nitrogen 42 MG/DL (7-18) Creatinine 2.04 MG/DL (0.60-1.30) Random Glucose 120 MG/DL (74-106) Calcium Level 8.5 MG/DL (8.5-10.1) Magnesium Level 2.6 MG/DL (1.5-2.5) Sodium Level 138 MEQ/L (136-145) Potassium Level 4.5 MEQ/L (3.5-5.1) Chloride Level 102 MEQ/L (98-107) Carbon Dioxide Level 25.3 MEQ/L (21.0-32.0) Anion Gap 11 MEQ/L (5-15) Estimat Glomerular Filtration Rate 32 ML/MIN (>89) Result Diagram: 12/29/17 0602 12/29/17 0602 (1) Anemia Plan: EGD with biopsy LA Class C esophagitis noted; multiple biopsies were performed 2. Medium sized hiatal hernia 3. There was acute gastritis in the gastric antrum; multiple biopsies were performed 4. Duodenal inflammation was found in the duodenal bulb 5. Retroflexion was performed and was normal/ await BX , Continue PPI colonoscopy : 1. Diverticulum in the sigmoid colon and descending colon 2. Two medium sized sessile polyps were found in the ascending colon; polypectomy was performed with cold forceps 3. A small sessile polyp was found in the sigmoid colon; polypectomy was performed with cold forceps 4. Large internal hemorrhoids continue PPI (2) Aortic stenosis (3) Acute kidney injury Plan: indices improving / stable (4) HTN (hypertension) Plan: resume BB . mychal (5) S/P AVR (aortic valve replacement) Plan: OOB, ambulate chest tube removed start coumadin, goal 2-2.5 x 6 weeks monitor H&H quiac stool if H&H drops ASA, BB pulm toileting CM to eval [facility] transfer to stepdown Wero Rios MD Dec 29, 2017 08:35
--- NOTE | 2017-12-29 08:40 | HHI.PR ---
Subjective Remarks Follow-up aVR. Patient started on Coumadin. Creatinine slightly better today patient lost 3 kg from yesterday. Patient hyperglycemic on prednisone currently on Levemir and sliding-scale A1c of 6.5 Objective Vitals Vital Signs Date Time Temp Pulse Resp B/P (MAP) Pulse Ox O2 Delivery O2 Flow Rate FiO2 12/29/17 07:02 97.5 85 18 138/65 (89) 96 12/29/17 07:02 96 Nasal Cannula 2.00 12/29/17 07:02 85 12/29/17 06:16 86 12/29/17 04:00 98.6 100 20 128/60 (82) 93 12/29/17 04:00 Nasal Cannula 2.00 12/29/17 04:00 107 12/29/17 00:00 98.0 83 18 138/61 (86) 93 12/29/17 00:00 Nasal Cannula 2.00 12/29/17 00:00 84 12/28/17 20:00 85 12/28/17 20:00 98.1 85 18 143/62 (89) 92 12/28/17 20:00 92 Room Air 12/28/17 19:51 93 21 12/28/17 18:00 82 12/28/17 17:00 88 12/28/17 16:00 78 12/28/17 15:30 93 Room Air 12/28/17 15:30 83 12/28/17 15:30 98.9 83 18 121/60 (80) 93 12/28/17 15:00 82 12/28/17 14:00 82 12/28/17 13:00 88 12/28/17 12:00 82 12/28/17 11:30 98.5 94 20 129/61 (83) 95 12/28/17 11:30 94 12/28/17 11:30 95 Nasal Cannula 2.00 12/28/17 11:00 80 12/28/17 10:00 84 12/28/17 09:00 84 I/O 12/28/17 12/28/17 12/28/17 12/29/17 12/29/17 12/29/17 07:00 15:00 23:00 07:00 15:00 23:00 Intake Total 770 ml 960 ml 480 ml Output Total 1010 ml 1400 ml 1150 ml Balance -240 ml -440 ml -670 ml Intake Oral 720 ml 960 ml 480 ml IV Total 50 ml Output Urine Total 950 ml 1400 ml 1150 ml Chest Tube Drainage Total 60 ml # Bowel Movements 0 0 Result Diagram: 12/29/17 0612/29/17 06 Imaging Last Impressions Chest X-Ray 12/29/17 0600 Signed Impressions: CONCLUSION: Mild bibasilar areas of consolidation or atelectasis. Mild left pleural effusion. Lower Extremity CT 12/22/17 0000 Signed Impressions: CONCLUSION: 1. No acute bony injury is seen. 2. Mild joint effusion. 3. Narrowing of the medial joint space. Knee X-Ray 12/21/17 0000 Signed Impressions: CONCLUSION: Chronic changes and no definite fracture for technique. Objective Remarks GENERAL: NAD. SKIN: Sternal wound dressed. CARDIOVASCULAR: Regular rate and rhythm RESPIRATORY: CTAB. GASTROINTESTINAL: Abdomen soft, non-tender, nondistended. MUSCULOSKELETAL: 1-2+ lower extremity edema. Left knee not warm to the touch, not swollen. Procedures EGD/ colonoscopy Aortic valve replacement 12/26 A/P Problem List: (1) Aortic stenosis ICD Code: I35.0 - Nonrheumatic aortic (valve) stenosis Assessment and Plan Acute on chronic diastolic CHF. Improved status post diuresis. He is losing weight AVR. Stable Continue postoperative care per CVT. Pain management counseled regarding narcotics. Coumadin per CBD Left knee pain Significant left knee pain, ROM. Uric acid level elevated. CT of the knee: No acute bony injury is seen; Mild joint effusion; Narrowing of the medial joint space. Currently improved with prednisone. Ortho consult appreciated. Dx: Osteoarthritis, left knee and Iliotibial band insertional tendonitis. Also gout uric acid 8 - wean prednisone. - rehab efforts. - pain control with bowel regimen. Acute anemia, stable Secondary to acute GI bleeding. MCV was low. S/p three units. GI consult appreciated. EGD with: esophagitis; Medium sized hiatal hernia; There was acute gastritis in the gastric antrum; Duodenal inflammation was found in the duodenal bulb. Colonoscopy: Diverticulum in the sigmoid colon and descending colon; Two medium sized sessile polyps were found in the ascending colon; A small sessile polyp was found in the sigmoid colon; Large internal hemorrhoids. - follow CBC and transfuse as needed. - GI following. - continue PPI. Acute on chronic renal disease stage 3 Creatinine was elevated compared to baseline. Worse s/p lasix. Today creatinine slightly better - monitor avoid nephrotoxins ADONIS on hold DM. Aic 6.5 Glucose fluctuates. Hyperglycemia secondary to steroids we will continue current Levemir dose. May resume home meds upon discharge -Monitor fingersticks and sliding scale coverage. Adjust Levemir prn Hypertension Blood pressure well controlled. - ct lopressor - clonidine as needed. Fib vs PAT. Per Cards Possible JOSE. Sleep study. No driving Constipation. Patient on bowel regimen. RN to give as needed meds PPx: Per surgery PT eval Discharge Planning Stable for discharge with home care Jim Nguyen MD Dec 29, 2017 08:40
[2017-12-29] MEDS: INSULIN DETEMIR 100 UNITS/ML VIAL SQ SCH (09:43)
[2017-12-29] MEDS: predniSONE 10 MG TAB PO SCH (09:44)
[2017-12-29] MEDS: GABAPENTIN 300 MG CAP PO SCH (09:44)
[2017-12-29] MEDS: DOCUSATE SODIUM 50 MG/SENNA 8.6 MG TAB PO SCH (09:44)
[2017-12-29] MEDS: amLODIPine BESYLATE 5 MG TAB PO SCH (09:44)
[2017-12-29] MEDS: LACTOBACILLUS ACIDOPHILUS TAB PO SCH ×3 (09:44→16:04)
[2017-12-29] MEDS: ALLOPURINOL 100 MG TAB PO SCH (09:44)
[2017-12-29] MEDS: AMIODARONE 200 MG TAB PO SCH (09:44)
[2017-12-29] MEDS: ASPIRIN 81 MG CHEW TAB PO SCH (09:44)
[2017-12-29] MEDS: MULTIVITAMINS/MINERALS THERAPEUTIC TAB PO SCH (09:44)
[2017-12-29] MEDS: METOPROLOL TARTRATE 25 MG TAB PO SCH ×2 (09:45→18:38)
[2017-12-29] MEDS: POLYETHYLENE GLYCOL 17 GM PKG PO SCH (09:45)
[2017-12-29] MEDS: SODIUM CHLORIDE 0.9% FLUSH 10 ML FLUSH IV FLUSH SCH (09:46)
[2017-12-29] MEDS ORDERED: PANT40TA3 PO (10:43)
[2017-12-29] MEDS ORDERED: NEUR300C PO (10:43)
--- NOTE | 2017-12-29 10:45 | HHI.FF ---
Face to Face Verification Diagnosis: (1) Valvular disease Physical Therapy Order: Evaluate and Treat, Improve ambulation, Strength and gait training Home Health Nursing Order: Medical education Diabetic education Medication education-adverse effect (coumadin with PT/INR monitoring) Wound care and dressing changes Nursing assessment with vital signs I have seen patient Anuj Ingram on 12/29/17. My clinical findings support the need for the requested home health care services because: Deconditioned w/ increased weakness I certify that my clinical findings support that this patient is homebound because: Unsafe to leave home unassisted Jim Nguyen MD Dec 29, 2017 10:45
--- NOTE | 2017-12-29 10:47 | HHI.DS ---
Discharge Summary Admission Date Dec 19, 2017 at 02:45 Discharge Date: Dec 29, 2017 Admitting Diagnosis Shortness of breath, Aortic valve abnormality, symptomatic anemia (1) Aortic stenosis ICD Code: I35.0 - Nonrheumatic aortic (valve) stenosis Diagnosis: Principal Procedures EGD/ colonoscopy Aortic valve replacement 12/26 Brief History - From Admission The patient is a 77-year-old male with a past medical history of CHF and aortic valve dysfunction who is presenting to the hospital with shortness of breath. The patient says he was recently in the hospital and has been doing well at home. 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 He says that he was supposed to get an aortic valve replacement but because of a dental situation that had to be put on hold. He said his dental situation seems to be resolved and he has been trying to contact his cardiothoracic surgeon without success. Last night the patient was watching TV and all of a sudden could not breathe. He hopes the sensation would pass but it did not. He eventually called for an ambulance. He says he is not on home oxygen. The patient says that over the past few days he has been noticing swelling in his lower extremities. He believes it is associated with weight gain. He states that he has been taking his diuretics. He says it has been a long time since he has been able to sleep in a bed. He has to sleep in a recliner to avoid becoming short of breath. The patient denies any cough or fevers. He states he is eating well. He has been eating a lot of fish, and wonders if the breaded flounder he had last night contributed to his acute shortness of breath. He says that he really started feeling better this morning at around 5 AM. He says his blood count normally is low when he comes in with shortness of breath. Discussed with nursing at the bedside. CBC/BMP: 12/29/17 0602 12/29/17 0602 Significant Findings Laboratory Tests Test 12/27/17 04:30 12/28/17 03:58 12/29/17 06:02 White Blood Count 15.8 TH/MM3 (4.0-11.0) 15.0 TH/MM3 (4.0-11.0) 11.9 TH/MM3 (4.0-11.0) Red Blood Count 3.80 MIL/MM3 (4.50-5.90) 3.60 MIL/MM3 (4.50-5.90) 3.44 MIL/MM3 (4.50-5.90) Hemoglobin 9.4 GM/DL (13.0-17.0) 8.6 GM/DL (13.0-17.0) 8.2 GM/DL (13.0-17.0) Hematocrit 29.1 % (39.0-51.0) 27.4 % (39.0-51.0) 26.0 % (39.0-51.0) Mean Corpuscular Volume 76.7 FL (80.0-100.0) 76.2 FL (80.0-100.0) 75.6 FL (80.0-100.0) Mean Corpuscular Hemoglobin 24.6 PG (27.0-34.0) 24.0 PG (27.0-34.0) 23.8 PG (27.0-34.0) Red Cell Distribution Width 21.6 % (11.6-17.2) 21.7 % (11.6-17.2) 22.1 % (11.6-17.2) Blood Urea Nitrogen 35 MG/DL (7-18) 39 MG/DL (7-18) 42 MG/DL (7-18) Creatinine 1.78 MG/DL (0.60-1.30) 2.10 MG/DL (0.60-1.30) 2.04 MG/DL (0.60-1.30) Random Glucose 152 MG/DL (74-106) 120 MG/DL (74-106) 120 MG/DL (74-106) Calcium Level 8.4 MG/DL (8.5-10.1) Magnesium Level 2.8 MG/DL (1.5-2.5) 2.8 MG/DL (1.5-2.5) 2.6 MG/DL (1.5-2.5) Chloride Level 109 MEQ/L (98-107) Estimat Glomerular Filtration Rate 37 ML/MIN (>89) 31 ML/MIN (>89) 32 ML/MIN (>89) Mean Corpuscular Hemoglobin Concent 31.4 % (32.0-36.0) 31.5 % (32.0-36.0) Neutrophils (%) (Auto) 85.2 % (16.0-70.0) 79.8 % (16.0-70.0) Lymphocytes (%) (Auto) 5.4 % (9.0-44.0) 8.8 % (9.0-44.0) Monocytes (%) (Auto) 8.7 % (0.0-8.0) 10.8 % (0.0-8.0) Neutrophils # (Auto) 12.8 TH/MM3 (1.8-7.7) 9.5 TH/MM3 (1.8-7.7) Lymphocytes # (Auto) 0.8 TH/MM3 (1.0-4.8) Monocytes # (Auto) 1.3 TH/MM3 (0-0.9) 1.3 TH/MM3 (0-0.9) Imaging Last Impressions Chest X-Ray 12/29/17 0600 Signed Impressions: CONCLUSION: Mild bibasilar areas of consolidation or atelectasis. Mild left pleural effusion. Lower Extremity CT 12/22/17 0000 Signed Impressions: CONCLUSION: 1. No acute bony injury is seen. 2. Mild joint effusion. 3. Narrowing of the medial joint space. Knee X-Ray 12/21/17 0000 Signed Impressions: CONCLUSION: Chronic changes and no definite fracture for technique. PE at Discharge GENERAL: NAD. SKIN: Sternal wound dressed. CARDIOVASCULAR: Regular rate and rhythm RESPIRATORY: CTAB. GASTROINTESTINAL: Abdomen soft, non-tender, nondistended. MUSCULOSKELETAL: 1-2+ lower extremity edema. Left knee not warm to the touch, not swollen. Hospital Course Acute on chronic diastolic CHF. Improved status post diuresis. He is losing weight AVR. Stable Continue postoperative care per CVT. Pain management counseled regarding narcotics. Coumadin per CVT. Coumadin teaching provided Left knee pain Significant left knee pain, ROM. Uric acid level elevated. CT of the knee: No acute bony injury is seen; Mild joint effusion; Narrowing of the medial joint space. Currently improved with prednisone. Ortho consult appreciated. Dx: Osteoarthritis, left knee and Iliotibial band insertional tendonitis. Also gout uric acid 8 - wean prednisone. - rehab efforts. - pain control with bowel regimen. Acute anemia, stable Secondary to acute GI bleeding. MCV was low. S/p three units. GI consult appreciated. EGD with: esophagitis; Medium sized hiatal hernia; There was acute gastritis in the gastric antrum; Duodenal inflammation was found in the duodenal bulb. Colonoscopy: Diverticulum in the sigmoid colon and descending colon; Two medium sized sessile polyps were found in the ascending colon; A small sessile polyp was found in the sigmoid colon; Large internal hemorrhoids. - follow CBC and transfuse as needed. - GI following. - continue PPI. Acute on chronic renal disease stage 3 Creatinine was elevated compared to baseline. Worse s/p lasix. Today creatinine slightly better - monitor avoid nephrotoxins ADONIS on hold DM. Aic 6.5 Glucose fluctuates. Hyperglycemia secondary to steroids we will continue current Levemir dose. May resume home meds upon discharge -Monitor fingersticks and sliding scale coverage. Adjust Levemir prn Hypertension Blood pressure well controlled. - ct lopressor - clonidine as needed. Fib vs PAT. Per Cards Possible JOSE. Sleep study. No driving Constipation. Patient on bowel regimen. RN to give as needed meds PPx: Per surgery PT eval Pt Condition on Discharge: Stable Discharge Disposition: Disch w/ Home Health Serv Discharge Time: > 30 minutes Discharge Instructions DIET: Follow Instructions for: Heart Healthy Diet, Diabetic Diet, Coumadin ( Warfarin) Diet Activities you can perform: Regular-No Restrictions Activities to Avoid: Driving Follow up Referrals: Appointment for Follow Up - 4 Weeks with Jennifer Lucas MD Cardiology - 4 Weeks with Efren Nogueira DO PCP Follow-up - 2 Weeks with Silverio Murrell DO Surgical - 2 Weeks with Wero Rios MD New Orders: BASIC METABOLIC PROF - 2 Weeks CBC NO DIFF - 2 Weeks PT/INR - 2-3 Days New Medications: Aspirin (Tgt Aspirin) 81 Mg Chw 81 MG PO DAILY for z, #90 EA Gabapentin (Neurontin) 300 Mg Cap 600 MG PO DAILY for Pain Management, #30 CAP Metoprolol Tartrate (Metoprolol Tartrate) 25 Mg Tab 25 MG PO BID for z for 90 Days, #180 TAB Oxycodone HCl/Acetaminophen (Oxycodone-Acetaminophen 5-325) 5 Mg-325 Mg Tablet 1 TAB PO Q4H PRN for pain 3-10 for 7 Days, #42 TAB Pantoprazole (Pantoprazole) 40 Mg Tab 40 MG PO DAILY@06 for Manage Heartburn, #30 TAB Warfarin (Coumadin) 5 Mg Tab 5 MG PO DAILY@1600 for z for 90 Days, TAB Continued Medications: Allopurinol (Allopurinol) 100 Mg Tab 100 MG PO DAILY for Gout, #30 TAB 0 Refills Amlodipine (Amlodipine) 5 Mg Tab 5 MG PO DAILY for Blood Pressure Management, #30 TAB 0 Refills Coenzyme Q10 (Ubidecarenone) (Coq-10) 50 Mg Cap 100 MG PO DAILY Furosemide (Lasix) 20 Mg Tab 20 MG PO DAILY for Fluid Balance, #30 TAB 0 Refills Glipizide (Glipizide) 10 Mg Tab 10 MG PO BIDAC for Blood Sugar Management, #60 TAB 0 Refills Take 30 minutes before a meal Lactobacillus Acidophilus (Lactobacillus Acidophilus) 1 Billion Cell Tab 1 TAB PO TIDAC for Nutritional Supplement, #30 TAB 0 Refills Levothyroxine (Levothyroxine) 137 Mcg Tab 137 MCG PO DAILY for Thyroid, #30 TAB 0 Refills [place]-3/Dha/Epa/Fish Oil (Fish Oil 1,000 mg Softgel) 1,000 Mg (120 Mg-180 Mg) Capsule 1 TAB PO DAILY Pioglitazone (Pioglitazone) 30 Mg Tab 30 MG PO DAILY for Blood Sugar Management, #30 TAB 0 Refills Sitagliptin (Januvia) 50 Mg Tab 100 MG PO DAILY for Blood Sugar Management, #30 TAB 0 Refills Discontinued Medications: Gabapentin (Gabapentin) 600 Mg Tab 800 MG PO BID, #60 TAB 0 Refills Lisinopril (Lisinopril) 40 Mg Tab 40 MG PO DAILY for Blood Pressure Management, #30 TAB 0 Refills Jim Nguyen MD Dec 29, 2017 10:47
[2017-12-29] MEDS: INSULIN ASPART SUPPLEMENTAL SCALE SQ SCH ×2 (12:30→17:31)
[2017-12-29] MEDS: WARFARIN SOD 5 MG TAB PO SCH (16:04)
--- NOTE | 2017-12-29 17:13 | PD.CARD.PN ---
Subjective Subjective Remarks Post-AVR Doing well Appropriate chest pain along sternotomy, decreasing Up and ambulating Objective Medications Current Medications Medications (Trade) Dose Ordered Sig/Roxanne Route Start Time Stop Time Status Last Admin (Reglan Inj) 5 mg Q6H PRN IV PUSH 12/19/17 04:45 (Milk Of Magnesia Liq) 30 ml Q12H PRN PO 12/19/17 04:45 (Lactulose Liq) 30 ml DAILY PRN PO 12/19/17 04:45 12/29/17 14:40 (Zyloprim) 100 mg DAILY PO 12/19/17 09:00 12/29/17 09:44 (Norvasc) 5 mg DAILY PO 12/19/17 09:00 12/29/17 09:44 (Neurontin) 600 mg DAILY PO 12/19/17 09:00 12/29/17 09:44 (Lactinex) 1 tab TIDAC PO 12/19/17 08:00 12/29/17 16:04 (Synthroid) 112 mcg DAILY@0600 PO 12/19/17 06:30 12/29/17 04:14 (Synthroid) 25 mcg DAILY@0600 PO 12/19/17 06:30 12/29/17 04:14 (Mycostatin Powder) 1 applic Q12HR TOPICAL 12/20/17 21:00 12/25/17 21:00 (Percocet 5-325 Mg) 1 tab Q4H PRN PO 12/22/17 17:00 12/29/17 04:14 (Catapres) 0.1 mg Q6H PRN PO 12/24/17 09:30 ([place]-Colace) 1 tab BID PO 12/24/17 09:30 12/29/17 09:44 (NS Flush) 2 ml BID IV FLUSH 12/26/17 21:00 12/29/17 09:46 (NS Flush) 2 ml UNSCH PRN IV FLUSH 12/26/17 11:30 Clevidipine 50 ml @ 2 mls/hr TITRATE PRN IV 12/26/17 12:30 12/27/17 04:50 (Aspirin Chew) 81 mg DAILY PO 12/27/17 09:00 12/29/17 09:44 (Protonix) 40 mg DAILY@06 PO 12/27/17 06:00 12/29/17 04:14 (Cordarone) 200 mg Q12HR PO 12/26/17 21:00 12/29/17 09:44 (Tylenol) 650 mg Q4H PRN PO 12/26/17 11:30 (Zofran Odt) 4 mg Q6H PRN PO 12/26/17 11:30 12/26/17 17:03 (Apresoline Inj) 10 mg Q4H PRN IV PUSH 12/26/17 11:30 12/26/17 22:22 (Duoneb Neb) 1 ampule Q2HR NEB PRN NEB 12/26/17 11:30 (Deltasone) 10 mg DAILY PO 12/27/17 10:00 12/29/17 09:44 (Theragran M Tab) 1 tab DAILY PO 12/27/17 09:00 12/29/17 09:44 (Miralax) 17 gm DAILY PO 12/28/17 09:00 12/29/17 09:45 (Lopressor) 25 mg BID PO 12/27/17 09:00 12/29/17 09:45 (D50w (Vial) Inj) 50 ml UNSCH PRN IV PUSH 12/27/17 08:45 (Glucagon Inj) 1 mg UNSCH PRN OTHER 12/27/17 08:45 (Levemir Inj) 10 units DAILY SQ 12/28/17 09:00 12/29/17 09:43 (NovoLOG SUPPLEMENTAL SCALE) 1 ACHS SQ 12/28/17 12:00 12/29/17 12:30 (Coumadin) 5 mg DAILY@1600 PO 12/28/17 16:00 12/29/17 16:04 Pharmacy Profile Note 0 ml @ 0 mls/hr UNSCH OTHER 12/29/17 08:45 (Lactulose Liq) 30 ml TID PO 12/29/17 18:00 (Fleet Mineral Oil Enema) 118 ml ONCE ONCE RECTAL 12/29/17 17:45 12/29/17 17:46 Vital Signs / I&O Vital Signs Date Time Temp Pulse Resp B/P (MAP) Pulse Ox O2 Delivery O2 Flow Rate FiO2 12/29/17 15:04 72 12/29/17 14:00 70 12/29/17 13:00 88 12/29/17 12:00 74 12/29/17 11:30 95 Room Air 12/29/17 11:30 78 12/29/17 11:30 98.0 79 18 129/61 (83) 95 12/29/17 11:00 84 12/29/17 10:00 84 12/29/17 09:00 74 12/29/17 08:00 86 12/29/17 07:02 97.5 85 18 138/65 (89) 96 12/29/17 07:02 96 Nasal Cannula 2.00 12/29/17 07:02 85 12/29/17 06:16 86 12/29/17 04:00 98.6 100 20 128/60 (82) 93 12/29/17 04:00 Nasal Cannula 2.00 12/29/17 04:00 107 12/29/17 00:00 98.0 83 18 138/61 (86) 93 12/29/17 00:00 Nasal Cannula 2.00 12/29/17 00:00 84 12/28/17 20:00 85 12/28/17 20:00 98.1 85 18 143/62 (89) 92 12/28/17 20:00 92 Room Air 12/28/17 19:51 93 21 12/28/17 18:00 82 I/O 12/28/17 12/28/17 12/28/17 12/29/17 12/29/17 12/29/17 07:00 15:00 23:00 07:00 15:00 23:00 Intake Total 770 ml 960 ml 480 ml Output Total 1010 ml 1400 ml 1150 ml Balance -240 ml -440 ml -670 ml Intake Oral 720 ml 960 ml 480 ml IV Total 50 ml Output Urine Total 950 ml 1400 ml 1150 ml Chest Tube Drainage Total 60 ml # Bowel Movements 0 0 Physical Exam GENERAL: NAD, AAOx3 SKIN: Warm and dry. HEAD: Atraumatic. Normocephalic. EYES: Pupils equal and round. No scleral icterus. No injection or drainage. ENT: No nasal bleeding or discharge. Mucous membranes pink and moist. NECK: Trachea midline. No JVD. CARDIOVASCULAR: Regular rate and rhythm. Sternotomy RESPIRATORY: No accessory muscle use. Clear to auscultation. Breath sounds equal bilaterally. GASTROINTESTINAL: Abdomen soft, non-tender, nondistended. Hepatic and splenic margins not palpable. MUSCULOSKELETAL: 1+ pitting edema NEUROLOGICAL: Awake and alert. No obvious cranial nerve deficits. Motor grossly within normal limits. Five out of 5 muscle strength in the arms and legs. Normal speech. PSYCHIATRIC: Appropriate mood and affect; insight and judgment normal. Laboratory Laboratory Tests Test 12/29/17 06:02 White Blood Count 11.9 TH/MM3 Red Blood Count 3.44 MIL/MM3 Hemoglobin 8.2 GM/DL Hematocrit 26.0 % Mean Corpuscular Volume 75.6 FL Mean Corpuscular Hemoglobin 23.8 PG Mean Corpuscular Hemoglobin Concent 31.5 % Red Cell Distribution Width 22.1 % Platelet Count 175 TH/MM3 Mean Platelet Volume 9.6 FL Neutrophils (%) (Auto) 79.8 % Lymphocytes (%) (Auto) 8.8 % Monocytes (%) (Auto) 10.8 % Eosinophils (%) (Auto) 0.3 % Basophils (%) (Auto) 0.3 % Neutrophils # (Auto) 9.5 TH/MM3 Lymphocytes # (Auto) 1.0 TH/MM3 Monocytes # (Auto) 1.3 TH/MM3 Eosinophils # (Auto) 0.0 TH/MM3 Basophils # (Auto) 0.0 TH/MM3 CBC Comment DIFF FINAL Differential Comment Prothrombin Time 11.6 SEC Prothromb Time International Ratio 1.1 RATIO Blood Urea Nitrogen 42 MG/DL Creatinine 2.04 MG/DL Random Glucose 120 MG/DL Calcium Level 8.5 MG/DL Magnesium Level 2.6 MG/DL Sodium Level 138 MEQ/L Potassium Level 4.5 MEQ/L Chloride Level 102 MEQ/L Carbon Dioxide Level 25.3 MEQ/L Anion Gap 11 MEQ/L Estimat Glomerular Filtration Rate 32 ML/MIN Imaging Last 24 hours Impressions Chest X-Ray 12/29/17 0600 Signed Impressions: CONCLUSION: Mild bibasilar areas of consolidation or atelectasis. Mild left pleural effusion. Assessment and Plan Problem List: (1) Anemia ICD Codes: D64.9 - Anemia, unspecified (2) Aortic stenosis ICD Codes: I35.0 - Nonrheumatic aortic (valve) stenosis (3) Acute kidney injury ICD Codes: N17.9 - Acute kidney failure, unspecified Status: Acute (4) HTN (hypertension) ICD Codes: I10 - Essential (primary) hypertension Status: Chronic (5) S/P AVR (aortic valve replacement) ICD Codes: Z95.2 - Presence of prosthetic heart valve Assessment and Plan 1) SOB Due to severe with anemia Not CHF clinically, appears mostly euvolemic and lungs clear 2) Anemia No bleeds noted on EDG/Cscope 3) Severe s/p AVR POD #3 23mm Medtronic Mosaic Cinch Valve 4) Probably needs JOSE workup after surgery Always daytime somnolence 5) Short runs of PAT rarely 6) Probably low dose Coumadin for AVR (INR 2-2.5), if symptoms like previous will need labs or ER to check his Hgb Discussed with CT surgery 7) Cardiovascularly stable for discharge, will follow up with Efren Harvey DO Dec 29, 2017 17:13
[2017-12-29] MEDS ORDERED: MINERAL OIL ENEMA 118 ML BTL RECTAL ONE (17:45)
[2017-12-29] MEDS ORDERED: LACTULOSE SYRUP 20 GM/30 ML CUP PO SCH (18:00)
== END 2017-12-29 18:45 | disposition home health service (06) | DRG 219 ==
LOC: NEPC 23:21 → NEDA 12-19 02:45 → HCPC 12-19 08:05 → HCIS 12-26 07:00 → HCVI 12-26 12:48 → HCPC 12-27 16:33
PROVIDERS: ADMIT Internal Medicine; ATTEND Internal Medicine
PROC: 30233N1 Transfusion of Nonautologous Red Blood Cells into Peripheral Vein, Percutaneous Approach (ICD-10-PCS; 2017-12-19)
PROC: 0DBN8ZX Excision of Sigmoid Colon, Via Natural or Artificial Opening Endoscopic, Diagnostic (ICD-10-PCS; 2017-12-22)
PROC: 0DB58ZX Excision of Esophagus, Via Natural or Artificial Opening Endoscopic, Diagnostic (ICD-10-PCS; 2017-12-22)
PROC: 0DB78ZX Excision of Stomach, Pylorus, Via Natural or Artificial Opening Endoscopic, Diagnostic (ICD-10-PCS; 2017-12-22)
PROC: 0DBK8ZX Excision of Ascending Colon, Via Natural or Artificial Opening Endoscopic, Diagnostic (ICD-10-PCS; 2017-12-22 09:39)
PROC: 5A1221Z Performance of Cardiac Output, Continuous (ICD-10-PCS; 2017-12-26)
PROC: B24BZZ4 Ultrasonography of Heart with Aorta, Transesophageal (ICD-10-PCS; 2017-12-26)
PROC: 02RF08Z Replacement of Aortic Valve with Zooplastic Tissue, Open Approach (ICD-10-PCS; principal; 2017-12-26 07:19)
DX: I13.0 Hypertensive heart and chronic kidney disease with heart failure and stage 1 through stage 4 chronic kidney disease, or unspecified chronic kidney disease (principal); I50.33 Acute on chronic diastolic (congestive) heart failure; N17.9 Acute kidney failure, unspecified; E11.22 Type 2 diabetes mellitus with diabetic chronic kidney disease; E11.40 Type 2 diabetes mellitus with diabetic neuropathy, unspecified; D62 Acute posthemorrhagic anemia; K92.2 Gastrointestinal hemorrhage, unspecified; I35.2 Nonrheumatic aortic (valve) stenosis with insufficiency; N18.3 Chronic kidney disease, stage 3 (moderate); R09.02 Hypoxemia; E78.5 Hyperlipidemia, unspecified; K57.30 Diverticulosis of large intestine without perforation or abscess without bleeding; K64.8 Other hemorrhoids; D12.2 Benign neoplasm of ascending colon; K63.5 Polyp of colon; K21.0 Gastro-esophageal reflux disease with esophagitis; K44.9 Diaphragmatic hernia without obstruction or gangrene; K29.00 Acute gastritis without bleeding; K29.80 Duodenitis without bleeding; E03.9 Hypothyroidism, unspecified; E11.65 Type 2 diabetes mellitus with hyperglycemia; G47.30 Sleep apnea, unspecified; I25.10 Atherosclerotic heart disease of native coronary artery without angina pectoris; J44.9 Chronic obstructive pulmonary disease, unspecified; K59.00 Constipation, unspecified; M10.9 Gout, unspecified; M17.12 Unilateral primary osteoarthritis, left knee; M77.9 Enthesopathy, unspecified; I65.29 Occlusion and stenosis of unspecified carotid artery; R00.0 Tachycardia, unspecified; T38.0X5A Adverse effect of glucocorticoids and synthetic analogues, initial encounter; Z79.84 Long term (current) use of oral hypoglycemic drugs; Z87.891 Personal history of nicotine dependence
CPT/HCPCS: 36430; 36600; 71045; 73564; 73700; 76937; 80048; 80053; 81001; 82550; 82607; 82728; 82746; 82805; 82948; 83036; 83540; 83550; 83735; 83880; 84484; 84550; 85025; 85027; 85610; 85730; 86850; 86900; 86901; 86920; 87641; 88305; 88311; 88312; 93005; 93318; 94002; 94010; 94150; 94640; 94664; 94667; 94668; C9248; J0131; J0360; J0461; J0690; J1644; J1815; J1817; J1940; J2150; J2250; J2270; J2370; J2720; J3010; J3370; J3475; J3480; J7040; J7050; J7120; J7512; J7613; P9016; P9045; P9047

== ENCOUNTER 2018-01-01 15:45 | Emergency (ER) | payer MEDICARE ==
[~2018-01-01] VITALS: Ht 177.8 cm; Wt 130.0 kg
[~2018-01-01 15:45] MED LIST changes: +ASPI81 PO; -AUGM875T3 PO; -AZIT500T2 PO; +COUM5TAB PO; -FERR325T18 PO; -GABA600T PO; -LISI40TA PO; +METO25TA3 PO; +NEUR300C PO; +OXYC1TAB63 PO; +PANT40TA3 PO
[2018-01-01 16:15] VITALS: BP 135/58; PULSE 83; RESP 20; TEMP 98.3; O2SAT 96
[2018-01-01 16:41] VITALS: BP 138/76; PULSE 88; RESP 18; O2SAT 96
[2018-01-01] MEDS ORDERED: SODIUM CHLORIDE 0.9% FLUSH 10 ML FLUSH IVF PRN (16:45)
[2018-01-01 16:49] VITALS: BP 138/76; PULSE 91; RESP 20; O2SAT 96
--- NOTE | 2018-01-01 16:58 | PD ---
HPI . Swelling Chief Complaint: Cardiac Complaint Time Seen by Provider: 16:35 Travel History International Travel<30 days: No Contact w/Intl Traveler<30days: No Traveled to known affect area: No History of Present Illness HPI This patient presents stating that he was sent to us by Dr. Clayton. He had aortic valve replacement about a week ago. He has home health coming to his house. He states that he was seen by [facility] this morning and that Dr. Clayton's office called him this evening instructing him to come to the emergency department for a "thorough evaluation." Patient states that he has had swelling since before the surgery. The swelling has persisted. He states that he does take a diuretic and has been compliant with a diuretic. He also admits to dyspnea on exertion and clear to white sputum production. He denies any known fevers. He denies any unusual chest pain. He did just have surgery on his heart about a week ago so it is anticipated that he should have some pain. However, he reports minimal if any pain. PFSH Past Medical History Hx Anticoagulant Therapy: Yes Asthma: No Blood Disorders: No Anxiety: No Depression: No Heart Rhythm Problems: No Cancer: No Cardiac Catheterization: Yes Cardiovascular Problems: Yes High Cholesterol: No Chemotherapy: No Chest Pain: No Congestive Heart Failure: Yes COPD: Yes Diabetes: Yes Patient Takes Glucophage: No Diminished Hearing: Yes ([place]) Endocrine: Yes Gastrointestinal Disorders: Yes (GI BLEED) GERD: Yes Genitourinary: No Hiatal Hernia: Yes Hypertension: Yes Immune Disorder: No Implanted Vascular Access Dvce: Yes Musculoskeletal: No Neurologic: Yes (NEUROPATHY) Psychiatric: No Reproductive: No Respiratory: Yes Immunizations Current: Yes Pneumonia: Yes Radiation Therapy: No Sleep Apnea: No Thyroid Disease: Yes (HYPO) Influenza Vaccination: Yes ?: Not Past Surgical History AICD: No Appendectomy: Yes Body Medical Devices: PINS IN RIGHT ARM Cardiac Surgery: Yes (HEART CATH 2017) Eye Surgery: Yes (CATARACTS) Joint Replacement: No Pacemaker: No Tonsillectomy: Yes Valve Replacement: Yes (AORTIC VALVE REPLACEMENT LAST WEEK (PIG VALVE)) Other Surgery: Yes (RT ARM FX REPAIR, SINUS SX) Social History Alcohol Use: No (YEARS AGO) Tobacco Use: No Substance Use: No Allergies-Medications (Allergen,Severity, Reaction): Coded Allergies: Sulfa (Sulfonamide Antibiotics) (Verified Allergy, Intermediate, Edema, ) Reported Meds & Prescriptions Reported Meds & Active Scripts Active Pantoprazole (Pantoprazole Sodium) 40 Mg Tab 40 Mg PO DAILY@06 Neurontin (Gabapentin) 300 Mg Cap 600 Mg PO DAILY Metoprolol Tartrate 25 Mg Tab 25 Mg PO BID 90 Days Coumadin (Warfarin) 5 Mg Tab 5 Mg PO DAILY@1600 90 Days Lasix (Furosemide) 20 Mg Tab 20 Mg PO DAILY Lactobacillus Acidophilus 1 Billion Cell Tab 1 Tab PO TIDAC Reported Coq-10 (Coenzyme Q10 (Ubidecarenone)) 50 Mg Cap 100 Mg PO DAILY Fish Oil 1,000 mg Softgel ([place]-3/Dha/Epa/Fish Oil) 1,000 Mg (120 Mg-180 Mg) Capsule 1 Tab PO DAILY Pioglitazone (Pioglitazone HCl) 30 Mg Tab 30 Mg PO DAILY Allopurinol 100 Mg Tab 100 Mg PO DAILY Januvia (Sitagliptin Phosphate) 50 Mg Tab 100 Mg PO DAILY Levothyroxine (Levothyroxine Sodium) 137 Mcg Tab 137 Mcg PO DAILY Glipizide 10 Mg Tab 10 Mg PO BIDAC Take 30 minutes before a meal Amlodipine (Amlodipine Besylate) 5 Mg Tab 5 Mg PO DAILY Review of Systems Except as stated in HPI: all other systems reviewed are Neg Respiratory: Positive: Shortness of Breath Musculoskeletal: Positive: Edema Physical Exam Narrative GENERAL: The patient is sitting up on the edge of the stretcher in no acute distress. SKIN: warm/dry. HEAD: Normocephalic. Atraumatic. EYES: Pupils equal and round. Extraocular movements are intact. ENT: Mucous membranes pink and moist. NECK: Supple. Full range of motion without pain.. CARDIOVASCULAR: Regular rate and rhythm. Heart sounds are normal. RESPIRATORY: No accessory muscle use. Clear to auscultation. Breath sounds equal bilaterally. MUSCULOSKELETAL: No obvious deformities. Normal muscle tone. He is wearing knee-high RACIEL hose. Despite this, he has 2+ pretibial pitting edema. The edema does not appear to extend into the thighs. NEUROLOGICAL: Awake and alert. No obvious cranial nerve deficits. Motor grossly within normal limits. Normal speech. PSYCHIATRIC: Appropriate mood and affect; insight and judgment normal. Data Data Last Documented VS Vital Signs Date Time Temp Pulse Resp B/P (MAP) Pulse Ox O2 Delivery O2 Flow Rate FiO2 01/01/18 17:01 93 18 97 Room Air 01/01/18 16:49 138/76 (96) 01/01/18 16:15 98.3 Orders Orders Complete Blood Count With Diff (01/01/18 16:42) Comprehensive Metabolic Panel (01/01/18 16:42) B-Type Natriuretic Peptide (01/01/18 16:42) Troponin I (01/01/18 16:42) Iv Access Insert/Monitor (01/01/18 16:42) Electrocardiogram (01/01/18 16:42) Ecg Monitoring (01/01/18 16:42) Oximetry (01/01/18 16:42) Chest, Single Ap (01/01/18 16:42) Sodium Chloride 0.9% Flush (Ns Flush) (01/01/18 16:45) Prothrombin Time / Inr (Pt) (01/01/18 16:59) Labs Laboratory Tests Test 01/01/18 16:57 01/01/18 17:00 White Blood Count 8.1 TH/MM3 Red Blood Count 3.50 MIL/MM3 Hemoglobin 8.3 GM/DL Hematocrit 26.7 % Mean Corpuscular Volume 76.2 FL Mean Corpuscular Hemoglobin 23.8 PG Mean Corpuscular Hemoglobin Concent 31.2 % Red Cell Distribution Width 21.4 % Platelet Count 267 TH/MM3 Mean Platelet Volume 8.6 FL Neutrophils (%) (Auto) 79.8 % Lymphocytes (%) (Auto) 8.0 % Monocytes (%) (Auto) 9.9 % Eosinophils (%) (Auto) 1.7 % Basophils (%) (Auto) 0.6 % Neutrophils # (Auto) 6.5 TH/MM3 Lymphocytes # (Auto) 0.7 TH/MM3 Monocytes # (Auto) 0.8 TH/MM3 Eosinophils # (Auto) 0.1 TH/MM3 Basophils # (Auto) 0.0 TH/MM3 CBC Comment DIFF FINAL Differential Comment Blood Urea Nitrogen 42 MG/DL Creatinine 2.00 MG/DL Random Glucose 132 MG/DL Total Protein 6.4 GM/DL Albumin 2.7 GM/DL Calcium Level 8.1 MG/DL Alkaline Phosphatase 58 U/L Aspartate Amino Transf (AST/SGOT) 14 U/L Alanine Aminotransferase (ALT/SGPT) 20 U/L Total Bilirubin 0.4 MG/DL Sodium Level 140 MEQ/L Potassium Level 5.1 MEQ/L Chloride Level 109 MEQ/L Carbon Dioxide Level 23.7 MEQ/L Anion Gap 7 MEQ/L Estimat Glomerular Filtration Rate 33 ML/MIN Troponin I 0.08 NG/ML B-Type Natriuretic Peptide 254 PG/ML Prothrombin Time 18.7 SEC Prothromb Time International Ratio 1.8 RATIO MDM Medical Decision Making Medical Screen Exam Complete: Yes Emergency Medical Condition: Yes Interpretation(s) EKG shows a sinus rhythm with no acute ischemic changes Differential Diagnosis Differential diagnosis of dyspnea Narrative Course This patient presents with peripheral edema and dyspnea. He has had the symptoms since before a recent AVR. He states that he was seen by his usual home health provider earlier today and then received a call from his [employer] office telling him to come to the emergency department for evaluation. CBC & BMP Diagram 01/01/18 16:57 Total Protein 6.4, Albumin 2.7 L, Calcium Level 8.1 L, Alkaline Phosphatase 58, Aspartate Amino Transf (AST/SGOT) 14 L, Alanine Aminotransferase (ALT/SGPT) 20, Total Bilirubin 0.4 H&H is stable. Troponin 0 0.08. This is better than it was a week ago. I would suspect a chronically elevated troponin in this patient with chronic renal insufficiency. BNP 254 Last Impressions Chest X-Ray 01/01/18 1642 Signed Impressions: CONCLUSION: Mild basilar airspace disease with small effusions. Differential diagnosis incl udes congestive heart failure. The chest x-ray was independently reviewed by me. This patient is having no respiratory distress. His respiratory rate is 18 with an oxygen saturation of 97% on room air. I will have him increase his Lasix. I will give him a dose of IV Lasix prior to discharge. Diagnosis Primary Impression: Peripheral edema Med/Other Pt SpecificInfo: Prescription(s) given Scripts Furosemide (Lasix) 40 Mg Tab 40 MG PO DAILY, #30 TAB 0 Refills Prov: Aracelis Hernandez MD 01/01/18 Disposition: 01 DISCHARGE HOME Condition: Stable Aracelis Hernandez MD Jan 01, 2018 16:58
[2018-01-01 17:10] LABS: AUTOMATED NEUTROPHIL # 6.5 TH/MM3 (1.8-7.7); BASOPHIL % 0.6 % (0.0-2.0); EOSINOPHIL # 0.1 TH/MM3 (0-0.4); EOSINOPHIL % 1.7 % (0.0-4.0); HEMATOCRIT 26.7 % (39.0-51.0); HEMOGLOBIN 8.3 GM/DL (13.0-17.0); LYMPHOCYTE # 0.7 TH/MM3 (1.0-4.8); MEAN CELL VOLUME 76.2 FL (80.0-100.0); MEAN CORPUSCULAR HEMOGLOBIN 23.8 PG (27.0-34.0); MEAN CORPUSCULAR HGB CONC 31.2 % (32.0-36.0); MEAN PLATELET VOLUME 8.6 FL (7.0-11.0); MONO % 9.9 % (0.0-8.0); MONOCYTE # 0.8 TH/MM3 (0-0.9); NEUT % 79.8 % (16.0-70.0); PLATELET COUNT 267 TH/MM3 (150-450); RED CELL DISTRIBUTION WIDTH 21.4 % (11.6-17.2); WHITE BLOOD COUNT 8.1 TH/MM3 (4.0-11.0)
[2018-01-01 17:23] LABS: INTERNATIONAL NORMALIZED RATIO 1.8 RATIO; PROTHROMBIN TIME - PATIENT 18.7 SEC (9.8-11.6)
[2018-01-01 17:36] LABS: ALBUMIN 2.7 GM/DL (3.4-5.0); ALT (GPT) 20 U/L (12-78); AST (GOT) 14 U/L (15-37); BICARBONATE 23.7 MEQ/L (21.0-32.0); BLOOD UREA NITROGEN 42 MG/DL (7-18); CALCIUM 8.1 MG/DL (8.5-10.1); CHLORIDE 109 MEQ/L (98-107); GLOMERULAR FILTRATION RATE 33 ML/MIN (>89); GLUCOSE,RANDOM 132 MG/DL (74-106); SODIUM (NA) 140 MEQ/L (136-145)
[2018-01-01 17:41] LABS: ALKALINE PHOSPHATASE 58 U/L (45-117); TOTAL BILIRUBIN ADULT 0.4 MG/DL (0.2-1.0); TOTAL PROTEIN 6.4 GM/DL (6.4-8.2); TROPONIN I 0.08 NG/ML (0.02-0.05)
--- NOTE | 2018-01-01 18:03 | RADRPT ---
EXAM DATE: 01/01/2018 5:50 PM EDT AGE/SEX: 77 years / Male INDICATIONS: Short of breath. CLINICAL DATA: This is the patient's initial encounter. Patient reports that signs and symptoms have been present for 1 day and indicates a pain score of 0/10. MEDICAL/SURGICAL HISTORY: . Cardiovascular disease CABG. COMPARISON: [facility] – [place], CHEST SINGLE AP, 12/29/2017. . FINDINGS: Mild basilar airspace disease and small effusions. No pneumothorax. Previous sternotomy. CONCLUSION: Mild basilar airspace disease with small effusions. Differential diagnosis includes congestive heart failure. Electronically signed by: Misael Ward MD 01/01/2018 6:02 PM EDT
[2018-01-01] MEDS ORDERED: FURO1TAB60 PO (18:12)
[2018-01-01] MEDS ORDERED: FUROSEMIDE 40 MG/4 ML VIAL IV PUSH ONE (18:15)
--- NOTE | 2018-01-02 17:20 | EKG ---
Date Performed: 01/01/2018 Time Performed: 16:46:51 PTAGE: 77 years EKG: Sinus rhythm NONSPECIFIC T-WAVE ABNORMALITY ABNORMAL ECG PREVIOUS TRACING : 12/27/2017 06.08 Since the previous tracing, no significant change noted DOCTOR: Juan Humphrey Interpretating Date/Time 01/02/2018 17:18:42
== END 2018-01-01 18:58 | disposition home or self-care (01) ==
LOC: NEPC 15:45
DX: R60.9 Edema, unspecified (principal); I50.9 Heart failure, unspecified; R94.31 Abnormal electrocardiogram [ECG] [EKG]; I11.0 Hypertensive heart disease with heart failure; J44.9 Chronic obstructive pulmonary disease, unspecified; E11.9 Type 2 diabetes mellitus without complications; H91.90 Unspecified hearing loss, unspecified ear; K21.9 Gastro-esophageal reflux disease without esophagitis; Z88.2 Allergy status to sulfonamides
CPT/HCPCS: 71045; 80053; 83880; 84484; 85025; 85610; 93005; 96374; 99284; J1940

== ENCOUNTER 2018-02-28 18:52 | Observation (INO) ==
--- NOTE | 2018-02-28 20:11 | ED ---
HPI General Chief complaint: Weakness Stated complaint: weakness/right leg pain Time Seen by Provider: 02/28/18 19:53 Source: patient Mode of arrival: EMS Limitations: no limitations History of Present Illness HPI narrative: The patient is a 77-year-old male with history of HTN, COPD, CHF and diabetes presenting with complaint of right leg pain and swelling for the past 4 days getting progressively worse. Has history of gout as well as arthritis and states that his pain starts from the knee and radiates all the way up to his hip as well as right foot. He denies any injuries. Pain is worse with ambulation. Onset (ago): day(s) (4) Location: lower extremity (rle) Radiation: extremity Severity: moderate Severity scale (1-10): 8 Quality: burning Pain Consistency: constant Relieving factors: none Exacerbating factors: movement Associated symptoms: denies other symptoms Related Data Home Medications Medication Instructions Recorded Confirmed allopurinol 100 mg PO DAILY 03/01/18 03/01/18 amlodipine 5 mg PO BID 03/01/18 03/01/18 gabapentin 300 mg PO BID 03/01/18 03/01/18 glipizide 5 mg PO BID 03/01/18 03/01/18 levothyroxine 75 mcg PO DAILY 03/01/18 03/01/18 Allergies Allergy/AdvReac Type Severity Reaction Status Date / Time Sulfa (Sulfonamide Allergy Intermediate Edema Verified 01/01/18 16:52 Antibiotics) Review of Systems ROS: all other systems reviewed are negative Cardiovascular Denies chest pain, Denies diaphoresis, Reports pedal edema, Reports leg edema ( Bilateral right worse than left), Reports dyspnea on exertion and Reports paroxysmal nocturnal dyspnea Respiratory Denies chest congestion, Denies cough, Reports dyspnea on exertion and Denies wheezing Gastrointestinal Reports system reviewed and no additional complaints, except as docu Musculoskeletal Reports arthralgias and Reports radiating pain into limb Neurologic Reports system reviewed and no additional complaints, except as docu [facility]LY [facility] Medical History Medical History CHF (congestive heart failure) (Acute) COPD (chronic obstructive pulmonary disease) (Acute) Diabetes (Acute) HTN (hypertension) (Acute) Surgical History Surgical History History of orthopedic surgery (Acute) Hx of appendectomy (Acute) Hx of heart surgery (Acute) Family History Family History Other HTN (hypertension) Social History Social History Substance History: No History of Abuse Second Hand Smoke Exposure: No Smoking Status: Former smoker How Often Do You Have a Drink Containing Alcohol: Never Recent Travel in [facility] within the Last 8 Weeks: No Recent Out of Country Travel within the Last 8 Weeks: No Immunization History Tetanus Immunization: Unsure Hx Influenza Vaccine This Season: No Exam Narrative Exam Narrative: GENERAL: Alert and oriented in no distress SKIN: Focused skin assessment warm/dry. HEAD: Atraumatic. Normocephalic. EYES: Pupils equal and round. No scleral icterus. No injection or drainage. ENT: No nasal bleeding or discharge. Mucous membranes pink and moist. NECK: Trachea midline. No JVD. CARDIOVASCULAR: Regular rate and rhythm. No murmur appreciated. 4+ pitting edema right lower extremity 3+ pitting edema left lower extremity including bilateral feet. Dorsalis pedis posterior tibialis present RESPIRATORY: No accessory muscle use. Clear to auscultation. Breath sounds equal bilaterally. GASTROINTESTINAL: Abdomen soft, non-tender, nondistended. Hepatic and splenic margins not palpable. MUSCULOSKELETAL: No obvious deformities. No clubbing. No cyanosis. No edema. NEUROLOGICAL: Awake and alert. No obvious cranial nerve deficits. Motor grossly within normal limits. Normal speech. PSYCHIATRIC: Appropriate mood and affect; insight and judgment normal. Course Hospital Course: Patient with right lower extremity edema and no PE however he is elderly lives by himself and cannot take care of himself therefore we discussed that he may benefit from admission and placement to a rehab facility. Initial Documented Vital Signs Temperature 98.2 F 02/28/18 18:53 Pulse Rate 91 H 02/28/18 18:53 Respiratory Rate 18 02/28/18 18:53 Blood Pressure 112/60 02/28/18 18:53 Pulse Oximetry 99 02/28/18 18:53 Last Documented Vital Signs Temperature 98.2 F 03/02/18 23:38 Pulse Rate 80 03/02/18 23:38 Respiratory Rate 22 03/02/18 23:38 Blood Pressure 165/77 H 03/02/18 23:38 Pulse Oximetry 92 L 03/02/18 23:38 Medical Decision Making MDM Narrative Medical decision making narrative: Vital abnormalities noted patient is on Lasix at home. He has got bilateral edema without any DVTs. Markedly elevated blood pressure and glucose elevation also noted. She will be admitted for possible placement to short-term rehab facility. Medical Screen Exam Complete: Yes Emergency Medical Condition: Yes Lab Data Lab results reviewed: Yes I reviewed the patient's lab results. Result diagrams: 03/02/18 07:45 03/02/18 07:45 Lab Results 02/28/18 02/28/18 02/28/18 Range/Units 20:20 20:20 20:20 WBC 11.2 H (4.0-11.0) th/mm3 RBC 4.10 L (4.50-5.90) mil/mm3 Hgb 8.6 L (13.0-17.0) gm/dL Hct 28.4 L (39.0-51.0) % MCV 69.3 L (80.0-100.0) fL MCH 21.1 L (27.0-34.0) pg MCHC 30.4 L (32.0-36.0) % RDW 23.1 H (11.6-17.2) % Plt Count 231 (150-450) th/mm3 MPV 9.5 (7.0-11.0) fL Neut % (Auto) 83.1 H (16.0-70.0) % Lymph % (Auto) 6.4 L (9.0-44.0) % [place] % (Auto) 9.9 H (0.0-8.0) % Eos % (Auto) 0.2 (0.0-4.0) % Baso % (Auto) 0.4 (0.0-2.0) % Neut # (Auto) 9.3 H (1.8-7.7) th/mm3 Lymph # (Auto) 0.7 L (1.0-4.8) th/mm3 [place] # (Auto) 1.1 H (0.0-0.9) th/mm3 Eos # (Auto) 0.0 (0.0-0.4) th/mm3 Baso # (Auto) 0.1 (0.0-0.2) th/mm3 WBC Differential . Differential Comment Auto diff final PT 11.2 (9.8-11.6) sec INR 1.1 Ratio APTT 30.6 H (24.3-30.1) sec Sodium 136 (136-145) meq/L Potassium 4.7 (3.5-5.1) meq/L Chloride 103 (98-107) meq/L Carbon Dioxide 24.2 (21.0-32.0) meq/L Anion Gap 9 (5-15) meq/L BUN 44 H (7-18) mg/dL Creatinine 2.15 H (0.60-1.30) mg/dL Estimated GFR 30 L (>89) mL/min POC Glucose (68-110) mg/dl Random Glucose 64 L (74-106) mg/dL Hemoglobin A1c (4.3-6.0) % Uric Acid (2.6-7.2) mg/dl Calcium 9.0 (8.5-10.1) mg/dL Phosphorus (2.5-4.9) mg/dL Magnesium (1.5-2.5) mg/dL Total Bilirubin 0.8 (0.2-1.0) mg/dL AST 15 (15-37) U/L ALT 16 (12-78) U/L Alkaline Phosphatase 74 (45-117) U/L Troponin I Less than 0.02 L (0.02-0.05) ng/mL B-Natriuretic Peptide (0-100) pg/mL Total Protein 7.6 (6.4-8.2) g/dL Albumin 3.3 L (3.4-5.0) g/dL TSH (0.358-3.740) uIU/mL Free T4 (0.76-1.46) ng/dL 02/28/18 02/28/18 03/01/18 Range/Units 20:20 23:13 06:19 WBC (4.0-11.0) th/mm3 RBC (4.50-5.90) mil/mm3 Hgb (13.0-17.0) gm/dL Hct (39.0-51.0) % MCV (80.0-100.0) fL MCH (27.0-34.0) pg MCHC (32.0-36.0) % RDW (11.6-17.2) % Plt Count (150-450) th/mm3 MPV (7.0-11.0) fL Neut % (Auto) (16.0-70.0) % Lymph % (Auto) (9.0-44.0) % [place] % (Auto) (0.0-8.0) % Eos % (Auto) (0.0-4.0) % Baso % (Auto) (0.0-2.0) % Neut # (Auto) (1.8-7.7) th/mm3 Lymph # (Auto) (1.0-4.8) th/mm3 [place] # (Auto) (0.0-0.9) th/mm3 Eos # (Auto) (0.0-0.4) th/mm3 Baso # (Auto) (0.0-0.2) th/mm3 WBC Differential Differential Comment PT (9.8-11.6) sec INR Ratio APTT (24.3-30.1) sec Sodium 140 (136-145) meq/L Potassium 4.0 (3.5-5.1) meq/L Chloride 106 (98-107) meq/L Carbon Dioxide 25.1 (21.0-32.0) meq/L Anion Gap 9 (5-15) meq/L BUN 42 H (7-18) mg/dL Creatinine 2.13 H (0.60-1.30) mg/dL Estimated GFR 30 L (>89) mL/min POC Glucose 193 H (68-110) mg/dl Random Glucose 88 (74-106) mg/dL Hemoglobin A1c (4.3-6.0) % Uric Acid (2.6-7.2) mg/dl Calcium 8.9 (8.5-10.1) mg/dL Phosphorus (2.5-4.9) mg/dL Magnesium (1.5-2.5) mg/dL Total Bilirubin (0.2-1.0) mg/dL AST (15-37) U/L ALT (12-78) U/L Alkaline Phosphatase (45-117) U/L Troponin I (0.02-0.05) ng/mL B-Natriuretic Peptide 54 (0-100) pg/mL Total Protein (6.4-8.2) g/dL Albumin (3.4-5.0) g/dL TSH (0.358-3.740) uIU/mL Free T4 (0.76-1.46) ng/dL 03/01/18 03/01/18 03/01/18 Range/Units 06:19 17:05 21:30 WBC (4.0-11.0) th/mm3 RBC (4.50-5.90) mil/mm3 Hgb (13.0-17.0) gm/dL Hct (39.0-51.0) % MCV (80.0-100.0) fL MCH (27.0-34.0) pg MCHC (32.0-36.0) % RDW (11.6-17.2) % Plt Count (150-450) th/mm3 MPV (7.0-11.0) fL Neut % (Auto) (16.0-70.0) % Lymph % (Auto) (9.0-44.0) % [place] % (Auto) (0.0-8.0) % Eos % (Auto) (0.0-4.0) % Baso % (Auto) (0.0-2.0) % Neut # (Auto) (1.8-7.7) th/mm3 Lymph # (Auto) (1.0-4.8) th/mm3 [place] # (Auto) (0.0-0.9) th/mm3 Eos # (Auto) (0.0-0.4) th/mm3 Baso # (Auto) (0.0-0.2) th/mm3 WBC Differential Differential Comment PT (9.8-11.6) sec INR Ratio APTT (24.3-30.1) sec Sodium (136-145) meq/L Potassium (3.5-5.1) meq/L Chloride (98-107) meq/L Carbon Dioxide (21.0-32.0) meq/L Anion Gap (5-15) meq/L BUN (7-18) mg/dL Creatinine (0.60-1.30) mg/dL Estimated GFR (>89) mL/min POC Glucose 256 H 171 H (68-110) mg/dl Random Glucose (74-106) mg/dL Hemoglobin A1c (4.3-6.0) % Uric Acid 8.4 H (2.6-7.2) mg/dl Calcium (8.5-10.1) mg/dL Phosphorus (2.5-4.9) mg/dL Magnesium (1.5-2.5) mg/dL Total Bilirubin (0.2-1.0) mg/dL AST (15-37) U/L ALT (12-78) U/L Alkaline Phosphatase (45-117) U/L Troponin I (0.02-0.05) ng/mL B-Natriuretic Peptide (0-100) pg/mL Total Protein (6.4-8.2) g/dL Albumin (3.4-5.0) g/dL TSH 0.886 (0.358-3.740) uIU/mL Free T4 (0.76-1.46) ng/dL 03/02/18 03/02/18 03/02/18 Range/Units 07:45 07:45 07:45 WBC 8.3 (4.0-11.0) th/mm3 RBC 3.64 L (4.50-5.90) mil/mm3 Hgb 7.8 L (13.0-17.0) gm/dL Hct 24.9 L (39.0-51.0) % MCV 68.6 L (80.0-100.0) fL MCH 21.4 L (27.0-34.0) pg MCHC 31.2 L (32.0-36.0) % RDW 22.5 H (11.6-17.2) % Plt Count 225 (150-450) th/mm3 MPV 9.5 (7.0-11.0) fL Neut % (Auto) 79.0 H (16.0-70.0) % Lymph % (Auto) 7.9 L (9.0-44.0) % [place] % (Auto) 11.3 H (0.0-8.0) % Eos % (Auto) 0.8 (0.0-4.0) % Baso % (Auto) 1.0 (0.0-2.0) % Neut # (Auto) 6.5 (1.8-7.7) th/mm3 Lymph # (Auto) 0.7 L (1.0-4.8) th/mm3 [place] # (Auto) 0.9 (0.0-0.9) th/mm3 Eos # (Auto) 0.1 (0.0-0.4) th/mm3 Baso # (Auto) 0.1 (0.0-0.2) th/mm3 WBC Differential . Differential Comment Auto diff final PT (9.8-11.6) sec INR Ratio APTT (24.3-30.1) sec Sodium 138 (136-145) meq/L Potassium 4.2 (3.5-5.1) meq/L Chloride 104 (98-107) meq/L Carbon Dioxide 22.8 (21.0-32.0) meq/L Anion Gap 11 (5-15) meq/L BUN 42 H (7-18) mg/dL Creatinine 2.09 H (0.60-1.30) mg/dL Estimated GFR 31 L (>89) mL/min POC Glucose (68-110) mg/dl Random Glucose 139 H (74-106) mg/dL Hemoglobin A1c 7.2 H (4.3-6.0) % Uric Acid (2.6-7.2) mg/dl Calcium 8.7 (8.5-10.1) mg/dL Phosphorus 4.4 (2.5-4.9) mg/dL Magnesium 2.0 (1.5-2.5) mg/dL Total Bilirubin 0.8 (0.2-1.0) mg/dL AST 13 L (15-37) U/L ALT 12 (12-78) U/L Alkaline Phosphatase 69 (45-117) U/L Troponin I (0.02-0.05) ng/mL B-Natriuretic Peptide (0-100) pg/mL Total Protein 7.0 D (6.4-8.2) g/dL Albumin 2.9 L (3.4-5.0) g/dL TSH 1.250 (0.358-3.740) uIU/mL Free T4 1.28 (0.76-1.46) ng/dL 03/02/18 03/02/18 03/02/18 Range/Units 08:32 13:05 18:06 WBC (4.0-11.0) th/mm3 RBC (4.50-5.90) mil/mm3 Hgb (13.0-17.0) gm/dL Hct (39.0-51.0) % MCV (80.0-100.0) fL MCH (27.0-34.0) pg MCHC (32.0-36.0) % RDW (11.6-17.2) % Plt Count (150-450) th/mm3 MPV (7.0-11.0) fL Neut % (Auto) (16.0-70.0) % Lymph % (Auto) (9.0-44.0) % [place] % (Auto) (0.0-8.0) % Eos % (Auto) (0.0-4.0) % Baso % (Auto) (0.0-2.0) % Neut # (Auto) (1.8-7.7) th/mm3 Lymph # (Auto) (1.0-4.8) th/mm3 [place] # (Auto) (0.0-0.9) th/mm3 Eos # (Auto) (0.0-0.4) th/mm3 Baso # (Auto) (0.0-0.2) th/mm3 WBC Differential Differential Comment PT (9.8-11.6) sec INR Ratio APTT (24.3-30.1) sec Sodium (136-145) meq/L Potassium (3.5-5.1) meq/L Chloride (98-107) meq/L Carbon Dioxide (21.0-32.0) meq/L Anion Gap (5-15) meq/L BUN (7-18) mg/dL Creatinine (0.60-1.30) mg/dL Estimated GFR (>89) mL/min POC Glucose 163 H 201 H 303 H (68-110) mg/dl Random Glucose (74-106) mg/dL Hemoglobin A1c (4.3-6.0) % Uric Acid (2.6-7.2) mg/dl Calcium (8.5-10.1) mg/dL Phosphorus (2.5-4.9) mg/dL Magnesium (1.5-2.5) mg/dL Total Bilirubin (0.2-1.0) mg/dL AST (15-37) U/L ALT (12-78) U/L Alkaline Phosphatase (45-117) U/L Troponin I (0.02-0.05) ng/mL B-Natriuretic Peptide (0-100) pg/mL Total Protein (6.4-8.2) g/dL Albumin (3.4-5.0) g/dL TSH (0.358-3.740) uIU/mL Free T4 (0.76-1.46) ng/dL 03/02/18 Range/Units 20:37 WBC (4.0-11.0) th/mm3 RBC (4.50-5.90) mil/mm3 Hgb (13.0-17.0) gm/dL Hct (39.0-51.0) % MCV (80.0-100.0) fL MCH (27.0-34.0) pg MCHC (32.0-36.0) % RDW (11.6-17.2) % Plt Count (150-450) th/mm3 MPV (7.0-11.0) fL Neut % (Auto) (16.0-70.0) % Lymph % (Auto) (9.0-44.0) % [place] % (Auto) (0.0-8.0) % Eos % (Auto) (0.0-4.0) % Baso % (Auto) (0.0-2.0) % Neut # (Auto) (1.8-7.7) th/mm3 Lymph # (Auto) (1.0-4.8) th/mm3 [place] # (Auto) (0.0-0.9) th/mm3 Eos # (Auto) (0.0-0.4) th/mm3 Baso # (Auto) (0.0-0.2) th/mm3 WBC Differential Differential Comment PT (9.8-11.6) sec INR Ratio APTT (24.3-30.1) sec Sodium (136-145) meq/L Potassium (3.5-5.1) meq/L Chloride (98-107) meq/L Carbon Dioxide (21.0-32.0) meq/L Anion Gap (5-15) meq/L BUN (7-18) mg/dL Creatinine (0.60-1.30) mg/dL Estimated GFR (>89) mL/min POC Glucose 346 H (68-110) mg/dl Random Glucose (74-106) mg/dL Hemoglobin A1c (4.3-6.0) % Uric Acid (2.6-7.2) mg/dl Calcium (8.5-10.1) mg/dL Phosphorus (2.5-4.9) mg/dL Magnesium (1.5-2.5) mg/dL Total Bilirubin (0.2-1.0) mg/dL AST (15-37) U/L ALT (12-78) U/L Alkaline Phosphatase (45-117) U/L Troponin I (0.02-0.05) ng/mL B-Natriuretic Peptide (0-100) pg/mL Total Protein (6.4-8.2) g/dL Albumin (3.4-5.0) g/dL TSH (0.358-3.740) uIU/mL Free T4 (0.76-1.46) ng/dL Imaging Data Radiologist's impression: Chest X-Ray 02/28/18 20:05 CONCLUSION: Previous bypass No congestive failure or infiltrate. Venous Doppler Study 02/28/18 20:05 CONCLUSION: 1. Negative for deep venous thrombosis in right and left lower extremities. ECG Data Attestation: I personally reviewed and interpreted this ECG as follows: Interpretation: EKG 9:08 PM on February 28 revealed sinus rhythm with a heart rate of 90 bpm. Normal axis. Nonspecific ST-T wave abnormalities. No signs of acute ischemia. Normal CT interval. QTc 361 ms Discharge Plan Discharge Disposition Patient Disposition: 30 Still Patient Discharge Condition Condition: Stable Discharge Details Diagnosis: Right leg weakness, CHF (congestive heart failure), Accelerated hypertension, Hyperglycemia Physicians Team ED Provider: Alexandre Contreras Primary Care Provider: Silverio Murrell Attending Provider: Hi Murrell Discharge Interventions Interventions: ED Discharge Assessment Last Done: 03/01/18 12:38 Status ED Status: Left Department Discharge Information Discharge Date/Time: 03/01/18 12:38
[2018-02-28 20:50] LABS: Baso # (Auto) 0.1 th/mm3 (0.0-0.2); Baso % (Auto) 0.4 % (0.0-2.0); Eos % (Auto) 0.2 % (0.0-4.0); Hematocrit 28.4 % (39.0-51.0); Hemoglobin 8.6 gm/dL (13.0-17.0); Lymph # (Auto) 0.7 th/mm3 (1.0-4.8); Lymph % (Auto) 6.4 % (9.0-44.0); Mean Corpuscular Hemoglobin 21.1 pg (27.0-34.0); Mean Corpuscular Volume 69.3 fL (80.0-100.0); Mean Platelet Volume 9.5 fL (7.0-11.0); Mono # (Auto) 1.1 th/mm3 (0.0-0.9); Mono % (Auto) 9.9 % (0.0-8.0); Neut # (Auto) 9.3 th/mm3 (1.8-7.7); Neut % (Auto) 83.1 % (16.0-70.0); Platelet Count 231 th/mm3 (150-450); Red Cell Distribution Width 23.1 % (11.6-17.2); White Blood Count 11.2 th/mm3 (4.0-11.0)
[2018-02-28 20:51] LABS: Mean Corpuscular HGB Conc 30.4 % (32.0-36.0)
--- NOTE | 2018-02-28 20:59 | XR ---
EXAM DATE: 02/28/2018 8:44 PM EDT AGE/SEX: 77 years / Male INDICATIONS: Chest discomfort, swelling in lower extremities CLINICAL DATA: This is the patient's initial encounter. Patient reports that signs and symptoms have been present for 1 day and indicates a pain score of 0/10. MEDICAL/SURGICAL HISTORY: Congestive heart failure. . Aortic valve repair COMPARISON: [facility] – [place], CHEST SINGLE AP, 01/01/2018. . FINDINGS: Sternal wires previous bypass noted. Minimal cardiomegaly. No infiltrate or failure. No alveolar cons olidation. The portion of the bony skeleton visualized is unremarkable. CONCLUSION: Previous bypass No congestive failure or infiltrate. Electronically signed by: Bhaskar Almeida MD 02/28/2018 8:57 PM EDT
[2018-02-28 21:00] LABS: Activated Partial Thrombo Time 30.6 sec (24.3-30.1); INR 1.1 Ratio; Prothrombin Time 11.2 sec (9.8-11.6)
[2018-02-28 21:10] LABS: Albumin 3.3 g/dL (3.4-5.0); Anion Gap 9 meq/L (5-15); Aspartate Aminotransferase 15 U/L (15-37); Blood Urea Nitrogen 44 mg/dL (7-18); Carbon Dioxide 24.2 meq/L (21.0-32.0); Chloride 103 meq/L (98-107); Glomerular Filtration Rate 30 mL/min (>89); Glucose,Random 64 mg/dL (74-106); Potassium 4.7 meq/L (3.5-5.1); Sodium 136 meq/L (136-145)
[2018-02-28 21:12] LABS: Alanine Aminotransferase 16 U/L (12-78)
[2018-02-28 21:15] LABS: Alkaline Phosphatase 74 U/L (45-117); Total Protein 7.6 g/dL (6.4-8.2)
--- NOTE | 2018-02-28 22:21 | US ---
EXAM DATE: 02/28/2018 10:03 PM EDT AGE/SEX: 77 years / Male INDICATIONS: Bilateral lower extremity edema. CLINICAL DATA: This is the patient's initial encounter. Patient reports that signs and symptoms have been present for 1 week and indicates a pain score of 8/10. MEDICAL/SURGICAL HISTORY: Congestive heart failure. Chronic obstructive pulmonary disease. Di abetes. Hypertension. Appendectomy. Orthopedic surgery. Heart surgery. [place] [facility] [place]/22/[place]. . TECHNIQUE: Venous ultrasound of both lower extremities was performed from the inguinal ligament to t he proximal calf. Real-time, color Doppler and spectral tracing, compression and augmentation techni ques were used. FINDINGS: Right Leg: Normal compression of the deep venous system from the inguinal region to the proximal dagoberto f. No echogenic clot is seen. Normal response of the venous system to augmentation and respiration. Left Leg: Normal compression of the deep venous system from the inguinal region to the proximal calf . No echogenic clot is seen. Normal response of the venous system to augmentation and respiration. CONCLUSION: 1. Negative for deep venous thrombosis in right and left lower extremities. Electronically signed by: Bhaskar Almeida MD 02/28/2018 10:20 PM EDT
[2018-03-01] MEDS ORDERED: Acetaminophen 325 MG Tablet PO PRN (00:40)
[2018-03-01] MEDS ORDERED: Dextrose 50% in Water 50 ML Vial IV.PUSH PRN (03:58)
--- NOTE | 2018-03-01 04:28 | P.HPIM ---
History of Present Illness Primary Care Physician: Silverio Murrell DO History of Present Illness: 77-year-old male with a history of gout, diabetes, hypertension, COPD and CHF presented to the ED with complaints of right lower extremity weakness. Patient states for the last 4 days he has been experiencing weakness/heaviness to the right lower extremity. He describes the pain as aching, heaviness, constant, worse with movement with radiation up his leg with no associated symptoms. He states it has been preventing him from walking. He denies any associated chest pain, shortness of breath, fever or chills. He denies any trauma to that right leg. Patient states he lives alone and he does not feel that he is able to care for himself at home. Review of Systems All other systems reviewed negative except as stated in HPI [facility] - History History Provided By: Patient - Medical History Medical History: Medical History (Last Reviewed 02/28/18 @ 20:10 by Alexandre Contreras DO) CHF (congestive heart failure) COPD (chronic obstructive pulmonary disease) Diabetes HTN (hypertension) - Surgical History Surgical History: Surgical History (Last Reviewed 02/28/18 @ 20:10 by Alexandre Contreras DO) History of orthopedic surgery Hx of appendectomy Hx of heart surgery - Family History Family History: Family History (Last Updated 03/01/18 @ 04:33 by RALPH Reza) Other HTN (hypertension) - Tobacco History Smoking Status: Former smoker - Alcohol History How Often Do You Have a Drink Containing Alcohol: Never - Substance Use History Substance History: No History of Abuse - Travel History Recent Travel in the [place] Within the Last 8 Weeks: No Recent Travel Out of the Country Within the Last 8 Weeks: No - Immunization History Tetanus Immunization: Unsure Hx Influenza Vaccine This Season: No Medications and Allergies Active Medications: Active Medications Acetaminophen (Tylenol) 650 mg PO Q4H PRN PRN Reason: Temp > 100.4 Dextrose (D50w Vial) 50 ml IV.PUSH UNSCH PRN PRN Reason: PER HYPOGLYCEMIA PROTOCOL Glucagon (Glucagon Inj) 1 mg OTHER PRN PRN PRN Reason: for Hypoglycemia Protocol Insulin Aspart (Novolog Insulin Correctional Sugar Inj) 0 unit SQ ACHS [place]LE[place]; Protocol Ondansetron HCl (Zofran Inj) 4 mg IV.PUSH Q6H PRN PRN Reason: NAUSEA OR VOMITING Allergies Allergy/AdvReac Type Severity Reaction Status Date / Time Sulfa (Sulfonamide Allergy Intermediate Edema Verified 01/01/18 16:52 Antibiotics) Home Medications Medication Instructions Recorded Confirmed Type allopurinol mg PO DAILY 03/01/18 History amlodipine mg PO BID 03/01/18 History gabapentin mg PO BID 03/01/18 History glipizide 5 mg PO BID 03/01/18 03/01/18 History levothyroxine mcg PO DAILY 03/01/18 History Exam Vital signs: Vital Signs 02/28/18 18:53 02/28/18 19:55 02/28/18 22:00 Temperature 98.2 F Pulse Rate 91 H 93 H 90 Respiratory Rate 18 18 18 Blood Pressure 112/60 180/75 H 180/75 H Pulse Oximetry 99 98 97 02/28/18 22:03 03/01/18 00:00 03/01/18 02:00 Temperature Pulse Rate 93 H 86 84 Respiratory Rate 18 18 15 Blood Pressure 137/65 157/67 H Pulse Oximetry 95 97 03/01/18 03:30 Temperature Pulse Rate 85 Respiratory Rate 18 Blood Pressure 151/67 H Pulse Oximetry 92 L Intake & Output 02/28/18 02/28/18 03/01/18 06:59 18:59 06:59 Weight 122.47 kg Narrative: GENERAL: This is a well-nourished, well-developed patient, in no apparent distress. SKIN: Warm, dry, intact, no ecchymosis or open lesions EYES: Pupils equal round and reactive, no scleral edema or drainage CARDIOVASCULAR: Regular rate and rhythm without murmurs, gallops, or rubs. RESPIRATORY: Clear to auscultation. Breath sounds equal bilaterally. No wheezes , rales, or rhonchi. GASTROINTESTINAL: Abdomen soft, non-tender, nondistended. Normal active bowel sounds MUSCULOSKELETAL: Bilateral lower extremities edematous, right greater than left. NEURO: Alert & Oriented x4 to person, place, time, situation. Moves all ext x4 Results - Labs CBC & Chem 7: 02/28/18 20:20 02/28/18 20:20 Labs: Short CBC 02/28/18 Range/Units 20:20 WBC 11.2 H (4.0-11.0) th/mm3 Hgb 8.6 L (13.0-17.0) gm/dL Hct 28.4 L (39.0-51.0) % Plt Count 231 (150-450) th/mm3 BMP 02/28/18 20:20 Sodium 136 Potassium 4.7 Chloride 103 Carbon Dioxide 24.2 BUN 44 H Creatinine 2.15 H Calcium 9.0 Cardiac Enzymes 02/28/18 Range/Units 20:20 Troponin I Less than 0.02 L (0.02-0.05) ng/mL Liver Function 02/28/18 Range/Units 20:20 Total Bilirubin 0.8 (0.2-1.0) mg/dL AST 15 (15-37) U/L ALT 16 (12-78) U/L Alkaline Phosphatase 74 (45-117) U/L Albumin 3.3 L (3.4-5.0) g/dL - Imaging Impressions Chest X-Ray 02/28/18 20:05 CONCLUSION: Previous bypass No congestive failure or infiltrate. Venous Doppler Study 02/28/18 20:05 CONCLUSION: 1. Negative for deep venous thrombosis in right and left lower extremities. Caprini VTE Risk Assessment Caprini VTE Risk Assessment: Moderate/High Risk (score >= 2) Caprini Risk Assessment Model: Point Value = 1 Point Value = 2 Point Value = 3 Point Value = 5 Age 41-60 Minor surgery BMI > 25 kg/m2 Swollen legs Varicose veins or History of unexplained or recurrent spontaneous Oral contraceptives or hormone replacement Sepsis (< 1 month) Serious lung disease, including pneumonia (< 1 month) Abnormal pulmonary function Acute myocardial infarction Congestive heart failure (< 1 month) History of inflammatory bowel disease Medical patient at bed rest Age 61-74 Arthroscopic surgery Major open surgery (> 45 min) Laparoscopic surgery (> 45 min) Malignancy Confined to bed (> 72 hours) Immobilizing plaster cast Central venous access Age >= 75 History of VTE Family history of VTE Factor V Leiden Prothrombin [id number] Lupus anticoagulant Anticardiolipin antibodies Elevated serum homocysteine Heparin-induced thrombocytopenia Other congenital or acquired thrombophilia Stroke (< 1 month) Elective arthroplasty Hip, pelvis, or leg fracture Acute spinal cord injury (< 1 month) Prophylaxis Regimen: Total Risk Factor Score Risk Level Prophylaxis Regimen 0-1 Low Early ambulation 2 Moderate Order ONE of the following: *Sequential Compression Device (SCD) *Heparin 5000 units SQ BID 3-4 Higher Order ONE of the following medications: *Heparin 5000 units SQ TID *Enoxaparin/Lovenox 40 mg SQ daily (WT < 150 kg, CrCl > 30 mL/min) *Enoxaparin/Lovenox 30 mg SQ daily (WT < 150 kg, CrCl > 10-29 mL/min) *Enoxaparin/Lovenox 30 mg SQ BID (WT < 150 kg, CrCl > 30 mL/min) AND/OR *Sequential Compression Device (SCD) 5 or more Highest Order ONE of the following medications: *Heparin 5000 units SQ TID (Preferred with Epidurals) *Enoxaparin/Lovenox 40 mg SQ daily (WT < 150 kg, CrCl > 30 mL/min) *Enoxaparin/Lovenox 30 mg SQ daily (WT < 150 kg, CrCl > 10-29 mL/min) *Enoxaparin/Lovenox 30 mg SQ BID (WT < 150 kg, CrCl > 30 mL/min) AND *Sequential Compression Device (SCD) Assessment and Plan - Plan Right lower extremity weakness/pain/edema -Doppler ultrasound ordered and is negative for DVT -Elevate LE -PT eval -Lasix x 1 given -Patient may need a CTA run off if no improvement Hypertension, chronic -Resume home medications once med rec is updated, monitor vitals Diabetes, chronic -Accu-Cheks with sliding scale insulin -Diabetic diet DVT prophylaxis: Heparin Discussed Condition With: Patient, RN and ED physician
[2018-03-01 07:16] LABS: Calcium 8.9 mg/dL (8.5-10.1); Carbon Dioxide 25.1 meq/L (21.0-32.0)
[2018-03-01] MEDS: Insulin NovoLOG Aspart Correctional Sugar Inj SQ SCH ×4 (07:40→21:38)
[2018-03-01] MEDS: Heparin - SQ 10,000 UNITS/ML Vial SQ SCH ×2 (09:33→21:38)
[2018-03-01 10:08] LABS: Uric Acid 8.4 mg/dl (2.6-7.2)
[2018-03-01 10:16] LABS: Thyroid Stimulating Hormone 0.886 uIU/mL (0.358-3.740)
--- NOTE | 2018-03-01 12:56 | ECG ---
Date Performed: 02/28/2018 Time Performed: 21:08:23 PTAGE: 77 years EKG: Sinus rhythm NONSPECIFIC T-WAVE CHANGES ABNORMAL ECG Compared to PREVIOUS TRACING , no change. PREVIOUS TRACIN01/01/2018 16.46 DOCTOR: Tapan Webber Interpretating Date/Time 03/01/2018 12:55:06
[2018-03-01] MEDS ORDERED: Naloxone Inj 0.4 MG/ML Vial IV.PUSH PRN (17:00)
[2018-03-01] MEDS ORDERED: Morphine Inj 4 MG/ML Vial IV.PUSH PRN ×2 (17:00)
--- NOTE | 2018-03-01 18:17 | P.PN ---
Subjective Interval history: Patient is seen sitting up in bed. He denies any chest pain or shortness of breath. Denies nausea vomiting or diarrhea. He is eating well. Voiding without difficulty. Voiding without difficulty. No fever or chills. He does continue to have a lot of pain due to swelling in his right leg. Physical Exam Vital signs: Vital Signs 02/28/18 18:53 02/28/18 19:55 02/28/18 22:00 Temperature 98.2 F Pulse Rate 91 H 93 H 90 Respiratory Rate 18 Blood Pressure 112/60 180/75 H 180/75 H Pulse Oximetry 99 98 97 02/28/18 22:03 03/01/18 00:00 03/01/18 02:00 Temperature Pulse Rate 93 H 86 84 Respiratory Rate 15 Blood Pressure 137/65 157/67 H Pulse Oximetry 95 97 03/01/18 03:30 03/01/18 05:46 03/01/18 07:42 Temperature Pulse Rate 85 90 87 Respiratory Rate 18 Blood Pressure 151/67 H 162/72 H 152/68 H Pulse Oximetry 92 L 95 03/01/18 16:00 Temperature 98.0 F Pulse Rate 100 H Respiratory Rate 20 Blood Pressure 166/74 H Pulse Oximetry 94 L Intake & Output 02/28/18 03/01/18 03/01/18 18:59 06:59 18:59 Intake Total 500 / 500 Balance 500 / 500 Weight 122.47 kg Intake: Oral 500 / 500 Narrative: GENERAL: Well-nourished, well-developed adult male in no obvious distress. SKIN: Warm and dry. HEAD: Atraumatic. Normocephalic. CARDIOVASCULAR: Regular rate and rhythm. RESPIRATORY: No accessory muscle use. Clear to auscultation. Breath sounds equal bilaterally. GASTROINTESTINAL: Abdomen soft, non-tender, non-distended. Positive bowel sounds. MUSCULOSKELETAL: Bilateral lower leg edema; left +1 to knee; right +2 to mid thigh. No obvious deformities. Well-perfused. NEUROLOGICAL: Awake and alert. No obvious cranial nerve deficits. Motor grossly within normal limits. Normal speech. PSYCHIATRIC: Appropriate mood and affect; insight and judgment good. Results - Labs CBC & Chem 7: 02/28/18 20:20 03/01/18 06:19 Laboratory Results - last 24 hr 02/28/18 02/28/18 02/28/18 20:20 20:20 20:20 WBC 11.2 H RBC 4.10 L Hgb 8.6 L Hct 28.4 L MCV 69.3 L MCH 21.1 L MCHC 30.4 L RDW 23.1 H Plt Count 231 MPV 9.5 Neut % (Auto) 83.1 H Lymph % (Auto) 6.4 L [place] % (Auto) 9.9 H Eos % (Auto) 0.2 Baso % (Auto) 0.4 Neut # (Auto) 9.3 H Lymph # (Auto) 0.7 L [place] # (Auto) 1.1 H Eos # (Auto) 0.0 Baso # (Auto) 0.1 WBC Differential . Differential Comment Auto diff final PT 11.2 INR 1.1 APTT 30.6 H Sodium 136 Potassium 4.7 Chloride 103 Carbon Dioxide 24.2 Anion Gap 9 BUN 44 H Creatinine 2.15 H Estimated GFR 30 L POC Glucose Random Glucose 64 L Uric Acid Calcium 9.0 Total Bilirubin 0.8 AST 15 ALT 16 Alkaline Phosphatase 74 Troponin I Less than 0.02 L B-Natriuretic Peptide Total Protein 7.6 Albumin 3.3 L [facility] 02/28/18 02/28/18 03/01/18 20:20 23:13 06:19 WBC RBC Hgb Hct MCV MCH MCHC RDW Plt Count MPV Neut % (Auto) Lymph % (Auto) [place] % (Auto) Eos % (Auto) Baso % (Auto) Neut # (Auto) Lymph # (Auto) [place] # (Auto) Eos # (Auto) Baso # (Auto) WBC Differential Differential Comment PT INR APTT Sodium 140 Potassium 4.0 Chloride 106 Carbon Dioxide 25.1 Anion Gap 9 BUN 42 H Creatinine 2.13 H Estimated GFR 30 L POC Glucose 193 H Random Glucose 88 Uric Acid Calcium 8.9 Total Bilirubin AST ALT Alkaline Phosphatase Troponin I B-Natriuretic Peptide 54 Total Protein Albumin [facility] 03/01/18 03/01/18 06:19 17:05 WBC RBC Hgb Hct MCV MCH MCHC RDW Plt Count MPV Neut % (Auto) Lymph % (Auto) [place] % (Auto) Eos % (Auto) Baso % (Auto) Neut # (Auto) Lymph # (Auto) [place] # (Auto) Eos # (Auto) Baso # (Auto) WBC Differential Differential Comment PT INR APTT Sodium Potassium Chloride Carbon Dioxide Anion Gap BUN Creatinine Estimated GFR POC Glucose 256 H Random Glucose Uric Acid 8.4 H Calcium Total Bilirubin AST ALT Alkaline Phosphatase Troponin I B-Natriuretic Peptide Total Protein Albumin TSH 0.886 - Imaging Impressions Chest X-Ray 02/28/18 20:05 CONCLUSION: Previous bypass No congestive failure or infiltrate. Venous Doppler Study 02/28/18 20:05 CONCLUSION: 1. Negative for deep venous thrombosis in right and left lower extremities. Assessment and Plan - Plan 77-year-old male with a past medical history of gout, diabetes, hypertension, COPD and CHF who presented to the emergency room with complaint of right lower leg extremity swelling and weakness. Reports that the swelling has been increasing over the last 4 days. Also reports previous episodes of swelling in the same leg. Right lower extremity weakness/pain/edema -Doppler ultrasound ordered and is negative for DVT -Elevate LE -PT eval -Lasix x 1 given -Patient may need a CTA run off if no improvement; mild improvement after Lasix repeat x1 - monitor Cr Hypertension/CHF, chronic -Resume home medications, monitor vitals -Chest x-ray negative for infiltrates; EKG at admit SR Chronic kidney disease -Baseline creatinine appears to be 1.8-2 -Avoid nephrotoxins; concern for chronic allopurinol; uric acid ordered Chronic anemia -Baseline hemoglobin 8-9; currently stable Diabetes, chronic -Accu-Cheks with sliding scale insulin -Diabetic diet DVT prophylaxis: Heparin Discussed Condition With: Patient, RN
[2018-03-01] MEDS: amLODIPine 5 MG Tablet PO SCH (21:38)
[2018-03-01] MEDS: Gabapentin 300 MG Capsule PO SCH (21:38)
[2018-03-02] MEDS: oxyCODONE/Acetaminophen 10/325 Tablet PO PRN ×2 (00:32→06:26)
[2018-03-02] MEDS: Levothyroxine 75 MCG Tablet PO SCH (06:26)
[2018-03-02] MEDS: Insulin NovoLOG Aspart Correctional Sugar Inj SQ SCH ×4 (08:56→20:43)
[2018-03-02] MEDS: Heparin - SQ 10,000 UNITS/ML Vial SQ SCH ×2 (08:57→20:42)
[2018-03-02] MEDS: Gabapentin 300 MG Capsule PO SCH ×2 (08:57→20:42)
[2018-03-02] MEDS: amLODIPine 5 MG Tablet PO SCH ×2 (08:58→20:43)
[2018-03-02] MEDS: Allopurinol 100 MG Tablet PO SCH (08:58)
[2018-03-02 09:00] LABS: Baso # (Auto) 0.1 th/mm3 (0.0-0.2); Eos # (Auto) 0.1 th/mm3 (0.0-0.4); Eos % (Auto) 0.8 % (0.0-4.0); Hematocrit 24.9 % (39.0-51.0); Hemoglobin 7.8 gm/dL (13.0-17.0); Lymph # (Auto) 0.7 th/mm3 (1.0-4.8); Lymph % (Auto) 7.9 % (9.0-44.0); Mean Corpuscular HGB Conc 31.2 % (32.0-36.0); Mean Corpuscular Hemoglobin 21.4 pg (27.0-34.0); Mean Corpuscular Volume 68.6 fL (80.0-100.0); Mean Platelet Volume 9.5 fL (7.0-11.0); Mono # (Auto) 0.9 th/mm3 (0.0-0.9); Mono % (Auto) 11.3 % (0.0-8.0); Neut # (Auto) 6.5 th/mm3 (1.8-7.7); Platelet Count 225 th/mm3 (150-450); Red Blood Count 3.64 mil/mm3 (4.50-5.90); Red Cell Distribution Width 22.5 % (11.6-17.2); White Blood Count 8.3 th/mm3 (4.0-11.0)
[2018-03-02 09:32] LABS: Albumin 2.9 g/dL (3.4-5.0); Anion Gap 11 meq/L (5-15); Aspartate Aminotransferase 13 U/L (15-37); Blood Urea Nitrogen 42 mg/dL (7-18); Calcium 8.7 mg/dL (8.5-10.1); Carbon Dioxide 22.8 meq/L (21.0-32.0); Chloride 104 meq/L (98-107); Glomerular Filtration Rate 31 mL/min (>89); Potassium 4.2 meq/L (3.5-5.1); Sodium 138 meq/L (136-145)
[2018-03-02 09:33] LABS: Glucose,Random 139 mg/dL (74-106)
[2018-03-02 09:43] LABS: Alanine Aminotransferase 12 U/L (12-78); Alkaline Phosphatase 69 U/L (45-117); Free T4 (Free Thyroxine) 1.28 ng/dL (0.76-1.46); Phosphorus 4.4 mg/dL (2.5-4.9)
[2018-03-02] MEDS ORDERED: predniSONE 20 MG Tablet PO ONE (09:53)
[2018-03-02 14:23] LABS: Hemoglobin A1c 7.2 % (4.3-6.0)
--- NOTE | 2018-03-02 14:36 | P.PN ---
Subjective Interval history: Patient is seen lying in bed. He does move to the side of the bed during my assessment. Still is very painful and is having difficulty moving easily. He feels that his leg swelling has gotten much better. Tells me now that his pain is mostly in his knees and legs. Does not really have any hip pain at this time. Reports that he has had his knees evaluated previously and was told that the had mostly degenerative damage. Says that his gout pain usually starts in his left leg however this time it started in his right but has now moved back to his left. Physical Exam Vital signs: Vital Signs 03/01/18 16:00 03/01/18 20:00 03/02/18 00:00 Temperature 98.0 F 98.0 F 98.4 F Pulse Rate 100 H 101 H 105 H Respiratory Rate 20 22 22 Blood Pressure 166/74 H 152/67 H 173/79 H Pulse Oximetry 94 L 93 L 95 03/02/18 04:00 03/02/18 08:00 03/02/18 08:38 Temperature 98.0 F 98.0 F Pulse Rate 95 H 95 H 96 H Respiratory Rate 22 16 Blood Pressure 170/79 H 137/66 Pulse Oximetry 94 L 92 L 03/02/18 11:58 Temperature 98.4 F Pulse Rate 94 H Respiratory Rate 16 Blood Pressure 197/84 H Pulse Oximetry 90 L Intake & Output 03/01/18 03/02/18 03/02/18 18:59 06:59 18:59 Intake Total 740 / 740 Output Total 400 / 400 Balance 340 / 340 Intake: Oral 740 / 740 Output: Urine 400 / 400 Other: # Voids 3 Narrative: GENERAL: Well-nourished, well-developed adult male in no obvious distress. SKIN: Warm and dry. HEAD: Atraumatic. Normocephalic. CARDIOVASCULAR: Regular rate and rhythm. RESPIRATORY: No accessory muscle use. Clear to auscultation. Breath sounds equal bilaterally. GASTROINTESTINAL: Abdomen soft, non-tender, non-distended. Positive bowel sounds. MUSCULOSKELETAL: Bilateral lower leg edema; left slight; right +1 to mid knee. No obvious deformities. Well-perfused. NEUROLOGICAL: Awake and alert. No obvious cranial nerve deficits. Motor grossly within normal limits. Normal speech. PSYCHIATRIC: Appropriate mood and affect; insight and judgment good. Results - Labs CBC & Chem 7: 03/02/18 07:45 03/02/18 07:45 Laboratory Results - last 24 hr 03/01/18 03/01/18 03/02/18 17:05 21:30 07:45 WBC 8.3 RBC 3.64 L Hgb 7.8 L Hct 24.9 L MCV 68.6 L MCH 21.4 L MCHC 31.2 L RDW 22.5 H Plt Count 225 MPV 9.5 Neut % (Auto) 79.0 H Lymph % (Auto) 7.9 L [place] % (Auto) 11.3 H Eos % (Auto) 0.8 Baso % (Auto) 1.0 Neut # (Auto) 6.5 Lymph # (Auto) 0.7 L [place] # (Auto) 0.9 Eos # (Auto) 0.1 Baso # (Auto) 0.1 WBC Differential . Differential Comment Auto diff final Sodium Potassium Chloride Carbon Dioxide Anion Gap BUN Creatinine Estimated GFR POC Glucose 256 H 171 H Random Glucose Calcium Phosphorus Magnesium Total Bilirubin AST ALT Alkaline Phosphatase Total Protein Albumin TSH Free T4 03/02/18 03/02/18 03/02/18 07:45 08:32 13:05 WBC RBC Hgb Hct MCV MCH MCHC RDW Plt Count MPV Neut % (Auto) Lymph % (Auto) [place] % (Auto) Eos % (Auto) Baso % (Auto) Neut # (Auto) Lymph # (Auto) [place] # (Auto) Eos # (Auto) Baso # (Auto) WBC Differential Differential Comment Sodium 138 Potassium 4.2 Chloride 104 Carbon Dioxide 22.8 Anion Gap 11 BUN 42 H Creatinine 2.09 H Estimated GFR 31 L POC Glucose 163 H 201 H Random Glucose 139 H Calcium 8.7 Phosphorus 4.4 Magnesium 2.0 Total Bilirubin 0.8 AST 13 L ALT 12 Alkaline Phosphatase 69 Total Protein 7.0 D Albumin 2.9 L TSH 1.250 Free T4 1.28 Assessment and Plan - Plan 77-year-old male with a past medical history of gout, diabetes, hypertension, COPD and CHF who presented to the emergency room with complaint of right lower leg extremity swelling and weakness. Reports that the swelling has been increasing over the last 4 days. Also reports previous episodes of swelling in the same leg. Right lower extremity weakness/pain/edema -Doppler ultrasound ordered and is negative for DVT -Elevate LE -PT eval -Lasix x 2 given; we will give additional dose today Hypertension/CHF, chronic -Resume home medications, monitor vitals -Chest x-ray negative for infiltrates; EKG at admit SR Chronic kidney disease -Baseline creatinine appears to be 1.8-2.; Tolerating diuretic -Avoid nephrotoxins; concern for chronic allopurinol- monitor closely Gout -Likely contributing to lower leg pain -uric acid 8.4; continued allopurinol -Will add short course of prednisone. Closely monitor BG. Chronic anemia -Baseline hemoglobin 8-9; currently stable Diabetes, chronic -Accu-Cheks with sliding scale insulin -Diabetic diet -A1c pending DVT prophylaxis: Heparin Discussed Condition With: Patient, RN
[2018-03-03] MEDS: oxyCODONE/Acetaminophen 10/325 Tablet PO PRN (00:58)
[2018-03-03] MEDS: Levothyroxine 75 MCG Tablet PO SCH (05:21)
[2018-03-03 07:27] LABS: Baso % (Auto) 0.4 % (0.0-2.0); Hematocrit 24.5 % (39.0-51.0); Hemoglobin 7.7 gm/dL (13.0-17.0); Lymph # (Auto) 0.6 th/mm3 (1.0-4.8); Lymph % (Auto) 6.5 % (9.0-44.0); Mean Corpuscular HGB Conc 31.3 % (32.0-36.0); Mean Corpuscular Hemoglobin 21.3 pg (27.0-34.0); Mean Platelet Volume 9.3 fL (7.0-11.0); Mono # (Auto) 0.7 th/mm3 (0.0-0.9); Mono % (Auto) 7.3 % (0.0-8.0); Neut # (Auto) 7.9 th/mm3 (1.8-7.7); Neut % (Auto) 85.8 % (16.0-70.0); Platelet Count 249 th/mm3 (150-450); Red Blood Count 3.61 mil/mm3 (4.50-5.90); Red Cell Distribution Width 22.2 % (11.6-17.2); White Blood Count 9.2 th/mm3 (4.0-11.0)
[2018-03-03] MEDS: Insulin NovoLOG Aspart Correctional Sugar Inj SQ SCH ×4 (10:13→20:59)
[2018-03-03] MEDS: predniSONE 10 MG Tablet PO SCH (10:14)
[2018-03-03] MEDS: Gabapentin 300 MG Capsule PO SCH ×2 (10:14→20:55)
[2018-03-03] MEDS: amLODIPine 5 MG Tablet PO SCH ×2 (10:14→20:55)
[2018-03-03] MEDS: Heparin - SQ 10,000 UNITS/ML Vial SQ SCH ×2 (10:14→20:54)
[2018-03-03] MEDS: Allopurinol 100 MG Tablet PO SCH (10:15)
[2018-03-03 11:06] LABS: Alanine Aminotransferase 17 U/L (12-78); Anion Gap 8 meq/L (5-15); Aspartate Aminotransferase 12 U/L (15-37); Blood Urea Nitrogen 49 mg/dL (7-18); Calcium 9.4 mg/dL (8.5-10.1); Carbon Dioxide 27.2 meq/L (21.0-32.0); Chloride 103 meq/L (98-107); Glomerular Filtration Rate 29 mL/min (>89); Glucose,Random 137 mg/dL (74-106); Potassium 4.4 meq/L (3.5-5.1); Sodium 138 meq/L (136-145)
[2018-03-03 11:07] LABS: Alkaline Phosphatase 71 U/L (45-117); Total Protein 7.9 g/dL (6.4-8.2)
--- NOTE | 2018-03-03 16:59 | P.PN ---
Subjective Interval history: Patient is seen lying in bed. He tells me that his pain has significantly improved with the prednisone however his gait is still very unstable and he is unable to walk. No chest pain or shortness of breath. No nausea vomiting or diarrhea. Physical Exam Vital signs: Vital Signs 03/02/18 20:00 03/02/18 23:38 03/03/18 00:00 Temperature 98.0 F 98.2 F Pulse Rate 91 H 80 80 Respiratory Rate 22 22 Blood Pressure 169/74 H 165/77 H Pulse Oximetry 94 L 92 L 03/03/18 04:00 03/03/18 07:00 03/03/18 08:00 Temperature 98.0 F 97.8 F Pulse Rate 73 71 75 Respiratory Rate 22 18 Blood Pressure 179/79 H 164/74 H Pulse Oximetry 89 L 98 03/03/18 11:00 03/03/18 12:00 03/03/18 15:00 Temperature 97.4 F L Pulse Rate 80 80 92 H Respiratory Rate 18 Blood Pressure 179/79 H Pulse Oximetry 96 Intake & Output 03/02/18 03/03/18 03/03/18 18:59 06:59 18:59 Intake Total 720 / 720 Output Total 1999 300 / 300 Balance -1999 420 / 420 Intake: Oral 720 / 720 Output: Urine 1999 300 / 300 Other: Date of Last Bowel Movement 03/11/18 Narrative: GENERAL: Well-nourished, well-developed adult male in no obvious distress. SKIN: Warm and dry. HEAD: Atraumatic. Normocephalic. CARDIOVASCULAR: Regular rate and rhythm. RESPIRATORY: No accessory muscle use. Clear to auscultation. Breath sounds equal bilaterally. GASTROINTESTINAL: Abdomen soft, non-tender, non-distended. Positive bowel sounds. MUSCULOSKELETAL: Bilateral lower leg edema; left slight; right +1 to mid knee. No obvious deformities. Well-perfused. NEUROLOGICAL: Awake and alert. No obvious cranial nerve deficits. Motor grossly within normal limits. Normal speech. PSYCHIATRIC: Appropriate mood and affect; insight and judgment good. Results - Labs CBC & Chem 7: 03/03/18 06:25 03/03/18 10:00 Laboratory Results - last 24 hr 03/02/18 03/02/18 03/03/18 18:06 20:37 06:25 WBC 9.2 RBC 3.61 L Hgb 7.7 L Hct 24.5 L MCV 68.0 L MCH 21.3 L MCHC 31.3 L RDW 22.2 H Plt Count 249 MPV 9.3 Neut % (Auto) 85.8 H Lymph % (Auto) 6.5 L [place] % (Auto) 7.3 Eos % (Auto) 0.0 Baso % (Auto) 0.4 Neut # (Auto) 7.9 H Lymph # (Auto) 0.6 L [place] # (Auto) 0.7 Eos # (Auto) 0.0 Baso # (Auto) 0.0 WBC Differential . Differential Comment Auto diff final Sodium Potassium Chloride Carbon Dioxide Anion Gap BUN Creatinine Estimated GFR POC Glucose 303 H 346 H Random Glucose Calcium Total Bilirubin AST ALT Alkaline Phosphatase Total Protein Albumin 03/03/18 03/03/18 03/03/18 07:48 10:00 12:33 WBC RBC Hgb Hct MCV MCH MCHC RDW Plt Count MPV Neut % (Auto) Lymph % (Auto) [place] % (Auto) Eos % (Auto) Baso % (Auto) Neut # (Auto) Lymph # (Auto) [place] # (Auto) Eos # (Auto) Baso # (Auto) WBC Differential Differential Comment Sodium 138 Potassium 4.4 Chloride 103 Carbon Dioxide 27.2 Anion Gap 8 BUN 49 H Creatinine 2.23 H Estimated GFR 29 L POC Glucose 176 H 202 H Random Glucose 137 H Calcium 9.4 Total Bilirubin 0.6 AST 12 L ALT 17 Alkaline Phosphatase 71 Total Protein 7.9 D Albumin 3.0 L Assessment and Plan - Plan 77-year-old male with a past medical history of gout, diabetes, hypertension, COPD and CHF who presented to the emergency room with complaint of right lower leg extremity swelling and weakness. Reports that the swelling has been increasing over the last 4 days. Also reports previous episodes of swelling in the same leg. Right lower extremity weakness/pain/edema -Doppler ultrasound ordered and is negative for DVT -Elevate LE -PT eval -Lasix x 2 given; we will give additional dose 03/02. 03/03 - hold lasix d/t cr increase Hypertension/CHF, chronic -Resume home medications, monitor vitals -Chest x-ray negative for infiltrates; EKG at admit SR Chronic kidney disease -Baseline creatinine appears to be 1.8-2.; Tolerating diuretic -Avoid nephrotoxins; concern for chronic allopurinol- monitor closely Gout -Likely contributing to lower leg pain -uric acid 8.4; continued allopurinol -Will add short course of prednisone. Closely monitor BG. 03/03 - pain and inflammation responsive to 1st dose; continue Chronic anemia -Baseline hemoglobin 8-9; currently stable Diabetes, chronic -Accu-Cheks with sliding scale insulin -Diabetic diet -A1c pending DVT prophylaxis: Heparin Discussed Condition With: Patient, RN
[2018-03-04] MEDS: Levothyroxine 75 MCG Tablet PO SCH (06:04)
[2018-03-04 08:46] LABS: Baso # (Auto) 0.1 th/mm3 (0.0-0.2); Baso % (Auto) 1.1 % (0.0-2.0); Eos % (Auto) 0.3 % (0.0-4.0); Hematocrit 27.5 % (39.0-51.0); Hemoglobin 8.4 gm/dL (13.0-17.0); Lymph # (Auto) 0.9 th/mm3 (1.0-4.8); Lymph % (Auto) 10.9 % (9.0-44.0); Mean Corpuscular Volume 68.5 fL (80.0-100.0); Mean Platelet Volume 10.7 fL (7.0-11.0); Mono # (Auto) 0.5 th/mm3 (0.0-0.9); Mono % (Auto) 6.2 % (0.0-8.0); Neut # (Auto) 6.8 th/mm3 (1.8-7.7); Neut % (Auto) 81.5 % (16.0-70.0); Platelet Count 299 th/mm3 (150-450); Red Blood Count 4.01 mil/mm3 (4.50-5.90); Red Cell Distribution Width 22.4 % (11.6-17.2); White Blood Count 8.4 th/mm3 (4.0-11.0)
[2018-03-04 08:49] LABS: Mean Corpuscular HGB Conc 30.7 % (32.0-36.0)
[2018-03-04 08:58] LABS: Anion Gap 11 meq/L (5-15); Blood Urea Nitrogen 50 mg/dL (7-18); Calcium 9.4 mg/dL (8.5-10.1); Carbon Dioxide 23.8 meq/L (21.0-32.0); Chloride 106 meq/L (98-107); Glomerular Filtration Rate 32 mL/min (>89); Glucose,Random 112 mg/dL (74-106); Potassium 4.6 meq/L (3.5-5.1); Sodium 141 meq/L (136-145)
[2018-03-04 08:59] LABS: Alanine Aminotransferase 18 U/L (12-78); Aspartate Aminotransferase 16 U/L (15-37)
[2018-03-04 09:02] LABS: Alkaline Phosphatase 72 U/L (45-117); Total Protein 7.7 g/dL (6.4-8.2)
[2018-03-04] MEDS: amLODIPine 5 MG Tablet PO SCH ×2 (09:20→21:19)
[2018-03-04] MEDS: Gabapentin 300 MG Capsule PO SCH ×2 (09:20→21:19)
[2018-03-04] MEDS: Heparin - SQ 10,000 UNITS/ML Vial SQ SCH ×2 (09:20→21:25)
[2018-03-04] MEDS: Allopurinol 100 MG Tablet PO SCH (09:21)
[2018-03-04] MEDS: predniSONE 10 MG Tablet PO SCH (09:21)
[2018-03-04] MEDS: Insulin NovoLOG Aspart Correctional Sugar Inj SQ SCH ×4 (12:27→21:37)
--- NOTE | 2018-03-04 15:07 | P.PN ---
Subjective Interval history: Patient is seen sitting up in bed. He denies any chest pain or shortness of breath. Reports that his knee and leg pain have greatly improved. No nausea vomiting or diarrhea. He is tolerating meals well. Still having difficulty ambulating and transferring. Physical Exam Vital signs: Vital Signs 03/03/18 16:00 03/03/18 18:35 03/03/18 20:00 Temperature 97.9 F 97.8 F Pulse Rate 87 89 Respiratory Rate 18 20 Blood Pressure 171/77 H 163/69 H 176/76 H Pulse Oximetry 94 L 96 03/04/18 00:00 Temperature 97.6 F Pulse Rate 74 Respiratory Rate 18 Blood Pressure 173/74 H Pulse Oximetry 98 Intake & Output 03/03/18 03/04/18 03/04/18 18:59 06:59 18:59 Output Total 550 / 550 1450 / 1450 Balance -550 / -550 -1450 / -1450 Output: Urine 550 / 550 1450 / 1450 Other: Date of Last Bowel Movement 03/11/18 03/03/18 Narrative: GENERAL: Well-nourished, well-developed adult male in no obvious distress. SKIN: Warm and dry. HEAD: Atraumatic. Normocephalic. CARDIOVASCULAR: Regular rate and rhythm. RESPIRATORY: No accessory muscle use. Clear to auscultation. Breath sounds equal bilaterally. GASTROINTESTINAL: Abdomen soft, non-tender, non-distended. Positive bowel sounds. MUSCULOSKELETAL: Bilateral lower leg edema; left slight; right +1 to mid trevizo. No obvious deformities. Well-perfused. NEUROLOGICAL: Awake and alert. No obvious cranial nerve deficits. Motor grossly within normal limits. Normal speech. PSYCHIATRIC: Appropriate mood and affect; insight and judgment good. Results - Labs CBC & Chem 7: 03/04/18 06:25 03/04/18 06:25 Laboratory Results - last 24 hr 03/03/18 03/03/18 03/04/18 17:21 20:51 06:25 WBC 8.4 RBC 4.01 L Hgb 8.4 L Hct 27.5 L MCV 68.5 L MCH 21.0 L MCHC 30.7 L RDW 22.4 H Plt Count 299 MPV 10.7 Neut % (Auto) 81.5 H Lymph % (Auto) 10.9 [place] % (Auto) 6.2 Eos % (Auto) 0.3 Baso % (Auto) 1.1 Neut # (Auto) 6.8 Lymph # (Auto) 0.9 L [place] # (Auto) 0.5 Eos # (Auto) 0.0 Baso # (Auto) 0.1 WBC Differential . Differential Comment Auto diff final Sodium Potassium Chloride Carbon Dioxide Anion Gap BUN Creatinine Estimated GFR POC Glucose 255 H 350 H Random Glucose Calcium Total Bilirubin AST ALT Alkaline Phosphatase Total Protein Albumin 03/04/18 03/04/18 03/04/18 06:25 07:44 13:31 WBC RBC Hgb Hct MCV MCH MCHC RDW Plt Count MPV Neut % (Auto) Lymph % (Auto) [place] % (Auto) Eos % (Auto) Baso % (Auto) Neut # (Auto) Lymph # (Auto) [place] # (Auto) Eos # (Auto) Baso # (Auto) WBC Differential Differential Comment Sodium 141 Potassium 4.6 Chloride 106 Carbon Dioxide 23.8 Anion Gap 11 BUN 50 H Creatinine 2.02 H Estimated GFR 32 L POC Glucose 129 H 225 H Random Glucose 112 H Calcium 9.4 Total Bilirubin 0.4 AST 16 ALT 18 Alkaline Phosphatase 72 Total Protein 7.7 Albumin 3.0 L Assessment and Plan - Plan 77-year-old male with a past medical history of gout, diabetes, hypertension, COPD and CHF who presented to the emergency room with complaint of right lower leg extremity swelling and weakness. Reports that the swelling has been increasing over the last 4 days. Also reports previous episodes of swelling in the same leg. Right lower extremity weakness/pain/edema -Doppler ultrasound ordered and is negative for DVT -Elevate LE -PT eval -Change Lasix to 20 mg p.o. daily. Closely monitor kidney function. Currently at baseline 03/04. Hypertension/CHF, chronic -Resume home medications, monitor vitals -Chest x-ray negative for infiltrates; EKG at admit SR Chronic kidney disease -Baseline creatinine appears to be 1.8-2.; Tolerating diuretic -Avoid nephrotoxins; concern for chronic allopurinol- monitor closely Gout -Likely contributing to lower leg pain -uric acid 8.4; continued allopurinol -Will add short course of prednisone. Closely monitor BG. 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
[2018-03-04] MEDS: Furosemide 20 MG Tablet PO SCH (17:30)
[2018-03-05] MEDS: Levothyroxine 75 MCG Tablet PO SCH (05:35)
[2018-03-05 08:24] LABS: Carbon Dioxide 27.5 meq/L (21.0-32.0); Potassium 4.6 meq/L (3.5-5.1)
[2018-03-05] MEDS: Insulin NovoLOG Aspart Correctional Sugar Inj SQ SCH ×4 (09:24→20:47)
[2018-03-05] MEDS: Allopurinol 100 MG Tablet PO SCH (09:25)
[2018-03-05] MEDS: amLODIPine 5 MG Tablet PO SCH ×2 (09:25→20:46)
[2018-03-05] MEDS: predniSONE 10 MG Tablet PO SCH (09:26)
[2018-03-05] MEDS: Gabapentin 300 MG Capsule PO SCH ×2 (09:26→20:46)
[2018-03-05] MEDS: Furosemide 20 MG Tablet PO SCH (09:26)
[2018-03-05] MEDS: Heparin - SQ 10,000 UNITS/ML Vial SQ SCH ×2 (09:27→20:46)
[2018-03-05 11:37] VITALS: RESP 16
--- NOTE | 2018-03-05 15:27 | P.PN ---
Subjective Interval history: Patient is seen lying in bed. He tells me that his knee and leg pain is almost completely resolved. He is still somewhat weak and feels unstable. Denies chest pain or shortness of breath. Denies nausea vomiting or diarrhea. No fever or chills. Physical Exam Vital signs: Vital Signs 03/04/18 16:00 03/04/18 20:00 03/04/18 23:03 Temperature 97.9 F 98.0 F Pulse Rate 77 76 Respiratory Rate 18 19 Blood Pressure 170/78 H 180/80 H 151/68 H Pulse Oximetry 94 L 95 03/05/18 00:00 03/05/18 04:00 03/05/18 04:08 Temperature 98.1 F 97.9 F Pulse Rate 75 70 73 Respiratory Rate 18 Blood Pressure 176/74 H 171/79 H Pulse Oximetry 93 L 95 03/05/18 08:00 03/05/18 11:35 03/05/18 12:55 Temperature 98.4 F 97.5 F L Pulse Rate 66 72 60 Respiratory Rate 18 16 Blood Pressure 180/72 H 145/69 H Pulse Oximetry 95 97 Intake & Output 03/04/18 03/05/18 03/05/18 18:59 06:59 18:59 Intake Total 240 / 240 240 / 240 Output Total 1200 / 1200 1125 / 1125 Balance -960 / -960 -885 / -885 Intake: Oral 240 / 240 240 / 240 Output: Urine 1200 / 1200 1125 / 1125 Other: Date of Last Bowel Movement 03/03/18 03/04/18 Narrative: GENERAL: Well-nourished, well-developed adult male in no obvious distress. SKIN: Warm and dry. HEAD: Atraumatic. Normocephalic. CARDIOVASCULAR: Regular rate and rhythm. RESPIRATORY: No accessory muscle use. Clear to auscultation. Breath sounds equal bilaterally. GASTROINTESTINAL: Abdomen soft, non-tender, non-distended. Positive bowel sounds. MUSCULOSKELETAL: Bilateral lower leg edema; left slight; right +1 to mid trevizo. No obvious deformities. Well-perfused. NEUROLOGICAL: Awake and alert. No obvious cranial nerve deficits. Motor grossly within normal limits. Normal speech. PSYCHIATRIC: Appropriate mood and affect; insight and judgment good. Results - Labs CBC & Chem 7: 03/04/18 06:25 03/05/18 07:05 Laboratory Results - last 24 hr 03/04/18 03/04/18 03/05/18 17:59 20:52 07:05 Sodium 143 Potassium 4.6 Chloride 110 H Carbon Dioxide 27.5 Anion Gap 6 BUN 50 H Creatinine 1.93 H Estimated GFR 34 L POC Glucose 310 H 247 H Random Glucose 126 H Calcium 9.0 03/05/18 03/05/18 09:24 13:12 Sodium Potassium Chloride Carbon Dioxide Anion Gap BUN Creatinine Estimated GFR POC Glucose 127 H 227 H Random Glucose Calcium Assessment and Plan - Plan 77-year-old male with a past medical history of gout, diabetes, hypertension, COPD and CHF who presented to the emergency room with complaint of right lower leg extremity swelling and weakness. Reports that the swelling has been increasing over the last 4 days. Also reports previous episodes of swelling in the same leg. Right lower extremity weakness/pain/edema -Doppler ultrasound ordered and is negative for DVT -Elevate LE -PT eval -Change Lasix to 20 mg p.o. daily. Closely monitor kidney function. Currently at baseline 03/04. Hypertension & CHF, chronic -Resume home medications (updated medication list obtained from patient's levi maker on 03/05. Patient appears to be unaware of many of his medications ; adherence to medication plan is questionable), monitor vitals -Chest x-ray negative for infiltrates; EKG at admit SR -Repeat echo; last on 10/01 EF 55. AVR -Patient on Coumadin at home. Currently getting heparin. Will order INR and transition back to Coumadin. Chronic kidney disease -Baseline creatinine appears to be 1.8-2.; Tolerating diuretic -Avoid nephrotoxins; concern for chronic allopurinol- monitor closely Gout; acute flair -Likely contributing to lower leg pain -uric acid 8.4; continued allopurinol -Will add short course of prednisone. Closely monitor BG. 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
[2018-03-05] MEDS: Metoprolol Tartrate 25 MG Tablet PO SCH (20:46)
[2018-03-05 21:28] LABS: INR 1.1 Ratio; Prothrombin Time 11.1 sec (9.8-11.6)
[2018-03-05] MEDS: Sodium Bicarbonate 650 MG Tablet PO SCH (21:47)
[2018-03-06] MEDS: Levothyroxine 75 MCG Tablet PO SCH (06:45)
[2018-03-06 07:15] VITALS: BP 165/77; TEMP 97.7; O2SAT 93
[2018-03-06] MEDS: predniSONE 10 MG Tablet PO SCH (08:38)
[2018-03-06] MEDS: Metoprolol Tartrate 25 MG Tablet PO SCH (08:39)
[2018-03-06] MEDS: Allopurinol 100 MG Tablet PO SCH (08:39)
[2018-03-06] MEDS: Gabapentin 300 MG Capsule PO SCH (08:39)
[2018-03-06] MEDS: Sodium Bicarbonate 650 MG Tablet PO SCH (08:40)
[2018-03-06] MEDS: Heparin - SQ 10,000 UNITS/ML Vial SQ SCH (08:40)
[2018-03-06] MEDS: amLODIPine 5 MG Tablet PO SCH (08:40)
[2018-03-06] MEDS ORDERED: Ferrous Sulfate 325 MG Tablet PO SCH (09:00)
[2018-03-06] MEDS ORDERED: Furosemide 20 MG Tablet PO SCH (09:00)
[2018-03-06] MEDS ORDERED: Warfarin Consult Pharmacy OTHER PRN (09:15)
[2018-03-06] MEDS: Insulin NovoLOG Aspart Correctional Sugar Inj SQ SCH (09:21)
--- NOTE | 2018-03-06 10:24 | P.DS ---
Date of admission: 03/01/18 00:40 Primary care physician: Silverio Murrell DO Anticipated date of discharge: 03/06/18 Brief History from admission: 77-year-old male with a history of gout, diabetes, hypertension, COPD and CHF presented to the ED with complaints of right lower extremity weakness. Patient states for the last 4 days he has been experiencing weakness/heaviness to the right lower extremity. He describes the pain as aching, heaviness, constant, worse with movement with radiation up his leg with no associated symptoms. He states it has been preventing him from walking. He denies any associated chest pain, shortness of breath, fever or chills. He denies any trauma to that right leg. Patient states he lives alone and he does not feel that he is able to care for himself at home. DS: Diagnosis - Discharge Diagnosis (1) Right leg weakness Status: Acute (2) CHF (congestive heart failure) Status: Acute (3) Accelerated hypertension Status: Acute (4) CKD (chronic kidney disease) Status: Acute (5) Gout flare Status: Acute (6) Diabetes Status: Acute DS: Medications - Discharge Medications Prescriptions: aspirin 81 mg PO DAILY #30 tab oxycodone-acetaminophen 1 tab PO Q6H PRN #12 tab PRN Reason: Pain prednisone 30 mg PO DAILY #9 tab DS: Summary Hospital Course: Patient Update on Day of Discharge: Follow-up for gout flare, right leg swelling/pain, inability to ambulate. Patient reports feeling much better. He has been able to ambulate his room without difficulty. Still with some mild pain throughout the right knee and slightly into the right hip, consistent with previous gout flares. Denies any fevers or chills. He feels ready for discharge. He has no other medical complaints including no headache, lightheadedness, chest pain, shortness of breath, or abdominal complaints. Hospital course: 77-year-old male with a past medical history of gout, diabetes, hypertension, COPD and CHF who presented to the emergency room with complaint of right lower leg extremity swelling and weakness. Reports that the swelling has been increasing over the last 4 days. Also reports previous episodes of swelling in the same leg. Gout Flare with Right lower extremity weakness/pain/edema: symptoms mostly limited to the joints including right great toe, right knee, and right hip. Doppler ultrasound negative for DVT. Uric acid elevated at 8.4. Continue patient's allopurinol and started on prednisone, avoided NSAIDs with CKD. Elevated RLE. Consulted PT, initially recommending rehab due to patient's inability to ambulate. However the patient's symptoms much improved on steroids , and was ambulatory in his room on the last 2 days of admission. He is reevaluated by physical therapy who recommended home health care. Case management consulted, [facility] arranged. Hypertension & CHF: chronic, does not appear to be in exacerbation. Resumed home medications (updated medication list obtained from patient's master deputy sheriff court security on 03/05. Patient appears to be unaware of many of his medications; adherence to medication plan is questionable), monitor vitals. Chest x-ray negative for infiltrates; EKG with sinus rhythm. BNP not elevated at 54. Continue patient's lasix 20mg daily. EMR reviewed, last echo 10/01 with EF 55%. Stable. Outpatient f/up. AVR: recently had surgery in December [address] Rios. Discussed with Dena ROSAS with Dr. Rios, coumadin was discontinued 6weeks after surgery , now recommending only baby aspirin daily for anticoagulation. Stable. Outpatient f/up. Chronic kidney disease: Baseline creatinine appears to be 1.8-2.; Tolerating diuretic. Avoid nephrotoxins; concern for chronic allopurinol- monitor closely, recommended outpatient BMP in 1 week. Chronic anemia: Baseline hemoglobin 8-9; currently stable. No signs of bleeding. Diabetes, chronic. Accu-Cheks with sliding scale insulin. Diabetic diet. HgbA1c 7.2. Outpatient f/up. - Time Spent with Patient Total time spent providing and/or coordinating discharge services: Greater than 30 minutes - Quality: VTE Deep Vein Thrombosis/Pulmonary Embolism Present on Admission: No Exam Vital signs: Vital Signs 03/05/18 11:35 03/05/18 12:55 03/05/18 16:00 Temperature 97.5 F L 97.6 F Pulse Rate 72 60 69 Respiratory Rate 16 16 Blood Pressure 145/69 H 169/85 H Pulse Oximetry 97 98 03/05/18 17:18 03/05/18 20:00 08 00:00 Temperature 97.5 F L 97.4 F L Pulse Rate 63 64 64 Respiratory Rate 16 16 Blood Pressure 176/73 H 162/77 H Pulse Oximetry 98 93 L 08/21/18 04:00 03/06/18 07:13 Temperature 97.6 F 97.7 F Pulse Rate 70 63 Respiratory Rate 16 16 Blood Pressure 175/81 H 165/77 H Pulse Oximetry 96 93 L Intake & Output 03/05/18 03/06/18 03/06/18 18:59 06:59 18:59 Other: Date of Last Bowel Movement 03/04/18 03/04/18 Narrative: GENERAL: Well-nourished, well-developed pleasant elderly male patient in [facility]. SKIN: Warm and dry. No rash. HEENT: Normocephalic. Atraumatic. Pupils equal and round. Mucous membranes pink and moist. CARDIOVASCULAR: Regular rate and rhythm. No murmur appreciated. RESPIRATORY: No accessory muscle use. Clear to auscultation. Breath sounds equal bilaterally. GASTROINTESTINAL: Abdomen soft, non-tender, nondistended. Normoactive bowel sounds x4. MUSCULOSKELETAL: No obvious deformities. Right hallux with mild erythema/edema , right knee with mild edema, nontender. RLE with 1+ edema, LLE with trace edema. NEUROLOGICAL: Awake and alert. No obvious cranial nerve deficits. Motor grossly within normal limits. Moving all extremities spontaneously. Normal speech. PSYCHIATRIC: Appropriate mood and affect; insight and judgment normal. Results Procedures completed during hospitalization: None. Labs on day of discharge: Labs from last 24 hours 03/06/18 03/06/18 03/05/18 09:39 08:46 21:46 PT INR Sodium Pending Potassium Pending Chloride Pending Carbon Dioxide Pending Anion Gap Pending BUN Pending Creatinine Pending POC Glucose 171 H 292 H Random Glucose Pending Calcium Pending 03/05/18 03/05/18 03/05/18 20:23 20:11 18:19 PT 11.1 INR 1.1 Sodium Potassium Chloride Carbon Dioxide Anion Gap BUN Creatinine POC Glucose 332 H 314 H Random Glucose Calcium 03/05/18 13:12 PT INR Sodium Potassium Chloride Carbon Dioxide Anion Gap BUN Creatinine POC Glucose 227 H Random Glucose Calcium - Impressions ITS Impressions Chest X-Ray 02/28/18 20:05 CONCLUSION: Previous bypass No congestive failure or infiltrate. Venous Doppler Study 02/28/18 20:05 CONCLUSION: 1. Negative for deep venous thrombosis in right and left lower extremities. Discharge Plan - Discharge Disposition Patient Disposition: Disch W/Home Health Service - Discharge Condition Condition: Stable - Discharge Order Discharge Orders: Discharge Order (Routine); Ordered 03/06/18 Ordered By: Yisel Cabrera - Discharge Details Anticipated Discharge Date: 03/06/18 Discharge Comment: Await re-evaluation by physical therapy today prior to discharge. - Physicians Team Primary Care Provider: Silverio Murrell Attending Provider: Hi Murrell
--- NOTE | 2018-03-06 10:28 | P.DCO ---
- Diagnosis (1) CKD (chronic kidney disease) (2) Gout flare (3) Diabetes (4) CHF (congestive heart failure) - Physical Therapy Order: Evaluate and treat, Improve ambulation, Strength and gait training - Home Health Nursing Order: Medical education, Signs/symptoms of disease process, CHF education, Nursing assessment with vital signs - Certification I have seen patient Anuj Ingram on 03/06/18. My clinical findings support the need for the requested home health care services because: Limited mobility due to disease progression, Limited ability to care for self I certify that my clinical findings support that this patient is homebound because: Unsteady gait/balance, Unable to use public transportation (1) CKD (chronic kidney disease) Qualifiers: Chronic kidney disease stage: stage 3 (moderate) Qualified Code(s): N18.3 - Chronic kidney disease, stage 3 (moderate) (2) Gout flare Qualifiers: Gout site: multiple sites (3) Diabetes Qualifiers: Diabetes mellitus type: type 2 (4) CHF (congestive heart failure) Qualifiers: Heart failure type: unspecified Heart failure chronicity: acute on chronic Qualified Code(s): I50.9 - Heart failure, unspecified
[2018-03-06 10:50] LABS: Calcium 9.2 mg/dL (8.5-10.1); Potassium 4.2 meq/L (3.5-5.1)
[2018-03-06 12:25] VITALS: PULSE 66
== END 2018-03-06 13:58 | disposition home health service (06) ==
LOC: NEPHCDU 18:52 → NEDA 18:52 → NEPC 18:52 → NEDA 03-01 04:33 → NEDH 03-01 06:16 → NEPHCDU 03-01 13:22
PROVIDERS: ADMIT Hospitalist; ATTEND Hospitalist